=== PATIENT | male | born 1950 | race Caucasian/White ===

== ENCOUNTER 2017-08-16 11:22 | Inpatient (IN) | payer OTHER ==
[~2017-08-16] VITALS: Ht 175.3 cm; Wt 104.0 kg
[~2017-08-16 11:22] MED LIST: ASPI325T45 PO; LSN20 PO; WLLSR100 PO
[2017-08-16] MEDS ORDERED: ATOR10TA82 PO (11:42)
[2017-08-16] MEDS ORDERED: LDN500 PO (11:42)
[2017-08-16] MEDS ORDERED: ASPI81TA28 PO (11:42)
[2017-08-16] MEDS ORDERED: OMEP20TA PO (11:43)
[2017-08-16] MEDS ORDERED: LABETALOL HCL IV 5 MG/ML 20ML IV STA (11:53)
[2017-08-16] MEDS ORDERED: SODIUM CHLORIDE 0.9% 1000ML 1,000 ML IV SCH (11:53)
--- NOTE | 2017-08-16 11:59 | EMERGENCY ROOM VISIT NOTE ---
History Report prepared by Jeronimo: Marcel Burr Under the Supervision of: Dr. Feuntes Parker M.D. First contact with patient: 11:53 Chief Complaint: HYPERTENSION Stated Complaint: HYPERTENSION History of Present Illness The patient is a 66 year old male who presents to the Emergency Room with complaints of constant left sided weakness beginning a few hours ago. The patient states he has not been taking his medication because he ran out. He reports he has also not been eating as much and working double shifts the past three weeks. The patient notes he vomited while being evaluated at the [facility] earlier this morning. Source of History: patient Onset: few hours ago Position: other (left side of the body) Quality: other (weakness) Timing: constant Associated Symptoms: + vomiting Note: Associated symptoms: decreased appetite Review of Systems See HPI for pertinent positives & negatives. A total of 10 systems reviewed and were otherwise negative. Past Medical & Surgical Medical Problems: (1) Hypertension (2) Left-sided weakness (3) Precordial chest pain Family History Cancer Diabetes mellitus FHx: suicide Gallbladder disease Heart disease Hypertension Kidney disease Kidney stones Lung disease Social History Smoking Status: Never Smoker Marital Status: single Housing Status: other Occupation Status: unemployed Current/Historical Medications Scheduled Aspirin (Aspirin Ec), 81 MG PO DAILY Atorvastatin (Lipitor), 5 MG PO DAILY Bupropion HCl (Bupropion HCl Sr), 100 MG PO DAILY Etodolac (Etodolac), 1,000 MG PO BID Lisinopril (Lisinopril), 20 MG PO DAILY Omeprazole (Omeprazole), 40 MG PO DAILY Allergies Coded Allergies: No Known Allergies (Unverified , 08/16/17) Physical Exam Vital Signs Date Time Temp Pulse Resp B/P (MAP) Pulse Ox O2 Delivery O2 Flow Rate FiO2 08/16/17 13:09 72 20 173/108 99 Room Air 08/16/17 12:32 100 Ambu-Bag 08/16/17 12:32 70 14 163/103 98 Room Air 08/16/17 12:31 67 08/16/17 11:35 36.8 109 20 194/109 100 Room Air Physical Exam GENERAL: Patient is a healthy-appearing well-nourished 66 year old male. HEAD: Normocephalic atraumatic EYES: Ocular movements intact pupils equal and react to light OROPHARYNX mucous membranes are moist no exudates present no erythema or edema present NECK: Supple no nuchal rigidity CHEST: Good equal expansion LUNGS: Clear and equal to auscultation CARDIAC: Normal S1 and S2 ABDOMEN: Soft nontender no guarding BACK: No CVA tenderness EXTREMITIES: No pain upon palpation normal muscle strength in all groups no clubbing cyanosis or edema NEURO: Patient is following commands and answering questions appropriately. Alert and oriented x3 Cranial Nerves 2-12 grossly intact. 1/5 strength to the left arm and leg. Medical Decision & Procedures ER Provider Diagnostic Interpretation: Radiology results as stated below per my review and radiologist interpretation: HEAD WITHOUT CONTRAST (CT) CLINICAL HISTORY: 66 years-old Male with Stroke. Stroke alert. Acute strokelike symptoms TECHNIQUE: Multiple axial CT images of the head were obtained without contrast. A dose lowering technique was utilized adhering to the principles of ALARA. CT DOSE: 776.86 mGycm COMPARISON: CT head 06/21/2016. FINDINGS: No acute intracranial hemorrhage, midline shift, intracranial mass, hydrocephalus, territorial ischemia or abnormal extra-axial collection. Mild cerebral and cerebellar atrophy. Senescent calcifications of the lentiform nuclei. Vascular calcifications are seen at the level of the skull base. Probable mild chronic microvascular ischemic changes. The calvarium is intact. The mastoid air cells, and middle ear cavities are clear. Minimal mucosal thickening of the maxillary sinuses with mild ethmoid sinus disease. IMPRESSION: No acute intracranial abnormality. The above report was generated using voice recognition software. It may contain grammatical, syntax or spelling errors. Electronically signed by: Kareem Paz M.D. 08/16/2017 12:17 PM Dictated Date/Time: 08/16/2017 12:13 PM CHEST ONE VIEW PORTABLE CLINICAL HISTORY: Stroke L status change COMPARISON STUDY: 07/23/2016 FINDINGS: The bones soft tissues and hemidiaphragms are normal. The cardiomediastinal silhouette is normal. The lungs are clear. The pulmonary vasculature is normal. IMPRESSION: Negative chest. The above report was generated using voice recognition software. It may contain grammatical, syntax or spelling errors. Electronically signed by: Robby Sabillon M.D. 08/16/2017 12:31 PM Dictated Date/Time: 08/16/2017 12:30 PM MRA NECK COMBO CLINICAL HISTORY: 66 years-old Male with Pt c/o left sided weakness. Acute left-sided weakness with strokelike symptoms. Lightheadedness with dizziness and vomiting COMPARISON STUDY: Brain MRI of same day, MRA head and CTA had of same day. TECHNIQUE: Axial 3-D [id number] MR angiography of the neck is performed. Subsequently, following the IV administration of 10 cc of Magnevist coronal MR angiogram of the neck was performed to corroborate the findings. 3-D reformats are created and assessed. All measurements were calculated based on NASCET criteria. FINDINGS: The large oxeah-km-lwal testing and regulating chief localizer images demonstrate no gross abnormality. The bilateral common and imaged internal carotid arteries are patent. The exam is mildly motion degraded. The vertebral arteries appear codominant and are patent. There is mild luminal narrowing involving the proximal portions of the internal carotid arteries bilaterally, likely secondary to atherosclerotic plaquing without high-grade narrowing. IMPRESSION: 1. No high-grade stenosis, aneurysm or proximal branch occlusion. 2. Mild luminal narrowing involving the proximal portions of the internal carotid arteries bilaterally is likely secondary to associated atherosclerotic plaquing. The above report was generated using voice recognition software. It may contain grammatical, syntax or spelling errors. Electronically signed by: Kareem Paz M.D. 08/16/2017 2:55 PM Dictated Date/Time: 08/16/2017 2:50 PM MRA HEAD WITHOUT CONTRAST HISTORY: Mental status change Pt c/o left sided weakness TECHNIQUE: 3-D [id number]-rw-pbrhbk MRA of the brain was performed without contrast. COMPARISON STUDY: CT angiogram same date FINDINGS: Visualized intracranial internal carotid arteries, distal vertebral arteries, and basilar artery are widely patent. There is no significant stenosis, occlusion, or aneurysm seen within the bilateral ACAs, MCAs, or residential real estate assistant. Mild narrowing of the cavernous component of the internal carotid arteries as well as components of the vertebral basilar system. IMPRESSION: No significant stenosis, occlusion, or aneurysm within the [place]. Mild scattered atherosclerotic change The above report was generated using voice recognition software. It may contain grammatical, syntax or spelling errors. Electronically signed by: Robby Sabillon M.D. 08/16/2017 2:19 PM Dictated Date/Time: 08/16/2017 2:18 PM HEAD ANGIO WITH CONTRAST CLINICAL HISTORY: Mental status change TECHNIQUE: Transaxial acquisition with multi axial reformatted images COMPARISON STUDY: None FINDINGS: Moderate atherosclerotic narrowing of the internal carotid arteries at the cavernous sinus regions. This is estimated at 50%. Intracranial vasculature appears to be in general unremarkable. No significant stenotic or aneurysmal process is seen. Mild scattered atherosclerotic/plaque formation of the vertebral basilar system with no significant stenotic process. IMPRESSION: 1. Moderate atherosclerotic change of the intracranial vasculature at the level of the cavernous sinus and mid vertebral basilar system. 2. Moderate atherosclerotic change vertebral basilar system. 3. No evidence for significant stenotic or aneurysmal process. The above report was generated using voice recognition software. It may contain grammatical, syntax or spelling errors. Electronically signed by: Robby Sabillon M.D. 08/16/2017 1:38 PM Dictated Date/Time: 08/16/2017 1:33 PM MRI OF THE BRAIN WITHOUT AND WITH IV CONTRAST CLINICAL HISTORY: Left sided weakness. Headache. Recent fall. COMPARISON STUDY: Head CT and CTA of the head performed earlier today. TECHNIQUE: Utilizing a 1.5 Alexandra magnet and dedicated coil, multiplanar, multiecho imaging of the brain was performed pre and postcontrast administration. IV administration of 10 mL of Gadavist contrast was uneventful. FINDINGS: No areas of restricted diffusion are present. No acute intracranial hemorrhage, midline shift or mass effect is present. Mild atrophy is noted. Basilar cisterns are patent. There are no extra-axial collections. Flow-voids for the major intracranial vessels are present. There is no intracranial mass or pathologic enhancement. Numerous small white matter T2 hyperintense foci suggest small vessel disease. Calvarial signal is maintained. Orbits are unremarkable. Mild mucosal thickening of the ethmoid sinuses is noted. IMPRESSION: 1. No acute intracranial findings. 2. No intracranial masses or pathologic enhancement. 3. Mild atrophy and scattered white matter T2 hypertense foci suggestive of small vessel disease. Electronically signed by: Phani Bradshaw M.D. 08/16/2017 2:54 PM Dictated Date/Time: 08/16/2017 2:50 PM Laboratory Results 08/16/17 12:00 Red Blood Count 4.87, Mean Corpuscular Volume 92.4, Mean Corpuscular Hemoglobin 31.4, Mean Corpuscular Hemoglobin Concent 34.0, Mean Platelet Volume 9.1, Neutrophils (%) (Auto) 64.1, Lymphocytes (%) (Auto) 20.9, Monocytes (%) (Auto) 12.2, Eosinophils (%) (Auto) 2.2, Basophils (%) (Auto) 0.4, Neutrophils # (Auto ) 2.88, Lymphocytes # (Auto) 0.94, Monocytes # (Auto) 0.55, Eosinophils # (Auto ) 0.10, Basophils # (Auto) 0.02 08/16/17 12:00 Test 08/16/17 12:00 08/16/17 12:19 White Blood Count 4.50 K/uL (4.8-10.8) Red Blood Count 4.87 M/uL (4.7-6.1) Hemoglobin 15.3 g/dL (14.0-18.0) Hematocrit 45.0 % (42-52) Mean Corpuscular Volume 92.4 fL (80-100) Mean Corpuscular Hemoglobin 31.4 pg (25-34) Mean Corpuscular Hemoglobin Concent 34.0 g/dl (32-36) Platelet Count 190 K/uL (130-400) Mean Platelet Volume 9.1 fL (7.4-10.4) Neutrophils (%) (Auto) 64.1 % Lymphocytes (%) (Auto) 20.9 % Monocytes (%) (Auto) 12.2 % Eosinophils (%) (Auto) 2.2 % Basophils (%) (Auto) 0.4 % Neutrophils # (Auto) 2.88 K/uL (1.4-6.5) Lymphocytes # (Auto) 0.94 K/uL (1.2-3.4) Monocytes # (Auto) 0.55 K/uL (0.11-0.59) Eosinophils # (Auto) 0.10 K/uL (0-0.5) Basophils # (Auto) 0.02 K/uL (0-0.2) RDW Standard Deviation 45.7 fL (36.4-46.3) RDW Coefficient of Variation 13.5 % (11.5-14.5) Immature Granulocyte % (Auto) 0.2 % Immature Granulocyte # (Auto) 0.01 K/uL (0.00-0.02) Prothrombin Time 9.8 SECONDS (9.0-12.0) Prothromb Time International Ratio 0.9 (0.9-1.1) Activated Partial Thromboplast Time 26.0 SECONDS (21.0-31.0) Partial Thromboplastin Ratio 1.0 Anion Gap 5.0 mmol/L (3-11) Est Creatinine Clear Calc Drug Dose 94.7 ml/min Estimated GFR () 100.8 Estimated GFR (Non- 87.0 BUN/Creatinine Ratio 23.9 (10-20) Calcium Level 8.5 mg/dl (8.5-10.1) Magnesium Level 2.3 mg/dl (1.8-2.4) Total Creatine Kinase 178 U/L (39-308) Creatine Kinase MB 5.8 ng/ml (0.5-3.6) Creatine Kinase MB Ratio 3.3 (0-3.0) Troponin I < 0.015 ng/ml (0-0.045) Bedside Prothrombin Time INR 0.9 (0.9-1.1) Labs reviewed by ED physician. Medications Administered Medications (Trade) Dose Ordered Sig/Sarah Route Start Time Stop Time Status Last Admin Dose Admin Labetalol HCl (Normodyne IV) 10 mg NOW STAT IV 08/16/17 11:53 08/16/17 11:55 DC 08/16/17 12:30 10 MG Sodium Chloride 1,000 ml @ 50 mls/hr Q20H IV 08/16/17 11:53 08/16/17 15:14 DC 08/16/17 12:27 50 MLS/HR Ondansetron HCl (Zofran Inj) 4 mg NOW STAT IV 08/16/17 12:10 08/16/17 12:11 DC 08/16/17 12:31 4 MG ECG Indication: weakness Rate (beats per minute): 83 Rhythm: normal sinus Findings: no acute ischemic change, no ectopy ED Course 1157: Past medical records reviewed. The patient was evaluated in room C10. A complete history and physical examination was performed. 1153: Ordered Sodium Chloride 1000 ml @ 50 mls/hr IV, Labetalol HCl 10mg IV 1210: Ordered Ondansetron HCl 4mg IV 1219: I reevaluated the patient and discussed current exam findings with him. I had a length discussion explaining the risks and benefits of tPA administration. After I strongly recommended the administration since he is still experiencing the weakness, the patient still refused. 1241: I updated the patient of his new exam findings. 1252: I [facility] the patient's [facility] The patient will be evaluated for further management and care. Medical Decision Differential diagnosis: Etiologies such as metabolic, infection, hypo/hyperglycemia, electrolyte abnormalities, cardiac sources, intracerebral event, toxicologic, neurologic, as well as others were entertained. This is a 66-year-old male who presents emergency department complaining of inability to move the left side of his body. The patient was recently told he has a abnormality on MRI and was told to have a diagnostic MRI performed. I strongly recommended to the patient that he receive IV TPA however he is adamantly refusing. I gave him the risks and benefits of this medication. In the meanwhile the patient was given IV labetalol to lower his blood pressure. Repeat examination revealed improvement patient's symptoms. A stroke alert was initiated because of the patient's symptoms. I did discuss the case with the hospitalist service who agreed to admit the patient. Medication Reconcilliation Current Medication List: was personally reviewed by me Blood Pressure Screening Patient's blood pressure: Elevated blood pressure Monitored by hospitalist. Consults Time Called: 1242 Consulting Physician: Leticia Sam PA-C, [facility] Returned Call: [phone] I discussed the patient's case with Leticia Sam PA-C, [facility]. The patient will be evaluated for further management and care. Impression Primary Impression: Left-sided weakness Scribe Attestation The scribe's documentation has been prepared under my direction and personally reviewed by me in its entirety. I confirm that the note above accurately reflects all work, treatment, procedures, and medical decision making performed by me. Departure Information Dispostion Being Evaluated By Hospitalist Referrals Tracie Tyler D.O. (PCP) Patient Instructions My [facility] Stroke History Time Last Known Well 0900 Stroke t-PA Criteria Reviewed Meets criteria for t-PA Reason t-PA Not Given Refusal of tx by patient
[2017-08-16] MEDS ORDERED: ONDANSETRON INJ 2 MG/ML 2 ML VIAL IV STA (12:10)
[2017-08-16 12:15] LABS: BASO % 0.4 %; BASO ABS # 0.02 K/uL (0-0.2); EOS % 2.2 %; HEMOGLOBIN 15.3 g/dL (14.0-18.0); IG# 0.01 K/uL (0.00-0.02); LYMPH % 20.9 %; LYMPH ABS # 0.94 K/uL (1.2-3.4); MEAN CELL VOLUME 92.4 fL (80-100); MEAN CORPUSCULAR HEMOGLOBIN 31.4 pg (25-34); MEAN PLATELET VOLUME 9.1 fL (7.4-10.4); MONO % 12.2 %; MONO ABS # 0.55 K/uL (0.11-0.59); NEUT % 64.1 %; NEUT ABS # 2.88 K/uL (1.4-6.5); PLATELET COUNT 190 K/uL (130-400); RED CELL DISTRIBUTION WIDTH CV 13.5 % (11.5-14.5); RED CELL DISTRIBUTION WIDTH SD 45.7 fL (36.4-46.3)
--- NOTE | 2017-08-16 12:18 | DIAGNOSTIC IMAGING REPORT ---
HEAD WITHOUT CONTRAST (CT) CLINICAL HISTORY: 66 years-old Male with Stroke. Stroke alert. Acute strokelike symptoms TECHNIQUE: Multiple axial CT images of the head were obtained without contrast. A dose lowering technique was utilized adhering to the principles of ALARA. CT DOSE: 776.86 mGycm COMPARISON: CT head 06/21/2016. FINDINGS: No acute intracranial hemorrhage, midline shift, intracranial mass, hydrocephalus, territorial ischemia or abnormal extra-axial collection. Mild cerebral and cerebellar atrophy. Senescent calcifications of the lentiform nuclei. Vascular calcifications are seen at the level of the skull base. Probable mild chronic microvascular ischemic changes. The calvarium is intact. The mastoid air cells, and middle ear cavities are clear. Minimal mucosal thickening of the maxillary sinuses with mild ethmoid sinus disease. IMPRESSION: No acute intracranial abnormality. The above report was generated using voice recognition software. It may contain grammatical, syntax or spelling errors. Electronically signed by: Kareem Paz M.D. 08/16/2017 12:17 PM Dictated Date/Time: 08/16/2017 12:13 PM
[2017-08-16] MEDS ORDERED: NiCARDipine IV 25 MG in SODIUM CHLORIDE 0.9% 250ML 240 ML IV STA (12:22)
[2017-08-16 12:26] LABS: INR 0.9 (0.9-1.1)
--- NOTE | 2017-08-16 12:32 | DIAGNOSTIC IMAGING REPORT ---
CHEST ONE VIEW PORTABLE CLINICAL HISTORY: Stroke L status change COMPARISON STUDY: 07/23/2016 FINDINGS: The bones soft tissues and hemidiaphragms are normal. The cardiomediastinal silhouette is normal. The lungs are clear. The pulmonary vasculature is normal. IMPRESSION: Negative chest. The above report was generated using voice recognition software. It may contain grammatical, syntax or spelling errors. Electronically signed by: Robby Sabillon M.D. 08/16/2017 12:31 PM Dictated Date/Time: 08/16/2017 12:30 PM
[2017-08-16 12:37] LABS: BLOOD UREA NITROGEN 22 mg/dl (7-18); CALCIUM 8.5 mg/dl (8.5-10.1); CARBON DIOXIDE 24 mmol/L (21-32); CREATININE 0.92 mg/dl (0.60-1.40); GLUCOSE 99 mg/dl (70-99); POTASSIUM 4.1 mmol/L (3.5-5.1); SODIUM 135 mmol/L (136-145)
[2017-08-16 12:42] LABS: CKMB 5.8 ng/ml (0.5-3.6)
[2017-08-16] MEDS ORDERED: OPTIRAY 320 IV PRN (13:15)
[2017-08-16] MEDS ORDERED: ACETAMINOPHEN 325 MG TAB PO PRN (13:30)
[2017-08-16] MEDS ORDERED: ONDANSETRON INJ 2 MG/ML 2 ML VIAL IV PRN (13:30)
[2017-08-16] MEDS ORDERED: AMLODIPINE BESYLATE 5 MG TAB PO ONE (13:30)
--- NOTE | 2017-08-16 13:39 | DIAGNOSTIC IMAGING REPORT ---
HEAD ANGIO WITH CONTRAST CLINICAL HISTORY: Mental status change TECHNIQUE: Transaxial acquisition with multi axial reformatted images COMPARISON STUDY: None FINDINGS: Moderate atherosclerotic narrowing of the internal carotid arteries at the cavernous sinus regions. This is estimated at 50%. Intracranial vasculature appears to be in general unremarkable. No significant stenotic or aneurysmal process is seen. Mild scattered atherosclerotic/plaque formation of the vertebral basilar system with no significant stenotic process. IMPRESSION: 1. Moderate atherosclerotic change of the intracranial vasculature at the level of the cavernous sinus and mid vertebral basilar system. 2. Moderate atherosclerotic change vertebral basilar system. 3. No evidence for significant stenotic or aneurysmal process. The above report was generated using voice recognition software. It may contain grammatical, syntax or spelling errors. Electronically signed by: Robby Sabillon M.D. 08/16/2017 1:38 PM Dictated Date/Time: 08/16/2017 1:33 PM
--- NOTE | 2017-08-16 14:14 | History and Physical ---
History & Physical Date & Time of Service: Aug 16, 2017 at 13:39 Chief Complaint: Hypertension Primary Care Physician: Tracie Tyler D.O. History of Present Illness Source: patient, clinic records, hospital records This is a 66 year old male with a PMH of HTN, HLD, homelessness status - lives with his daughters intermittent around this area; states that for the past two weeks he has been out of his medications, including his blood pressure pills. [facility], and states that at the clinic his left side became weak. He could not move or feel his left arm/leg and there was a possible facial droop as per patient. He presented to the ED and had a Head CT performed and this was negative. When I went to see him, his L sided weakness was improving. There is no facial droop or speech slurring. He has difficulty with L shoulder shrugging due to previous L shoulder arthritis/injuries. States he still has numbness/tingling on LLE. He has tangential thoughts and flight of ideas - but can be redirected with questions. Denies shortness of breath or chest pain. Past Medical/Surgical History Medical Problems: (1) Hypertension Status: Chronic Family History Cancer Diabetes mellitus FHx: suicide Gallbladder disease Heart disease Hypertension Kidney disease Kidney stones Lung disease Social History Smoking Status: Never Smoker Marital Status: single Occupational Status: unemployed Multi-Drug Resistant Organisms History of MDRO: No Allergies Coded Allergies: No Known Allergies (Unverified , 08/16/17) Home Medications Scheduled Aspirin (Aspirin Ec), 81 MG PO DAILY Atorvastatin (Lipitor), 5 MG PO DAILY Bupropion HCl (Bupropion HCl Sr), 100 MG PO DAILY Etodolac (Etodolac), 1,000 MG PO BID Lisinopril (Lisinopril), 20 MG PO DAILY Omeprazole (Omeprazole), 40 MG PO DAILY Review of Systems Difficult to obtain due to patient's tangential thoughts Constitutional: + weakness Respiratory: No shortness of breath, No dyspnea on exertion, No dyspnea at rest Cardiovascular: No chest pain, No edema, No palpitations Abdomen: No pain Musculoskeletal: + joint pain (L shoulder, multiple joints), + muscle pain Neurologic: + weakness, + numbness/tingling, + balance problems, No memory loss , No paralysis, No vertigo Hematologic / Lymphatic: No abnormal bleeding/bruising Physical Exam Vital Signs Date Time Temp Pulse Resp B/P (MAP) Pulse Ox O2 Delivery O2 Flow Rate FiO2 08/16/17 12:32 100 Ambu-Bag 08/16/17 12:32 70 14 163/103 98 Room Air 08/16/17 12:31 67 08/16/17 11:35 36.8 109 20 194/109 100 Room Air General Appearance: no apparent distress, + pertinent finding (slightly disoriented, with tangential thoughts) Head: normocephalic, atraumatic Respiratory/Chest: chest non-tender, lungs clear, normal breath sounds, no respiratory distress, no accessory muscle use Cardiovascular: regular rate, rhythm, no edema, no murmur Abdomen/GI: normal bowel sounds, non tender, soft Extremities/Musculoskelatal: normal capillary refill, no pedal edema Neurologic/Psych: alert, + motor weakness (LLE, 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), + disoriented (oriented x3, but difficulty with recall) Skin: normal color Diagnostics Laboratory Results Results Past 24 Hours Test 08/16/17 12:00 08/16/17 12:19 Range/Units White Blood Count 4.50 4.8-10.8 K/uL Red Blood Count 4.87 4.7-6.1 M/uL Hemoglobin 15.3 14.0-18.0 g/dL Hematocrit 45.0 42-52 % Mean Corpuscular Volume 92.4 80-100 fL Mean Corpuscular Hemoglobin 31.4 25-34 pg Mean Corpuscular Hemoglobin Concent 34.0 32-36 g/dl Platelet Count 190 130-400 K/uL Mean Platelet Volume 9.1 7.4-10.4 fL Neutrophils (%) (Auto) 64.1 % Lymphocytes (%) (Auto) 20.9 % Monocytes (%) (Auto) 12.2 % Eosinophils (%) (Auto) 2.2 % Basophils (%) (Auto) 0.4 % Neutrophils # (Auto) 2.88 1.4-6.5 K/uL Lymphocytes # (Auto) 0.94 1.2-3.4 K/uL Monocytes # (Auto) 0.55 0.11-0.59 K/uL Eosinophils # (Auto) 0.10 0-0.5 K/uL Basophils # (Auto) 0.02 0-0.2 K/uL RDW Standard Deviation 45.7 36.4-46.3 fL RDW Coefficient of Variation 13.5 11.5-14.5 % Immature Granulocyte % (Auto) 0.2 % Immature Granulocyte # (Auto) 0.01 0.00-0.02 K/uL Prothrombin Time 9.8 9.0-12.0 SECONDS Prothromb Time International Ratio 0.9 0.9-1.1 Activated Partial Thromboplast Time 26.0 21.0-31.0 SECONDS Partial Thromboplastin Ratio 1.0 Sodium Level 135 136-145 mmol/L Potassium Level 4.1 3.5-5.1 mmol/L Chloride Level 106 98-107 mmol/L Carbon Dioxide Level 24 21-32 mmol/L Anion Gap 5.0 3-11 mmol/L Blood Urea Nitrogen 22 7-18 mg/dl Creatinine 0.92 0.60-1.40 mg/dl Est Creatinine Clear Calc Drug Dose 94.7 ml/min Estimated GFR () 100.8 Estimated GFR (Non- 87.0 BUN/Creatinine Ratio 23.9 10-20 Random Glucose 99 70-99 mg/dl Calcium Level 8.5 8.5-10.1 mg/dl Magnesium Level 2.3 1.8-2.4 mg/dl Total Creatine Kinase 178 39-308 U/L Creatine Kinase MB 5.8 0.5-3.6 ng/ml Creatine Kinase MB Ratio 3.3 0-3.0 Troponin I < 0.015 0-0.045 ng/ml Bedside Prothrombin Time INR 0.9 0.9-1.1 Diagnostic Radiology HEAD WITHOUT CONTRAST (CT) CLINICAL HISTORY: 66 years-old Male with Stroke. Stroke alert. Acute strokelike symptoms TECHNIQUE: Multiple axial CT images of the head were obtained without contrast. A dose lowering technique was utilized adhering to the principles of ALARA. CT DOSE: 776.86 mGycm COMPARISON: CT head 06/21/2016. FINDINGS: No acute intracranial hemorrhage, midline shift, intracranial mass, hydrocephalus, territorial ischemia or abnormal extra-axial collection. Mild cerebral and cerebellar atrophy. Senescent calcifications of the lentiform nuclei. Vascular calcifications are seen at the level of the skull base. Probable mild chronic microvascular ischemic changes. The calvarium is intact. The mastoid air cells, and middle ear cavities are clear. Minimal mucosal thickening of the maxillary sinuses with mild ethmoid sinus disease. IMPRESSION: No acute intracranial abnormality. CHEST ONE VIEW PORTABLE CLINICAL HISTORY: Stroke L status change COMPARISON STUDY: 07/23/2016 FINDINGS: The bones soft tissues and hemidiaphragms are normal. The cardiomediastinal silhouette is normal. The lungs are clear. The pulmonary vasculature is normal. IMPRESSION: Negative chest. HEAD ANGIO WITH CONTRAST CLINICAL HISTORY: Mental status change TECHNIQUE: Transaxial acquisition with multi axial reformatted images COMPARISON STUDY: None FINDINGS: Moderate atherosclerotic narrowing of the internal carotid arteries at the cavernous sinus regions. This is estimated at 50%. Intracranial vasculature appears to be in general unremarkable. No significant stenotic or aneurysmal process is seen. Mild scattered atherosclerotic/plaque formation of the vertebral basilar system with no significant stenotic process. IMPRESSION: 1. Moderate atherosclerotic change of the intracranial vasculature at the level of the cavernous sinus and mid vertebral basilar system. 2. Moderate atherosclerotic change vertebral basilar system. 3. No evidence for significant stenotic or aneurysmal process. EKG Normal sinus rhythm Normal ECG Impression Assessment and Plan This is a 66 year old male with a PMH of HTN, HLD presents with L sided motor weakness Hypertensive Urgency BP >200/100 on admission give Labetalol as per patient, he has been out of his medications x2 weeks, including his BP meds will give a dose of amlodipine restart his home dose of Lisinopril monitor BP and adjust medications accordingly L sided weakness possible TIA? Head CT negative CTA shows some atherosclerosis of some intracranial vasculature will check MRI/MRA of head/neck consult neurology for now continue aspirin, statin may need to increase Lipitor dose - check fasting lipids in AM due to non-compliance unsure of Plavix addition would help continue blood pressure medications check TSH and vitamin B12 in AM PT/OT/speech/discharge planning DVT ppx Lovenox FULL CODE VTE Prophylaxis VTE Risk Assessment Done? Y/N: Yes Risk Level: Moderate
--- NOTE | 2017-08-16 14:21 | DIAGNOSTIC IMAGING REPORT ---
MRA HEAD WITHOUT CONTRAST HISTORY: Mental status change Pt c/o left sided weakness TECHNIQUE: 3-D [id number] MRA of the brain was performed without contrast. COMPARISON STUDY: CT angiogram same date FINDINGS: Visualized intracranial internal carotid arteries, distal vertebral arteries, and basilar artery are widely patent. There is no significant stenosis, occlusion, or aneurysm seen within the bilateral ACAs, MCAs, or bull gang supervisor. Mild narrowing of the cavernous component of the internal carotid arteries as well as components of the vertebral basilar system. IMPRESSION: No significant stenosis, occlusion, or aneurysm within the [place] of [place]. Mild scattered atherosclerotic change The above report was generated using voice recognition software. It may contain grammatical, syntax or spelling errors. Electronically signed by: Robby Sabillon M.D. 08/16/2017 2:19 PM Dictated Date/Time: 08/16/2017 2:18 PM
[2017-08-16] MEDS ORDERED: GADAVIST IV PRN (14:45)
--- NOTE | 2017-08-16 14:55 | DIAGNOSTIC IMAGING REPORT ---
MRI OF THE BRAIN WITHOUT AND WITH IV CONTRAST CLINICAL HISTORY: Left sided weakness. Headache. Recent fall. COMPARISON STUDY: Head CT and CTA of the head performed earlier today. TECHNIQUE: Utilizing a 1.5 Alexandra magnet and dedicated coil, multiplanar, multiecho imaging of the brain was performed pre and postcontrast administration. IV administration of 10 mL of Gadavist contrast was uneventful. FINDINGS: No areas of restricted diffusion are present. No acute intracranial hemorrhage, midline shift or mass effect is present. Mild atrophy is noted. Basilar cisterns are patent. There are no extra-axial collections. Flow-voids for the major intracranial vessels are present. There is no intracranial mass or pathologic enhancement. Numerous small white matter T2 hyperintense foci suggest small vessel disease. Calvarial signal is maintained. Orbits are unremarkable. Mild mucosal thickening of the ethmoid sinuses is noted. IMPRESSION: 1. No acute intracranial findings. 2. No intracranial masses or pathologic enhancement. 3. Mild atrophy and scattered white matter T2 hypertense foci suggestive of small vessel disease. Electronically signed by: Phani Bradshaw M.D. 08/16/2017 2:54 PM Dictated Date/Time: 08/16/2017 2:50 PM
--- NOTE | 2017-08-16 14:56 | DIAGNOSTIC IMAGING REPORT ---
MRA NECK COMBO CLINICAL HISTORY: 66 years-old Male with Pt c/o left sided weakness. Acute left-sided weakness with strokelike symptoms. Lightheadedness with dizziness and vomiting COMPARISON STUDY: Brain MRI of same day, MRA head and CTA had of same day. TECHNIQUE: Axial 3-D [id number] MR angiography of the neck is performed. Subsequently, following the IV administration of 10 cc of Magnevist coronal MR angiogram of the neck was performed to corroborate the findings. 3-D reformats are created and assessed. All measurements were calculated based on NASCET criteria. FINDINGS: The large [id number] assistant professor of art localizer images demonstrate no gross abnormality. The bilateral common and imaged internal carotid arteries are patent. The exam is mildly motion degraded. The vertebral arteries appear codominant and are patent. There is mild luminal narrowing involving the proximal portions of the internal carotid arteries bilaterally, likely secondary to atherosclerotic plaquing without high-grade narrowing. IMPRESSION: 1. No high-grade stenosis, aneurysm or proximal branch occlusion. 2. Mild luminal narrowing involving the proximal portions of the internal carotid arteries bilaterally is likely secondary to associated atherosclerotic plaquing. The above report was generated using voice recognition software. It may contain grammatical, syntax or spelling errors. Electronically signed by: Kareem Paz M.D. 08/16/2017 2:55 PM Dictated Date/Time: 08/16/2017 2:50 PM
[2017-08-16 15:04] VITALS: BP 174/111; PULSE 77; TEMP 36.6; O2SAT 99; Ht 175.3 cm; Wt 104.0 kg
[2017-08-16] MEDS ORDERED: ENOXAPARIN 40 MG/0.4 ML SYR SC SCH (16:00)
[2017-08-16 16:50] VITALS: BP 165/86
[2017-08-16] MEDS: CLOPIDOGREL BISULFATE 75 MG TAB PO SCH (17:14)
[2017-08-16] MEDS: SODIUM CHLORIDE 0.9% 1000ML 1,000 ML IV SCH (17:23)
[2017-08-16 19:00] VITALS: BP 158/84; PULSE 86; TEMP 36.7; O2SAT 96
[2017-08-16] MEDS ORDERED: ETODOLAC PO SCH (21:00)
[2017-08-16 23:42] VITALS: BP 131/78; PULSE 78; TEMP 36.5; O2SAT 97
[2017-08-17] MEDS: SODIUM CHLORIDE 0.9% 1000ML 1,000 ML IV SCH (03:43)
[2017-08-17 04:30] VITALS: BP 122/81; PULSE 88; TEMP 36.7; O2SAT 96
[2017-08-17 06:55] LABS: HEMATOCRIT 40.7 % (42-52); HEMOGLOBIN 13.7 g/dL (14.0-18.0); MEAN CELL VOLUME 92.7 fL (80-100); MEAN CORPUSCULAR HEMOGLOBIN 31.2 pg (25-34); MEAN CORPUSCULAR HGB CONC 33.7 g/dl (32-36); MEAN PLATELET VOLUME 9.4 fL (7.4-10.4); NUCLEATED RED BLOOD CELL ABS 0.03 K/uL (0-0); PLATELET COUNT 191 K/uL (130-400); RED CELL DISTRIBUTION WIDTH CV 13.5 % (11.5-14.5); RED CELL DISTRIBUTION WIDTH SD 45.9 fL (36.4-46.3); WHITE BLOOD COUNT 3.83 K/uL (4.8-10.8)
[2017-08-17 07:13] LABS: CALCIUM 8.4 mg/dl (8.5-10.1); CREATININE 0.99 mg/dl (0.60-1.40)
[2017-08-17] MEDS: CLOPIDOGREL BISULFATE 75 MG TAB PO SCH (07:55)
[2017-08-17 08:12] VITALS: BP_SYST 165; BP_SYST 171; BP_SYST 182; BP_DIAS 107; BP_DIAS 81; BP_DIAS 85; PULSE 85; TEMP 36.8; O2SAT 95
[2017-08-17] MEDS ORDERED: LISINOPRIL 20 MG TAB PO SCH (09:00)
[2017-08-17] MEDS ORDERED: ATORVASTATIN 10 MG TAB PO SCH (09:00)
[2017-08-17] MEDS ORDERED: BuPROPion SR 100 MG TABCR PO SCH (09:00)
[2017-08-17] MEDS ORDERED: ASPIRIN 81 MG ECTAB PO SCH (09:00)
[2017-08-17] MEDS ORDERED: PANTOprazole SOD 40 MG TAB PO SCH (09:00)
--- NOTE | 2017-08-17 09:57 | ECHOCARDIOGRAM REPORT ---
*NOTICE TO RECEIVING DEMOCRAT AGENCY This information is strictly Confidential and protected under [place] law. [place] law prohibits you from making any further disclosure of this information unless further disclosure is expressly permitted by the written consent of the person to whom it pertains or is authorized by law. A general authorization for the release of medical or other information is not sufficient for this purpose. Hospital accepts no responsibility if the information is made available to any other person, INCLUDING THE PATIENT. Interpretation Summary * Name: ALIREZA LEWIS Study Date: 08/16/2017 03:42 PM BP: 174/111 mmHg * Patient Location: [facility] HR: 97 * : 1950 (M/d/yyyy) Gender: Male Height: 69 in * Age: 66 yrs Ethnicity: CA Weight: 227 lb * Ordering Physician: Kayley Gastelum * Referring Physician: UNKNOWN * Performed By: Alesia Dalton RCS * * Reason For Study: TIA ? * BSA: 2.2 m2 * -- Conclusions -- * No significant change compared to previous study of 07/19/16. * Normal LV chamber size with moderate concentric LVH. * Normal LV systolic function, EF 60-65%. * No segmental left ventricular wall motion abnormalities are noted. * Grade I diastolic dysfunction. * Focal sclerotic changes of all three aortic leaflets without stenosis or regurgitation. Previous study of 07/19/16 reviewed appearance is unchanged. * Intact interatrial septum. Procedure Details * A complete two-dimensional transthoracic echocardiogram was performed (2D, M-mode, Doppler and color flow Doppler). * A saline contrast injection was performed to assess for cardiac shunting. * The injection was performed through an intravenous line in the right arm. * The attending nurse who injected the saline contrast was EULA NAPOLES, RN. * A total of 10 cc of agitated saline was given. Left Ventricle * The left ventricle is normal in size. * There is moderate concentric left ventricular hypertrophy. * Left ventricular systolic function is normal. * No segmental left ventricular wall motion abnormalities are noted. * Ejection Fraction = 60-65%. * The left ventricular wall motion is normal. Right Ventricle * The right ventricular cavity size is normal (basal dimension <4.2 cm in right ventricular apical 4-chamber view). * The right ventricular systolic function is normal as assessed by tricuspid annular plane systolic excursion (TAPSE) (normal >1.5 cm). Atria * The left atrial size is normal. * Right atrial size is normal. * The interatrial septum is intact with no evidence for an atrial septal defect. Mitral Valve * The mitral valve leaflets appear thickened, but open well. * There is no mitral valve stenosis. * There is no mitral regurgitation noted. Tricuspid Valve * The tricuspid valve is normal in structure and function. Aortic Valve * The aortic valve is trileaflet. * Focal sclerotic changes of all three aortic leaflets without stenosis or regurgitation. Previous study of 07/19/16 reviewed appearance is unchanged. * No hemodynamically significant valvular aortic stenosis. * There is no significant aortic regurgitation. Pulmonic Valve * The pulmonary valve is not well seen, but the Doppler examination is normal without significant regurgitation or stenosis. Great Vessels * The aortic root is normal size. Pericardium/Pleural * There is no pericardial effusion. Left Ventricular Diastolic Function * Grade I diastolic dysfunction, (abnormal relaxation pattern). MMode 2D Measurements and Calculations IVSd 1.5 cm IVSs 2.3 cm LVIDd 4.2 cm LVIDs 3.1 cm LVPWd 1.2 cm LVPWs 1.6 cm IVS/LVPW 1.2 FS 26.4 % EDV(Teich) 80.5 ml ESV(Teich) 38.6 ml EF(Teich) 52.1 % EDV(cubed) 76.4 ml ESV(cubed) 30.4 ml EF(cubed) 60.2 % % IVS thick 49.9 % % LVPW thick 30.6 % LV mass(C)d 221.2 grams LV mass(C)dI 101.5 grams/m\S\2 LV mass(C)s 260.7 grams LV mass(C)sI 119.6 grams/m\S\2 SV(Teich) 41.9 ml SI(Teich) 19.2 ml/m\S\2 SV(cubed) 46.0 ml SI(cubed) 21.1 ml/m\S\2 Ao root diam 3.8 cm Ao root area 11.5 cm\S\2 ACS 2.1 cm LA dimension 2.7 cm LA/Ao 0.72 LVOT diam 2.2 cm LVOT area 3.8 cm\S\2 LVAd ap4 33.9 cm\S\2 LVLd ap4 7.6 cm EDV(MOD-sp4) 123.6 ml EDV(sp4-el) 128.7 ml LVAs ap4 22.8 cm\S\2 LVLs ap4 6.3 cm ESV(MOD-sp4) 66.9 ml ESV(sp4-el) 69.7 ml EF(MOD-sp4) 45.8 % EF(sp4-el) 45.8 % LVAd ap2 33.8 cm\S\2 LVLd ap2 8.4 cm EDV(MOD-sp2) 109.9 ml EDV(sp2-el) 116.1 ml LVAs ap2 22.2 cm\S\2 LVLs ap2 6.7 cm ESV(MOD-sp2) 58.6 ml ESV(sp2-el) 62.4 ml EF(MOD-sp2) 46.7 % EF(sp2-el) 46.3 % LVLd %diff 9.3 % EDV(MOD-bp) 123.1 ml LVLs %diff 6.2 % ESV(MOD-bp) 62.7 ml EF(MOD-bp) 49.0 % SV(MOD-sp4) 56.6 ml SI(MOD-sp4) 26.0 ml/m\S\2 SV(MOD-sp2) 51.3 ml SI(MOD-sp2) 23.5 ml/m\S\2 SV(MOD-bp) 60.3 ml SI(MOD-bp) 27.7 ml/m\S\2 SV(sp4-el) 59.0 ml SI(sp4-el) 27.1 ml/m\S\2 SV(sp2-el) 53.7 ml SI(sp2-el) 24.6 ml/m\S\2 Doppler Measurements and Calculations MV E max lashay 56.6 cm/sec MV A max lashay 76.0 cm/sec MV E/A 0.74 MV P1/2t max lashay 66.4 cm/sec MV P1/2t 76.6 msec MVA(P1/2t) 2.9 cm\S\2 MV dec slope 254.1 cm/sec\S\2 MV dec time 0.22 sec Ao V2 max 116.5 cm/sec Ao max PG 5.4 mmHg Ao max PG (full) 2.0 mmHg SANDHYA(V,A) 3.0 cm\S\2 SANDHYA(V,D) 3.0 cm\S\2 LV V1 max PG 3.4 mmHg LV V1 max 92.8 cm/sec
--- NOTE | 2017-08-17 10:33 | Progress Note ---
Internal Med Progress Note Date of Service: Aug 17, 2017. Provider Documentation: SUBJECTIVE: The patient was seen and examined Admitted with Hypertensive urgency and Left sided weakness Symptoms resolved and Blood pressure is improving Wants to go home OBJECTIVE: Vital Signs-as noted below Exam: General-NO distress at rest Eyes-Normal ENT-normal Neck-supple Lungs-Clear to auscultate bilaterally Heart-Regular,no murmur appreciated Abdomen-Benign,no masses,bowel sound present Extremities-No edema Neuro-AAOx3 NO focal Sensory and or Motor deficit Lab data as noted below. ASSESSMENT & PLAN: This is a 66 year old male with a PMH of HTN, HLD presents with L sided motor weakness Hypertensive Urgency BP >200/100 on admission As per patient, he has been out of his medications x2 weeks, including his BP meds Received Labetalol at ER Started on amlodipine Home dose of Lisinopril restarted BP seems to be controlled L sided weakness Possible TIA Head CT negative CTA shows some atherosclerosis of some intracranial vasculature MRI/MRA of head/neck-unremarkable Continue Aspirin,Plavix added and has been on small dose of Statin Check TSH and vitamin B12 in AM-normal ECHO::No significant change compared to previous study of 07/19/16. * Normal LV chamber size with moderate concentric LVH. * Normal LV systolic function, EF 60-65%. * No segmental left ventricular wall motion abnormalities are noted. * Grade I diastolic dysfunction. * Focal sclerotic changes of all three aortic leaflets without stenosis or regurgitation. Previous study of 07/19/16 reviewed appearance is unchanged. * Intact interatrial septum. DVT ppx Lovenox FULL CODE DISPOSITION Discharge today Vital Signs: Date Time Temp Pulse Resp B/P (MAP) Pulse Ox O2 Delivery O2 Flow Rate FiO2 08/17/17 08:12 36.8 85 18 165/85 (111) 95 () 08/17/17 08:05 Room Air 08/17/17 04:30 36.7 88 19 122/81 (95) 96 Room Air 08/17/17 04:00 Room Air 08/17/17 00:01 Room Air 08/16/17 23:42 36.5 78 19 131/78 (95) 97 Room Air 08/16/17 20:00 Room Air 08/16/17 19:00 36.7 86 18 158/84 (108) 96 Room Air 08/16/17 16:50 165/86 (112) 08/16/17 16:00 Room Air 08/16/17 15:04 36.6 77 16 174/111 99 Room Air 08/16/17 13:09 72 20 173/108 99 Room Air 08/16/17 12:32 100 Ambu-Bag 08/16/17 12:32 70 14 163/103 98 Room Air 08/16/17 12:31 67 08/16/17 11:35 36.8 109 20 194/109 100 Room Air Lab Results: Results Past 24 Hours Test 08/16/17 12:00 08/16/17 12:01 08/16/17 12:19 08/16/17 16:17 Range/Units White Blood Count 4.50 4.8-10.8 K/uL Red Blood Count 4.87 4.7-6.1 M/uL Hemoglobin 15.3 14.0-18.0 g/dL Hematocrit 45.0 42-52 % Mean Corpuscular Volume 92.4 80-100 fL Mean Corpuscular Hemoglobin 31.4 25-34 pg Mean Corpuscular Hemoglobin Concent 34.0 32-36 g/dl Platelet Count 190 130-400 K/uL Mean Platelet Volume 9.1 7.4-10.4 fL Neutrophils (%) (Auto) 64.1 % Lymphocytes (%) (Auto) 20.9 % Monocytes (%) (Auto) 12.2 % Eosinophils (%) (Auto) 2.2 % Basophils (%) (Auto) 0.4 % Neutrophils # (Auto) 2.88 1.4-6.5 K/uL Lymphocytes # (Auto) 0.94 1.2-3.4 K/uL Monocytes # (Auto) 0.55 0.11-0.59 K/uL Eosinophils # (Auto) 0.10 0-0.5 K/uL Basophils # (Auto) 0.02 0-0.2 K/uL RDW Standard Deviation 45.7 36.4-46.3 fL RDW Coefficient of Variation 13.5 11.5-14.5 % Immature Granulocyte % (Auto) 0.2 % Immature Granulocyte # (Auto) 0.01 0.00-0.02 K/uL Prothrombin Time 9.8 9.0-12.0 SECONDS Prothromb Time International Ratio 0.9 0.9-1.1 Activated Partial Thromboplast Time 26.0 21.0-31.0 SECONDS Partial Thromboplastin Ratio 1.0 Sodium Level 135 136-145 mmol/L Potassium Level 4.1 3.5-5.1 mmol/L Chloride Level 106 98-107 mmol/L Carbon Dioxide Level 24 21-32 mmol/L Anion Gap 5.0 3-11 mmol/L Blood Urea Nitrogen 22 7-18 mg/dl Creatinine 0.92 0.60-1.40 mg/dl Est Creatinine Clear Calc Drug Dose 94.7 ml/min Estimated GFR () 100.8 Estimated GFR (Non- 87.0 BUN/Creatinine Ratio 23.9 10-20 Random Glucose 99 70-99 mg/dl Calcium Level 8.5 8.5-10.1 mg/dl Magnesium Level 2.3 1.8-2.4 mg/dl Total Creatine Kinase 178 39-308 U/L Creatine Kinase MB 5.8 0.5-3.6 ng/ml Creatine Kinase MB Ratio 3.3 0-3.0 Troponin I < 0.015 0-0.045 ng/ml Bedside Glucose 98 88 70-99 mg/dl Bedside Prothrombin Time INR 0.9 0.9-1.1 Test 08/17/17 06:21 Range/Units White Blood Count 3.83 4.8-10.8 K/uL Red Blood Count 4.39 4.7-6.1 M/uL Hemoglobin 13.7 14.0-18.0 g/dL Hematocrit 40.7 42-52 % Mean Corpuscular Volume 92.7 80-100 fL Mean Corpuscular Hemoglobin 31.2 25-34 pg Mean Corpuscular Hemoglobin Concent 33.7 32-36 g/dl RDW Standard Deviation 45.9 36.4-46.3 fL RDW Coefficient of Variation 13.5 11.5-14.5 % Platelet Count 191 130-400 K/uL Mean Platelet Volume 9.4 7.4-10.4 fL Nucleated RBC Absolute Count (auto) 0.03 0-0 K/uL Nucleated Red Blood Cells % 0.8 % Sodium Level 137 136-145 mmol/L Potassium Level 4.0 3.5-5.1 mmol/L Chloride Level 107 98-107 mmol/L Carbon Dioxide Level 25 21-32 mmol/L Anion Gap 5.0 3-11 mmol/L Blood Urea Nitrogen 18 7-18 mg/dl Creatinine 0.99 0.60-1.40 mg/dl Est Creatinine Clear Calc Drug Dose 87.2 ml/min Estimated GFR () 91.6 Estimated GFR (Non- 79.0 BUN/Creatinine Ratio 18.1 10-20 Random Glucose 96 70-99 mg/dl Calcium Level 8.4 8.5-10.1 mg/dl Triglycerides Level 82 0-150 mg/dl Cholesterol Level 180 0-200 mg/dl HDL Cholesterol 56 mg/dl LDL Cholesterol, Calculated 108 mg/dl VLDL Cholesterol, Calculated 16 mg/dl Cholesterol/HDL Ratio 3.2 Vitamin B12 Level 339 211-911 pg/mL Thyroid Stimulating Hormone (TSH) 1.910 0.300-4.500 uIu/ml
[2017-08-17 11:37] VITALS: BP 146/88; PULSE 86; TEMP 36.6; O2SAT 98
[2017-08-17] MEDS ORDERED: PLV75 PO (12:58)
[2017-08-17 13:01] VITALS: BP 146/88; PULSE 86; TEMP 36.6; O2SAT 98
--- NOTE | 2017-08-17 13:02 | Discharge Instructions ---
Discharge Instructions Date of Service Aug 17, 2017. Admission Reason for Admission: Left-Sided Weakness Discharge Discharge Diagnosis / Problem: Hypertensive Urgency,TIA Discharge Goals Goal(s): Prevent Disease Progression Activity Recommendations Activity Limitations: resume your previous activity . Instructions / Follow-Up Instructions / Follow-Up Please make an appointment with your PCP in 1 week.Have a Zio patch as an OP Risk Factors for Stroke: You can reduce your chances of stroke by working with your medical provider to adopt a healthy lifestyle. Some specific ways to lower your chance of stroke are: * If you are a smoker, now is the time to stop smoking cigarettes * If you are diabetic, improve the control of your blood sugars * Avoid excessive amounts of alcohol * Control high blood pressure * Lose weight if you are overweight * Be sure to lead an active lifestyle * Eat a healthy diet low in salt, cholesterol and fat You should know about other risk factors for stroke that you are unable to control. These include: * Age 55 years or older * Male gender * Certain racial groups: , or / * Family History of Stroke, Mini stroke or Heart Attack * Sickle Cell Disease Follow Up: It is important for you to keep your follow up appointments with your medical provider. Current Hospital Diet Patient's current hospital diet: AHA Diet (Heart Healthy) Discharge Diet Recommended Diet: AHA Diet (Heart Healthy) Pending Studies Studies pending at discharge: no Laboratory Results Lipid Panel Test 08/17/17 06:21 Range/Units Triglycerides Level 82 0-150 mg/dl Cholesterol Level 180 0-200 mg/dl HDL Cholesterol 56 mg/dl Cholesterol/HDL Ratio 3.2 LDL Cholesterol, Calculated 108 mg/dl Medical Emergencies . Who to Call and When: Medical Emergencies: Call 911 immediately if you experience any of the following warning signs and symptoms of Stroke: * Sudden numbness or weakness of the face, arm or leg, especially on one side of the body * Sudden confusion, trouble speaking or understanding * Sudden trouble seeing in one or both eyes * Sudden trouble walking, dizziness, loss of balance or coordination * Sudden severe headache with no cause Do not delay calling 911 if you experience any warning signs or symptoms of a stroke. Delay in seeking medical attention may affect what treatments can be given to you. . Non-Emergent Contact Non-Emergency issues call your: Primary Care Provider . Past History Medical & Surgical History: (1) Left-sided weakness (2) Hypertension . "Provider Documentation" section prepared by Nikky Clarke. . Stroke Core Measures Reason no t-PA for Stroke: Treatment not indicated Reason no antithrom by day 2: Treatment provided - N/A Reason no antithrom at D/C: Treatment provided - N/A Reason no statin at D/C: Treatment provided - N/A (Reducing dose-patient choice ) Reason no anticoag w/a fib: Treatment not indicated VTE Core Measure Inpt VTE Proph given/why not?: Enoxaparin (Lovenox)SQ
--- NOTE | 2017-08-18 08:05 | Discharge Summary ---
Discharge Summary Date of Service Aug 18, 2017. Discharge Summary Admission Date: Aug 16, 2017 at 13:28 Discharge Date: Aug 17, 2017 Discharge Disposition: Home Principal Diagnosis: Hypertensive Urgency,TIA Secondary Diagnoses/Problems: Please see H&P and Hospital progress note Consultations: Neurology Medication Reconciliation New Medications: Clopidogrel Bisulfate (Clopidogrel) 75 Mg Tab 75 MG PO QAM for 30 Days, #30 TAB Continued Medications: Aspirin (Aspirin Ec) 81 Mg Tab 81 MG PO DAILY For 3 months and then continue Plavix only Atorvastatin (Lipitor) 10 Mg Tab 5 MG PO DAILY, TAB Bupropion HCl (Bupropion HCl Sr) 100 Mg Tabcr 100 MG PO DAILY Lisinopril (Lisinopril) 20 Mg Tab 20 MG PO DAILY Omeprazole (Omeprazole) 20 Mg Tab 40 MG PO DAILY, TAB 3 Refills Discontinued Medications: Etodolac (Etodolac) 500 Mg Tab 1000 MG PO BID Admission Information HPI (per Admitting provider): This is a 66 year old male with a PMH of HTN, HLD, homelessness status - lives with his daughters intermittent around this area; states that for the past two weeks he has been out of his medications, including his blood pressure pills. [facility], and states that at the clinic his left side became weak. He could not move or feel his left arm/leg and there was a possible facial droop as per patient. He presented to the ED and had a Head CT performed and this was negative. When I went to see him, his L sided weakness was improving. There is no facial droop or speech slurring. He has difficulty with L shoulder shrugging due to previous L shoulder arthritis/injuries. States he still has numbness/tingling on LLE. He has tangential thoughts and flight of ideas - but can be redirected with questions. Denies shortness of breath or chest pain. Past Medical/Surgical History Medical Problems: (1) Hypertension Status: Chronic Family History Cancer Diabetes mellitus FHx: suicide Gallbladder disease Heart disease Hypertension Kidney disease Kidney stones Lung disease Social History Smoking Status: Never Smoker Marital Status: single Occupational Status: unemployed Multi-Drug Resistant Organisms History of MDRO: No Allergies Coded Allergies: No Known Allergies (Unverified , 08/16/17) Home Medications Scheduled Aspirin (Aspirin Ec), 81 MG PO DAILY Atorvastatin (Lipitor), 5 MG PO DAILY Bupropion HCl (Bupropion HCl Sr), 100 MG PO DAILY Etodolac (Etodolac), 1,000 MG PO BID Lisinopril (Lisinopril), 20 MG PO DAILY Omeprazole (Omeprazole), 40 MG PO DAILY Review of Systems Difficult to obtain due to patient's tangential thoughts Constitutional: + weakness Respiratory: No shortness of breath, No dyspnea on exertion, No dyspnea at rest Cardiovascular: No chest pain, No edema, No palpitations Abdomen: No pain Musculoskeletal: + joint pain (L shoulder, multiple joints), + muscle pain Neurologic: + weakness, + numbness/tingling, + balance problems, No memory loss , No paralysis, No vertigo Hematologic / Lymphatic: No abnormal bleeding/bruising Physical Ex - H&P Physical Exam Vital Signs Date Time Temp Pulse Resp B/P (MAP) Pulse Ox O2 Delivery O2 Flow Rate FiO2 08/16/17 12:32 100 Ambu-Bag 08/16/17 12:32 70 14 163/103 98 Room Air 08/16/17 12:31 67 08/16/17 11:35 36.8 109 20 194/109 100 Room Air General Appearance: no apparent distress, + pertinent finding (slightly disoriented, with tangential thoughts) Head: normocephalic, atraumatic Respiratory/Chest: chest non-tender, lungs clear, normal breath sounds, no respiratory distress, no accessory muscle use Cardiovascular: regular rate, rhythm, no edema, no murmur Abdomen/GI: normal bowel sounds, non tender, soft Extremities/Musculoskelatal: normal capillary refill, no pedal edema Neurologic/Psych: alert, + motor weakness (LLE, 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), + disoriented (oriented x3, but difficulty with recall) Skin: normal color Diagnostics - H&P Diagnostics Laboratory Results Results Past 24 Hours Test 08/16/17 12:00 08/16/17 12:19 Range/Units White Blood Count 4.50 4.8-10.8 K/uL Red Blood Count 4.87 4.7-6.1 M/uL Hemoglobin 15.3 14.0-18.0 g/dL Hematocrit 45.0 42-52 % Mean Corpuscular Volume 92.4 80-100 fL Mean Corpuscular Hemoglobin 31.4 25-34 pg Mean Corpuscular Hemoglobin Concent 34.0 32-36 g/dl Platelet Count 190 130-400 K/uL Mean Platelet Volume 9.1 7.4-10.4 fL Neutrophils (%) (Auto) 64.1 % Lymphocytes (%) (Auto) 20.9 % Monocytes (%) (Auto) 12.2 % Eosinophils (%) (Auto) 2.2 % Basophils (%) (Auto) 0.4 % Neutrophils # (Auto) 2.88 1.4-6.5 K/uL Lymphocytes # (Auto) 0.94 1.2-3.4 K/uL Monocytes # (Auto) 0.55 0.11-0.59 K/uL Eosinophils # (Auto) 0.10 0-0.5 K/uL Basophils # (Auto) 0.02 0-0.2 K/uL RDW Standard Deviation 45.7 36.4-46.3 fL RDW Coefficient of Variation 13.5 11.5-14.5 % Immature Granulocyte % (Auto) 0.2 % Immature Granulocyte # (Auto) 0.01 0.00-0.02 K/uL Prothrombin Time 9.8 9.0-12.0 SECONDS Prothromb Time International Ratio 0.9 0.9-1.1 Activated Partial Thromboplast Time 26.0 21.0-31.0 SECONDS Partial Thromboplastin Ratio 1.0 Sodium Level 135 136-145 mmol/L Potassium Level 4.1 3.5-5.1 mmol/L Chloride Level 106 98-107 mmol/L Carbon Dioxide Level 24 21-32 mmol/L Anion Gap 5.0 3-11 mmol/L Blood Urea Nitrogen 22 7-18 mg/dl Creatinine 0.92 0.60-1.40 mg/dl Est Creatinine Clear Calc Drug Dose 94.7 ml/min Estimated GFR () 100.8 Estimated GFR (Non- 87.0 BUN/Creatinine Ratio 23.9 10-20 Random Glucose 99 70-99 mg/dl Calcium Level 8.5 8.5-10.1 mg/dl Magnesium Level 2.3 1.8-2.4 mg/dl Total Creatine Kinase 178 39-308 U/L Creatine Kinase MB 5.8 0.5-3.6 ng/ml Creatine Kinase MB Ratio 3.3 0-3.0 Troponin I < 0.015 0-0.045 ng/ml Bedside Prothrombin Time INR 0.9 0.9-1.1 Diagnostic Radiology HEAD WITHOUT CONTRAST (CT) CLINICAL HISTORY: 66 years-old Male with Stroke. Stroke alert. Acute strokelike symptoms TECHNIQUE: Multiple axial CT images of the head were obtained without contrast. A dose lowering technique was utilized adhering to the principles of ALARA. CT DOSE: 776.86 mGycm COMPARISON: CT head 06/21/2016. FINDINGS: No acute intracranial hemorrhage, midline shift, intracranial mass, hydrocephalus, territorial ischemia or abnormal extra-axial collection. Mild cerebral and cerebellar atrophy. Senescent calcifications of the lentiform nuclei. Vascular calcifications are seen at the level of the skull base. Probable mild chronic microvascular ischemic changes. The calvarium is intact. The mastoid air cells, and middle ear cavities are clear. Minimal mucosal thickening of the maxillary sinuses with mild ethmoid sinus disease. IMPRESSION: No acute intracranial abnormality. CHEST ONE VIEW PORTABLE CLINICAL HISTORY: Stroke L status change COMPARISON STUDY: 07/23/2016 FINDINGS: The bones soft tissues and hemidiaphragms are normal. The cardiomediastinal silhouette is normal. The lungs are clear. The pulmonary vasculature is normal. IMPRESSION: Negative chest. HEAD ANGIO WITH CONTRAST CLINICAL HISTORY: Mental status change TECHNIQUE: Transaxial acquisition with multi axial reformatted images COMPARISON STUDY: None FINDINGS: Moderate atherosclerotic narrowing of the internal carotid arteries at the cavernous sinus regions. This is estimated at 50%. Intracranial vasculature appears to be in general unremarkable. No significant stenotic or aneurysmal process is seen. Mild scattered atherosclerotic/plaque formation of the vertebral basilar system with no significant stenotic process. IMPRESSION: 1. Moderate atherosclerotic change of the intracranial vasculature at the level of the cavernous sinus and mid vertebral basilar system. 2. Moderate atherosclerotic change vertebral basilar system. 3. No evidence for significant stenotic or aneurysmal process. EKG Normal sinus rhythm Normal ECG Impression - H&P Impression Assessment and Plan This is a 66 year old male with a PMH of HTN, HLD presents with L sided motor weakness Hypertensive Urgency BP >200/100 on admission give Labetalol as per patient, he has been out of his medications x2 weeks, including his BP meds will give a dose of amlodipine restart his home dose of Lisinopril monitor BP and adjust medications accordingly L sided weakness possible TIA? Head CT negative CTA shows some atherosclerosis of some intracranial vasculature will check MRI/MRA of head/neck consult neurology for now continue aspirin, statin may need to increase Lipitor dose - check fasting lipids in AM due to non-compliance unsure of Plavix addition would help continue blood pressure medications check TSH and vitamin B12 in AM PT/OT/speech/discharge planning DVT ppx Lovenox FULL CODE VTE Prophylaxis VTE Risk Assessment Done? 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), + disoriented (oriented x3, but difficulty with recall) Skin: normal color Hospital Course This is a 66 year old male with a PMH of HTN, HLD presents with L sided motor weakness Hypertensive Urgency BP >200/100 on admission As per patient, he has been out of his medications x2 weeks, including his BP meds Received Labetalol at ER Started on amlodipine Home dose of Lisinopril restarted BP seems to be controlled L sided weakness Possible TIA Head CT negative CTA shows some atherosclerosis of some intracranial vasculature MRI/MRA of head/neck-unremarkable Continue Aspirin,Plavix added and has been on small dose of Statin Check TSH and vitamin B12 in AM-normal ECHO::No significant change compared to previous study of 07/19/16. * Normal LV chamber size with moderate concentric LVH. * Normal LV systolic function, EF 60-65%. * No segmental left ventricular wall motion abnormalities are noted. * Grade I diastolic dysfunction. * Focal sclerotic changes of all three aortic leaflets without stenosis or regurgitation. Previous study of 07/19/16 reviewed appearance is unchanged. * Intact interatrial septum. DVT ppx Lovenox FULL CODE DISPOSITION Discharge today Total time spent on discharge = 35 minutes This includes examination of the patient, discharge planning, medication reconciliation, and communication with other providers. Discharge Instructions Date of Service Aug 17, 2017. Admission Reason for Admission: Left-Sided Weakness Discharge Discharge Diagnosis / Problem: Hypertensive Urgency,TIA Discharge Goals Goal(s): Prevent Disease Progression Activity Recommendations Activity Limitations: resume your previous activity . Instructions / Follow-Up Instructions / Follow-Up Please make an appointment with your PCP in 1 week.Have a Zio patch as an OP Risk Factors for Stroke: You can reduce your chances of stroke by working with your medical provider to adopt a healthy lifestyle. Some specific ways to lower your chance of stroke are: * If you are a smoker, now is the time to stop smoking cigarettes * If you are diabetic, improve the control of your blood sugars * Avoid excessive amounts of alcohol * Control high blood pressure * Lose weight if you are overweight * Be sure to lead an active lifestyle * Eat a healthy diet low in salt, cholesterol and fat You should know about other risk factors for stroke that you are unable to control. These include: * Age 55 years or older * Male gender * Certain racial groups: , or / * Family History of Stroke, Mini stroke or Heart Attack * Sickle Cell Disease Follow Up: It is important for you to keep your follow up appointments with your medical provider. Current Hospital Diet Patient's current hospital diet: AHA Diet (Heart Healthy) Discharge Diet Recommended Diet: AHA Diet (Heart Healthy) Pending Studies Studies pending at discharge: no Laboratory Results Lipid Panel Test 08/17/17 06:21 Range/Units Triglycerides Level 82 0-150 mg/dl Cholesterol Level 180 0-200 mg/dl HDL Cholesterol 56 mg/dl Cholesterol/HDL Ratio 3.2 LDL Cholesterol, Calculated 108 mg/dl Medical Emergencies . Who to Call and When: Medical Emergencies: Call 911 immediately if you experience any of the following warning signs and symptoms of Stroke: * Sudden numbness or weakness of the face, arm or leg, especially on one side of the body * Sudden confusion, trouble speaking or understanding * Sudden trouble seeing in one or both eyes * Sudden trouble walking, dizziness, loss of balance or coordination * Sudden severe headache with no cause Do not delay calling 911 if you experience any warning signs or symptoms of a stroke. Delay in seeking medical attention may affect what treatments can be given to you. . Non-Emergent Contact Non-Emergency issues call your: Primary Care Provider . Past History Medical & Surgical History: (1) Left-sided weakness (2) Hypertension . "Provider Documentation" section prepared by Nikky Clarke. . Stroke Core Measures Reason no t-PA for Stroke: Treatment not indicated Reason no antithrom by day 2: Treatment provided - N/A Reason no antithrom at D/C: Treatment provided - N/A Reason no statin at D/C: Treatment provided - N/A (Reducing dose-patient choice ) Reason no anticoag w/a fib: Treatment not indicated VTE Core Measure Inpt VTE Proph given/why not?: Enoxaparin (Lovenox)SQ <Electronically signed by Nikky Clarke M.D.> Signed: 08/17/17 1302 Additional Copies To Tracie Tyler D.O.
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
--- NOTE | 2017-08-19 07:29 | PROGRESS NOTE ---
DATE: 08/17/2017 DATE: 08/17/2017 SUBJECTIVE: I am seeing Mr. Miller in followup of an episode of left hemianesthesia. His MRI was unremarkable. Carotid CTA showed mild atherosclerosis. Echo showed no shunt and no cardiac source. Blood pressure has come under better control. He has had no return episodes overnight. PHYSICAL EXAMINATION: VITAL SIGNS: 36.6, 86, 18, 148/88. There is normal extraocular motility valentine, nl visual valentine normal facial symmetry, facial sensation, normal speech and language. There is symmetric strength, no drift. Normal alternating movement. Symmetric light touch and temperature bilaterally. His gait is unremarkable. IMPRESSION: 1. Transient ischemic attack. Continue Plavix and aspirin for 3 months and then Plavix alone. 2. This occurred in the setting of accelerated hypertension as the patient with off medicine. He was encouraged to continue good control of blood pressure and cholesterol. 3. I would recommend that his primary care doctor perform a Zio Patch for cardiac monitoring as an outpatient. I have no objections of the patient being discharged. He does not need neurologic followup. GUIDO
== END 2017-08-17 13:27 | disposition home or self-care (01) | DRG 69 ==
LOC: EDBD 11:22 → C.EDC 11:23 → C.2E 13:28 → ENRESERV 13:35
PROVIDERS: ADMIT Family Medicine; ATTEND Internal Medicine
DX: G45.9 Transient cerebral ischemic attack, unspecified (principal); G81.94 Hemiplegia, unspecified affecting left nondominant side; I16.0 Hypertensive urgency; G43.109 Migraine with aura, not intractable, without status migrainosus; E78.5 Hyperlipidemia, unspecified; Z79.82 Long term (current) use of aspirin; Z79.899 Other long term (current) drug therapy; Z59.0 Homelessness; Z91.128 Patient's intentional underdosing of medication regimen for other reason; Z82.3 Family history of stroke

== ENCOUNTER → 2017-09-07 | Outpatient (CLI) | payer OTHER ==
[~2017-09-07] MED LIST changes: -ASPI325T45 PO; +ASPI81TA28 PO; +ATOR10TA82 PO; +OMEP20TA PO; +PLV75 PO
== END | disposition home or self-care (01) ==
LOC: C.LAB 16:34
DX: Z02.83 Encounter for blood-alcohol and blood-drug test (principal)

== ENCOUNTER 2017-09-15 22:33 | Emergency (ER) | payer OTHER ==
[~2017-09-15] VITALS: Ht 177.8 cm; Wt 114.1 kg
[2017-09-15] MEDS ORDERED: SODIUM CHLORIDE 0.9% 1000ML 1,000 ML IV STA (22:35)
[2017-09-15 22:43] VITALS: Ht 177.8 cm; Wt 114.1 kg
--- NOTE | 2017-09-15 22:45 | EMERGENCY ROOM VISIT NOTE ---
History Report prepared by Jeronimo: Joe Bui Under the Supervision of: Dr. Avery Burt D.O. First contact with patient: 22:35 Chief Complaint: ALTERED MENTAL STATUS Stated Complaint: AMS, HYPOTHERMIC, COMBATIVE, HAND TRAUMA History of Present Illness This HPI is limited due to the Altered Mental Status of the patient. The patient is a 67 year old male who presents to the Emergency Room via EMS for an altered mental status. The paramedics state the patient was wandering door to door around [place] and yelling incoherently. The patient was chased by [place] Police until they finally caught him. The patient is complaining of any symptoms currently. Source of History: patient, EMS Position: other (AMS ) Quality: other (AMS ) Review of Systems ROS is limited due to AMS of the patient. Past Medical & Surgical Medical Problems: (1) Hypertension (2) Left-sided weakness (3) Precordial chest pain Family History Cancer Diabetes mellitus FHx: suicide Gallbladder disease Heart disease Hypertension Kidney disease Kidney stones Lung disease Social History Smoking Status: Never Smoker Marital Status: single Housing Status: other Occupation Status: unemployed Current/Historical Medications Scheduled Aspirin (Aspirin Ec), 81 MG PO DAILY Atorvastatin (Lipitor), 5 MG PO DAILY Bupropion HCl (Bupropion HCl Sr), 100 MG PO DAILY Cephalexin Monohydrate (Keflex), 500 MG PO QID Clopidogrel Bisulfate (Clopidogrel), 75 MG PO QAM Lisinopril (Lisinopril), 20 MG PO DAILY Omeprazole (Omeprazole), 40 MG PO DAILY Allergies Coded Allergies: No Known Allergies (Unverified , 09/15/17) Physical Exam Vital Signs Date Time Temp Pulse Resp B/P (MAP) Pulse Ox O2 Delivery O2 Flow Rate FiO2 09/16/17 07:22 98 20 132/85 95 Room Air 09/16/17 06:45 97 25 95 09/16/17 06:30 120/70 09/16/17 06:15 91 14 96 09/16/17 06:00 128/78 09/16/17 05:45 93 17 97 09/16/17 05:40 87 14 98 09/16/17 05:31 141/81 09/16/17 04:40 81 14 97 09/16/17 04:35 83 13 97 09/16/17 04:30 157/95 09/16/17 04:05 88 14 98 09/16/17 04:01 150/86 09/16/17 03:35 92 99 09/16/17 03:05 89 14 100 09/16/17 03:00 133/88 09/16/17 02:40 87 14 100 09/16/17 02:35 87 14 100 09/16/17 02:31 136/79 09/16/17 02:11 84 09/16/17 02:01 161/89 09/16/17 01:35 93 100 09/16/17 01:30 148/89 09/16/17 01:15 93 100 09/16/17 01:04 36.5 96 18 149/89 100 Room Air 09/16/17 00:03 92 100 09/15/17 23:03 89 13 100 09/15/17 22:48 91 09/15/17 22:47 98 Room Air 09/15/17 22:43 36.3 84 20 182/108 100 Room Air 09/15/17 22:38 182/108 Physical Exam GENERAL: Patient is awake, alert, and appears clinically intoxicated. He is answer questions appropriately. EYES: The conjunctivae injected bilaterally. Pupils are dilated but reactive to light bilaterally. Nystagmus in both horizontal directions. EARS, NOSE, MOUTH AND THROAT: The nose is without any evidence of any deformity. Mucous membranes are moist tongue is midline NECK: The neck is nontender and supple. RESPIRATORY: Normal respiratory effort is noted there is no evidence of wheezing rhonchi or rales CARDIOVASCULAR: Regular rate and rhythm noted there no murmurs rubs or gallops normal S1 normal S2 GASTROINTESTINAL: The abdomen is soft. Bowel sounds are present in all quadrants. Abdomen is nontender MUSCULOSKELETAL/EXTREMITIES: There is no evidence of gross deformity full range of motion is noted in the hips and shoulders SKIN: There is pedal edema bilaterally. Skin is cool to the touch. There is poor capillary refill. There is significant erythema on both feet. This is consistent with cold exposure. There is no obvious evidence of any rash. There are no petechiae, pallor or cyanosis noted. NEUROLOGIC: Patient is oriented to person, place, and time. Strength is symmetric. PSYCH: Currently denying suicidal or homicidal ideation. Medical Decision & Procedures ER Provider Diagnostic Interpretation: CT the head was obtained in the emergency department. The report was reviewed. Preliminary Findings Only See Final Report For Complete Findings CT HEAD: Compared to 08/16/17 No acute intracranial process. Opacified left ethmoid air cells again noted Radiologist: Louie Jara M.D. Study ready at 23:51 and initial results transmitted at 00:15 Chest x-ray was obtained in the emergency department. My preliminary results are as follows. Heart size is normal. There is no definite infiltrate. There is no free air noted. No acute disease. Laboratory Results 09/15/17 23:06 Red Blood Count 5.01, Mean Corpuscular Volume 92.2, Mean Corpuscular Hemoglobin 32.5, Mean Corpuscular Hemoglobin Concent 35.3, Mean Platelet Volume 9.4, Neutrophils (%) (Auto) 71.0, Lymphocytes (%) (Auto) 21.2, Monocytes (%) (Auto) 5.7, Eosinophils (%) (Auto) 1.6, Basophils (%) (Auto) 0.3, Neutrophils # (Auto) 4.34, Lymphocytes # (Auto) 1.30, Monocytes # (Auto) 0.35, Eosinophils # (Auto) 0.10, Basophils # (Auto) 0.02 09/15/17 23:06 Test 09/15/17 22:52 09/15/17 23:06 09/15/17 23:16 Urine Color YELLOW Urine Appearance CLEAR (CLEAR) Urine pH 6.5 (4.5-7.5) Urine Specific [place] 1.010 (1.000-1.030) Urine Protein NEG (NEG) Urine Glucose (UA) NEG (NEG) Urine Ketones NEG (NEG) Urine Occult Blood NEG (NEG) Urine Nitrite NEG (NEG) Urine Bilirubin NEG (NEG) Urine Urobilinogen NEG (NEG) Urine Leukocyte Esterase NEG (NEG) Urine Opiates Screen NEG (NEG) Urine Methadone, Qualitative NEG (NEG) Urine Barbiturates NEG (NEG) Urine Phencyclidine (PCP) Level NEG (NEG) Ur Amphetamine/Methamphetamine NEG (NEG) MDMA (Ecstasy) Screen NEG (NEG) Urine Benzodiazepines Screen NEG (NEG) Urine Cocaine Metabolite NEG (NEG) Urine Marijuana (THC) NEG (NEG) White Blood Count 6.12 K/uL (4.8-10.8) Red Blood Count 5.01 M/uL (4.7-6.1) Hemoglobin 16.3 g/dL (14.0-18.0) Hematocrit 46.2 % (42-52) Mean Corpuscular Volume 92.2 fL (80-100) Mean Corpuscular Hemoglobin 32.5 pg (25-34) Mean Corpuscular Hemoglobin Concent 35.3 g/dl (32-36) Platelet Count 237 K/uL (130-400) Mean Platelet Volume 9.4 fL (7.4-10.4) Neutrophils (%) (Auto) 71.0 % Lymphocytes (%) (Auto) 21.2 % Monocytes (%) (Auto) 5.7 % Eosinophils (%) (Auto) 1.6 % Basophils (%) (Auto) 0.3 % Neutrophils # (Auto) 4.34 K/uL (1.4-6.5) Lymphocytes # (Auto) 1.30 K/uL (1.2-3.4) Monocytes # (Auto) 0.35 K/uL (0.11-0.59) Eosinophils # (Auto) 0.10 K/uL (0-0.5) Basophils # (Auto) 0.02 K/uL (0-0.2) RDW Standard Deviation 42.7 fL (36.4-46.3) RDW Coefficient of Variation 12.7 % (11.5-14.5) Immature Granulocyte % (Auto) 0.2 % Immature Granulocyte # (Auto) 0.01 K/uL (0.00-0.02) Prothrombin Time 9.8 SECONDS (9.0-12.0) Prothromb Time International Ratio 0.9 (0.9-1.1) Activated Partial Thromboplast Time 26.3 SECONDS (21.0-31.0) Partial Thromboplastin Ratio 1.0 Venous Blood pH 7.35 (7.36-7.41) Venous Blood Partial Pressure CO2 45 mmHg (38.0-50.0) Venous Blood Partial Pressure O2 42 mmHg Venous Blood HCO3 24 mmol/L Venous Blood Oxygen Saturation 72.3 % Venous Blood Base Excess -1.8 mEq/L Carboxyhemoglobin 0.0 % THgb Anion Gap 10.0 mmol/L (3-11) Est Creatinine Clear Calc Drug Dose 93.8 ml/min Estimated GFR () 92.7 Estimated GFR (Non- 80.0 BUN/Creatinine Ratio 11.0 (10-20) Osmolality 342 mOsm/kg (280-300) Calcium Level 9.2 mg/dl (8.5-10.1) Total Bilirubin 0.3 mg/dl (0.2-1) Direct Bilirubin < 0.1 mg/dl (0-0.2) Aspartate Amino Transf (AST/SGOT) 28 U/L (15-37) Alanine Aminotransferase (ALT/SGPT) 37 U/L (12-78) Alkaline Phosphatase 64 U/L (45-117) Ammonia 17.3 umol/L (11-32) Total Creatine Kinase 217 U/L (39-308) Creatine Kinase MB 8.3 ng/ml (0.5-3.6) Creatine Kinase MB Ratio 3.8 (0-3.0) Troponin I < 0.015 ng/ml (0-0.045) Total Protein 7.5 gm/dl (6.4-8.2) Albumin 3.8 gm/dl (3.4-5.0) Lipase 124 U/L (73-393) Salicylates Level < 1.7 mg/dl (2.8-20) Acetaminophen Level < 2 ug/ml (10-30) Ethyl Alcohol mg/dL 206.9 mg/dl (0-3) Bedside Glucose 97 mg/dl (70-99) Laboratory results per my review. Medications Administered Medications (Trade) Dose Ordered Sig/Sarah Route Start Time Stop Time Status Last Admin Dose Admin Sodium Chloride 1,000 ml @ 999 mls/hr Q1H1M STAT IV 09/15/17 22:35 09/15/17 23:35 DC 09/16/17 00:05 999 MLS/HR Cephalexin Monohydrate (Keflex Cap) 500 mg NOW ONCE PO 09/16/17 07:45 09/16/17 07:47 DC 09/16/17 08:00 500 MG ECG Indication: altered mental status Rate (beats per minute): 86 Rhythm: normal sinus Findings: no acute ischemic change, no ectopy Comparison ECG Date: 08/17/2017 Change: no significant change ED Course 2238: The patient was evaluated in room A12. A complete history and physical examination were performed. 0125: I reevaluated the patient at this time. He is still making suicidal remarks. 2235: Ordered Sodium Chloride 1000 mL @ 999 mL/hr IV. 0216: The patient will be signed out to Dr. Willams at change of shift. Medical Decision Differential diagnosis: Etiologies such as metabolic, infection, hypoglycemia, electrolyte abnormalities , cardiac sources, intracerebral event, toxicologic, neurologic, as well as others were entertained. The patient has a measured serum osmolality of 342 The patient has a calculated osmolality of 332-343 The patient does not have a significant osmolar gap The patient is a 67-year-old male who presented to the emergency department for an evaluation of altered mental status. He was found wandering around her neighborhood knocking on doors. When police responded the patient was intoxicated. The patient also made vague suicidal ideation known but he was also clinically toxic and when this was happening. The patient was warmed in the emergency department. He had some hyperemia to his feet and I warned him that he may be developing early frostbite. The patient was started on antibiotic. The patient was reevaluated multiple times but he was still clinically toxic. He was signed out at change of shift to the nighttime physician. Please see her note for continuation of care and final disposition. The patient may require an evaluation by the mental health delegate to further evaluate if he requires any further mental health treatment. Impression Primary Impression: Alcohol intoxication Additional Impressions: Suicidal ideation Altered mental status Anxiety Scribe Attestation The scribe's documentation has been prepared under my direction and personally reviewed by me in its entirety. I confirm that the note above accurately reflects all work, treatment, procedures, and medical decision making performed by me. Departure Information Dispostion Still a Patient (Patient will be signed out to Dr. Willams at change of shift) Prescriptions Cephalexin Monohydrate (KEFLEX) 500 Mg Cap 500 MG PO QID, #28 CAP Prov: Avery Burt, DO 09/16/17 Referrals No Doctor, Assigned (PCP) Patient Instructions My [facility] Problem Qualifiers Primary Impression: Alcohol intoxication Complication of substance-induced condition: uncomplicated Qualified Codes: F10.920 - Alcohol use, unspecified with intoxication, uncomplicated Additional Impressions: Altered mental status Altered mental status type: unspecified Qualified Codes: R41.82 - Altered mental status, unspecified
[2017-09-15 22:47] VITALS: O2SAT 98
[2017-09-15 23:30] LABS: BASO % 0.3 %; BASO ABS # 0.02 K/uL (0-0.2); EOS % 1.6 %; HEMATOCRIT 46.2 % (42-52); HEMOGLOBIN 16.3 g/dL (14.0-18.0); IG# 0.01 K/uL (0.00-0.02); LYMPH % 21.2 %; MEAN CELL VOLUME 92.2 fL (80-100); MEAN CORPUSCULAR HEMOGLOBIN 32.5 pg (25-34); MEAN CORPUSCULAR HGB CONC 35.3 g/dl (32-36); MEAN PLATELET VOLUME 9.4 fL (7.4-10.4); MONO % 5.7 %; MONO ABS # 0.35 K/uL (0.11-0.59); NEUT ABS # 4.34 K/uL (1.4-6.5); PLATELET COUNT 237 K/uL (130-400); RED CELL DISTRIBUTION WIDTH CV 12.7 % (11.5-14.5); RED CELL DISTRIBUTION WIDTH SD 42.7 fL (36.4-46.3); WHITE BLOOD COUNT 6.12 K/uL (4.8-10.8)
[2017-09-15 23:40] LABS: INR 0.9 (0.9-1.1); PTT PATIENT 26.3 SECONDS (21.0-31.0)
[2017-09-15 23:47] LABS: ALBUMIN 3.8 gm/dl (3.4-5.0); ALT/SGPT 37 U/L (12-78); AST/SGOT 28 U/L (15-37); BLOOD UREA NITROGEN 11 mg/dl (7-18); CALCIUM 9.2 mg/dl (8.5-10.1); CARBON DIOXIDE 24 mmol/L (21-32); CREATININE 0.98 mg/dl (0.60-1.40); GLUCOSE 103 mg/dl (70-99); LIPASE 124 U/L (73-393); POTASSIUM 3.9 mmol/L (3.5-5.1); SODIUM 139 mmol/L (136-145)
[2017-09-15 23:52] LABS: ALKALINE PHOSPHATASE 64 U/L (45-117); CKMB 8.3 ng/ml (0.5-3.6); TOTAL PROTEIN 7.5 gm/dl (6.4-8.2)
[2017-09-16 01:04] VITALS: TEMP 36.5
[2017-09-16] MEDS ORDERED: CEPH500C2 PO (02:13)
--- NOTE | 2017-09-16 05:30 | EMERGENCY ROOM VISIT NOTE ---
ED Visit Note First contact with patient: 05:30 Patient signed out to me by Dr. Burt. Patient allowed to sober here and then seen by psychiatric outpatient case manager. Patient at this time denying any suicidal ideation, hallucinations, or depression. Patient cooperative for outpatient case manager. Patient denies need for inpatient treatment and had no other complaints. Patient to be discharged in the morning when a services up and running.
--- NOTE | 2017-09-16 07:06 | DIAGNOSTIC IMAGING REPORT ---
CT SCAN OF THE BRAIN WITHOUT IV CONTRAST CLINICAL HISTORY: Overdose. Change in mental status. COMPARISON STUDY: CT of the brain dated 08/16/2017. TECHNIQUE: Unenhanced axial CT scan of the brain is performed from the vertex to the skull base. A dose lowering technique was utilized adhering to the principles of ALARA. CT DOSE: 614.27 mGy.cm FINDINGS: Brain parenchyma: The brain parenchyma is normal in appearance. There is no hemorrhage, mass effect, or evidence of acute territorial ischemia by CT criteria. [place]-white matter is preserved. No extra-axial fluid collection is seen. Ventricles, sulci, cisterns: Normal in configuration. Intracranial vasculature: There is atherosclerotic calcification of the cavernous carotid and vertebral arteries. Calvarium: Unremarkable. Sinuses and mastoids: Mild mucosal thickening is seen within the ethmoid sinuses. Trace mucosal thickening is seen in the left maxillary antrum. The mastoid air cells are well pneumatized. Orbits: The bony orbits are grossly intact. IMPRESSION: There is no hemorrhage, mass effect, or evidence of acute territorial ischemia by CT criteria. Electronically signed by: Jake Hendricks M.D. 09/16/2017 7:05 AM Dictated Date/Time: 09/16/2017 7:03 AM
--- NOTE | 2017-09-16 07:11 | DIAGNOSTIC IMAGING REPORT ---
SINGLE VIEW CHEST CLINICAL HISTORY: Overdose. FINDINGS: An AP, portable, upright chest radiograph is compared to study dated 08/16/2017. The examination is degraded by portable technique and patient rotation. The cardiomediastinal silhouette is unremarkable. The lungs and pleural spaces are clear. No pneumothorax is seen. The bony thorax is grossly intact. IMPRESSION: No acute cardiopulmonary abnormality. Electronically signed by: Jake Hendricks M.D. 09/16/2017 7:09 AM Dictated Date/Time: 09/16/2017 7:08 AM
[2017-09-16 07:22] VITALS: BP 132/85; PULSE 98; O2SAT 95
[2017-09-16] MEDS ORDERED: CEPHALEXIN MONOHYDRATE 250 MG CAP PO ONE (07:45)
== END 2017-09-16 07:55 | disposition home or self-care (01) ==
LOC: EDBD 22:33 → C.EDA 22:34
DX: F10.920 Alcohol use, unspecified with intoxication, uncomplicated (principal); R45.851 Suicidal ideations; R41.82 Altered mental status, unspecified; F41.9 Anxiety disorder, unspecified; R60.0 Localized edema; I10 Essential (primary) hypertension; Z83.3 Family history of diabetes mellitus; Z82.49 Family history of ischemic heart disease and other diseases of the circulatory system; Z84.1 Family history of disorders of kidney and ureter; Z81.8 Family history of other mental and behavioral disorders; Z79.82 Long term (current) use of aspirin; Z79.899 Other long term (current) drug therapy

== ENCOUNTER 2020-09-30 23:56 | Inpatient (IN) ==
[2020-10-01] MEDS ORDERED: SODIUM CHLORIDE 0.9% 500 ML IV ONE (00:33)
[2020-10-01 01:04] LABS: Basophils # (auto) 0.02 K/uL (0-0.2); Basophils % (auto) 0.3 %; Eosinophils # (auto) 0.07 K/uL (0-0.5); Eosinophils % (auto) 1.2 %; Hematocrit (blood only) 38.6 % (42-52); Hemoglobin 13.6 g/dL (14.0-18.0); Immature Granulocytes # (auto) 0.01 K/uL (0.00-0.02); Immature Granulocytes % (auto) 0.2 %; Lymphocytes # (auto) 1.19 K/uL (1.2-3.4); Lymphocytes % (auto) 20.4 %; Mean Corpuscular Hemoglobin 35.3 pg (25-34); Mean Corpuscular Hgb Conc 35.2 g/dL (32-36); Mean Corpuscular Volume 100.3 fL (80-100); Mean Platelet Volume 9.5 fL (7.4-10.4); Monocytes # (auto) 0.68 K/uL (0.11-0.59); Monocytes % (auto) 11.6 %; Neutrophils # (auto) 3.87 K/uL (1.4-6.5); Neutrophils % (auto) 66.3 %; Platelet Count 254 K/uL (130-400); RDW Coefficient of Variation 12.3 % (11.5-14.5); RDW Standard Deviation 44.8 fL (36.4-46.3); Red Blood Count 3.85 M/uL (4.7-6.1); White Blood Count 5.84 K/uL (4.8-10.8)
[2020-10-01 01:22] LABS: Albumin Level 3.5 gm/dl (3.4-5.0); BUN Creatinine Ratio 10.7 (10-20); Creatinine Clr Calc Pharmacy 71.6 ml/min; Est GFR (African American) 71.8; Potassium 3.9 mmol/L (3.5-5.1)
[2020-10-01 01:32] LABS: Bilirubin,Total 0.4 mg/dl (0.2-1); Globulin 3.4 gm/dl (2.5-4.0); Thyroid Stimulating Hormone 3.52 uIu/ml (0.300-4.500); Total Protein 6.9 gm/dl (6.4-8.2)
[2020-10-01 02:31] LABS: Appearance Urine Clear (Clear); Bacteria Urine Automated Negative (Negative); Bilirubin Urine Negative (Negative); Blood Urine Negative (Negative); Color Urine Yellow; Glucose Urine UA Negative (Negative); Ketones Urine Negative (Negative); Leukocyte Esterase Urine Trace (Negative); Nitrite Urine Negative (Negative); Protein Urine Negative (Negative); RBC Urine Automated 0-4 /hpf (0-4); Specific Gravity Urine 1.013 (1.000-1.030); Urobilinogen Urine Negative (Negative)
[2020-10-01] MEDS ORDERED: cloNIDine HCL 0.1 MG TAB PO ONE (03:26)
[2020-10-01] MEDS ORDERED: LORazepam 2 MG/4 ML VIAL IV PRN (03:28)
[2020-10-01] MEDS ORDERED: LORazepam 1 MG/2 ML VIAL IV PRN (03:28)
[2020-10-01] MEDS ORDERED: ATIVAN IV ALCOHOL WITHDRAWL IV PRN (03:28)
[2020-10-01] MEDS ORDERED: LORazepam 3 MG/6 ML VIAL IV PRN (03:28)
[2020-10-01] MEDS ORDERED: MULTI-VITAMIN INFUSION 10 ML, THIAMINE HCL 100 MG, FOLIC ACID 1 MG in SODIUM CHLORIDE 0... IV ONE (03:50)
[2020-10-01] MEDS ORDERED: OPTIRAY 320 125ml IV ONE (04:04)
[2020-10-01 04:12] LABS: Amphetamines+Metham, Urine Neg (Neg); Barbiturates, Urine Neg (Neg); Benzodiazepine, Urine Neg (Neg); Cocaine, Urine Neg (Neg); MDMA (Ecstacy), Urine Pos (Neg); Methadone, Urine Neg (Neg); Opiate, Urine Neg (Neg); Phencyclidine, Urine Neg (Neg)
[2020-10-01] MEDS ORDERED: DOXYCYCLINE HYCLATE 100 MG in DEXTROSE 5% 100 ML IV STA (05:28)
[2020-10-01] MEDS ORDERED: GABAPENTIN 600 MG TAB PO STA (05:29)
--- NOTE | 2020-10-01 05:30 | History & Physical Report ---
Date of Service October 01, 2020 Assessment & Plan (1) Alcohol withdrawal: hypertension, elevated secondary to above and pleuritic chest discomfort from subacute left rib fracture hyperlipidemia on statin Rx TIA as per records Recurrent syncope differentials include orthostasis, arrhythmia, obstructive cardiac pathology, seizure DSO Complicated bronchitis, no sepsis (history recurrent pneumonia) Longstanding headache symptoms rule out brain tumor history recurrent PE/DVT off anticoagulation as per patient preference Mood disorder, suboptimal chronic anemia, hemoglobin at baseline Past tobacco abuse Medical telemetry DT precautions, DENNY S Facilitate home BP meds, clonidine as needed rib fracture analgesia w/ Lidoderm patch, encourage incentive spirometry Doxycycline for complicated bronchitis Syncope work-up : Orthostatic vitals, TTE, EEG Brain MRI RE longstanding headache symptoms as per patient Psych consult Re: Suboptimal depression PT OT eval DVT prophylaxis. Lovenox subcu Full code Patient's daughter requesting updates for providers. Ms. Kiya Miller, contact #[phone]. Text document was generated using [employer] voice recognition software. It may contain grammatical or spelling errors. Kindly contact undersigned for clarification of any documentation item in question. History of Present Illness Chief Complaint: Feel crappy as per patient Primary Care Provider: Steff Jaffe PA-C History obtained from patient, family, and records. Medical history significant for hypertension, hyperlipidemia, TIA as per records, alcohol abuse, history recurrent PE/DVT off anticoagulation as per patient preference, past tobacco abuse, chronic anemia (baseline hemoglobin of 13). Last confinement August 2017 for hypertensive urgency, TIA. Patient has not been well the last 2 months since . Daily syncopal events, both witnessed and unwitnessed as per patient for which an outpatient work-up is contemplated by PCP as per patient. Achy headache symptoms, no witnessed seizures. Multiple ER visits the last 2 months for alcohol intoxication. Two separate confinements at [facility] (August 2020 and September 2020-2 weeks ago) for pneumonia as per patient. Patient daughter not sure as to veracity of patient statements as patient known to exaggerate medical history as per daughter. Right middle finger injury from moving furniture 5 days ago status post suturing at local urgent care center Patient was at the local [employer] last night. As per patient, store had to delay closing because he bought a lot of stuff and he had another syncopal event at the store. Patient does not recall how he got home. At home, patient felt warm, temperature 102. Patient started feeling crappy. Junky cough symptoms without aspiration. Pleuritic left-sided chest pain with shortness of breath. No abdominal pain. Patient admits to depression "not really OK" but denies suicidality. Patient brought to the ER for evaluation. 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 Allergies Allergy/AdvReac Type Severity Reaction Status Date / Time clams AdvReac Unknown Diarrhea Verified 09/17/20 19:46 ketorolac [From Toradol] AdvReac Unknown Confusion Verified 09/17/20 19:46 Home Medications Medication Instructions Recorded Confirmed Type aspirin [Aspir-Low] 81 mg PO DAILY 08/22/20 10/01/20 History atorvastatin 10 mg PO DAILY 08/22/20 10/01/20 History calcium carbonate [Tums 500] 500 mg PO QID PRN 08/22/20 10/01/20 History celecoxib [Celebrex] 200 mg PO BID 08/22/20 10/01/20 History lisinopril 20 mg PO DAILY 08/22/20 10/01/20 History loperamide 2 - 4 mg PO Q6H PRN 08/22/20 10/01/20 History mirtazapine [Remeron] 45 mg PO HS 08/22/20 10/01/20 History omeprazole 20 mg PO BID 08/22/20 10/01/20 History ondansetron HCl 4 mg PO Q6H PRN 08/22/20 10/01/20 History trazodone 50 - 100 mg PO HS 08/22/20 10/01/20 History ascorbic acid (vitamin C) [Vitamin 500 mg PO BID 09/11/20 10/01/20 History C] meclizine 25 mg PO TID PRN #30 tab 09/11/20 10/01/20 Rx buspirone [BuSpar] 20 mg PO BID 10/01/20 10/01/20 History gabapentin 100 mg PO TID 10/01/20 10/01/20 History venlafaxine [Effexor] 0 mg PO TID 10/01/20 10/01/20 History Past Med/Surg History Medical History (Updated 10/03/20 @ 00:04 by Niko Rubio) Alcohol abuse Bipolar disorder TIA (transient ischemic attack) Family History (Updated 10/01/20 @ 15:51 by Juve Nielson MD) Other Suicide Social History Smoking Status: Never smoker Hx Alcohol Use: Yes Alcohol type: wine Hx Substance Use: No Preferred Language: Croatian Communication Ability: Effective Cane Furniture Maker Required: No Beliefs That Will Affect Care: None Current Living Situation: Alone current occupational status: retired Other Information That Helps Us Care for You: No Feels Safe at Home: Yes Safety Concerns: Feels Safe At This Time Assistive Devices: None Review of Systems Review of Systems: As per HPI, all 10 systems reviewed, all other ROS negative Physical Exam Physical Exam: GENERAL: Comfortable, obese, no respiratory distress SKIN: Normal color, warm HEENT: Alopecia, [place] palpebral conjunctivae, no ptosis, dry buccal mucosa, abrasion left cheek NECK : Supple, short neck, no tenderness CHEST : Decreased breath sounds, left chest wall tenderness HEART : Tachycardic, no obvious murmurs ABDOMEN: Some distention, nontender EXTREMITIES : Sutured wound right middle finger, no LE swelling/tenderness, no other conspicuous deformities noted NEUROLOGIC : Coherent, no facial asymmetry, no other gross focality Results & Data Results & Data ([facility]) Vital Signs (Past 12 Hours) Vital Signs Temp Pulse Resp BP Pulse Ox 10/01/20 03:00 96 10/01/20 02:28 112 H 18 152/103 H 100 10/01/20 01:42 108 H 16 98 10/01/20 00:12 107 H 17 138/88 100 10/01/20 00:05 36.8 C 112 H 16 138/88 98 Laboratory Results Laboratory Results WBC 5.84 K/uL (4.8-10.8) 10/01/20 00:46 RBC 3.85 M/uL (4.7-6.1) L 10/01/20 00:46 Hgb 13.6 g/dL (14.0-18.0) L 10/01/20 00:46 Hct 38.6 % (42-52) L 10/01/20 00:46 MCV 100.3 fL (80-100) H 10/01/20 00:46 MCH 35.3 pg (25-34) H 10/01/20 00:46 MCHC 35.2 g/dL (32-36) 10/01/20 00:46 RDW Std Deviation 44.8 fL (36.4-46.3) 10/01/20 00:46 RDW Coeff of Jeff 12.3 % (11.5-14.5) 10/01/20 00:46 Plt Count 254 K/uL (130-400) 10/01/20 00:46 MPV 9.5 fL (7.4-10.4) 10/01/20 00:46 Immature Gran % (Auto) 0.2 % 10/01/20 00:46 Neut % (Auto) 66.3 % 10/01/20 00:46 Lymph % (Auto) 20.4 % 10/01/20 00:46 [place] % (Auto) 11.6 % 10/01/20 00:46 Eos % (Auto) 1.2 % 10/01/20 00:46 Baso % (Auto) 0.3 % 10/01/20 00:46 Neut # (Auto) 3.87 K/uL (1.4-6.5) 10/01/20 00:46 Lymph # (Auto) 1.19 K/uL (1.2-3.4) L 10/01/20 00:46 [place] # (Auto) 0.68 K/uL (0.11-0.59) H 10/01/20 00:46 Eos # (Auto) 0.07 K/uL (0-0.5) 10/01/20 00:46 Baso # (Auto) 0.02 K/uL (0-0.2) 10/01/20 00:46 Immature Gran # (Auto) 0.01 K/uL (0.00-0.02) 10/01/20 00:46 Sodium 137 mmol/L (136-145) 10/01/20 00:46 Potassium 3.9 mmol/L (3.5-5.1) 10/01/20 00:46 Chloride 105 mmol/L (98-107) 10/01/20 00:46 Carbon Dioxide 23 mmol/L (21-32) 10/01/20 00:46 Anion Gap 9.0 (3-11) 10/01/20 00:46 BUN 13 mg/dl (7-18) 10/01/20 00:46 Creatinine 1.19 mg/dl (0.6-1.4) 10/01/20 00:46 Est Cr Clr Drug Dosing 71.6 ml/min 10/01/20 00:46 Est GFR ( Amer) 71.8 10/01/20 00:46 Est GFR (Non-Af Amer) 62.0 10/01/20 00:46 BUN/Creatinine Ratio 10.7 (10-20) 10/01/20 00:46 Glucose 93 mg/dl (70-99) 10/01/20 00:46 Lactate 2.1 mmol/L (0.4-2.0) H* 10/01/20 03:59 Calcium 9.0 mg/dl (8.5-10.1) 10/01/20 00:46 Magnesium 2.0 mg/dl (1.8-2.4) 10/01/20 00:46 Total Bilirubin 0.4 mg/dl (0.2-1) 10/01/20 00:46 AST 39 U/L (15-37) H 10/01/20 00:46 ALT 52 U/L (12-78) 10/01/20 00:46 Alkaline Phosphatase 81 U/L (45-117) 10/01/20 00:46 Ammonia 10.0 umol/L (11-32) L 10/01/20 03:59 Total Creatine Kinase 150 U/L (39-308) 10/01/20 00:46 Total Protein 6.9 gm/dl (6.4-8.2) 10/01/20 00:46 Albumin 3.5 gm/dl (3.4-5.0) 10/01/20 00:46 Globulin 3.4 gm/dl (2.5-4.0) 10/01/20 00:46 Albumin/Globulin Ratio 1.0 (0.9-2) 10/01/20 00:46 Procalcitonin 0.05 ng/ml (0-0.5) 10/01/20 00:54 TSH 3.520 uIu/ml (0.300-4.500) 10/01/20 00:46 Urine Color Yellow 10/01/20 02:25 Urine Appearance Clear (Clear) 10/01/20 02:25 Urine pH 5.0 (4.5-7.5) 10/01/20 02:25 Ur Specific [place] 1.013 (1.000-1.030) 10/01/20 02:25 Urine Protein Negative (Negative) 10/01/20 02:25 Urine Glucose (UA) Negative (Negative) 10/01/20 02:25 Urine Ketones Negative (Negative) 10/01/20 02:25 Urine Blood Negative (Negative) 10/01/20 02:25 Urine Nitrite Negative (Negative) 10/01/20 02:25 Urine Bilirubin Negative (Negative) 10/01/20 02:25 Urine Urobilinogen Negative (Negative) 10/01/20 02:25 Ur Leukocyte Esterase Trace (Negative) H 10/01/20 02:25 Urine WBC (Auto) 1-5 /hpf (0-5) 10/01/20 02:25 Urine RBC (Auto) 0-4 /hpf (0-4) 10/01/20 02:25 U Hyaline Cast (Auto) 1-5 /lpf (0-5) 10/01/20 02:25 U Epithel Cells (Auto) 10-20 /lpf (0-5) H 10/01/20 02:25 Urine Bacteria (Auto) Negative (Negative) 10/01/20 02:25 Urine Opiates Screen Neg (Neg) 10/01/20 02:25 Ur Methadone, Qual Neg (Neg) 10/01/20 02:25 Urine Barbiturates Neg (Neg) 10/01/20 02:25 Ur Phencyclidine (PCP) Neg (Neg) 10/01/20 02:25 U Amphetamin/Meth Scrn Neg (Neg) 10/01/20 02:25 MDMA (Ecstasy) Screen Pos (Neg) H 10/01/20 02:25 U Benzodiazepines Scrn Neg (Neg) 10/01/20 02:25 Ur Cocaine Metabolite Neg (Neg) 10/01/20 02:25 U Marijuana (THC) Screen Neg (Neg) 10/01/20 02:25 Ethyl Alcohol mg/dL 99.4 mg/dl (0-3) H 10/01/20 00:46 [facility] 10/01/20 03:05 SARS-CoV-2, RNA, NAAT NEGATIVE (NEGATIVE) 10/01/20 03:[address] head initial read: Atrophy, no hemorrhage, hydrocephalus or gross evidence of infarct. CT chest initial read: No pulmonary embolism. Subacute appearing left sixth anterior fracture. EKG as per my interpretation Rate 115, sinus tachycardia, LAD, LAFB, 1 AVB, no ischemia
[2020-10-01] MEDS: LIDOCAINE 5% 1 PATCH TD SCH (06:50)
--- NOTE | 2020-10-01 06:51 | Emergency Department Note ---
Impression & Plan Syncope, Alcohol intoxication, Sleep deprivation ED Provider Note NAME: ALIREZA LEWIS AGE: 70 SEX: M ARRIVES VIA: Ambulance INFORMANT: Patient ED PROVIDER(S): Yuki Ortiz DO CHIEF COMPLAINT: Confusion/syncope PLAN: Disposition: Admitted to the [facility] service Condition: Fair MEDICAL DECISION MAKING: This is a 70-year-old male patient who presents to the emergency department with an altered level of consciousness and previous episodes of syncope as he describes it. The history was obtained from the patient. He states that he has had multiple recent episodes of fainting (5-10 episodes a day) for which he is being worked up at the [facility]. He has not been sleeping, taking his meds or eating for the past 2 or 3 days. The patient was hemodynamically stable here in the emergency department. He appeared weak on exam and confused at times. Chest x-ray showed evidence of a questionable right lower lobe opacity which was a new finding. The patient explains that he was recently discharged from the [facility] where he was treated with multiple IV antibiotics for pneumonia. Is difficult to tell whether this is a new finding of pneumonia or residual finding from her previous pneumonia. Patient does believe this is a new pneumonia as he has been having cough and other respiratory symptoms. He has been tested for Covid multiple times and those tests have been negative. The patient had to be assisted up to the bathroom here in the emergency department. He was assisted back to bed but upon my repeat examination of the patient, when entering the room, I found him on the floor and he states he does not know how he got there. It is unclear if the patient sat down on the floor, fell to the floor, or had another syncopal event. I felt the patient could not be safe being discharged from the hospital because of his weakness and altered mental status. Patient has had multiple previous CT scans of the brain recently which were negative. He had no specific focal findings on neuro exam. Initially, the patient denied any alcohol use today but with repeat questioning states that maybe he drank some wine earlier today. [facility]. Triage Nursing notes reviewed and agree them. Prior medical records reviewed Vital Signs: reviewed and remarkable for hypertension Differential diagnosis: Alcohol intoxication, sleep deprivation, orthostasis, dehydration, seizure, alcohol withdrawal, mood disorder, CVA Diagnostics interpreted by me: ECG: Sinus tachycardia at a rate of 115 with first-degree AV block. There is no obvious signs of ischemia. This was compared to an EKG from September 11 of this year and was essentially unchanged. Cardiac Monitoring: Sinus tachycardia at 103. Laboratory studies: See below Imaging studies: As per my interpretation Portable chest x-ray: Questionable infiltrate in the right lung base versus atelectasis. HPI: 70/M arrives for evaluation of recurrent syncope. Patient presents to the emergency department describing he is having multiple episodes of passing out every day. The patient went to the [employer] today to purchase some items to donate to [employer]. Patient explains that he passed out in the store and then also passed out in his vehicle. Patient admits that he has not been sleeping, taking his medications or eating for the past 2 to 3 days. He feels lightheaded and weak. He describes having an extensive work-up through the [facility] for syncope. 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 The patient admits that he is depressed after his 6 weeks ago in [place]. Patient describes having a history of drinking alcohol and denies drinking any alcohol today. ROS: See above HPI for pertinent positives & negatives. A total of 10 systems reviewed and were otherwise negative. PAST MEDICAL HISTORY:See Below PAST SURGICAL HISTORY:See Below FAMILY HISTORY:See Below SOCIAL HISTORY:See Below HOME MEDICATIONS:The patient is on a list of medications but has not been taking them for the past 2 to 3 days ALLERGIES:None VITALS:See Below PHYSICAL EXAMINATION: HEENT: Head - normocephalic and atraumatic. Pupils are equal, round, and reactive to light. Extraocular eye muscles are intact and sclera are anicteric. Nose - moist nasal mucosa without discharge. Mouth -dry buccal mucosa. Oropharynx is nonerythematous and there is no tonsillar exudate or edema noted. Neck: Supple; no JVD, nuchal rigidity, cervical lymphadenopathy, or auscultated bruits. Heart: Tachycardic rate and rhythm. There is a normal S1 and S2 with no murmurs, clicks, or gallops appreciated. Lungs: Clear to auscultation bilaterally with no wheezes, rales, or rhonchi. Abdomen: Soft, completely nontender, nondistended, with good bowel sounds. There are no palpable pulsatile masses or hepatosplenomegaly. There is no guarding, rigidity, or rebound noted. Extremities: No evidence of cyanosis, clubbing, or edema. There are easily palpable peripheral pulses. Neuro:The patient is awake and alert, oriented to day, time, and place. Muscle strength is 5/5 in all 4 extremities. 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 There are no cerebellar signs. ED COURSE: Times/Reassessments: 0005: The patient was examined in room C9. A complete history and physical was performed. Previous electronic medical records were reviewed. An order was placed for continuous cardiac monitoring. The patient was in a sinus tachycardia at 103. Laboratory studies were drawn as above. A twelve-lead EKG was obtained. A portable chest x-ray was performed. Because of the time of day, I did not think it would be able to obtain the patient's most recent medical records from the [facility]. 0220: Upon repeat evaluation of the patient, the patient was sitting on the floor leaning up against the bed. He states that he does not know how he got there. It is unclear whether he sat down on the floor, had a syncopal event, or fell to the floor. He has no signs of trauma or injury. He has no complaints of pain. In assisting the patient up from the floor, he appears extremely weak and unsteady on his feet. I do not believe that he would be able to be di scharged home to care for himself in this state. I discussed the case with the [facility] hospitalist and they will evaluate for further management. Yuki Ortiz DO Past Med/Surg History Medical History (Updated 10/03/20 @ 00:04 by Niko Rubio) Alcohol abuse Bipolar disorder TIA (transient ischemic attack) Family History (Updated 10/01/20 @ 15:51 by Juve Nielson MD) Other Suicide Social History Smoking Status: Never smoker Hx Alcohol Use: Yes Alcohol type: wine Hx Substance Use: No Preferred Language: Nigerien Communication Ability: Effective Master Glazier Required: No Beliefs That Will Affect Care: None Current Living Situation: Alone current occupational status: retired Other Information That Helps Us Care for You: No Feels Safe at Home: Yes Safety Concerns: Feels Safe At This Time Assistive Devices: None Allergies Allergies Allergy/AdvReac Type Severity Reaction Status Date / Time clams AdvReac Unknown Diarrhea Verified 09/17/20 19:46 ketorolac [From Toradol] AdvReac Unknown Confusion Verified 09/17/20 19:46 Home Meds Home Medications Medication Instructions Recorded Confirmed aspirin [Aspir-Low] 81 mg PO DAILY 08/22/20 10/01/20 atorvastatin 10 mg PO DAILY 08/22/20 10/01/20 calcium carbonate [Tums 500] 500 mg PO QID PRN 08/22/20 10/01/20 celecoxib [Celebrex] 200 mg PO BID 08/22/20 10/01/20 lisinopril 20 mg PO DAILY 08/22/20 10/01/20 loperamide 2 - 4 mg PO Q6H PRN 08/22/20 10/01/20 mirtazapine [Remeron] 45 mg PO HS 08/22/20 10/01/20 omeprazole 20 mg PO BID 08/22/20 10/01/20 ondansetron HCl 4 mg PO Q6H PRN 08/22/20 10/01/20 trazodone 50 - 100 mg PO HS 08/22/20 10/01/20 ascorbic acid (vitamin C) [Vitamin 500 mg PO BID 09/11/20 10/01/20 C] buspirone [BuSpar] 20 mg PO BID 10/01/20 10/01/20 gabapentin 100 mg PO TID 10/01/20 10/01/20 venlafaxine [Effexor] 0 mg PO TID 10/01/20 10/01/20 Previous Rx's Medication Instructions Recorded meclizine 25 mg PO TID PRN #30 tab 09/11/20 Results & Data (ED) Vital Signs Vital Signs - 24 hr 10/01/20 00:05 10/01/20 00:12 10/01/20 00:26 Temperature 36.8 C Temperature Source Oral Pulse Rate 112 H 107 H Pulse Rate from SpO2 Sensor Pulse Rhythm Regular Respiratory Rate 16 17 Respiratory Effort / Characteristics Non-Labored Spontaneous Respiratory Depth Normal Blood Pressure 138/88 138/88 Blood Pressure Mean 104 104 Pulse Oximetry 98 100 Oxygen Delivery Method Room Air Room Air Sepsis Recent Fever Within 48 Hours No Sepsis New/Unexplained Change in Mental Status Yes Sepsis Action Taken by Nursing Physician Notified 10/01/20 01:42 10/01/20 02:28 10/01/20 03:00 Temperature Temperature Source Pulse Rate 108 H 112 H Pulse Rate from SpO2 Sensor Pulse Rhythm Respiratory Rate 16 18 Respiratory Effort / Characteristics Respiratory Depth Blood Pressure 152/103 H Blood Pressure Mean 119 Pulse Oximetry 98 100 96 Oxygen Delivery Method Room Air Sepsis Recent Fever Within 48 Hours Sepsis New/Unexplained Change in Mental Status Sepsis Action Taken by Nursing 10/01/20 04:48 10/01/20 05:00 10/01/20 06:00 Temperature Temperature Source Pulse Rate 112 H 100 H Pulse Rate from SpO2 Sensor 112 H 113 H Pulse Rhythm Respiratory Rate 16 18 Respiratory Effort / Characteristics Respiratory Depth Blood Pressure 158/112 H 170/114 H 148/92 H Blood Pressure Mean 127 132 110 Pulse Oximetry 100 100 96 Oxygen Delivery Method Sepsis Recent Fever Within 48 Hours Sepsis New/Unexplained Change in Mental Status Sepsis Action Taken by Nursing Laboratory Data Result diagrams: 10/02/20 05:33 10/02/20 05:33 Lab Results 10/01/20 10/01/20 10/01/20 Range/Units 00:46 00:46 00:46 WBC 5.84 (4.8-10.8) K/uL RBC 3.85 L (4.7-6.1) M/uL Hgb 13.6 L (14.0-18.0) g/dL Hct 38.6 L (42-52) % MCV 100.3 H (80-100) fL MCH 35.3 H (25-34) pg MCHC 35.2 (32-36) g/dL RDW Std Deviation 44.8 (36.4-46.3) fL RDW Coeff of Jeff 12.3 (11.5-14.5) % Plt Count 254 (130-400) K/uL MPV 9.5 (7.4-10.4) fL Immature Gran % (Auto) 0.2 % Neut % (Auto) 66.3 % Lymph % (Auto) 20.4 % [place] % (Auto) 11.6 % Eos % (Auto) 1.2 % Baso % (Auto) 0.3 % Neut # (Auto) 3.87 (1.4-6.5) K/uL Lymph # (Auto) 1.19 L (1.2-3.4) K/uL [place] # (Auto) 0.68 H (0.11-0.59) K/uL Eos # (Auto) 0.07 (0-0.5) K/uL Baso # (Auto) 0.02 (0-0.2) K/uL Immature Gran # (Auto) 0.01 (0.00-0.02) K/uL Sodium 137 (136-145) mmol/L Potassium 3.9 (3.5-5.1) mmol/L Chloride 105 (98-107) mmol/L Carbon Dioxide 23 (21-32) mmol/L Anion Gap 9.0 (3-11) BUN 13 (7-18) mg/dl Creatinine 1.19 (0.6-1.4) mg/dl Est Cr Clr Drug Dosing 71.6 ml/min Est GFR ( Amer) 71.8 Est GFR (Non-Af Amer) 62.0 BUN/Creatinine Ratio 10.7 (10-20) Glucose 93 (70-99) mg/dl Lactate (0.4-2.0) mmol/L Calcium 9.0 (8.5-10.1) mg/dl Magnesium 2.0 (1.8-2.4) mg/dl Total Bilirubin 0.4 (0.2-1) mg/dl AST 39 H (15-37) U/L ALT 52 (12-78) U/L Alkaline Phosphatase 81 (45-117) U/L Ammonia (11-32) umol/L Total Creatine Kinase 150 (39-308) U/L Total Protein 6.9 (6.4-8.2) gm/dl Albumin 3.5 (3.4-5.0) gm/dl Globulin 3.4 (2.5-4.0) gm/dl Albumin/Globulin Ratio 1.0 (0.9-2) Procalcitonin (0-0.5) ng/ml TSH 3.520 (0.300-4.500) uIu/ml Urine Color Urine Appearance (Clear) Urine pH (4.5-7.5) Ur Specific [place] (1.000-1.030) Urine Protein (Negative) Urine Glucose (UA) (Negative) Urine Ketones (Negative) Urine Blood (Negative) Urine Nitrite (Negative) Urine Bilirubin (Negative) Urine Urobilinogen (Negative) Ur Leukocyte Esterase (Negative) Urine WBC (Auto) (0-5) /hpf Urine RBC (Auto) (0-4) /hpf U Hyaline Cast (Auto) (0-5) /lpf U Epithel Cells (Auto) (0-5) /lpf Urine Bacteria (Auto) (Negative) Urine Opiates Screen (Neg) Ur Methadone, Qual (Neg) Urine Barbiturates (Neg) Ur Phencyclidine (PCP) (Neg) U Amphetamin/Meth Scrn (Neg) MDMA (Ecstasy) Screen (Neg) U Benzodiazepines Scrn (Neg) Ur Cocaine Metabolite (Neg) U Marijuana (THC) Screen (Neg) Ethyl Alcohol mg/dL 99.4 H (0-3) mg/dl COVID-19 Eval Order SARS-CoV-2, RNA, NAAT (NEGATIVE) 10/01/20 10/01/20 10/01/20 Range/Units 00:54 02:25 02:25 WBC (4.8-10.8) K/uL RBC (4.7-6.1) M/uL Hgb (14.0-18.0) g/dL Hct (42-52) % MCV (80-100) fL MCH (25-34) pg MCHC (32-36) g/dL RDW Std Deviation (36.4-46.3) fL RDW Coeff of Jeff (11.5-14.5) % Plt Count (130-400) K/uL MPV (7.4-10.4) fL Immature Gran % (Auto) % Neut % (Auto) % Lymph % (Auto) % [place] % (Auto) % Eos % (Auto) % Baso % (Auto) % Neut # (Auto) (1.4-6.5) K/uL Lymph # (Auto) (1.2-3.4) K/uL [place] # (Auto) (0.11-0.59) K/uL Eos # (Auto) (0-0.5) K/uL Baso # (Auto) (0-0.2) K/uL Immature Gran # (Auto) (0.00-0.02) K/uL Sodium (136-145) mmol/L Potassium (3.5-5.1) mmol/L Chloride (98-107) mmol/L Carbon Dioxide (21-32) mmol/L Anion Gap (3-11) BUN (7-18) mg/dl Creatinine (0.6-1.4) mg/dl Est Cr Clr Drug Dosing ml/min Est GFR ( Amer) Est GFR (Non-Af Amer) BUN/Creatinine Ratio (10-20) Glucose (70-99) mg/dl Lactate (0.4-2.0) mmol/L Calcium (8.5-10.1) mg/dl Magnesium (1.8-2.4) mg/dl Total Bilirubin (0.2-1) mg/dl AST (15-37) U/L ALT (12-78) U/L Alkaline Phosphatase (45-117) U/L Ammonia (11-32) umol/L Total Creatine Kinase (39-308) U/L Total Protein (6.4-8.2) gm/dl Albumin (3.4-5.0) gm/dl Globulin (2.5-4.0) gm/dl Albumin/Globulin Ratio (0.9-2) Procalcitonin 0.05 (0-0.5) ng/ml TSH (0.300-4.500) uIu/ml Urine Color Yellow Urine Appearance Clear (Clear) Urine pH 5.0 (4.5-7.5) Ur Specific [place] 1.013 (1.000-1.030) Urine Protein Negative (Negative) Urine Glucose (UA) Negative (Negative) Urine Ketones Negative (Negative) Urine Blood Negative (Negative) Urine Nitrite Negative (Negative) Urine Bilirubin Negative (Negative) Urine Urobilinogen Negative (Negative) Ur Leukocyte Esterase Trace H (Negative) Urine WBC (Auto) 1-5 (0-5) /hpf Urine RBC (Auto) 0-4 (0-4) /hpf U Hyaline Cast (Auto) 1-5 (0-5) /lpf U Epithel Cells (Auto) 10-20 H (0-5) /lpf Urine Bacteria (Auto) Negative (Negative) Urine Opiates Screen Neg (Neg) Ur Methadone, Qual Neg (Neg) Urine Barbiturates Neg (Neg) Ur Phencyclidine (PCP) Neg (Neg) U Amphetamin/Meth Scrn Neg (Neg) MDMA (Ecstasy) Screen Pos H (Neg) U Benzodiazepines Scrn Neg (Neg) Ur Cocaine Metabolite Neg (Neg) U Marijuana (THC) Screen Neg (Neg) Ethyl Alcohol mg/dL (0-3) mg/dl COVID-19 Eval Order SARS-CoV-2, RNA, NAAT (NEGATIVE) 10/01/20 10/01/20 10/01/20 Range/Units 03:05 03:05 03:59 WBC (4.8-10.8) K/uL RBC (4.7-6.1) M/uL Hgb (14.0-18.0) g/dL Hct (42-52) % MCV (80-100) fL MCH (25-34) pg MCHC (32-36) g/dL RDW Std Deviation (36.4-46.3) fL RDW Coeff of Jeff (11.5-14.5) % Plt Count (130-400) K/uL MPV (7.4-10.4) fL Immature Gran % (Auto) % Neut % (Auto) % Lymph % (Auto) % [place] % (Auto) % Eos % (Auto) % Baso % (Auto) % Neut # (Auto) (1.4-6.5) K/uL Lymph # (Auto) (1.2-3.4) K/uL [place] # (Auto) (0.11-0.59) K/uL Eos # (Auto) (0-0.5) K/uL Baso # (Auto) (0-0.2) K/uL Immature Gran # (Auto) (0.00-0.02) K/uL Sodium (136-145) mmol/L Potassium (3.5-5.1) mmol/L Chloride (98-107) mmol/L Carbon Dioxide (21-32) mmol/L Anion Gap (3-11) BUN (7-18) mg/dl Creatinine (0.6-1.4) mg/dl Est Cr Clr Drug Dosing ml/min Est GFR ( Amer) Est GFR (Non-Af Amer) BUN/Creatinine Ratio (10-20) Glucose (70-99) mg/dl Lactate (0.4-2.0) mmol/L Calcium (8.5-10.1) mg/dl Magnesium (1.8-2.4) mg/dl Total Bilirubin (0.2-1) mg/dl AST (15-37) U/L ALT (12-78) U/L Alkaline Phosphatase (45-117) U/L Ammonia 10.0 L (11-32) umol/L Total Creatine Kinase (39-308) U/L Total Protein (6.4-8.2) gm/dl Albumin (3.4-5.0) gm/dl Globulin (2.5-4.0) gm/dl Albumin/Globulin Ratio (0.9-2) Procalcitonin (0-0.5) ng/ml TSH (0.300-4.500) uIu/ml Urine Color Urine Appearance (Clear) Urine pH (4.5-7.5) Ur Specific [place] (1.000-1.030) Urine Protein (Negative) Urine Glucose (UA) (Negative) Urine Ketones (Negative) Urine Blood (Negative) Urine Nitrite (Negative) Urine Bilirubin (Negative) Urine Urobilinogen (Negative) Ur Leukocyte Esterase (Negative) Urine WBC (Auto) (0-5) /hpf Urine RBC (Auto) (0-4) /hpf U Hyaline Cast (Auto) (0-5) /lpf U Epithel Cells (Auto) (0-5) /lpf Urine Bacteria (Auto) (Negative) Urine Opiates Screen (Neg) Ur Methadone, Qual (Neg) Urine Barbiturates (Neg) Ur Phencyclidine (PCP) (Neg) U Amphetamin/Meth Scrn (Neg) MDMA (Ecstasy) Screen (Neg) U Benzodiazepines Scrn (Neg) Ur Cocaine Metabolite (Neg) U Marijuana (THC) Screen (Neg) Ethyl Alcohol mg/dL (0-3) mg/dl COVID-19 Eval [facility] SARS-[facility]-2, RNA, NAAT NEGATIVE (NEGATIVE) 10/01/20 Range/Units 03:59 WBC (4.8-10.8) K/uL RBC (4.7-6.1) M/uL Hgb (14.0-18.0) g/dL Hct (42-52) % MCV (80-100) fL MCH (25-34) pg MCHC (32-36) g/dL RDW Std Deviation (36.4-46.3) fL RDW Coeff of Jeff (11.5-14.5) % Plt Count (130-400) K/uL MPV (7.4-10.4) fL Immature Gran % (Auto) % Neut % (Auto) % Lymph % (Auto) % [place] % (Auto) % Eos % (Auto) % Baso % (Auto) % Neut # (Auto) (1.4-6.5) K/uL Lymph # (Auto) (1.2-3.4) K/uL [place] # (Auto) (0.11-0.59) K/uL Eos # (Auto) (0-0.5) K/uL Baso # (Auto) (0-0.2) K/uL Immature Gran # (Auto) (0.00-0.02) K/uL Sodium (136-145) mmol/L Potassium (3.5-5.1) mmol/L Chloride (98-107) mmol/L Carbon Dioxide (21-32) mmol/L Anion Gap (3-11) BUN (7-18) mg/dl Creatinine (0.6-1.4) mg/dl Est Cr Clr Drug Dosing ml/min Est GFR ( Amer) Est GFR (Non-Af Amer) BUN/Creatinine Ratio (10-20) Glucose (70-99) mg/dl Lactate 2.1 H* (0.4-2.0) mmol/L Calcium (8.5-10.1) mg/dl Magnesium (1.8-2.4) mg/dl Total Bilirubin (0.2-1) mg/dl AST (15-37) U/L ALT (12-78) U/L Alkaline Phosphatase (45-117) U/L Ammonia (11-32) umol/L Total Creatine Kinase (39-308) U/L Total Protein (6.4-8.2) gm/dl Albumin (3.4-5.0) gm/dl Globulin (2.5-4.0) gm/dl Albumin/Globulin Ratio (0.9-2) Procalcitonin (0-0.5) ng/ml TSH (0.300-4.500) uIu/ml Urine Color Urine Appearance (Clear) Urine pH (4.5-7.5) Ur Specific [place] (1.000-1.030) Urine Protein (Negative) Urine Glucose (UA) (Negative) Urine Ketones (Negative) Urine Blood (Negative) Urine Nitrite (Negative) Urine Bilirubin (Negative) Urine Urobilinogen (Negative) Ur Leukocyte Esterase (Negative) Urine WBC (Auto) (0-5) /hpf Urine RBC (Auto) (0-4) /hpf U Hyaline Cast (Auto) (0-5) /lpf U Epithel Cells (Auto) (0-5) /lpf Urine Bacteria (Auto) (Negative) Urine Opiates Screen (Neg) Ur Methadone, Qual (Neg) Urine Barbiturates (Neg) Ur Phencyclidine (PCP) (Neg) U Amphetamin/Meth Scrn (Neg) MDMA (Ecstasy) Screen (Neg) U Benzodiazepines Scrn (Neg) Ur Cocaine Metabolite (Neg) U Marijuana (THC) Screen (Neg) Ethyl Alcohol mg/dL (0-3) mg/dl COVID-19 Eval Order SARS-CoV-2, RNA, NAAT (NEGATIVE) Administered Medications Ascorbic Acid (Ascorbic Acid 500 Mg Tab) 500 mg PO BID [facility] Stop: 10/31/20 08:59 Last Admin: 10/02/20 20:36 Dose: 500 mg Documented by: [id number] Admin: 10/02/20 08:37 Dose: 500 mg Documented by: [id number] Admin: 10/01/20 20:30 Dose: 500 mg Documented by: [id number] Admin: 10/01/20 09:06 Dose: 500 mg Documented by: [id number] Aspirin (Aspirin 81 Mg Ectab) 81 mg PO DAILY [facility] Stop: 10/31/20 08:59 Last Admin: 10/02/20 08:37 Dose: 81 mg Documented by: [id number] Admin: 10/01/20 09:05 Dose: 81 mg Documented by: [id number] Atorvastatin Calcium (Atorvastatin 10 Mg Tab) 10 mg PO DAILY [facility] Stop: 10/31/20 08:59 Last Admin: 10/02/20 08:37 Dose: 10 mg Documented by: [id number] Admin: 10/01/20 09:06 Dose: 10 mg Documented by: [id number] Buspirone HCl (Buspirone 5 Mg Tab) 20 mg PO BID [facility] Stop: 10/31/20 08:59 Last Admin: 10/02/20 20:35 Dose: 20 mg Documented by: [id number] Admin: 10/02/20 08:38 Dose: 20 mg Documented by: [id number] Admin: 10/01/20 20:29 Dose: 20 mg Documented by: [id number] Admin: 10/01/20 09:05 Dose: 20 mg Documented by: [id number] Doxycycline Hyclate (Doxycycline Hyclate 100 Mg Cap) 100 mg PO BID [facility]; Protocol Stop: 10/08/20 20:59 Last Admin: 10/02/20 20:35 Dose: 100 mg Documented by: [id number] Admin: 10/02/20 08:37 Dose: 100 mg Documented by: [id number] Admin: 10/01/20 20:30 Dose: 100 mg Documented by: [id number] Enoxaparin Sodium (Enoxaparin Inj 40 Mg/0.4 Ml Syr) 40 mg SQ [facility] Stop: 10/31/20 08:59 Last Admin: 10/02/20 08:35 Dose: 40 mg Documented by: [id number] Admin: 10/01/20 09:07 Dose: 40 mg Documented by: [id number] Folic Acid (Folic Acid 1 Mg Tab) 1 mg PO [facility] Stop: 11/01/20 08:59 Last Admin: 10/02/20 08:37 Dose: 1 mg Documented by: [id number] Gabapentin (Gabapentin 100 Mg Cap) 100 mg PO TID [facility] Stop: 10/31/20 08:59 Last Admin: 10/02/20 20:34 Dose: 100 mg Documented by: [id number] Admin: 10/02/20 14:15 Dose: 100 mg Documented by: [id number] Admin: 10/02/20 08:38 Dose: 100 mg Documented by: [id number] Admin: 10/01/20 20:29 Dose: 100 mg Documented by: [id number] Admin: 10/01/20 14:39 Dose: 100 mg Documented by: [id number] Admin: 10/01/20 09:06 Dose: 100 mg Documented by: [id number] Lidocaine (Lidocaine 5% 1 Patch) 1 patch TD [facility] Stop: 10/31/20 05:59 Last Admin: 10/02/20 08:36 Dose: 1 patch Documented by: [id number] Admin: 10/01/20 06:50 Dose: 1 patch Documented by: [id number] Lisinopril (Lisinopril 20 Mg Tab) 20 mg PO DAILY [facility] Stop: 10/31/20 07:58 Last Admin: 10/02/20 08:37 Dose: 20 mg Documented by: [id number] Admin: 10/01/20 09:05 Dose: 20 mg Documented by: [id number] Mirtazapine (Mirtazapine Soltab 15 Mg) 45 mg PO HS [facility] Stop: 10/31/20 20:59 Last Admin: 10/02/20 20:36 Dose: 45 mg Documented by: [id number] Admin: 10/01/20 20:28 Dose: 45 mg Documented by: [id number] Miscellaneous (Remove Lidoderm Patch) 1 ea N/A DAILY@2100 [facility] Stop: 10/31/20 17:59 Last Admin: 10/02/20 20:38 Dose: Not Given Documented by: [id number] Admin: 10/01/20 17:18 Dose: Not Given Documented by: [id number] Miscedricaneous (Effexor: Order Awaiting Action) 1 ea N/A QS [facility] Stop: 10/31/20 15:59 Last Admin: 10/02/20 20:34 Dose: Not Given Documented by: [id number] Admin: 10/02/20 12:41 Dose: Not Given Documented by: [id number] Admin: 10/02/20 01:16 Dose: 1 ea Documented by: [id number] Admin: 10/01/20 17:17 Dose: Not Given Documented by: [id number] Multivitamins (Multivitamin Tab) 1 tab PO QAM [facility] Stop: 11/01/20 08:59 Last Admin: 10/02/20 08:36 Dose: 1 tab Documented by: [id number] Neomycin/Polymyxin/Bacitracin (Neomycin/Polymyx/Bacitr Oint 15 Gm Tube) 1 appln EXT BID [facility] Stop: 10/31/20 23:54 Last Admin: 10/02/20 20:38 Dose: 1 appln Documented by: [id number] Admin: 10/02/20 08:39 Dose: 1 appln Documented by: [id number] Admin: 10/02/20 01:15 Dose: 1 appln Documented by: [id number] Pantoprazole Sodium (Pantoprazole 40 Mg Tab) 40 mg PO BID [facility] Stop: 10/31/20 08:59 Last Admin: 10/02/20 20:36 Dose: 40 mg Documented by: [id number] Admin: 10/02/20 08:38 Dose: 40 mg Documented by: [id number] Admin: 10/01/20 20:29 Dose: 40 mg Documented by: [id number] Admin: 10/01/20 09:04 Dose: 40 mg Documented by: [id number] Quetiapine Fumarate (Quetiapine Fumarate 25 Mg Tablet) 50 mg PO [facility] Stop: 10/31/20 20:59 Last Admin: 10/02/20 20:34 Dose: 50 mg Documented by: [id number] Admin: 10/01/20 20:30 Dose: 50 mg Documented by: [id number] Thiamine HCl (Thiamine Hcl 100 Mg Tab) [facility] [place] Stop: 11/01/20 08:59 Last Admin: 10/02/20 08:38 Dose: 100 mg Documented by: [id number] Discontinued Medications Clonidine HCl (Clonidine Hcl 0.1 Mg Tab) 0.1 mg PO NOW ONE Stop: 10/01/20 03:27 Last Admin: 10/01/20 04:45 Dose: 0.1 mg Documented by: [id number] Gabapentin (Gabapentin 600 Mg Tab) 1,200 mg PO NOW STA Stop: 10/01/20 05:30 Last Admin: 10/01/20 06:49 Dose: 1,200 mg Documented by: [id number] Gadobutrol (Gadobutrol 65ml Vial) 11 ml IV ONCE ONE Stop: 10/01/20 12:26 Last Admin: 10/01/20 12:25 Dose: 11 ml Documented by: [id number] Sodium Chloride (Nss) 500 mls @ 999 mls/hr IV .Q31M ONE Stop: 10/01/20 01:03 Last Infusion: 10/01/20 02:57 Dose: 0 mls/hr Documented by: [id number] Admin: 10/01/20 01:09 Dose: 999 mls/hr Documented by: [id number] Multivitamins 10 ml/ Thiamine HCl 100 mg/ Folic Acid 1 mg/Sodium Chloride 1,011.2 mls @ 250 mls/hr IV .Q4H3M ONE Stop: 10/01/20 07:52 Last Infusion: 10/01/20 08:48 Dose: 0 mls/hr Documented by: [id number] Admin: 10/01/20 04:45 Dose: 250 mls/hr Documented by: [id number] Doxycycline Hyclate 100 mg/ (Dextrose) 110 mls @ 50 mls/hr IV NOW STA Stop: 10/01/20 07:39 Last Infusion: 10/01/20 09:33 Dose: 0 mls/hr Documented by: [id number] Admin: 10/01/20 07:21 Dose: 50 mls/hr Documented by: [id number] Potassium Chloride/Sodium Chloride (Normal Saline W/20 Meq Kcl) 20 meq in 1,000 mls @ 80 mls/hr IV .[id number] ONE Stop: 10/01/20 20:29 Last Infusion: 10/02/20 01:16 Dose: 0 mls/hr Documented by: [id number] Admin: 10/01/20 09:04 Dose: 80 mls/hr Documented by: [id number] Ioversol (Optiray 320 125ml) 119 ml IV ONCE ONE Stop: 10/01/20 04:05 Last Admin: 10/01/20 04:04 Dose: 119 ml Documented by: [id number] Discharge Plan Visit Data Chief Complaint: Altered Mental Status Stated Complaint: ALTERED MENTAL STATUS ED Provider: Yuki Ortiz Discharge Problem: Syncope, Alcohol intoxication, Sleep deprivation Patient Disposition: Admitted As Inpatient Discharge Instructions Interventions: ED Discharge Assessment Last Done: 10/01/20 07:48 Discharge Problem: Syncope Qualifiers: Syncope type: unspecified Qualified Code(s): R55 - Syncope and collapse Alcohol intoxication Qualifiers: Complication of substance-induced condition: with unspecified complication Qualified Code(s): F10.929 - Alcohol use, unspecified with intoxication, unspec ified
--- NOTE | 2020-10-01 07:22 | CT Scan Report ---
CT head/brain wo con CLINICAL HISTORY: Head trauma. Loss of consciousness COMPARISON STUDY: 09/17/2020 TECHNIQUE: Axial CT of the brain is performed from the vertex to the skull base. IV contrast was not administered for this examination. A dose lowering technique was utilized adhering to the principles of ALARA. CT DOSE: 1554.28 mGy.cm FINDINGS: No intra or extra-axial mass lesions are visualized. There is no CT evidence of acute cortical infarc tion. There is no evidence of midline shift. There is no acute hemorrhage. No calvarial fractures ar e visualized. There are minimal white matter hypodensities likely on a small vessel basis. There is no evidence of pathologic ventricular dilatation. There is mucosal disease involving left posterior ethmoid air cells. IMPRESSION: No acute intracranial findings ACT 112: Negative or not required by law. Electronically signed by: Bear Dominguez M.D. 10/01/2020 7:21 AM
[2020-10-01] MEDS ORDERED: oxyCODONE HCL IR 5 MG TAB (IMMEDIATE RELEASE) PO PRN (07:59)
[2020-10-01] MEDS ORDERED: traZODone HCL 50 MG TAB PO PRN (07:59)
[2020-10-01] MEDS ORDERED: ACETAMINOPHEN 325 MG TAB PO PRN (07:59)
[2020-10-01] MEDS ORDERED: PROMETHAZINE HCL 12.5 MG in SODIUM CHLORIDE 0.9% 50 ML IV PRN (07:59)
[2020-10-01] MEDS ORDERED: MoRPHine SULFATE 4 MG/ML 1 ML CARP\\VIAL IV PRN (07:59)
[2020-10-01] MEDS ORDERED: NSS + 20MEQ KCL 20 MEQ/1,000 ML BAG IV ONE (08:00)
--- NOTE | 2020-10-01 08:02 | CT Scan Report ---
CT ANGIOGRAM OF THE CHEST CLINICAL HISTORY: Atypical chest pain possible acute pulmonary embolism COMPARISON STUDY: 09/11/2020 TECHNIQUE: Following the IV administration of 119 mL of Optiray-320, CT angiogram of the thorax was p erformed from the thoracic inlet to the lung bases utilizing the pulmonary embolus protocol. Images a re reviewed in the axial, sagittal, and coronal planes. IV contrast was administered without complica tion. MIP imaging was performed. A dose lowering technique was utilized adhering to the principles o f ALARA. CT DOSE: FINDINGS: There is hepatic steatosis No pathologically enlarged axillary mediastinal or hilar lymph nodes were visualized. There is mild ectasia of descending thoracic aorta which measures 36 mm. There are coronary artery ca lcifications. There were no pulmonary artery filling defects to indicate acute pulmonary embolism. No pleural effusions are visualized. There is no focal pulmonary consolidation. There are scattered areas of presumed atelectasis. There is a left sixth anterior rib fracture, likely subacute. IMPRESSION: 1. No evidence of acute pulmonary embolism 2. No evidence of focal pulmonary consolidation 3. Mild elevation of left hemidiaphragm. ACT 112: Negative or not required by law. Electronically signed by: Bear Dominguez M.D. 10/01/2020 8:01 AM
--- NOTE | 2020-10-01 08:05 | XRay Report ---
XR chest 1V portable CLINICAL HISTORY: weakness COMPARISON STUDY: 09/02/2020 FINDINGS: The heart remains mildly enlarged. There is aortic tortuosity/ectasia. There is no failure. There is no focal pulmonary consolidation. There are no pleural effusions. There is no pneumothorax. [ IMPRESSION: No significant change from the prior study. No acute findings. ACT 112: Negative or not required by law. Electronically signed by: Bear Dominguez M.D. 10/01/2020 8:04 AM
[2020-10-01 08:50] LABS: INR 1.1 (0.9-1.1); Prothrombin Time 11.4 Seconds (9.0-12.0)
[2020-10-01] MEDS: PANTOprazole 40 MG TAB PO SCH ×2 (09:04→20:29)
[2020-10-01] MEDS: ASPIRIN 81 MG ECTAB PO SCH (09:05)
[2020-10-01] MEDS: busPIRone 5 MG TAB PO SCH ×2 (09:05→20:29)
[2020-10-01] MEDS: lisinopril 20 MG TAB PO SCH (09:05)
[2020-10-01] MEDS: ATORVASTATIN 10 MG TAB PO SCH (09:06)
[2020-10-01] MEDS: ASCORBIC ACID 500 MG TAB PO SCH ×2 (09:06→20:30)
[2020-10-01] MEDS: GABAPENTIN 100 MG CAP PO SCH ×3 (09:06→20:29)
[2020-10-01] MEDS: ENOXAPARIN INJ 40 MG/0.4 ML SYR SQ SCH (09:07)
[2020-10-01] MEDS ORDERED: GADOBUTROL 65ML VIAL IV ONE (12:25)
--- NOTE | 2020-10-01 12:43 | Magnetic Resonance Report ---
MRI OF THE BRAIN WITHOUT AND WITH IV CONTRAST CLINICAL HISTORY: Headache. Altered level of consciousness. Generalized weakness. History of head tra yasemin. COMPARISON STUDY: Head CT dated 10/01/2020, MRI the brain dated 08/16/2017 TECHNIQUE: MRI of the brain was performed from the vertex to the skull base utilizing various T1 and T2 weighted sequences. Following the IV administration of 11 mL of Gadavist contrast, additional enha nced images were obtained. FINDINGS: Sagittal T1, axial diffusion, proton density and T2 weighted axial, coronal FLAIR, and pre and post a xial T1-weighted images were acquired. These were supplemented with post gadolinium coronal T1 weight ed images. No intra or extra-axial mass lesions are visualized. Axial diffusion-weighted images reveal no evidence of acute or subacute infarction. There is no evidence of ventricular dilatation. Proton density T2-weighted and FLAIR images reveal scattered foci of increased T2 signal within the w vesta matter, likely on a small vessel basis. There are no abnormal flow voids. There is no evidence of pathologic enhancement. The study is mildly degraded due to motion artifact Inflammatory changes are present within a left posterior ethmoid air cell IMPRESSION: 1. No significant change from the preceding August 2017 study 2. No evidence of acute or subacute infarction 3. No evidence of intracranial mass ACT 112: Negative or not required by law. Electronically signed by: Bear Dominguez M.D. 10/01/2020 12:41 PM
--- NOTE | 2020-10-01 13:19 | Electrocardiogram Report ---
Test Reason : Blood Pressure : / mmHG Vent. Rate : 115 BPM Atrial Rate : 115 BPM P-R Int : 214 ms QRS Dur : 094 ms QT Int : 324 ms P-R-T Axes : 078 -14 008 degrees QTc Int : 448 ms Sinus tachycardia with 1st degree A-V block with Premature supraventricular complexes Otherwise normal ECG When compared with ECG of 11-SEP-2020 17:39, Premature supraventricular complexes are now Present Confirmed by Avery Damico ([id number]) on 10/01/2020 1:18:53 PM Referred By: REFERRED SELF Confirmed By:Avery Damico
--- NOTE | 2020-10-01 15:49 | Psychiatric Consultation ---
Date of Consultation October 01, 2020 Impression / Recommendations Impression Interesting 70-year-old recently gentleman. He is obviously intelligent. Presents with evidence of recent alcohol abuse and describing approximate 1 year of not feeling himself. Symptom cluster of mood disturbance, possible behavioral changes, autonomic symptoms, memory loss, mild motor symptoms suggests possible organic etiology. Supplementary history will be valuable in identifying if there is a h/o longer standing psychiatric sx which patient is presently denying. Differential would certainly include alcohol induced delirium or alcohol induced neurocognitive disorder, early major neurocognitive disorder (consider Lewy body disease), seizure disorder (consider temporal lobe epilepsy), bipolar disorder, or depression with psychosis. (1) Mood disorder: -We will continue to expand database. Seeking supplemental history from family as well as confirmation of medication regimen from [facility]. -We will coordinate with outpatient providers as able. Hopefully we will be able to obtain records from [facility] psychiatry quickly -will hold off on restarting the Effexor until we can confirm outpatient dose as he was certainly hyperverbal today and to minimize risk for further activation. As he is also on high-dose mirtazapine this should reduce risk for discontinuation symptoms regarding discontinuation of Effexor. Unclear to me why he seems to be taking the regular release formulation 3 times daily at home -Patient acknowledging insomnia with very poor sleep quality since August. We will start Seroquel 50 mg p.o. nightly tonight for sleep induction as well as mild symptoms of psychosis and for mood augmentation. Common risks and benefits reviewed and accepted by patient today. -Rule out mood disorder associated with neurocognitive disorder as above. will look forward to reviewing EEG results when available. -Presently he does not endorse thoughts of harm to self or others and no indication of need for 24-hour sitter so far. Please watch boundaries with female caregivers (2) Alcohol withdrawal: -Alcohol withdrawal protocol per primary team. -abstinence encouraged -will consider substance abuse treatment referral options if indicated Inventory Assets Strengths: Help seeking Needs: Supportive medical care, pharmacotherapy for mood disorder and mild psychosis Risk Factors Assessment Male: Yes : Yes Health Problems: Yes Mental Health Diagnoses: Yes Substance Use Disorders: Yes Previous Attempt: No Family History of Suicide: Yes Previous Psychiatric Hospitalization: No Hopelessness: No Protective Factors Assessment Mormon Beliefs: Yes : No Responsible for Young Children: No CPT Code 39220 Psych History Chief Complaint "I have not felt right for about a year. Something is off". History of Present Illness Patient with unclear mental health history. Prior diagnosis of bipolar disorder on record in addition to alcohol abuse. Patient presented through the ER with recent multiple syncopal events and multiple ER presentations in the past 2- months with alcohol intoxication. Reportedly recently confined at [facility] in August and September for pneumonia. Also had a right middle finger injury requiring sutures. Per admission H&P patient was at the [employer] the night prior to presentation and had a syncopal event at the store, was unable to recall how he got home, had a low-grade temperature, felt ill with symptoms of cough and pleuritic chest pain and brought to the ER for evaluation. He has a history of TIA. On precautions for alcohol withdrawal. Being treated with doxycycline for complicated bronchitis. Syncope work-up includes brain MRI, echo, EEG. Psychiatry consulted for depression. Brain MRI was largely unremarkable today. Drug screen on admission notable for alcohol level of 99.4, MDMA was also positive however this might of been associated with Wellbutrin Rx however not currently prescribed. Patient denies illicit substance use. He reports that he drank only x2 since his and both times have resulted in hospitalization. CMP was fairly benign apart from mildly elevated AST of 39. Thyroid normal at 3.5-0. Urinalysis showed trace leuk esterase, negative nitrite, negative bacteria. No leukocytosis. COVID negative. Patient is a difficult interview. Initial impression was of hyperverbal speech however not quite the rapid pressured speech of rai. Speech rather more robotic with unusual prosody and diminished intonation. He demonstrates some loosening of associations but does typically return to topic after following a highly circumstantial path in his associations. He acknowledges subjectively not feeling quite himself for at least the last year. "There is a disturbance in the force." He describes a multitude of symptoms including short-term memory loss, clumsiness, syncopal spells, constipation, diminished urinary output, stuttering, visual illusions versus hallucinations reaching out for objects that disappear and sometimes seeing what he believes are scotoma or swirling visions on the wall. Denies auditory hallucinations. He refutes bipolar diagnosis stating that he has never shown symptoms of such but does state that a prior psychiatrist tried to put him on lithium which made him feel like a zombie. He acknowledges very poor sleep since the of his but does not seem to endorse overt mood cycle pattern history. He demonstrates some preoccupation with the female gender and describes an affinity for several of the providers that have treated him over the past several months describing him with terms like "goddess." When queried if he feels sexually preoccupied he, and a somewh at disinhibited manner, states that he has no problem with "horniness" but then goes on to state that he is likely to soon have a nocturnal admission as he has not had sex in quite some time and that is a shame because it is more fun to do it when one is awake. He reports previously being incarcerated for stalking when he was in [place] but he feels that this was unjustified. He reports he had to participate in court mandated psychiatric follow-up but describes the psychiatrist as a "hostile witness." Most recently has followed with Meagan Tristan MD, at [facility], however he has not seen her in some time as she is out on leave. He believes that his current regimen of Remeron 45mg qhs, BuSpar 20mg bid, and Effexor 75mg TID have been helpful for his depression but inadequately so. He denies a history of problematic activation or insomnia associated with antidepressant titration in the past. He recalls the Remeron was once very helpful for appetite stimulation. He from his third in 2013 and his fourth 1 to 2 years ago who in August. She sounds to have been an alcoholic. He reports someone at the [facility] felt that his mood disturbance was secondary to bereavement or adjustment associated with of his . He believes he was having problems with his mood prior to her dating back for approximately 1 year. He adamantly denies any intent or plan for self-harm or harm to anyone else. He identifies his buddhist is protective. Past Psychiatric History Current Psychiatric Diagnosis: Unclear Outpatient Services: Most recently seeing Dr. Tristan at [facility] per his report Also has a medical social consultant through the [facility] Previous Psych Admissions: Denies apart from 2-day stay for assessment of alcohol use in the 1980s per self-report History of Previous Suicide Attempt: No Past Medication Trials: [place] made him feel like a zombie Unknown TCA well-tolerated Wellbutrin Remeron helpful for appetite stimulation Trazodone as needed for sleep Effexor Neurontin Allergies Allergy/AdvReac Type Severity Reaction Status Date / Time clams AdvReac Unknown Diarrhea Verified 09/17/20 19:46 ketorolac [From Toradol] AdvReac Unknown Confusion Verified 09/17/20 19:46 Home Medications Medication Instructions Recorded Confirmed Type aspirin [Aspir-Low] 81 mg PO DAILY 08/22/20 10/01/20 History atorvastatin 10 mg PO DAILY 08/22/20 10/01/20 History calcium carbonate [Tums 500] 500 mg PO QID PRN 08/22/20 10/01/20 History celecoxib [Celebrex] 200 mg PO BID 08/22/20 10/01/20 History lisinopril 20 mg PO DAILY 08/22/20 10/01/20 History loperamide 2 - 4 mg PO Q6H PRN 08/22/20 10/01/20 History mirtazapine [Remeron] 45 mg PO HS 08/22/20 10/01/20 History omeprazole 20 mg PO BID 08/22/20 10/01/20 History ondansetron HCl 4 mg PO Q6H PRN 08/22/20 10/01/20 History trazodone 50 - 100 mg PO HS 08/22/20 10/01/20 History ascorbic acid (vitamin C) [Vitamin 500 mg PO BID 09/11/20 10/01/20 History C] meclizine 25 mg PO TID PRN #30 tab 09/11/20 10/01/20 Rx buspirone [BuSpar] 20 mg PO BID 10/01/20 10/01/20 History gabapentin 100 mg PO TID 10/01/20 10/01/20 History venlafaxine [Effexor] 0 mg PO TID 10/01/20 10/01/20 History Family History Father committed suicide at age 72. Abused alcohol. 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) Marital Status: ( x3) Number Of Children: 4 Beliefs That Will Affect Care: None History of Legal Problems: History of incarceration for stalking per self-report Psychological Trauma History Comment: None known Patient History Medical History (Updated 10/01/20 @ 15:50 by Juve Nielson MD) Alcohol abuse Bipolar disorder TIA (transient ischemic attack) Family History (Updated 10/01/20 @ 15:51 by Juve Nielson MD) Other Suicide Social History Smoking Status: Never smoker Hx Alcohol Use: Yes Alcohol type: wine Hx Substance Use: No Preferred Language: Scottish Communication Ability: Effective Arcade Attendant Required: No Beliefs That Will Affect Care: None Current Living Situation: Alone current occupational status: retired Other Information That Helps Us Care for You: No Feels Safe at Home: Yes Safety Concerns: Feels Safe At This Time Assistive Devices: Glasses Physical Exam Psychiatric: Orientation: oriented x 3 and cooperative Apperance: + disheveled Eye Contact: good eye contact Motor Behavior: n EPS Speech: + pressured speech (Overproductive, rapid, diminished tone) Affect: + blunted affect; + mood not congruent with affect Mood: + depressed mood Thought Process: + circumstantial thought process, + looseness of associations and + confabulations (Possible); no thought blocking Thought Content: + loneliness Suicidal Thoughts: denies suicidal thoughts, denies suicidal plan and denies suicidal intent Homicidal Thoughts: denies homicidal thoughts, denies homicidal plan and denies homicidal intent Hallucinations: + visual hallucinations; no auditory hallucinations and no tactile hallucinations Cognition: + recent memory not intact and + attention not intact Estimated Intelligence: + above average estimated intelligence Insight: + fair insight Judgement: + fair judgement Vital Signs (Past 24 Hours): Last Vital Signs Temp 36.6 C 10/01/20 15:00 Pulse 103 H 10/01/20 15:00 Resp 18 10/01/20 15:00 BP 139/95 10/01/20 15:00 Pulse Ox 99 10/01/20 15:00 Review of Systems Psychiatric: no suicidal ideation and no homicidal ideation 10 point review of systems otherwise negative except as per HPI Results & Data (PSY) Laboratory Results Abnormal lab results 10/01/20 10/01/20 10/01/20 Range/Units 00:46 00:46 00:46 RBC 3.85 L (4.7-6.1) M/uL Hgb 13.6 L (14.0-18.0) g/dL Hct 38.6 L (42-52) % MCV 100.3 H (80-100) fL MCH 35.3 H (25-34) pg Lymph # (Auto) 1.19 L (1.2-3.4) K/uL [place] # (Auto) 0.68 H (0.11-0.59) K/uL Lactate (0.4-2.0) mmol/L AST 39 H (15-37) U/L Ammonia (11-32) umol/L Ur Leukocyte Esterase (Negative) U Epithel Cells (Auto) (0-5) /lpf MDMA (Ecstasy) Screen (Neg) Ethyl Alcohol mg/dL 99.4 H (0-3) mg/dl 10/01/20 10/01/20 10/01/20 Range/Units 02:25 02:25 03:59 RBC (4.7-6.1) M/uL Hgb (14.0-18.0) g/dL Hct (42-52) % MCV (80-100) fL MCH (25-34) pg Lymph # (Auto) (1.2-3.4) K/uL [place] # (Auto) (0.11-0.59) K/uL Lactate (0.4-2.0) mmol/L AST (15-37) U/L Ammonia 10.0 L (11-32) umol/L Ur Leukocyte Esterase Trace H (Negative) U Epithel Cells (Auto) 10-20 H (0-5) /lpf MDMA (Ecstasy) Screen Pos H (Neg) Ethyl Alcohol mg/dL (0-3) mg/dl 10/01/20 Range/Units 03:59 RBC (4.7-6.1) M/uL Hgb (14.0-18.0) g/dL Hct (42-52) % MCV (80-100) fL MCH (25-34) pg Lymph # (Auto) (1.2-3.4) K/uL [place] # (Auto) (0.11-0.59) K/uL Lactate 2.1 H* (0.4-2.0) mmol/L AST (15-37) U/L Ammonia (11-32) umol/L Ur Leukocyte Esterase (Negative) U Epithel Cells (Auto) (0-5) /lpf MDMA (Ecstasy) Screen (Neg) Ethyl Alcohol mg/dL (0-3) mg/dl Diagnostic Findings Brain MRI from earlier today showed scattered foci of increased T2 signal within the white matter likely small vessel basis. No acute process. Not significantly changed from prior study August 2017. Medications Administered Ascorbic Acid (Ascorbic Acid 500 Mg Tab) 500 mg PO BID [facility]ICK Stop: 10/31/20 08:59 Last Admin: 10/01/20 09:06 Dose: 500 mg Documented by: [id number] Aspirin (Aspirin 81 Mg Ectab) 81 mg PO DAILY [facility]ICK Stop: 10/31/20 08:59 Last Admin: 10/01/20 09:05 Dose: 81 mg Documented by: [id number] Atorvastatin Calcium (Atorvastatin 10 Mg Tab) 10 mg PO DAILY [facility] Stop: 10/31/20 08:59 Last Admin: 10/01/20 09:06 Dose: 10 mg Documented by: [id number] Buspirone HCl (Buspirone 5 Mg Tab) 20 mg PO BID [facility]ICK Stop: 10/31/20 08:59 Last Admin: 10/01/20 09:05 Dose: 20 mg Documented by: [id number] Enoxaparin Sodium (Enoxaparin Inj 40 Mg/0.4 Ml Syr) 40 mg SQ QAM [facility]ERICK Stop: 10/31/20 08:59 Last Admin: 10/01/20 09:07 Dose: 40 mg Documented by: [id number] Gabapentin (Gabapentin 100 Mg Cap) 100 mg PO TID [facility]ERICK Stop: 10/31/20 08:59 Last Admin: 10/01/20 14:39 Dose: 100 mg Documented by: [id number] Admin: 10/01/20 09:06 Dose: 100 mg Documented by: [id number] Potassium Chloride/Sodium Chloride (Normal Saline W/20 Meq Kcl) 20 meq in 1,000 mls @ 80 mls/hr IV .[id number] ONE Stop: 10/01/20 20:29 Last Admin: 10/01/20 09:04 Dose: 80 mls/hr Documented by: [id number] Lidocaine (Lidocaine 5% 1 Patch) 1 patch TD QAM FREDERICK Stop: 10/31/20 05:59 Last Admin: 10/01/20 06:50 Dose: 1 patch Documented by: [id number] Lisinopril (Lisinopril 20 Mg Tab) 20 mg PO DAILY [facility] Stop: 10/31/20 07:58 Last Admin: 10/01/20 09:05 Dose: 20 mg Documented by: [id number] Pantoprazole Sodium (Pantoprazole 40 Mg Tab) 40 mg PO BID [facility] Stop: 10/31/20 08:59 Last Admin: 10/01/20 09:04 Dose: 40 mg Documented by: [id number] Coding Level of Care Code 18307 [facility] Intl Hosp Care l 3 Diagnoses Mood disorder F39 Alcohol withdrawal F10.239
--- NOTE | 2020-10-01 17:33 | Hospitalist Progress Note ---
Date of Service October 01, 2020 Assessment & Plan (1) Alcohol withdrawal: Present on admission for recurrent syncope Alcohol level 99.4 on admission Pt said that he does not drink a lot, but mentioned in he used to go to [facility] meeting Continue alcohol withdrawal protocol with gabapentin and Ativan prn Will add a low dose of Librium BID Continue thiamine and folic acid Counseling on alcohol cessation Recurrent syncope Possible related to alcohol intoxication vs seizure CT head showed no acute intracranial abnormality MRI head showed no evidence of acute or subacute infarction. no significant change from the preceding August 2017 study. No focal neuro deficit Tele monitor showed no arrhythmia Echo and EEG pending Will get a carotid US doppler Continue monitor in tele Pleuritic Chest discomfort Possible related to bronchitis vs rib fracture CTA showed no evidence of PE Continue doxycycline and oxycodone for pain Rib Fracture CTA chest showed left sixth anterior rib fracture, likely subacute. Incentive spirometry and pain control Will continue monitor Mood disorder Racing thought and hyperverbal Psych on board recommended to hold on effexor Starting on Seroquel Continue monitor closely Hypertension BP stable Continue Lisinopril DVT px on Lovenox CODE STATUS FULL CODE Disposition Will discharge to once medically stable Patient's daughter requesting updates for providers. Ms. Kiya Miller, contact #[phone]. Admission and Anticipated Discharge Date Admission Date: October 01, 2020 Subjective Pt was seen and examined for follow up of syncope and alcohol withdrawal Lying in bed with no acute distress Pt was talking to her sister on the phone when I came to his room he wanted me to talk to his sister and I spoke to her sister and mentioned about autoimmune diseases in the family Pt is having racing thoughts and pressure speech He cannot stay in 1 topic He would like his diet to advance denies any chest pain, palpitation, dizziness and SOB Physical Exam Physical Exam: General- No acute distress Head- atraumatic Eyes- PERRL, EOMI, ENT- oropharynx clear Neck- supple, no JVD Lungs- clear to auscultation Heart- +tachycardia Abdomen- normal bowel sounds, soft, nontender Extremities- no calf tenderness, Sutured wound right middle finger Neuro- alert, oriented x 3, + finger to touch, +tremors, PERRL, EOMI; no facial palsy; no dysarthria Skin- warm & dry Results & Data Results & Data ([facility]) Vital Signs (Past 12 Hours) Vital Signs Temp Pulse Pulse Pulse Resp BP BP 10/01/20 15:00 36.6 C 103 H 18 10/01/20 08:41 101 H 10/01/20 07:45 36.7 C 98 H 20 148/100 H 10/01/20 06:00 100 H 148/92 H BP Pulse Ox 10/01/20 15:00 139/95 99 10/01/20 08:41 10/01/20 07:45 100 10/01/20 06:00 96
[2020-10-01] MEDS: MIRTAZAPINE SOLTAB 15 MG PO SCH (20:28)
[2020-10-01] MEDS: QUEtiapine FUMARATE 25 MG TABLET PO SCH (20:30)
[2020-10-01] MEDS: DOXYCYCLINE HYCLATE 100 MG CAP PO SCH (20:30)
[2020-10-02] MEDS: NEOMYCIN/POLYMYX/BACITR OINT 15 GM TUBE EXT SCH ×3 (01:15→20:38)
[2020-10-02 06:35] LABS: Basophils # (auto) 0.03 K/uL (0-0.2); Basophils % (auto) 0.9 %; Eosinophils # (auto) 0.15 K/uL (0-0.5); Eosinophils % (auto) 4.5 %; Hematocrit (blood only) 36.7 % (42-52); Hemoglobin 12.2 g/dL (14.0-18.0); Immature Granulocytes # (auto) 0.01 K/uL (0.00-0.02); Immature Granulocytes % (auto) 0.3 %; Lymphocytes # (auto) 0.99 K/uL (1.2-3.4); Lymphocytes % (auto) 29.9 %; Mean Corpuscular Hemoglobin 34.5 pg (25-34); Mean Corpuscular Hgb Conc 33.2 g/dL (32-36); Mean Corpuscular Volume 103.7 fL (80-100); Mean Platelet Volume 9.9 fL (7.4-10.4); Monocytes # (auto) 0.45 K/uL (0.11-0.59); Monocytes % (auto) 13.6 %; Neutrophils # (auto) 1.68 K/uL (1.4-6.5); Neutrophils % (auto) 50.8 %; Platelet Count 214 K/uL (130-400); RDW Coefficient of Variation 12.7 % (11.5-14.5); RDW Standard Deviation 48.5 fL (36.4-46.3); Red Blood Count 3.54 M/uL (4.7-6.1); White Blood Count 3.31 K/uL (4.8-10.8)
[2020-10-02 07:14] LABS: Albumin Level 2.8 gm/dl (3.4-5.0); BUN Creatinine Ratio 13.1 (10-20); Calcium 8.4 mg/dl (8.5-10.1); Creatinine Clr Calc Pharmacy 76.6 ml/min; Est GFR (African American) 78.1; Est GFR (Non-African American) 67.4; Potassium 3.8 mmol/L (3.5-5.1)
[2020-10-02 07:22] LABS: Bilirubin,Total 0.5 mg/dl (0.2-1); Globulin 2.9 gm/dl (2.5-4.0); Total Protein 5.7 gm/dl (6.4-8.2)
[2020-10-02] MEDS: ENOXAPARIN INJ 40 MG/0.4 ML SYR SQ SCH (08:35)
--- NOTE | 2020-10-02 08:35 | Ultrasound Report ---
ULTRASOUND OF THE CAROTID ARTERIES CLINICAL HISTORY: syncopal episodes COMPARISON STUDY: MR angiography dated 08/16/2017 TECHNIQUE: Real-time, grayscale, and color Doppler sonography of the carotid arteries was performed. Imaging reviewed in the transverse and longitudinal planes. NASCET criteria was utilized for stenosis calcification. FINDINGS: There is minimal atherosclerotic plaque present . The peak systolic velocity within the right internal carotid artery is 86 cm/sec. The systolic velocity ratio of right internal to common carotid artery is 1.2. The peak systolic velocity within the left internal carotid artery is 98 cm/sec. The systolic velocity ratio left internal to common carotid artery is 1.2. Antegrade flow is seen in the vertebral arteries. The external carotid arteries are patent. IMPRESSION: No evidence of hemodynamically significant carotid stenosis. ACT 112: Negative or not required by law. Electronically signed by: Bear Dominguez M.D. 10/02/2020 8:34 AM
[2020-10-02] MEDS: LIDOCAINE 5% 1 PATCH TD SCH (08:36)
[2020-10-02] MEDS: MULTIVITAMIN TAB PO SCH (08:36)
[2020-10-02] MEDS: ASPIRIN 81 MG ECTAB PO SCH (08:37)
[2020-10-02] MEDS: DOXYCYCLINE HYCLATE 100 MG CAP PO SCH ×2 (08:37→20:35)
[2020-10-02] MEDS: lisinopril 20 MG TAB PO SCH (08:37)
[2020-10-02] MEDS: FOLIC ACID 1 MG TAB PO SCH (08:37)
[2020-10-02] MEDS: ATORVASTATIN 10 MG TAB PO SCH (08:37)
[2020-10-02] MEDS: ASCORBIC ACID 500 MG TAB PO SCH ×2 (08:37→20:36)
[2020-10-02] MEDS: GABAPENTIN 100 MG CAP PO SCH ×3 (08:38→20:34)
[2020-10-02] MEDS: PANTOprazole 40 MG TAB PO SCH ×2 (08:38→20:36)
[2020-10-02] MEDS: busPIRone 5 MG TAB PO SCH ×2 (08:38→20:35)
[2020-10-02] MEDS: THIAMINE HCL 100 MG TAB PO SCH (08:38)
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
[2020-10-02] MEDS: QUEtiapine FUMARATE 25 MG TABLET PO SCH (20:34)
[2020-10-02] MEDS: MIRTAZAPINE SOLTAB 15 MG PO SCH (20:36)
[2020-10-03] MEDS: MULTIVITAMIN TAB PO SCH (07:36)
[2020-10-03] MEDS: PANTOprazole 40 MG TAB PO SCH (07:37)
[2020-10-03] MEDS: lisinopril 20 MG TAB PO SCH (07:37)
[2020-10-03] MEDS: THIAMINE HCL 100 MG TAB PO SCH (07:37)
[2020-10-03] MEDS: ASCORBIC ACID 500 MG TAB PO SCH (07:37)
[2020-10-03] MEDS: busPIRone 5 MG TAB PO SCH (07:38)
[2020-10-03] MEDS: ATORVASTATIN 10 MG TAB PO SCH (07:38)
[2020-10-03] MEDS: ASPIRIN 81 MG ECTAB PO SCH (07:38)
[2020-10-03] MEDS: DOXYCYCLINE HYCLATE 100 MG CAP PO SCH (07:39)
[2020-10-03] MEDS: FOLIC ACID 1 MG TAB PO SCH (07:39)
[2020-10-03] MEDS: GABAPENTIN 100 MG CAP PO SCH ×2 (07:39→13:05)
[2020-10-03] MEDS: LIDOCAINE 5% 1 PATCH TD SCH (07:40)
[2020-10-03] MEDS: ENOXAPARIN INJ 40 MG/0.4 ML SYR SQ SCH (07:41)
[2020-10-03] MEDS: NEOMYCIN/POLYMYX/BACITR OINT 15 GM TUBE EXT SCH (07:44)
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
[2020-10-03] MEDS ORDERED: cloNIDine HCL 0.1 MG TAB PO ONE (16:50)
--- NOTE | 2020-10-04 08:11 | Discharge Summary ---
Date of Service October 03, 2020 Admission HPI Per Admitting Provider History obtained from patient, family, and records. Medical history significant for hypertension, hyperlipidemia, TIA as per records, alcohol abuse, history recurrent PE/DVT off anticoagulation as per patient preference, past tobacco abuse, chronic anemia (baseline hemoglobin of 13). Last confinement August 2017 for hypertensive urgency, TIA. Patient has not been well the last 2 months since . Daily syncopal events, both witnessed and unwitnessed as per patient for which an outpatient work-up is contemplated by PCP as per patient. Achy headache symptoms, no witnessed seizures. Multiple ER visits the last 2 months for alcohol intoxication. Two separate confinements at [facility] (August 2020 and September 2020-2 weeks ago) for pneumonia as per patient. Patient daughter not sure as to veracity of patient statements as patient known to exaggerate medical history as per daughter. Right middle finger injury from moving furniture 5 days ago status post suturing at local urgent care center Patient was at the local [employer] last night. As per patient, store had to delay closing because he bought a lot of stuff and he had another syncopal event at the store. Patient does not recall how he got home. At home, patient felt warm, temperature 102. Patient started feeling crappy. Junky cough symptoms without aspiration. Pleuritic left-sided chest pain with shortness of breath. No abdominal pain. Patient admits to depression "not really OK" but denies suicidality. Patient brought to the ER for evaluation. 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 Admission Exam Per Admitting Provider GENERAL: Comfortable, obese, no respiratory distress SKIN: Normal color, warm HEENT: Alopecia, [place] palpebral conjunctivae, no ptosis, dry buccal mucosa, abrasion left cheek NECK : Supple, short neck, no tenderness CHEST : Decreased breath sounds, left chest wall tenderness HEART : Tachycardic, no obvious murmurs ABDOMEN: Some distention, nontender EXTREMITIES : Sutured wound right middle finger, no LE swelling/tenderness, no other conspicuous deformities noted NEUROLOGIC : Coherent, no facial asymmetry, no other gross focality Principal Diagnosis Alcohol withdrawal Recurrent syncope Pleuritic Chest discomfort Rib Fracture Mood disorder Hypertension Discharge Exam General- No acute distress Head- atraumatic Eyes- PERRL, EOMI, ENT- oropharynx clear Neck- supple, no JVD Lungs- clear to auscultation Heart- +tachycardia Abdomen- normal bowel sounds, soft, nontender Extremities- no calf tenderness, Sutured wound right middle finger Neuro- alert, oriented x 3, + finger to touch, +mild tremors, PERRL, EOMI; no facial palsy; no dysarthria Skin- warm & dry Discharge Data Allergies Allergy/AdvReac Type Severity Reaction Status Date / Time clams AdvReac Unknown Diarrhea Verified 09/17/20 19:46 ketorolac [From Toradol] AdvReac Unknown Confusion Verified 09/17/20 19:46 Consultations 10/01/20 02:51 ED Decision to Admit Stat 10/01/20 07:59 Consult Case Management - Discharge Planning Routine Consult Health Information Management Routine Consult Psychiatry Routine Ordered Studies 10/01/20 03:53 CT angio chest PE protocol Urgent CT head/brain wo con Urgent 10/01/20 07:59 MR brain wo/w con Routine 10/01/20 17:25 US carotid doppler BI Routine ULTRASOUND OF THE CAROTID ARTERIES CLINICAL HISTORY: syncopal episodes COMPARISON STUDY: MR angiography dated 08/16/2017 TECHNIQUE: Real-time, grayscale, and color Doppler sonography of the carotid arteries was performed. Imaging reviewed in the transverse and longitudinal planes. NASCET criteria was utilized for stenosis calcification. FINDINGS: There is minimal atherosclerotic plaque present . The peak systolic velocity within the right internal carotid artery is 86 cm/sec. The systolic velocity ratio of right internal to common carotid artery is 1.2. The peak systolic velocity within the left internal carotid artery is 98 cm/sec. The systolic velocity ratio left internal to common carotid artery is 1.2. Antegrade flow is seen in the vertebral arteries. The external carotid arteries are patent. IMPRESSION: No evidence of hemodynamically significant carotid stenosis. ACT 112: Negative or not required by law. Electronically signed by: Bear Dominguez M.D. 10/02/2020 8:34 AM Dictated: 10/02/20832Transcribed: 10/02/20832 MRI OF THE BRAIN WITHOUT AND WITH IV CONTRAST CLINICAL HISTORY: Headache. Altered level of consciousness. Generalized weakness. History of head trauma. COMPARISON STUDY: Head CT dated 10/01/2020, MRI the brain dated 08/16/2017 TECHNIQUE: MRI of the brain was performed from the vertex to the skull base utilizing various T1 and T2 weighted sequences. Following the IV administration of 11 mL of Gadavist contrast, additional enhanced images were obtained. FINDINGS: Sagittal T1, axial diffusion, proton density and T2 weighted axial, coronal FLAIR, and pre and post axial T1-weighted images were acquired. These were supplemented with post gadolinium coronal T1 weighted images. No intra or extra-axial mass lesions are visualized. Axial diffusion-weighted images reveal no evidence of acute or subacute infarction. There is no evidence of ventricular dilatation. Proton density T2-weighted and FLAIR images reveal scattered foci of increased T2 signal within the white matter, likely on a small vessel basis. There are no abnormal flow voids. There is no evidence of pathologic enhancement. The study is mildly degraded due to motion artifact Inflammatory changes are present within a left posterior ethmoid air cell IMPRESSION: 1. No significant change from the preceding August 2017 study 2. No evidence of acute or subacute infarction 3. No evidence of intracranial mass ACT 112: Negative or not required by law. Electronically signed by: Bear Dominguez M.D. 10/01/2020 12:41 PM Dictated: 10/01/20 1238Transcribed: 10/01/[address] head/brain wo con CLINICAL HISTORY: Head trauma. Loss of consciousness COMPARISON STUDY: 09/17/2020 TECHNIQUE: Axial CT of the brain is performed from the vertex to the skull base. IV contrast was not administered for this examination. A dose lowering technique was utilized adhering to the principles of ALARA. CT DOSE: 1554.28 mGy.cm FINDINGS: No intra or extra-axial mass lesions are visualized. There is no CT evidence of acute cortical infarction. There is no evidence of midline shift. There is no acute hemorrhage. No calvarial fractures are visualized. There are minimal white matter hypodensities likely on a small vessel basis. There is no evidence of pathologic ventricular dilatation. There is mucosal disease involving left posterior ethmoid air cells. IMPRESSION: No acute intracranial findings ACT 112: Negative or not required by law. Electronically signed by: Bear Dominguez M.D. 10/01/2020 7:21 AM Dictated: 10/01/20 0720Transcribed: 10/01/2020 CT ANGIOGRAM OF THE CHEST CLINICAL HISTORY: Atypical chest pain possible acute pulmonary embolism COMPARISON STUDY: 09/11/2020 TECHNIQUE: Following the IV administration of 119 mL of Optiray-320, CT angiogram of the thorax was performed from the thoracic inlet to the lung bases utilizing the pulmonary embolus protocol. Images are reviewed in the axial, sagittal, and coronal planes. IV contrast was administered without complication. MIP imaging was performed. A dose lowering technique was utilized adhering to the principles of ALARA. CT DOSE: FINDINGS: There is hepatic steatosis No pathologically enlarged axillary mediastinal or hilar lymph nodes were visualized. There is mild ectasia of descending thoracic aorta which measures 36 mm. There are coronary artery calcifications. There were no pulmonary artery filling defects to indicate acute pulmonary embolism. No pleural effusions are visualized. There is no focal pulmonary consolidation. There are scattered areas of presumed atelectasis. There is a left sixth anterior rib fracture, likely subacute. IMPRESSION: 1. No evidence of acute pulmonary embolism 2. No evidence of focal pulmonary consolidation 3. Mild elevation of left hemidiaphragm. ACT 112: Negative or not required by law. Electronically signed by: Bear Dominguez M.D. 10/01/2020 8:01 AM Dictated: 10/01/20 0758Transcribed: 10/01/20757 XR chest 1V portable CLINICAL HISTORY: weakness COMPARISON STUDY: 09/02/2020 FINDINGS: The heart remains mildly enlarged. There is aortic tortuosity/ectasia. There is no failure. There is no focal pulmonary consolidation. There are no pleural effusions. There is no pneumothorax.[ IMPRESSION: No significant change from the prior study. No acute findings. ACT 112: Negative or not required by law. Electronically signed by: Bear Dominguez M.D. 10/01/2020 8:04 AM Dictated: 10/01/20 0803Transcribed: 10/01/20 08 Hospital Course (1) Alcohol withdrawal: Present on admission for recurrent syncope Alcohol level 99.4 on admission Pt said that he does not drink a lot, but mentioned in he used to go to [employer] meeting Continue alcohol withdrawal protocol with gabapentin and Ativan prn No sign of alcohol withdrawal or DT Continue thiamine and folic acid Counseling on alcohol cessation Not interested to go to alcohol rehab Recurrent syncope Possible related to alcohol intoxication vs seizure CT head showed no acute intracranial abnormality MRI head showed no evidence of acute or subacute infarction. no significant change from the preceding August 2017 study. No focal neuro deficit Tele monitor showed no arrhythmia Echo showed no wall motion abnormality with EF 60-65% Carotid US doppler showed no evidence of hemodynamically significant carotid stenosis. Clinically stable Pleuritic Chest discomfort Possible related to bronchitis vs rib fracture CTA showed no evidence of PE On doxycycline and oxycodone for pain Will D/C abx since pt is asymptomatic Clinically stable Rib Fracture CTA chest showed left sixth anterior rib fracture, likely subacute. Incentive spirometry and pain control Pain stable Mood disorder Racing thought and hyperverbal Psych on board Will discontinue Effexor as per psych Continue on Seroquel HS Continue other psych med for now Son in law said that pt does take his meds or follow up with doctors appointment Follow up with psych outpatient Hypertension BP has been fluctuating, mostly due to alcohol withdrawal or hospital setting Continue Lisinopril Continue monitor BP DVT px on Lovenox CODE STATUS FULL CODE Disposition Plan to discharge home today since pt plan to sign AMA Patient's daughter requesting updates for providers. Ms. Kiya Miller, contact #[phone]. Total Time Total Time Spent Total Time Spent (In Minutes): 40 minutes Total Time Includes: Examination of the Patient, Discharge Planning, Medication Reconciliation, Communication With Other Providers and Other Discharge Plan Discharge Items Patient Disposition: Home - Self-Care Reason For Visit: ETOH WITHDRAWAL Discharge Diagnosis: Alcohol withdrawal Recurrent syncope Pleuritic Chest discomfort Rib Fracture Mood disorder Hypertension Activity: Resume your previous activity Non-emergency contact: Primary Care Provider and Psychiatrist Call non-emergency contact if: you have any medication questions Follow-up/Referrals: Steff Jaffe PA-C [Primary Care Provider] - Diet: Heart Healthy Addtl Attending Provider Instructions: Mr. Miller, you have an appointment with Kim Velazquez on 10/05 @ 9:30am. Follow up with your primary care provider at the [facility] within 1 week Follow up with psychiatry ([facility] will refer you if you don't have a psychiatrist ) Counseling on alcohol cessation Continue monitor your blood pressure and bring your blood pressure log at your next appointment with your provider Follow a low salt diet Fall precaution Pending Studies at Discharge: No Stand-Alone Forms: My [facility], Smoking Cessation Medications and DC Order Prescriptions: New quetiapine 25 mg Tablet 50 mg PO HS 30 Days Qty: 60 RF: 0 thiamine HCl (vitamin B1) [Vitamin B-1] 100 mg Tablet 100 mg PO QAM 30 Days Qty: 30 RF: 0 folic acid 1 mg Tablet 1 mg PO QAM 30 Days Qty: 30 RF: 0 Continued aspirin 81 mg Tablet,Delayed Release (Dr/Ec) 81 mg PO DAILY RF: 0 atorvastatin 10 mg Tablet 10 mg PO DAILY RF: 0 lisinopril 20 mg Tablet 20 mg PO DAILY RF: 0 omeprazole 20 mg Tablet,Delayed Release (Dr/Ec) 20 mg PO BID RF: 0 trazodone 50 mg Tablet 50 - 100 mg PO HS RF: 0 mirtazapine 45 mg Tablet 45 mg PO HS RF: 0 celecoxib [Celebrex] 200 mg Capsule 200 mg PO BID RF: 0 calcium carbonate 500 mg calcium (1,250 mg) Tablet,Chewable 500 mg PO QID PRN (Reason: Gi Upset) RF: 0 ondansetron HCl 4 mg Tablet 4 mg PO Q6H PRN (Reason: Nausea And Vomiting) RF: 0 loperamide 2 mg Tablet 2 - 4 mg PO Q6H PRN (Reason: Diarrhea) RF: 0 buspirone 10 mg Tablet 20 mg PO BID RF: 0 gabapentin 100 mg Capsule 100 mg PO TID RF: 0 ascorbic acid (vitamin C) [Vitamin C] 500 mg Tablet 500 mg PO BID RF: 0 meclizine 25 mg tablet 25 mg PO TID PRN (Reason: dizziness) Qty: 30 RF: 0 Discontinued venlafaxine [Effexor] 25 mg Tablet 0 mg PO TID RF: 0 Discharge Orders: Discharge Order (Routine); Ordered 10/03/20 Ordered By: Shelly Ware Admission Data Admit Date/Time: 10/01/20 05:34 Attending Provider: Shelly Ware Admit Provider: Rafy Kuo Primary Care Provider: Steff Jaffe Other Providers: Rafy Kuo ; Axel Oliveros ; Hortensia Steiner ; Regis Ruiz ; Juve Nielson ; Omid London ; Yasmine Jiménez ; Sonny Calle ; Kenna Steele ; Yelena Storey ; Isabel Cutler ; Fabian Mercado I. ; Mikayla Sloan ; Marisabel Sanchez ; Jeanie Reyes Other Interventions: Discharge Summary Assessment (RN) Last Done: 10/03/20 18:15
[2020-10-05 07:12] LABS: MDA negative; MDEA negative; MDMA (Ecstasy) Urine, Confirm negative
== END 2020-10-03 19:00 | disposition home or self-care (01) | DRG 897 ==
LOC: ED 23:56 → 2N 10-01 05:34

== ENCOUNTER 2020-12-08 18:07 | Inpatient (IN) ==
--- NOTE | 2020-12-08 19:58 | Emergency Department Note ---
Impression & Plan Acute hyperkalemia, Frequent falls, History of alcohol abuse ED Provider Note NAME: ALIREZA LEWIS AGE: 70 SEX: M : 1950 ARRIVES VIA: Walk-In INFORMANT: Patient, ED PROVIDER(S): Frank Farias MD Chief Complaint: Frequent falls, hyperkalemia, [facility] HPI: Patient does present due to concern for getting a phone call [facility] the [facility] for [facility] work completed which showed elevated PSA and hyperkalemia. The patient does report frequent falls and has had recurrent head strike. The patient does live by himself. Patient does have a history of chronic alcoholism but has been sober for approximately 30 days. Patient states that he has been trying to take his medications. Patient denies any fevers or chills. The patient does have some mild weakness. Patient states that he has been urinating normally and denies any back pain. The patient denies any blood in the urine. The patient denies chest pain, shortness of breath nausea or vomiting. Patient states his appetite has been appropriate. Patient denies any upper respiratory type symptoms. Patient denies recent alcohol use and denies any tobacco use. Patient also states he has some worsening lower extremity edema which has been present over the last several days. ROS: See HPI for pertinent positives and negatives. A total of 10 systems were reviewed and otherwise negative. Past medical history: See below Surgical history: See below Social history: See below Physical Exam: GENERAL: Wearing glasses and a mask. NAD, non-toxic. EYE EXAM: Normal conjunctiva. PERRL, no anisocoria and EOM's grossly intact w/o pain. NECK: Supple, no nuchal rigidity, no adenopathy, non-tender. No signs of meningismus. LUNGS: Clear to auscultation. Normal chest wall mechanics. HEART: NSR, no MRG. ABDOMEN: Abdomen soft, non-tender, normo-active bowel sounds, no masses, no rebound or guarding. BACK: No CVA TTP. SKIN: No rashes and no bruising. UPPER EXTREMITIES: Upper extremities are grossly normal. LOWER EXTREMITIES: Grossly normal, trace pretibial edema bilaterally that is symmetric without any calf pain. NEURO EXAM: A&O x3, cranial nerves II-XII grossly intact, normal speech, moves all 4 extremities on command w/o issue. Differential diagnoses: Infection, dehydration, metabolic abnormality, hypo/hyperglycemia, electrolyte disturbance, anemia, hypoxia, cardiac sources, intracerebral event, toxicologic, neurologic, as well as other pathologies. Course: Patient was seen and evaluated the bedside. Full history physical exam was pe rformed. EKG: Indication: Possible hyperkalemia Sinus rhythm first-degree AV block, rate of 87, prolonged RI, normal QRS, normal axis, T wave inversion in lead III. Imaging Studies: See below Cardiac monitoring: An order was placed for continuous cardiac monitoring. The monitor shows a rate of 90 with sinus rhythm. MDM: Patient does present with concern for hyperkalemia and frequent falls. Blood work is obtained along with CT of the head and chest x-ray. Patient's initial lab work was hemolyzed so repeat blood work was drawn. Patient CT of the head is negative. Patient's chest x-ray shows left basilar airspace opacity. The patient has not complained of any cough or shortness of breath. Patient has normal white count and platelet count. The patient's kidney function does show creatinine 1.5. Troponin is not detectable BNP is not elevated. Urinalysis does show leuks and whites with the patient denied any urinary type symptoms. Patient was given something to eat did have IV fluids given. The patient is on lisinopril as well as Celebrex which may also contribute to the patient's hyperkalemia. Given the patient's frequent falls I discussed that the patient may benefit from placement or in-home care. Given the concern for the frequent falls living by himself and hyperkalemia I did speak with the on-call hospitalist in order to help with improvement in patient's kidney function, hyperkalemia as well as possible medication changes which may improve the patient's hyperkalemia. I did speak with Dr. Chopra and the patient was admitted to the medicine service. Covid test ordered. Past Med/Surg History Medical History Alcohol abuse Alcohol intoxication Bipolar disorder Sleep deprivation Syncope TIA (transient ischemic attack) Family History Other Suicide Social History Smoking Status: Never smoker Hx Alcohol Use: Yes Alcohol type: wine Hx Substance Use: No Preferred Language: [place]serratian Communication Ability: Effective Watch Dial Printer Required: No Beliefs That Will Affect Care: None Current Living Situation: Alone current occupational status: retired Feels Safe at Home: Yes Assistive Devices: None Allergies Allergies Allergy/AdvReac Type Severity Reaction Status Date / Time clams AdvReac Unknown Diarrhea Verified 12/08/20 22:28 ketorolac [From Toradol] AdvReac Unknown Confusion Verified 12/08/20 22:28 Home Meds Home Medications Medication Instructions Recorded Confirmed aspirin 81 mg PO DAILY 08/22/20 12/08/20 atorvastatin 10 mg PO DAILY 08/22/20 12/08/20 celecoxib [Celebrex] 200 mg PO BID 08/22/20 12/08/20 mirtazapine 45 mg PO HS 08/22/20 12/08/20 omeprazole 20 mg PO DAILY 08/22/20 12/08/20 trazodone 50 - 100 mg PO HS 08/22/20 12/08/20 buspirone 10 mg PO BID 10/01/20 12/08/20 folic acid 1 mg PO DAILY 10/05/20 12/08/20 gabapentin 300 mg PO TID 12/08/20 12/08/20 lisinopril 40 mg PO DAILY 12/08/20 12/08/20 lithium carbonate 450 mg PO BID 12/08/20 12/08/20 olanzapine 10 mg PO DAILY 12/08/20 12/08/20 quetiapine 300 mg PO DAILY 12/08/20 12/08/20 Previous Rx's Medication Instructions Recorded meclizine 25 mg PO TID PRN #30 tab 09/11/20 Results & Data (ED) Vital Signs Vital Signs - 24 hr 12/08/20 18:20 12/08/20 21:16 Temperature 36.8 C Temperature Source Temporal Artery Scan Pulse Rate 100 H Pulse Rate [Right Finger] 90 Pulse Rhythm [Right Finger] Regular Pulse Strength [Right Finger] Normal Respiratory Rate 20 15 Respiratory Effort / Characteristics Non-Labored Spontaneous Non-Labored Spontaneous Respiratory Depth Normal Normal Blood Pressure 105/66 Blood Pressure [Left Arm] 100/59 L Blood Pressure Mean 79 Blood Pressure Mean [Left Arm] 72 Blood Pressure Position Sitting Blood Pressure Position [Left Arm] Semi-fowlers Pulse Oximetry 98 95 Oxygen Delivery Method Room Air Room Air Sepsis Recent Fever Within 48 Hours No Sepsis New/Unexplained Change in Mental Status N/A Sepsis Action Taken by Nursing No Action Required Home Medications Current Medication List: was personally reviewed by me Laboratory Data Attestation: I reviewed the patient's lab results. Result diagrams: 12/08/20 20:43 12/08/20 22:15 Lab Results 12/08/20 12/08/20 12/08/20 Range/Units 20:43 20:43 22:15 WBC 6.73 (4.8-10.8) K/uL RBC 4.30 L (4.7-6.1) M/uL Hgb 13.8 L (14.0-18.0) g/dL POC Hgb (14.0-18.0) g/dl Hct 41.2 L (42-52) % POC Hct (42-52) % MCV 95.8 (80-100) fL MCH 32.1 (25-34) pg MCHC 33.5 (32-36) g/dL RDW Std Deviation 43.1 (36.4-46.3) fL RDW Coeff of Jeff 12.3 (11.5-14.5) % Plt Count 278 (130-400) K/uL MPV 9.2 (7.4-10.4) fL Immature Gran % (Auto) 0.1 % Neut % (Auto) 59.6 % Lymph % (Auto) 25.9 % Lewis % (Auto) 8.5 % Eos % (Auto) 5.5 % Baso % (Auto) 0.4 % Neut # (Auto) 4.01 (1.4-6.5) K/uL Lymph # (Auto) 1.74 (1.2-3.4) K/uL Lewis # (Auto) 0.57 (0.11-0.59) K/uL Eos # (Auto) 0.37 (0-0.5) K/uL Baso # (Auto) 0.03 (0-0.2) K/uL Immature Gran # (Auto) 0.01 (0.00-0.02) K/uL PT Cancelled INR Cancelled POC Sodium (135-144) mmol/L Sodium 138 (136-145) mmol/L POC Potassium (3.3-5.0) mmol/L Potassium 5.3 H (3.5-5.1) mmol/L POC Chloride (101-112) mmol/L Chloride 109 H (98-107) mmol/L Carbon Dioxide 23 (21-32) mmol/L POC Total CO2 (24-31) mmol/L Anion Gap 6.0 (3-11) POC Anion Gap (16-25) mmol/L POC BUN (7-18) mg/dl BUN 24 H (7-18) mg/dl Creatinine 1.50 H (0.6-1.4) mg/dl POC Creatinine (0.6-1.3) mg/dl Est Cr Clr Drug Dosing 58.8 ml/min Est GFR ( Amer) 54.3 Est GFR (Non-Af Amer) 46.8 BUN/Creatinine Ratio 15.7 (10-20) Glucose 101 H (70-99) mg/dl POC Glucose (other) (70-99) mg/dl Calcium 8.9 (8.5-10.1) mg/dl POC Ioniz Calcium Karen (1.12-1.32) mmol/l Magnesium 2.1 (1.8-2.4) mg/dl Total Bilirubin 0.3 (0.2-1) mg/dl AST 11 L (15-37) U/L ALT 18 (12-78) U/L Alkaline Phosphatase 70 (45-117) U/L Total Creatine Kinase 103 (39-308) U/L Troponin I < 0.015 (0-0.045) ng/ml NT-Pro-B Natriuret Pep 72 (0-900) pg/ml Total Protein 6.6 (6.4-8.2) gm/dl Albumin 3.5 (3.4-5.0) gm/dl Globulin 3.1 (2.5-4.0) gm/dl Albumin/Globulin Ratio 1.1 (0.9-2) TSH 3.390 (0.300-4.500) uIu/ml Urine Color Urine Appearance (Clear) Urine pH (4.5-7.5) Ur Specific [place] (1.000-1.030) Urine Protein (Negative) Urine Glucose (UA) (Negative) Urine Ketones (Negative) Urine Blood (Negative) Urine Nitrite (Negative) Urine Bilirubin (Negative) Urine Urobilinogen (Negative) Ur Leukocyte Esterase (Negative) Urine WBC (Auto) (0-5) /hpf Urine RBC (Auto) (0-4) /hpf U Hyaline Cast (Auto) (0-5) /lpf U Epithel Cells (Auto) (0-5) /lpf Urine Bacteria (Auto) (Negative) 12/08/20 12/08/20 12/08/20 Range/Units 22:15 22:27 Unknown WBC (4.8-10.8) K/uL RBC (4.7-6.1) M/uL Hgb (14.0-18.0) g/dL POC Hgb 12.2 L (14.0-18.0) g/dl Hct (42-52) % POC Hct 36 L (42-52) % MCV (80-100) fL MCH (25-34) pg MCHC (32-36) g/dL RDW Std Deviation (36.4-46.3) fL RDW Coeff of Jeff (11.5-14.5) % Plt Count (130-400) K/uL MPV (7.4-10.4) fL Immature Gran % (Auto) % Neut % (Auto) % Lymph % (Auto) % Lewis % (Auto) % Eos % (Auto) % Baso % (Auto) % Neut # (Auto) (1.4-6.5) K/uL Lymph # (Auto) (1.2-3.4) K/uL Lewis # (Auto) (0.11-0.59) K/uL Eos # (Auto) (0-0.5) K/uL Baso # (Auto) (0-0.2) K/uL Immature Gran # (Auto) (0.00-0.02) K/uL PT 9.9 INR 1.0 POC Sodium 138 (135-144) mmol/L Sodium Cancelled (136-145) mmol/L POC Potassium 5.4 H (3.3-5.0) mmol/L Potassium Cancelled (3.5-5.1) mmol/L POC Chloride 108 (101-112) mmol/L Chloride Cancelled (98-107) mmol/L Carbon Dioxide Cancelled (21-32) mmol/L POC Total CO2 23 L (24-31) mmol/L Anion Gap Cancelled (3-11) POC Anion Gap 13.0 L (16-25) mmol/L POC BUN 22 H (7-18) mg/dl BUN Cancelled (7-18) mg/dl Creatinine Cancelled (0.6-1.4) mg/dl POC Creatinine 1.5 H (0.6-1.3) mg/dl Est Cr Clr Drug Dosing Cancelled ml/min Est GFR ( Amer) Cancelled Est GFR (Non-Af Amer) Cancelled BUN/Creatinine Ratio Cancelled (10-20) Glucose Cancelled (70-99) mg/dl POC Glucose (other) 100 H (70-99) mg/dl Calcium Cancelled (8.5-10.1) mg/dl POC Ioniz Calcium Karen 1.19 (1.12-1.32) mmol/l Magnesium Cancelled (1.8-2.4) mg/dl Total Bilirubin Cancelled (0.2-1) mg/dl AST Cancelled (15-37) U/L ALT Cancelled (12-78) U/L Alkaline Phosphatase Cancelled (45-117) U/L Total Creatine Kinase Cancelled (39-308) U/L Troponin I Cancelled (0-0.045) ng/ml NT-Pro-B Natriuret Pep Cancelled (0-900) pg/ml Total Protein Cancelled (6.4-8.2) gm/dl Albumin Cancelled (3.4-5.0) gm/dl Globulin Cancelled (2.5-4.0) gm/dl Albumin/Globulin Ratio Cancelled (0.9-2) TSH Cancelled (0.300-4.500) uIu/ml Urine Color Urine Appearance (Clear) Urine pH (4.5-7.5) Ur Specific [place] (1.000-1.030) Urine Protein (Negative) Urine Glucose (UA) (Negative) Urine Ketones (Negative) Urine Blood (Negative) Urine Nitrite (Negative) Urine Bilirubin (Negative) Urine Urobilinogen (Negative) Ur Leukocyte Esterase (Negative) Urine WBC (Auto) (0-5) /hpf Urine RBC (Auto) (0-4) /hpf U Hyaline Cast (Auto) (0-5) /lpf U Epithel Cells (Auto) (0-5) /lpf Urine Bacteria (Auto) (Negative) 04/08/21 Range/Units Unknown WBC (4.8-10.8) K/uL RBC (4.7-6.1) M/uL Hgb (14.0-18.0) g/dL POC Hgb (14.0-18.0) g/dl Hct (42-52) % POC Hct (42-52) % MCV (80-100) fL MCH (25-34) pg MCHC (32-36) g/dL RDW Std Deviation (36.4-46.3) fL RDW Coeff of Jeff (11.5-14.5) % Plt Count (130-400) K/uL MPV (7.4-10.4) fL Immature Gran % (Auto) % Neut % (Auto) % Lymph % (Auto) % Lewis % (Auto) % Eos % (Auto) % Baso % (Auto) % Neut # (Auto) (1.4-6.5) K/uL Lymph # (Auto) (1.2-3.4) K/uL Lewis # (Auto) (0.11-0.59) K/uL Eos # (Auto) (0-0.5) K/uL Baso # (Auto) (0-0.2) K/uL Immature Gran # (Auto) (0.00-0.02) K/uL PT INR POC Sodium (135-144) mmol/L Sodium (136-145) mmol/L POC Potassium (3.3-5.0) mmol/L Potassium (3.5-5.1) mmol/L POC Chloride (101-112) mmol/L Chloride (98-107) mmol/L Carbon Dioxide (21-32) mmol/L POC Total CO2 (24-31) mmol/L Anion Gap (3-11) POC Anion Gap (16-25) mmol/L POC BUN (7-18) mg/dl BUN (7-18) mg/dl Creatinine (0.6-1.4) mg/dl POC Creatinine (0.6-1.3) mg/dl Est Cr Clr Drug Dosing ml/min Est GFR ( Amer) Est GFR (Non-Af Amer) BUN/Creatinine Ratio (10-20) Glucose (70-99) mg/dl POC Glucose (other) (70-99) mg/dl Calcium (8.5-10.1) mg/dl POC Ioniz Calcium Karen (1.12-1.32) mmol/l Magnesium (1.8-2.4) mg/dl Total Bilirubin (0.2-1) mg/dl AST (15-37) U/L ALT (12-78) U/L Alkaline Phosphatase (45-117) U/L Total Creatine Kinase (39-308) U/L Troponin I (0-0.045) ng/ml NT-Pro-B Natriuret Pep (0-900) pg/ml Total Protein (6.4-8.2) gm/dl Albumin (3.4-5.0) gm/dl Globulin (2.5-4.0) gm/dl Albumin/Globulin Ratio (0.9-2) TSH (0.300-4.500) uIu/ml Urine Color Yellow Urine Appearance Clear (Clear) Urine pH 5.5 (4.5-7.5) Ur Specific [place] 1.015 (1.000-1.030) Urine Protein Negative (Negative) Urine Glucose (UA) Negative (Negative) Urine Ketones Trace H (Negative) Urine Blood Negative (Negative) Urine Nitrite Negative (Negative) Urine Bilirubin Negative (Negative) Urine Urobilinogen Negative (Negative) Ur Leukocyte Esterase 1+ H (Negative) Urine WBC (Auto) 5-10 H (0-5) /hpf Urine RBC (Auto) 0-4 (0-4) /hpf U Hyaline Cast (Auto) 5-10 H (0-5) /lpf U Epithel Cells (Auto) >30 H (0-5) /lpf Urine Bacteria (Auto) Negative (Negative) Administered Medications Discontinued Medications Sodium Chloride (Nss 1000ml) 1,000 mls @ 500 mls/hr IV .Q2H ONE Stop: 12/09/20 01:25 Last Admin: 12/08/20 23:32 Dose: Not Given Documented by: [id number] Imaging Data Radiologist's Impression: Chest X-Ray 12/08/20 20:07 XR chest 1V portable CLINICAL HISTORY: weakness COMPARISON STUDY: 10/01/2020 FINDINGS: The heart is normal in size. There is no failure. There are subtle left basilar airspace opacities, likely infectious/inflammatory. Clinical and radiographic follow-up is recommended. There are no significant pleural eff usions.[ IMPRESSION: 1. Subtle left basilar airspace opacities likely infectious/inflammatory. Clinical and radiographic follow-up is recommended ACT 112: Negative or not required by law. Electronically signed by: Bear Dominguez M.D. 12/08/2020 8:[address] 12/08/20 20:08 CT head/brain wo con CLINICAL HISTORY: Recurrent falls COMPARISON STUDY: 10/28/2020 TECHNIQUE: Axial CT of the brain is performed from the vertex to the skull base. IV contrast was not administered for this examination. A dose lowering technique was utilized adhering to the principles of ALARA. CT DOSE: 614.27 mGy.cm FINDINGS: No intra or extra-axial mass lesions are visualized. There is no CT evidence of acute cortical infarction. There is no evidence of midline shift. There is no acute hemorrhage. No calvarial fractures are visualized. There are minimal white matter hypodensities likely on a small vessel basis. There is no evidence of pathologic ventricular dilatation. There is opacification of several left-sided ethmoid air cells. IMPRESSION: No acute intracranial findings ACT 112: Negative or not required by law. Electronically signed by: Bear Dominguez M.D. 12/08/2020 8:40 PM Discharge Plan Visit Data Chief Complaint: Abnormal Labs/Diagnostic Testing Stated Complaint: ABNORMAL LABS, HYPERKALEMIA ED Provider: Frnak Farias Discharge Problem: Acute hyperkalemia, Frequent falls, History of alcohol abuse Forms Stand Alone Forms: [facility] Prescriptions Prescriptions: No Action aspirin 81 mg Tablet,Delayed Release (Dr/Ec) 81 mg PO DAILY RF: 0 atorvastatin 10 mg Tablet 10 mg PO DAILY RF: 0 omeprazole 20 mg Tablet,Delayed Release (Dr/Ec) 20 mg PO DAILY RF: 0 trazodone 50 mg Tablet 50 - 100 mg PO HS RF: 0 mirtazapine 45 mg Tablet 45 mg PO HS RF: 0 celecoxib [Celebrex] 200 mg Capsule 200 mg PO BID RF: 0 buspirone 10 mg Tablet 10 mg PO BID RF: 0 folic acid 1 mg tablet 1 mg PO DAILY RF: 0 meclizine 25 mg tablet 25 mg PO TID PRN (Reason: dizziness) Qty: 30 RF: 0 lithium carbonate 450 mg tablet extended release 450 mg PO BID RF: 0 gabapentin 300 mg capsule 300 mg PO TID RF: 0 lisinopril 40 mg tablet 40 mg PO DAILY RF: 0 quetiapine 300 mg tablet 300 mg PO DAILY RF: 0 olanzapine 10 mg tablet 10 mg PO DAILY RF: 0
--- NOTE | 2020-12-08 20:32 | XRay Report ---
XR chest 1V portable CLINICAL HISTORY: weakness COMPARISON STUDY: 10/01/2020 FINDINGS: The heart is normal in size. There is no failure. There are subtle left basilar airspace op acities, likely infectious/inflammatory. Clinical and radiographic follow-up is recommended. There ar e no significant pleural effusions.[ IMPRESSION: 1. Subtle left basilar airspace opacities likely infectious/inflammatory. Clinical and radiographic f ollow-up is recommended ACT 112: Negative or not required by law. Electronically signed by: Bear Dominguez M.D. 12/08/2020 8:30 PM
--- NOTE | 2020-12-08 20:41 | CT Scan Report ---
CT head/brain wo con CLINICAL HISTORY: Recurrent falls COMPARISON STUDY: 10/28/2020 TECHNIQUE: Axial CT of the brain is performed from the vertex to the skull base. IV contrast was not administered for this examination. A dose lowering technique was utilized adhering to the principles of ALARA. CT DOSE: 614.27 mGy.cm FINDINGS: No intra or extra-axial mass lesions are visualized. There is no CT evidence of acute cortical infarc tion. There is no evidence of midline shift. There is no acute hemorrhage. No calvarial fractures ar e visualized. There are minimal white matter hypodensities likely on a small vessel basis. There is no evidence of pathologic ventricular dilatation. There is opacification of several left-sided ethmoid air cells. IMPRESSION: No acute intracranial findings ACT 112: Negative or not required by law. Electronically signed by: Bear Dominguez M.D. 12/08/2020 8:40 PM
[2020-12-08 21:17] LABS: Basophils # (auto) 0.03 K/uL (0-0.2); Basophils % (auto) 0.4 %; Eosinophils # (auto) 0.37 K/uL (0-0.5); Eosinophils % (auto) 5.5 %; Hematocrit (blood only) 41.2 % (42-52); Hemoglobin 13.8 g/dL (14.0-18.0); Immature Granulocytes # (auto) 0.01 K/uL (0.00-0.02); Immature Granulocytes % (auto) 0.1 %; Lymphocytes # (auto) 1.74 K/uL (1.2-3.4); Lymphocytes % (auto) 25.9 %; Mean Corpuscular Hemoglobin 32.1 pg (25-34); Mean Corpuscular Hgb Conc 33.5 g/dL (32-36); Mean Corpuscular Volume 95.8 fL (80-100); Mean Platelet Volume 9.2 fL (7.4-10.4); Monocytes # (auto) 0.57 K/uL (0.11-0.59); Monocytes % (auto) 8.5 %; Neutrophils # (auto) 4.01 K/uL (1.4-6.5); Neutrophils % (auto) 59.6 %; Platelet Count 278 K/uL (130-400); RDW Coefficient of Variation 12.3 % (11.5-14.5); RDW Standard Deviation 43.1 fL (36.4-46.3); White Blood Count 6.73 K/uL (4.8-10.8)
[2020-12-08 21:20] LABS: Appearance Urine Clear (Clear); Bacteria Urine Automated Negative (Negative); Bilirubin Urine Negative (Negative); Blood Urine Negative (Negative); Color Urine Yellow; Epithelial Cell Urine Auto >30 /lpf (0-5); Glucose Urine UA Negative (Negative); Ketones Urine Trace (Negative); Leukocyte Esterase Urine 1+ (Negative); Nitrite Urine Negative (Negative); Protein Urine Negative (Negative); RBC Urine Automated 0-4 /hpf (0-4); Specific Gravity Urine 1.015 (1.000-1.030); Urobilinogen Urine Negative (Negative); pH Urine 5.5 (4.5-7.5)
[2020-12-08 22:44] LABS: iSTAT Creatinine 1.5 mg/dl (0.6-1.3); iSTAT Hemoglobin 12.2 g/dl (14.0-18.0); iSTAT Ionized Calcium 1.19 mmol/l (1.12-1.32); iSTAT Potassium 5.4 mmol/L (3.3-5.0)
[2020-12-08 22:47] LABS: Prothrombin Time 9.9 Seconds (9.0-12.0)
[2020-12-08 22:56] LABS: Alanine Aminotransferase 18 U/L (12-78); Albumin Level 3.5 gm/dl (3.4-5.0); Aspartate Aminotransferase 11 U/L (15-37); BUN Creatinine Ratio 15.7 (10-20); Blood Urea Nitrogen 24 mg/dl (7-18); Calcium 8.9 mg/dl (8.5-10.1); Carbon Dioxide 23 mmol/L (21-32); Chloride 109 mmol/L (98-107); Creatinine Clr Calc Pharmacy 58.8 ml/min; Est GFR (African American) 54.3; Est GFR (Non-African American) 46.8; Glucose 101 mg/dl (70-99); Magnesium 2.1 mg/dl (1.8-2.4); Potassium 5.3 mmol/L (3.5-5.1); Sodium 138 mmol/L (136-145)
[2020-12-08 23:07] LABS: Albumin Globulin Ratio 1.1 (0.9-2); Alkaline Phosphatase 70 U/L (45-117); Bilirubin,Total 0.3 mg/dl (0.2-1); Creatine Kinase 103 U/L (39-308); Globulin 3.1 gm/dl (2.5-4.0); NT Pro B Type Natriuretic Pept 72 pg/ml (0-900); Total Protein 6.6 gm/dl (6.4-8.2); Troponin I < 0.015 ng/ml (0-0.045)
[2020-12-08] MEDS ORDERED: SODIUM CHLORIDE 0.9% 1000ML 1,000 ML IV ONE ×2 (23:22→23:26)
[2020-12-09] MEDS ORDERED: THIAMINE HCL 100 MG in SYRINGE 9 ML IV STA (00:20)
[2020-12-09 00:40] LABS: Influenza A virus by PCR Negative (Neg); Influenza B virus by PCR Negative (Neg); RSV by PCR Negative (Neg); SARS CoV2 RNA(COVID-19) InHosp NEGATIVE (Negative)
[2020-12-09] MEDS ORDERED: SODIUM CHLORIDE 0.9% 1000ML 1,000 ML IV STA (00:47)
--- NOTE | 2020-12-09 00:47 | History & Physical Report ---
Date of Service December 09, 2020 Assessment & Plan (1) ARF (acute renal failure): ARF, hyperkalemia Multifactorial : Poor p.o. 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 Patient counseled regarding adverse effects of OTC NSAIDs on kidney function. Renal ultrasound, Nephrology consult for kidney dysfunction if with out improvement Hold home BP meds until BP stable. Hold lithium, check lithium level. Psych consult Re: Psychiatric medication management Retrieve records of recent confinement at [facility]. PT OT eval DVT prophylaxis. Heparin subcu Full code Patient requesting for daughter to be updated of plan of care. Ms. Kiya Miller, contact #[phone]. Text document was generated using [employer] voice recognition software. It may contain grammatical or spelling errors. Kindly contact undersigned for clarification of any documentation item in question. History of Present Illness Chief Complaint: Abnormal potassium as per patient Primary Care Provider: Steff Jaffe PA-C History obtained from patient and records. Medical history significant for hypertension, hyperlipidemia, TIA as per records, history recurrent PE/DVT off anticoagulation as per patient preference, chronic anemia (baseline hemoglobin of 13), past tobacco/alcohol abuse. Last confinement October 2020 for alcohol withdrawal. Patient confined at [facility] [place] in [place], [place] last month for substance/alcohol abuse. Patient started on mood medications by facility psychiatrist. Patient worried about tremors from [place]. Patient claims he was told by psychiatrist that tremors would eventually go away. Mood improved upon discharge to home from facility last week. Lonely and missing his departed but not suicidal. Patient claims to be sober since confinement at facility. At home, patient falling from lightheadedness. Denies syncope, chest pain, S OB, cough. Poor appetite without abdominal pain complaints. Achy legs with some swelling with intermittent OTC ibuprofen intake as per patient. [facility]. Outpatient blood work yesterday showed high potassium levels. [facility] contacted [facility]'s daughter as patient could not be reached. Patient told by daughter to go to the emergency room. 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 Allergies Allergy/AdvReac Type Severity Reaction Status Date / Time clams AdvReac Unknown Diarrhea Verified 12/08/20 22:28 ketorolac [From Toradol] AdvReac Unknown Confusion Verified 12/08/20 22:28 Home Medications Medication Instructions Recorded Confirmed Type aspirin 81 mg PO DAILY 08/22/20 12/08/20 History atorvastatin 10 mg PO DAILY 08/22/20 12/08/20 History celecoxib [Celebrex] 200 mg PO BID 08/22/20 12/08/20 History mirtazapine 45 mg PO HS 08/22/20 12/08/20 History omeprazole 20 mg PO DAILY 08/22/20 12/08/20 History trazodone 50 - 100 mg PO HS 08/22/20 12/08/20 History meclizine 25 mg PO TID PRN #30 tab 09/11/20 12/08/20 Rx buspirone 10 mg PO BID 10/01/20 12/08/20 History folic acid 1 mg PO DAILY 10/05/20 12/08/20 History gabapentin 300 mg PO TID 12/08/20 12/08/20 History lisinopril 40 mg PO DAILY 12/08/20 12/08/20 History lithium carbonate 450 mg PO BID 12/08/20 12/08/20 History olanzapine 10 mg PO DAILY 12/08/20 12/08/20 History quetiapine 300 mg PO DAILY 12/08/20 12/08/20 History Past Med/Surg History Medical History Alcohol abuse Alcohol intoxication Bipolar disorder Sleep deprivation Syncope TIA (transient ischemic attack) Family History Other Suicide Social History Smoking Status: Never smoker Hx Alcohol Use: Yes Alcohol type: wine Hx Substance Use: No Preferred Language: Italian Communication Ability: Effective Billposting Supervisor Required: No Beliefs That Will Affect Care: None Current Living Situation: Alone current occupational status: retired Feels Safe at Home: Yes Assistive Devices: Glasses Review of Systems Review of Systems: As per HPI, all 10 systems reviewed, all other ROS negative Physical Exam Physical Exam: GENERAL: Comfortable, pleasant, obese, no respiratory distress SKIN: Normal color, warm HEENT: Alopecia, [place] palpebral conjunctivae, no ptosis, dry buccal mucosa NECK : Supple, short neck, no tenderness CHEST : CTA, no tenderness HEART : RRR, no obvious murmurs ABDOMEN: Some distention, nontender EXTREMITIES : No LE swelling/tenderness, no other conspicuous deformities noted NEUROLOGIC : Coherent, no facial asymmetry, intention tremors, gait and stance not assessed Results & Data Results & Data ([facility]) Vital Signs (Past 12 Hours) Vital Signs Temp Pulse Pulse Resp BP BP Pulse Ox 12/08/20 23:47 93 H 18 94/59 L 91 12/08/20 21:16 90 15 100/59 L 95 12/08/20 18:20 36.8 C 100 H 20 105/66 98 Laboratory Results Laboratory Results WBC 6.73 K/uL (4.8-10.8) 12/08/20 20:43 RBC 4.30 M/uL (4.7-6.1) L 12/08/20 20:43 Hgb 13.8 g/dL (14.0-18.0) L 12/08/20 20:43 POC Hgb 12.2 g/dl (14.0-18.0) L 12/08/20 22:27 Hct 41.2 % (42-52) L 12/08/20 20:43 POC Hct 36 % (42-52) L 12/08/20 22:27 MCV 95.8 fL (80-100) 12/08/20 20:43 MCH 32.1 pg (25-34) 12/08/20 20:43 MCHC 33.5 g/dL (32-36) 12/08/20 20:43 RDW Std Deviation 43.1 fL (36.4-46.3) 12/08/20 20:43 RDW Coeff of Jeff 12.3 % (11.5-14.5) 12/08/20 20:43 Plt Count 278 K/uL (130-400) 12/08/20 20:43 MPV 9.2 fL (7.4-10.4) 12/08/20 20:43 Immature Gran % (Auto) 0.1 % 12/08/20 20:43 Neut % (Auto) 59.6 % 12/08/20 20:43 Lymph % (Auto) 25.9 % 12/08/20 20:43 [place]ila % (Auto) 8.5 % 12/08/20 20:43 Eos % (Auto) 5.5 % 12/08/20 20:43 Baso % (Auto) 0.4 % 12/08/20 20:43 Neut # (Auto) 4.01 K/uL (1.4-6.5) 12/08/20 20:43 Lymph # (Auto) 1.74 K/uL (1.2-3.4) 12/08/20 20:43 Gila # (Auto) 0.57 K/uL (0.11-0.59) 12/08/20 20:43 Eos # (Auto) 0.37 K/uL (0-0.5) 12/08/20 20:43 Baso # (Auto) 0.03 K/uL (0-0.2) 12/08/20 20:43 Immature Gran # (Auto) 0.01 K/uL (0.00-0.02) 12/08/20 20:43 PT 9.9 Seconds (9.0-12.0) 12/08/20 22:15 INR 1.0 (0.9-1.1) 12/08/20 22:15 POC Sodium 138 mmol/L (135-144) 12/08/20 22:27 Sodium Cancelled 12/08/20 Unknown POC Potassium 5.4 mmol/L (3.3-5.0) H 12/08/20 22:27 Potassium Cancelled 12/08/20 Unknown POC Chloride 108 mmol/L (101-112) 12/08/20 22:27 Chloride Cancelled 12/08/20 Unknown Carbon Dioxide Cancelled 12/08/20 Unknown POC Total CO2 23 mmol/L (24-31) L 12/08/20 22:27 Anion Gap Cancelled 12/08/20 Unknown POC Anion Gap 13.0 mmol/L (16-25) L 12/08/20 22:27 POC BUN 22 mg/dl (7-18) H 12/08/20 22:27 BUN Cancelled 12/08/20 Unknown Creatinine Cancelled 12/08/20 Unknown POC Creatinine 1.5 mg/dl (0.6-1.3) H 12/08/20 22:27 Est Cr Clr Drug Dosing Cancelled 12/08/20 Unknown Est GFR ( Amer) Cancelled 12/08/20 Unknown Est GFR (Non-Af Amer) Cancelled 12/08/20 Unknown BUN/Creatinine Ratio Cancelled 12/08/20 Unknown Glucose Cancelled 12/08/20 Unknown POC Glucose (other) 100 mg/dl (70-99) H 12/08/20 22:27 Calcium Cancelled 12/08/20 Unknown POC Ioniz Calcium Karen 1.19 mmol/l (1.12-1.32) 12/08/20 22:27 Magnesium Cancelled 12/08/20 Unknown Total Bilirubin Cancelled 12/08/20 Unknown AST Cancelled 12/08/20 Unknown ALT Cancelled 12/08/20 Unknown Alkaline Phosphatase Cancelled 12/08/20 Unknown Total Creatine Kinase Cancelled 12/08/20 Unknown Troponin I Cancelled 12/08/20 Unknown NT-Pro-B Natriuret Pep Cancelled 12/08/20 Unknown Total Protein Cancelled 12/08/20 Unknown Albumin Cancelled 12/08/20 Unknown Globulin Cancelled 12/08/20 Unknown Albumin/Globulin Ratio Cancelled 12/08/20 Unknown TSH Cancelled 12/08/20 Unknown Urine Color Yellow 12/08/20 Unknown Urine Appearance Clear (Clear) 12/08/20 Unknown Urine pH 5.5 (4.5-7.5) 12/08/20 Unknown Ur Specific [place] 1.015 (1.000-1.030) 12/08/20 Unknown Urine Protein Negative (Negative) 12/08/20 Unknown Urine Glucose (UA) Negative (Negative) 12/08/20 Unknown Urine Ketones Trace (Negative) H 12/08/20 Unknown Urine Blood Negative (Negative) 12/08/20 Unknown Urine Nitrite Negative (Negative) 12/08/20 Unknown Urine Bilirubin Negative (Negative) 12/08/20 Unknown Urine Urobilinogen Negative (Negative) 12/08/20 Unknown Ur Leukocyte Esterase 1+ (Negative) H 12/08/20 Unknown Urine WBC (Auto) 5-10 /hpf (0-5) H 12/08/20 Unknown Urine RBC (Auto) 0-4 /hpf (0-4) 12/08/20 Unknown U Hyaline Cast (Auto) 5-10 /lpf (0-5) H 12/08/20 Unknown U Epithel Cells (Auto) >30 /lpf (0-5) H 12/08/20 Unknown Urine Bacteria (Auto) Negative (Negative) 12/08/20 Unknown COVID-19 Eval Order CovFluRsv at [facility] 12/08/20 23:38 SARS-CoV-2 (PCR) NEGATIVE (Negative) 12/08/20 23:38 Influenza Type A (PCR) Negative (Neg) 12/08/20 23:38 Influenza Type B (PCR) Negative (Neg) 12/08/20 23:38 RSV (RT-PCR) Negative (Neg) 12/08/20 23:38 Impressions Chest X-Ray 12/08/20 20:07 XR chest 1V portable CLINICAL HISTORY: weakness COMPARISON STUDY: 10/01/2020 FINDINGS: The heart is normal in size. There is no failure. There are subtle left basilar airspace opacities, likely infectious/inflammatory. Clinical and radiographic follow-up is recommended. There are no significant pleural effusions.[ IMPRESSION: 1. Subtle left basilar airspace opacities likely infectious/inflammatory. Clinical and radiographic follow-up is recommended ACT 112: Negative or not required by law. Electronically signed by: Bear Dominguez M.D. 12/08/2020 8:[address] 12/08/20 20:08 CT head/brain wo con CLINICAL HISTORY: Recurrent falls COMPARISON STUDY: 10/28/2020 TECHNIQUE: Axial CT of the brain is performed from the vertex to the skull base. IV contrast was not administered for this examination. A dose lowering technique was utilized adhering to the principles of ALARA. CT DOSE: 614.27 mGy.cm FINDINGS: No intra or extra-axial mass lesions are visualized. There is no CT evidence of acute cortical infarction. There is no evidence of midline shift. There is no acute hemorrhage. No calvarial fractures are visualized. There are minimal white matter hypodensities likely on a small vessel basis. There is no evidence of pathologic ventricular dilatation. There is opacification of several left-sided ethmoid air cells. IMPRESSION: No acute intracranial findings ACT 112: Negative or not required by law. Electronically signed by: eBar Dominguez M.D. 12/08/2020 8:40 PM Diagnostic Findings EKG as per my interpretation: Rate 85, NSR, normal axis, 1 AVB, no ischemia,
[2020-12-09 01:47] LABS: BUN Creatinine Ratio 14.5 (10-20); Calcium 8.2 mg/dl (8.5-10.1); Creatinine Clr Calc Pharmacy 51.3 ml/min; Est GFR (Non-African American) 39.7; Potassium 5.3 mmol/L (3.5-5.1)
[2020-12-09] MEDS ORDERED: DEXTROSE 50% 50 ML SYRINGE IV STA (01:58)
[2020-12-09] MEDS ORDERED: INSULIN HUMAN REGULAR PER UNIT 5 UNITS in SYRINGE 4.95 ML IV STA (01:59)
[2020-12-09] MEDS ORDERED: SODIUM CHLORIDE 0.9% 1000ML 1,000 ML IV SCH (03:00)
[2020-12-09] MEDS ORDERED: ACETAMINOPHEN 325 MG TAB PO PRN (03:07)
[2020-12-09] MEDS ORDERED: oxyCODONE HCL IR 5 MG TAB (IMMEDIATE RELEASE) PO PRN (03:07)
[2020-12-09] MEDS: HEPARIN SOD 5,000 UNIT/0.5 ML VIAL SQ SCH ×3 (06:02→21:56)
[2020-12-09 06:21] LABS: Basophils # (auto) 0.02 K/uL (0-0.2); Basophils % (auto) 0.4 %; Eosinophils # (auto) 0.37 K/uL (0-0.5); Eosinophils % (auto) 6.6 %; Hematocrit (blood only) 37.2 % (42-52); Hemoglobin 12.4 g/dL (14.0-18.0); Immature Granulocytes # (auto) 0.03 K/uL (0.00-0.02); Immature Granulocytes % (auto) 0.5 %; Lymphocytes # (auto) 1.54 K/uL (1.2-3.4); Lymphocytes % (auto) 27.3 %; Mean Corpuscular Hemoglobin 32.7 pg (25-34); Mean Corpuscular Hgb Conc 33.3 g/dL (32-36); Mean Corpuscular Volume 98.2 fL (80-100); Monocytes % (auto) 7.1 %; Neutrophils # (auto) 3.28 K/uL (1.4-6.5); Neutrophils % (auto) 58.1 %; Platelet Count 225 K/uL (130-400); RDW Coefficient of Variation 12.3 % (11.5-14.5); Red Blood Count 3.79 M/uL (4.7-6.1); White Blood Count 5.64 K/uL (4.8-10.8)
--- NOTE | 2020-12-09 06:37 | Ultrasound Report ---
BILATERAL LOWER EXTREMITY VENOUS DOPPLER HISTORY: Acute pain and swelling of the lower extremities leg swelling COMPARISON STUDY: None. FINDINGS: There is normal compressibility, flow, and augmentation within the bilateral lower extremit y deep venous systems. IMPRESSION: No DVT within the right or left lower extremity. ACT 112: Negative or not required by law. Electronically signed by: Kareem Paz M.D. 12/09/2020 6:36 AM
[2020-12-09 06:56] LABS: BUN Creatinine Ratio 16.3 (10-20); Calcium 8.4 mg/dl (8.5-10.1); Creatinine Clr Calc Pharmacy 52.2 ml/min; Est GFR (Non-African American) 40.5; Potassium 6.1 mmol/L (3.5-5.1)
[2020-12-09] MEDS: busPIRone 5 MG TAB PO SCH ×2 (08:02→20:06)
[2020-12-09] MEDS: ASPIRIN 81 MG ECTAB PO SCH (08:02)
[2020-12-09] MEDS: PANTOprazole 40 MG TAB PO SCH (08:02)
[2020-12-09] MEDS: FOLIC ACID 1 MG TAB PO SCH (08:02)
[2020-12-09] MEDS: GABAPENTIN 100 MG CAP PO SCH ×3 (08:02→20:06)
--- NOTE | 2020-12-09 08:18 | Ultrasound Report ---
RENAL ULTRASOUND HISTORY: renal failure COMPARISON: None. FINDINGS: Right kidney: 9.9 cm. No hydronephrosis. Moderate cortical thinning. Left kidney: 10.5 cm. No hydronephrosis. Moderate cortical thinning. A 2.3 cm cyst. Bladder: Mild bladder wall thickening. Miscellaneous: Cholelithiasis. IMPRESSION: 1. No hydronephrosis. 2. Moderate bilateral cortical renal thinning. 3. Cholelithiasis. 4. Mild bladder wall thickening. ACT 112: Negative or not required by law. Electronically signed by: Ramón Cordero M.D. 12/09/2020 8:16 AM
[2020-12-09] MEDS ORDERED: ATORVASTATIN 10 MG TAB PO SCH (09:00)
[2020-12-09] MEDS ORDERED: QUEtiapine FUMARATE 300 MG TABLET PO SCH (09:00)
[2020-12-09] MEDS ORDERED: OLANZapine 10 MG TAB PO SCH (09:00)
[2020-12-09 09:47] LABS: Amphetamines+Metham, Urine Neg (Neg); Barbiturates, Urine Neg (Neg); Benzodiazepine, Urine Neg (Neg); Cocaine, Urine Neg (Neg); MDMA (Ecstacy), Urine Pos (Neg); Methadone, Urine Neg (Neg); Opiate, Urine Neg (Neg); Phencyclidine, Urine Neg (Neg)
[2020-12-09] MEDS ORDERED: STAT IV STA (09:49)
[2020-12-09] MEDS ORDERED: SODIUM POLYSTYRENE SULFONATE 15G/60ML SUSP PO STA (09:51)
[2020-12-09] MEDS: SODIUM BICARBONATE 8.4% 50 MEQ in SODIUM CHLORIDE 0.45 % 1,000 ML IV SCH ×2 (10:16→23:15)
--- NOTE | 2020-12-09 12:10 | Consultation Report ---
DATE OF CONSULTATION: 12/09/2020 REASON FOR CONSULT: Hyperkalemia. HISTORY OF PRESENT ILLNESS: The patient is a 70-year-old male who was sent over to the hospital because of abnormal outpatient labs showing high potassium and some acute renal failure. The patient is currently at [facility] in [place], [place] for substance and alcohol abuse rehabilitation. His complaint is about tremors from lithium. The patient does seem to have significant psychological problem at this time. He saw the PCP at the [facility] 2 days ago and had blood work done, which showed high potassium level after which the patient was sent over to the hospital. This morning, potassium is 6.0, yesterday was actually 5.4. He has since received medical management for hyperkalemia. He also had slight acute renal failure with a creatinine of 1.7. He had a previous creatinine of around 1 at baseline. Already had a renal ultrasound which was unremarkable. He is not in any hemodynamic compromise at this time, with normal vital signs. As an outpatient, he was taking lots of ibuprofen and Advil. He claims as much as 18 tablets per day, but not every day and his lisinopril was recently increased. This explains the potential cause of hyperkalemia as well as acute renal failure. PAST MEDICAL AND SURGICAL HISTORY: Includes hypertension, hyperlipidemia, history of TIA, history of recurrent PE and DVT, but he is not on anticoagulation, history of chronic anemia, past tobacco and alcohol and drug abuse, obesity, hernia repair, knee surgery, appendicectomy, cholecystectomy, vasectomy. FAMILY HISTORY: Positive for diabetes and heart disease. 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 Currently lives alone in his home. He is retired/disabled. . REVIEW OF SYSTEMS: Unless stated otherwise, 10 systems reviewed and is negative. PHYSICAL EXAMINATION: GENERAL: Comfortable but anxious. He is not in any respiratory distress. He is obese. HEENT: Mucous membranes moist. NECK: Supple. No jugular venous distention. CHEST: Bilateral clear to auscultation. CARDIOVASCULAR: S1, S2 regular. ABDOMEN: Soft, nontender. EXTREMITIES: Shows trace edema. VITAL SIGNS: Blood pressure 111/74, pulse rate 78, respiratory rate 18, temperature 36.5, 100% on room air. Mucous membranes moist. LABORATORY TESTS: Reviewed in detail. At baseline, he has near normal creatinine of 1.0. This admission, creatinine was 1.72 at peaked and now is trending down. Potassium is 6.1. Sodium 139. Urinalysis showed significant epithelial cells. Renal ultrasound already done and is unremarkable. ASSESSMENT AND PLAN: A 70-year-old male admitted because of outpatient labs showing hyperkalemia and acute renal failure for which I have been consulted. Hyperkalemia and acute renal failure. This is secondary to combination of excessive use of NSAIDs. He was taking as many as 18 tablets of ibuprofen and Advil per day. Also, the dose of lisinopril was raised recently, so the combination of a higher dose of lisinopril, excessive NSAIDs and somewhat poor oral intake for the last few days resulted in acute renal failure. RECOMMENDATIONS: 1. Hold NSAIDs. 2. Continue IV hydration. I would like to use half normal saline with 50 mEq of sodium bicarbonate to bring the potassium down faster. 3. Hold lisinopril for the time being. 4. Continue daily labs at this point, but we do need to check potassium sometime later today. No further workup for acute renal failure is needed as it seems to be prerenal and getting better.
--- NOTE | 2020-12-09 13:59 | Psychiatric Consultation ---
Date of Consultation December 09, 2020 Impression / Recommendations Impression Dr. Sonny Calle was directly involved in review and discussion of the patient's case and participated in medical decision making regarding treatment recommendations. RECOMMENDATIONS: 12/09/20 - Psychiatric consultation requested by our hospitalist service to evaluate the patient for psychotropic medication recommendations - new medications started during recent D&A treatment with side effects reported by patient. [place] was already held by hospitalist service on admission. - Would continue to monitor for possible onset of alcohol withdrawal symptoms. Pt reports he has been sober since rehab discharge on 11/28/20 - though his alcohol level on admission was just barely detectable at 4. He maintains that he has not consumed alcohol. - Agree with recommendation to hold lithium, due to concern for tremors as well as acute renal failure. Not only is it not yet clear what the indication was for starting this medication, it is a reasonable culprit to rule out for cause of new onset tremors. Hoping to gather additional information regarding initiation of these new psychotropic medications. - Would also suggest discontinuing patient atypical antipsychotics, as I am worried they are contributing to extrapyramidal symptoms (tremor, gait disturbances, cogwheel rigidity, reports of vocal cord dysfunction, etc). Will have prn benztropine available for EPS as needed. - If patient is agreeable, would suggest offering a one-time dose of IM diphenhydramine to target EPS. This would allow us to rather quickly observe for improvement in symptoms to better clarify a diagnosis of EPS. This would need to be done at a time when the patient's symptoms and can be routinely monitored to observe for improvement. - Pt did agree to sign ROIs to allow us to coordinate with recent inpatient stays: [facility] (D&A rehab), [facility] (brief medical admission during [facility] stay), [facility] (medical admission for hypertensive urgency), [facility]. - Presently, patient is denying SI/HI, SIB, A/V hallucinations, paranoia, and other acute psychiatric concerns. He is not at this time an acute risk of harm to himself and is not likely to require inpatient psychiatric treatment. - Appreciate the opportunity to participate in the care of this patient. Please reach out to our service with any additional questions or updates. Psych History Identifying Data 70-year-old male admitted medically on 12/09/20 after presenting to the ED upon recommendation of PCP due to abnormal potassium. Pt found to be in acute renal failure with hyperkalemia. Psychiatric consultation was requested to evaluate patient for possible psychotropic medication adjustments due to reported tremor. Chief Complaint "I'm scared out of my wits, I have to tell you. I just don't know what's happening." History of Present Illness Cosme Miller is a 70-year-old male admitted medically on 12/09/20 after presenting to the ED upon recommendation of his PCP due to abnormal potassium. He was found to be in acute renal failure with hyperkalemia. [place] was held on admission and nephrology was consulted. Pt reported concern related to new- onset tremors and other symptoms which he felt to be related to new psychotropic medications. Psychiatric consultation was requested to evaluate patient for medication recommendations and management. Pt was seen on our consult service in 09/2020 AMS and behavioral disturbances vs. psychotic symptoms that seemed to be organic in etiology - possibly related to his longstanding alcohol abuse history. We had suggested HS use of quetiapine 50mg to target acute changes to mood and behavior. He was discharged to an inpatient D&A rehab. Pt was cooperative with evaluation and admitted "I'm scared out of my wits, I have to tell you. I just don't know what's happening." Pt filled this provider in on his recent substance abuse treatment and recent addition of quetiapine and olanzapine as well as lithium. Pt admits to ongoing memory concern and cognitive changes, and admittedly states he is uncertain about some of this information. He is obviously intelligent and able to articulate his perception of the situation rather clearly. Pt states that during his rehab stay at [facility] from 10/2020 - 11/28/20 he had a 2-3 day transfer to [facility] (unclear if medical or psychiatric admission). He states that he met with a psychiatrist "briefly" while there and believes he was started on lithium, quetiapine, and olanzapine following that evaluation (unable to confirm these reports). He states that it was not until he returned to [facility] that he learned he had been diagnosed with bipolar disorder and Munchausen's. He states he is aware of these two diagnoses and denies feeling either is consistent with his mood-related symptoms. On assessment today, the patient denies taking any medications or performing any actions with the intent for hospitalization and denies any therapeutic gain related to hospitalizations or the like. This self-report certainly does not rule out these diagnoses and additional information would be helpful. Pt does feel that the start of these medications coincided with the first observance of tremor and some of his other concerns. Pt is also reporting "intentional tremor that is causing me to drop things. I can't write, my speaking isn't normal - My tone is off and I can't control the pitch. I also have xerostomia." He also endorses gait disturbance. Pt states that these concerns have been ongoing for at least the last 3 weeks and he admits "the have been severely and rapidly increasing." Pt states that he has been very frustrated with the onset of these symptoms and is getting worried that nothing can be done to resolve them. With regard to his mood, patient deneis concerns. He admits to ongoing grief regarding the recent passing of his , but feels as though he is "progressing" through his grief. Pt denies SI and acute safety concerns - citing islam as a protective factor. Past Psychiatric History Outpatient Services: PCP through [facility]; denies current outpatient psychiatric providers. Previous Psych Admissions: - Reported a 2-day stay for assessment for alcohol use in the - Reports 2-3 day hospitalization at [facility] during his [facility] stay where he states he was evaluated by a psychiatrist and started on medications (unclear if medical admission or psychiatric admission). History of Previous Suicide Attempt: No Past Medication Trials: Per previous consultation note: 1. [place] - "zombie" 2. Unknown TCA was well-tolerated 3. Wellbutrin 4. Remeron 5. Trazodone 6. Effexor 7. Neurontin 8. Seroquel - started by our consult service in 09/2020 for behavioral disturbance vs. psychotic symptoms presumed to be related to an alcohol-induced delirium 9. Zyprexa 10.Buspirone Allergies Allergy/AdvReac Type Severity Reaction Status Date / Time clams AdvReac Unknown Diarrhea Verified 12/08/20 22:28 ketorolac [From Toradol] AdvReac Unknown Confusion Verified 12/08/20 22:28 Home Medications Medication Instructions Recorded Confirmed Type aspirin 81 mg PO DAILY 08/22/20 12/08/20 History atorvastatin 10 mg PO DAILY 08/22/20 12/08/20 History celecoxib [Celebrex] 200 mg PO BID 08/22/20 12/08/20 History mirtazapine 45 mg PO HS 08/22/20 12/08/20 History omeprazole 20 mg PO DAILY 08/22/20 12/08/20 History trazodone 50 - 100 mg PO HS 08/22/20 12/08/20 History meclizine 25 mg PO TID PRN #30 tab 09/11/20 12/08/20 Rx buspirone 10 mg PO BID 10/01/20 12/08/20 History folic acid 1 mg PO DAILY 10/05/20 12/08/20 History gabapentin 300 mg PO TID 12/08/20 12/08/20 History lisinopril 40 mg PO DAILY 12/08/20 12/08/20 History lithium carbonate 450 mg PO BID 12/08/20 12/08/20 History olanzapine 10 mg PO DAILY 12/08/20 12/08/20 History quetiapine 300 mg PO DAILY 12/08/20 12/08/20 History Family History Per previous consultation, father committed suicide at age 72 and abused alcohol. Pt denies known family history of dementia. Substance Abuse History Significant history of alcohol abuse - recent stay at [facility] for D&A treatment, discharged on 11/28/20. Pt denies alcohol use since that time, though BAL on admission was at least detectible at 4. Pt denies history of illicit substance use. 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) Marital Status: ( x3) Number Of Children: 4 Beliefs That Will Affect Care: None History of Legal Problems: History of incarceration for stalking per previous self-report Psychological Trauma History Comment: none known Patient History Medical History Alcohol abuse Alcohol intoxication Bipolar disorder Sleep deprivation Syncope TIA (transient ischemic attack) Family History Other Suicide Social History Smoking Status: Never smoker Hx Alcohol Use: Yes Alcohol type: wine Hx Substance Use: No Preferred Language: [place] Communication Ability: Effective Grain Loader Required: No Beliefs That Will Affect Care: None Current Living Situation: Alone current occupational status: retired Feels Safe at Home: Yes Assistive Devices: Walker Physical Exam Psychiatric: Orientation: alert, oriented x 3 and cooperative Apperance: appropriately dressed, appropriately groomed and appeared stated age Obese male, sitting on edge of bed in no acute distress. Pt is appropriately dressed for clinical setting, wearing a hospital gown. His has short white hair and german, level of grooming appears to be adequate. Eye Contact: good eye contact Motor Behavior: + EPS and + tremor Fine tremor of hand bilaterally, worsened and more course with intentional movements. Brief and intermittent episodes of upper body myoclonic jerking observed. Cogwheel rigidity is present on passive movement of arms bilaterally. In addition to reported gait disturbances pt does have a very flat affect, which may be sugg estive of possible parkinsonism. Speech: normal rate/rhythm/volume of speech Affect: + flat affect Mood: + anxious mood (reports significant concern regarding these new physical symptoms) Thought Process: goal directed thought process and clear/coherent thought process Thought Content: reality based without delusions; no hopelessness and no worthlessness Suicidal Thoughts: de nies suicidal thoughts, denies suicidal plan and denies suicidal intent Homicidal Thoughts: denies homicidal thoughts Hallucinations: no auditory hallucinations and no visual hallucinations Cognition: attention grossly intact and language grossly intact; + recent memory not intact and + remote memory not intact admits to cognitive changes and worsened memory Estimated Intelligence: consistent with education level Insight: + fair insight Judgement: + fair judgement Vital Signs (Past 24 Hours): Last Vital Signs Temp 36.5 C 12/09/20 11:37 Pulse 78 12/09/20 11:37 Resp 18 12/09/20 11:37 BP 111/74 12/09/20 11:37 Pulse Ox 100 12/09/20 11:37 Review of Systems Constitutional: denied Cardiovascular: denied Respiratory: denied Gastrointestinal: denied Neurological: denied Psychiatric: denies symptoms other than stated above Total of at least 10 systems reviewed, pertinent positives as above and in HPI. Results & Data (PSY) Medications Administered Aspirin (Aspirin 81 Mg Ectab) 81 mg PO DAILY FREDERICK Stop: 01/08/21 08:59 Last Admin: 12/09/20 08:02 Dose: 81 mg Documented by: [id number] Buspirone HCl (Buspirone 5 Mg Tab) 10 mg PO BID FREDERICK Stop: 01/08/21 08:59 Last Admin: 12/09/20 08:02 Dose: 10 mg Documented by: [id number] Folic Acid (Folic Acid 1 Mg Tab) 1 mg PO DAILY FREDERICK Stop: 01/08/21 08:59 Last Admin: 12/09/20 08:02 Dose: 1 mg Documented by: [id number] Gabapentin (Gabapentin 100 Mg Cap) 200 mg PO TID FREDERICK Stop: 01/08/21 08:59 Last Admin: 12/09/20 08:02 Dose: 200 mg Documented by: [id number] Heparin Sodium (Porcine) (Heparin Sod 5,000 Unit/0.5 Ml Vial) 5,000 units SQ Q8 FREDERICK Stop: 01/08/21 05:59 Last Admin: 12/09/20 06:02 Dose: 5,000 units Documented by: [id number] Sodium Bicarbonate 50 meq/ (Sodium Chloride) 1,050 mls @ 80 mls/hr IV .Q13H8M FREDERICK Stop: 01/08/21 09:59 Last Admin: 12/09/20 10:16 Dose: 80 mls/hr Documented by: [id number] Olanzapine (Olanzapine 10 Mg Tab) 10 mg PO DAILY FREDERICK Stop: 01/08/21 08:59 Last Admin: 12/09/20 08:02 Dose: 10 mg Documented by: [id number] Pantoprazole Sodium (Pantoprazole 40 Mg Tab) 40 mg PO DAILY FREDERICK Stop: 01/08/21 08:59 Last Admin: 12/09/20 08:02 Dose: 40 mg Documented by: [id number] Quetiapine Fumarate (Quetiapine Fumarate 300 Mg Tablet) 300 mg PO DAILY FREDERICK Stop: 01/08/21 08:59 Last Admin: 12/09/20 08:02 Dose: 300 mg Documented by: [id number] Coding Level of Care Code 47085 [facility] Intl Hosp Care Lvl 3
--- NOTE | 2020-12-09 14:56 | Electrocardiogram Report ---
Test Reason : Blood Pressure : / mmHG Vent. Rate : 087 BPM Atrial Rate : 087 BPM P-R Int : 212 ms QRS Dur : 080 ms QT Int : 356 ms P-R-T Axes : 016 002 012 degrees QTc Int : 428 ms Sinus rhythm with 1st degree A-V block Low voltage QRS Borderline ECG When compared with ECG of 05-OCT-2020 00:43, QRS duration has decreased Confirmed by Leonel Johns ([id number]) on 12/09/2020 2:56:08 PM Referred By: Steff Jaffe Confirmed By:Leonel Johns
[2020-12-09 16:31] LABS: BUN Creatinine Ratio 16.8 (10-20); Calcium 8.5 mg/dl (8.5-10.1); Creatinine Clr Calc Pharmacy 56.9 ml/min; Est GFR (African American) 52.2
[2020-12-09] MEDS ORDERED: BENZTROPINE MESYLATE 1 MG TAB PO PRN (16:46)
[2020-12-09] MEDS ORDERED: diphenhydrAMINE 50 MG/ML VIAL IM PRN (16:47)
--- NOTE | 2020-12-09 17:16 | Hospitalist Progress Note ---
Date of Service December 09, 2020 Assessment & Plan (1) Acute hyperkalemia: Presented on admission was after abnormal outpatient lab with elevated potassium Pt said that Lisinopril was increased to 40mg recently Potassium on admission 5.3 then peaked 6 Repeat EKG this morning EKG showed no peak T wave Received Insulin and dextrose in the ER Nephrology on board recommended to change IVF to 1/2NS with bicarb Kayexalate was administered Continue to hold lisinopril Will check BMP later (2) ARF (acute renal failure): Creatinine on admission 1.7 Renal U/S showed no hydronephrosis. Moderate bilateral cortical renal thinning. Continue IVF for now Creatinine improves to 1.5 Continue to hold lisinopril Avoid any NSAID Continue monitor BMP Worsening Tremors Possible related to [place] vs extrapyramidal symptoms due to atypical antipsy chotics Psych on board Continue to hold [place] Case discussed with psych that plan to give IM bendryl Continue monitor closely HTN Continue to hold lisinopril Continue monitor BP Dyslipidemia Continue monitor statin DVT px on heparin Code status Full code Patient requesting for daughter to be updated of plan of care. Ms. Kiya Miller, contact #[phone]. Admission and Anticipated Discharge Date Admission Date: December 09, 2020 Subjective Pt was seen and examined for follow up of hyperkalemia Lying in bed very anxious with pressure speech Nurse said that early pt had a brief episode of gargle speech Pt said that Lisinopril was recently increased during his course at the mental health unit Denies any chest pain, palpitation, dizziness and SOB Review of Systems 2 Review of Systems: All systems reviewed & are unremarkable except as noted in Subjective Physical Exam Physical Exam: General- No acute distress Head- atraumatic Eyes- PERRL, EOMI, ENT- oropharynx clear Neck- supple, no JVD Lungs- clear to auscultation Heart- regular Abdomen- normal bowel sounds, soft, nontender Extremities- no calf tenderness, Sutured wound right middle finger Neuro- alert, oriented x 3, + finger to touch, +mild tremors, PERRL, EOMI; no facial palsy; no dysarthria Skin- warm & dry Results & Data Results & Data ([facility]) Vital Signs (Past 12 Hours) Vital Signs Temp Pulse Pulse Resp BP Pulse Ox 12/09/20 15:28 36.5 C 90 18 132/86 90 12/09/20 15:18 87 12/09/20 11:37 36.5 C 78 18 111/74 100 12/09/20 08:19 36.6 C 68 19 114/75 99 12/09/20 07:24 68
[2020-12-09] MEDS: MIRTAZAPINE SOLTAB 15 MG PO SCH (20:06)
[2020-12-10] MEDS: HEPARIN SOD 5,000 UNIT/0.5 ML VIAL SQ SCH ×3 (05:52→21:05)
[2020-12-10 06:22] LABS: Hematocrit (blood only) 40.2 % (42-52); Hemoglobin 12.9 g/dL (14.0-18.0); Mean Corpuscular Hemoglobin 31.5 pg (25-34); Mean Corpuscular Hgb Conc 32.1 g/dL (32-36); Mean Platelet Volume 9.3 fL (7.4-10.4); Platelet Count 202 K/uL (130-400); RDW Coefficient of Variation 12.1 % (11.5-14.5); RDW Standard Deviation 43.5 fL (36.4-46.3); White Blood Count 4.83 K/uL (4.8-10.8)
[2020-12-10 06:57] LABS: BUN Creatinine Ratio 14.2 (10-20); Calcium 9.3 mg/dl (8.5-10.1); Creatinine Clr Calc Pharmacy 59.1 ml/min; Est GFR (African American) 54.7; Est GFR (Non-African American) 47.2; Potassium 5.3 mmol/L (3.5-5.1)
--- NOTE | 2020-12-10 07:22 | Electrocardiogram Report ---
Test Reason : Blood Pressure : / mmHG Vent. Rate : 094 BPM Atrial Rate : 094 BPM P-R Int : 200 ms QRS Dur : 086 ms QT Int : 358 ms P-R-T Axes : 032 -11 002 degrees QTc Int : 447 ms Normal sinus rhythm Low voltage QRS Cannot rule out Anterior infarct , age undetermined Abnormal ECG When compared with ECG of 08-DEC-2020 21:25, (unconfirmed) No significant change was found Confirmed by Leonel Johns ([id number]) on 12/10/2020 7:21:51 AM Referred By: Steff Jaffe Confirmed By:Leonel Johns
[2020-12-10] MEDS: busPIRone 5 MG TAB PO SCH ×2 (07:59→20:50)
[2020-12-10] MEDS: GABAPENTIN 100 MG CAP PO SCH ×3 (07:59→20:51)
[2020-12-10] MEDS: ASPIRIN 81 MG ECTAB PO SCH (07:59)
[2020-12-10] MEDS: PANTOprazole 40 MG TAB PO SCH (08:00)
[2020-12-10] MEDS: FOLIC ACID 1 MG TAB PO SCH (08:00)
[2020-12-10 09:31] LABS: Appearance Urine Clear (Clear); Bacteria Urine Automated Negative (Negative); Bilirubin Urine Negative (Negative); Blood Urine Negative (Negative); Cast Urine Automated 0 /lpf (0-5); Color Urine Yellow; Epithelial Cell Urine Auto 0-5 /lpf (0-5); Glucose Urine UA Negative (Negative); Ketones Urine Negative (Negative); Leukocyte Esterase Urine Trace (Negative); Nitrite Urine Negative (Negative); Protein Urine Negative (Negative); RBC Urine Automated 0-4 /hpf (0-4); Specific Gravity Urine 1.011 (1.000-1.030); Urobilinogen Urine Negative (Negative)
--- NOTE | 2020-12-10 10:44 | Psychiatric Progress Note ---
Date of Service December 10, 2020 Impression / Recommendations Impression INITIAL PSYCHIATRIC RECOMMENDATIONS: 12/09/20 - Psychiatric consultation requested by our hospitalist service to evaluate the patient for psychotropic medication recommendations - new medications started during recent D&A treatment with side effects reported by patient. [place] was already held by hospitalist service on admission. - Would continue to monitor for possible onset of alcohol withdrawal symptoms. Pt reports he has been sober since rehab discharge on 11/28/20 - though his alcohol level on admission was just barely detectable at 4. He maintains that he has not consumed alcohol. - Agree with recommendation to hold lithium, due to concern for tremors as well as acute renal failure. Not only is it not yet clear what the indication was for starting this medication, it is a reasonable culprit to rule out for cause of new onset tremors. Hoping to gather additional information regarding initiation of these new psychotropic medications. - Would also suggest discontinuing patient atypical antipsychotics, as I am worried they are contributing to extrapyramidal symptoms (tremor, gait disturbances, cogwheel rigidity, reports of vocal cord dysfunction, etc). Will have prn benztropine available for EPS as needed. - If patient is agreeable, would suggest offering a one-time dose of IM diphenhydramine to target EPS. This would allow us to rather quickly observe for improvement in symptoms to better clarify a diagnosis of EPS. This would need to be done at a time when the patient's symptoms and can be routinely monitored to observe for improvement. - Pt did agree to sign ROIs to allow us to coordinate with recent inpatient stays: [facility] (D&A rehab), [facility] (brief medical admission during [facility] stay), [facility] (medical admission for hypertensive urgency), [facility]. - Presently, patient is denying SI/HI, SIB, A/V hallucinations, paranoia, and other acute psychiatric concerns. He is not at this time an acute risk of harm to himself and is not likely to require inpatient psychiatric treatment. - Appreciate the opportunity to participate in the care of this patient. Please reach out to our service with any additional questions or updates. (1) Extrapyramidal movement disorder, drug-induced: 12/10 - Pt received a one-time dose of diphenhydramine 25mg IM the evening of 12/09 to better determine if tremor and other recent concerns were related to drug- induced extrapyramidal symptoms. Pt reportedly responded well to the medication within 10 minutes with significant reduction of tremor and ability to use his right hand unsupported by the other. Pt reported improvement in his voice concerns as well (perceived vocal cord dysfunction). - Based on response to trial of diphenhydramine, would assume that some of these symptoms were related to his antipsychotic medication regimen. For the time being, would hold both quetiapine and olanzapine until symptoms resolve and we are better able to ascertain the indication for this regimen - Continue to hold lithium due to acute renal failure at time of presentation an d concern this medication may have contributed to tremors as well. - Can utilize benztropine as needed for EPS, though less likely to be a concern with patient off of the likely offending agents. (2) Mood disorder: 12/10 - Obtaining records from recent psychiatric hospitalizations to further clarify the presence of any former psychiatric diagnoses. Pt had been presenting with acute mental status changes, cognitive deficits, mood and behavioral disturbances, and other concerns over the past few months - which seemed most likely to be organic in etiology (likely neurocognitive changes related to age vs. extensive alcohol abuse history). He was recently diagnosed with bipolar disorder and "Maunchausen's" (factitious disorder), and we are attempting to obtain records to better clarify this history. - Given patient's past presentations with acute mood and behavioral disturbances, would encourage close monitoring. Pt was started on quetiapine 50mg by our service in 09/2020 for these concerns. Would have a low threshold to resume at least low-dose antipsychotic medications if behavior escalates to the level observed during past admissions - though would encourage benztropine be added to regimen to prevent EPS. (3) History of alcohol abuse: 12/10 - There is ongoing concern that cognitive, mood, and behavioral changes observed in the past few months may be related to patient's extensive history of alcohol abuse. - Advise ongoing abstinence from alcohol and other substances, outpatient veliz pport as necessary to assist him with this goal. Interval History Identifying Information 70-year-old male admitted medically on 12/09/20 after presenting to the ED upon recommendation of PCP due to abnormal potassium. Pt found to be in acute renal failure with hyperkalemia. Psychiatric consultation was requested to evaluate patient for possible psychotropic medication adjustments due to reported tremor. Chief Complaint "I think I've seen considerable improvement." Review of Systems Notes Constitutional: denied Cardiovascular: denied Respiratory: denied Gastrointestinal: denied Neurological: mild tremor ongoing Psychiatric: denies symptoms other than stated above Total of at least 10 systems reviewed, pertinent positives as above and in HPI. Subjective Subjective Patient's case was reviewed and discussed during morning report. Records from last evening reviewed, indicating that there was a noticeable improvement in the patient's tremor after receiving IM diphenhydramine. He was seen today to follow-up on recommendations. Pt admits "I think I've seen a considerable improvement." He does inquire as to whether he was truly given diphenhydramine or if it was a placebo. Pt was reassured that he was given medication that would have ideally told us if is symptoms were a possible adverse response to his antipsychotic medication regimen. Pt reports an "85% improvement" in tremor and "voice control", his gait is reportedly improved and he is pleased with the progress he is making with physical therapy. Pt denies acute concerns. This provider reiterated concern that patient had demonstrated mood and behavioral disturbances in the past, and that we would be wanting to make sure these americo rns were not recurring. We discussed the possibility to resuming low-dose quetiapine may be considered if this should occur; however, patient could also be provided with medication that would reduce the risk of these adverse effects returning. Pt was appreciative of time spent and explanation provided and denied other needs from our service at this time. Records were received from [facility] - ED presentation on 11/03/20. Reportedly patient had an inpatient psychiatric hospitalization and then went to [facility] for rehab. Pt left the rehab facility for the ED when an ambulance was not called for him. He was reportedly fund laying down outside of a local residence home. Pt reports complaint of hematuria. 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 Telepsychiatric evaluation suggested the patient had been admitted psychiatrically 2 weeks prior to going to [facility], and that after his psychiatric admission he started to drink heavily. Pt reportedly had lucid moments with episodes of disorganized thinking. Alcohol level was reportedly negative at the time of his presentation. Psychiatric admission recommended based on patient's inability to care for self. Reported differential included: Lewy body dementia, frontotemporal dementia. Psychiatric medications at time of ED presentation: gabapentin 300mg BID, lithium 450mg qHS, quetiapine 300mg qHS, olanzapine 10mg qHS, mirtazapine 45mg qHS, trazodone 50mg qHS, and hydroxyzine 50mg TID prn anxiety. At time of telepsychiatry assessment, the patient was encouraged to increase lithium to 450mg BID; stop quetiapine/buspirone/mirtazapine; and increase olanzapine to 15mg. Pt was referred for geripsychiatry programs and accepted at [facility]. Physical Exam Psychiatric Orientation: alert, oriented x 3 and cooperative Apperance: appropriately dressed, appropriately groomed and appeared stated age Eye Contact: good eye contact Motor Behavior: + tremor (mild intentional tremor persisting in hands bilaterally) tremor of face and upper body that was noticed on previous examination is now resolved. No continued myoclonic jerking of upper body. Assessment for cogwheel rigidity was admittedly not done today as patient was having bleeding from his IV site which needed attention. Speech: normal rate/rhythm/volume of speech speech remains monotone, though patient reports feeling as though he has more control of his annunciation and rhythm of his sentences. Affect: + flat affect Mood: + anxious mood (but much improved after physical symptoms improved); no depressed mood Thought Process: goal directed thought process and clear/coherent thought process Thought Content: reality based without delusions; no hopelessness and no worthlessness Suicidal Thoughts: denies suicidal thoughts, denies suicidal plan and denies suicidal intent Homicidal Thoughts: denies homicidal thoughts Hallucinations: no auditory hallucinations and no visual hallucinations Cognition: recent memory grossly intact, attention grossly intact and language grossly intact Estimated Intelligence: consistent with education level Insight: + fair insight Judgement: + fair judgement Vital Signs (Past 24 Hours) Last Vital Signs Temp 36.4 C L 12/10/20 06:52 Pulse 70 12/10/20 07:36 Resp 18 12/10/20 06:52 BP 129/83 12/10/20 06:52 Pulse Ox 96 12/10/20 06:52 Results & Data ([facility]) Laboratory Results Laboratory Results - last 24 hr 12/09/20 12/10/20 12/10/20 15:40 05:42 05:42 WBC 4.83 RBC 4.10 L Hgb 12.9 L Hct 40.2 L MCV 98.0 MCH 31.5 MCHC 32.1 RDW Std Deviation 43.5 RDW Coeff of Jeff 12.1 Plt Count 202 MPV 9.3 Sodium 139 138 Potassium 5.0 D 5.3 H Chloride 111 H 109 H Carbon Dioxide 28 27 Anion Gap 0 L 2.0 L BUN 26 H 21 H Creatinine 1.55 H 1.49 H Est Cr Clr Drug Dosing 56.9 59.1 Est GFR ( Amer) 52.2 54.7 Est GFR (Non-Af Amer) 45.0 47.2 BUN/Creatinine Ratio 16.8 14.2 Glucose 100 H 95 Calcium 8.5 9.3 Urine Color Urine Appearance Urine pH Ur Specific [place] Urine Protein Urine Glucose (UA) Urine Ketones Urine Blood Urine Nitrite Urine Bilirubin Urine Urobilinogen Ur Leukocyte Esterase Urine WBC (Auto) Urine RBC (Auto) U Hyaline Cast (Auto) U Epithel Cells (Auto) Urine Bacteria (Auto) 12/10/20 08:15 WBC RBC Hgb Hct MCV MCH MCHC RDW Std Deviation RDW Coeff of Jeff Plt Count MPV Sodium Potassium Chloride Carbon Dioxide Anion Gap BUN Creatinine Est Cr Clr Drug Dosing Est GFR ( Amer) Est GFR (Non-Af Amer) BUN/Creatinine Ratio Glucose Calcium Urine Color Yellow Urine Appearance Clear Urine pH 8.0 H Ur Specific [place] 1.011 Urine Protein Negative Urine Glucose (UA) Negative Urine Ketones Negative Urine Blood Negative Urine Nitrite Negative Urine Bilirubin Negative Urine Urobilinogen Negative Ur Leukocyte Esterase Trace H Urine WBC (Auto) 1-5 Urine RBC (Auto) 0-4 U Hyaline Cast (Auto) 0 U Epithel Cells (Auto) 0-5 Urine Bacteria (Auto) Negative Current Inpatient Medications Current Inpatient Medications: Current Inpatient Medications Acetaminophen (Acetaminophen 325 Mg Tab) 325 mg PO Q6H PRN PRN Reason: Mild Pain Stop: 01/08/21 03:06 Aspirin (Aspirin 81 Mg Ectab) 81 mg PO DAILY FREDERICK Stop: 01/08/21 08:59 Last Admin: 12/10/20 07:59 Dose: 81 mg Documented by: Benztropine Mesylate (Benztropine Mesylate 1 Mg Tab) 1 mg PO BID PRN PRN Reason: Extrapyramidal symptoms Stop: 01/08/21 16:45 Buspirone HCl (Buspirone 5 Mg Tab) 10 mg PO BID FREDERICK Stop: 01/08/21 08:59 Last Admin: 12/10/20 07:59 Dose: 10 mg Documented by: Folic Acid (Folic Acid 1 Mg Tab) 1 mg PO DAILY FREDERICK Stop: 01/08/21 08:59 Last Admin: 12/10/20 08:00 Dose: 1 mg Documented by: Gabapentin (Gabapentin 100 Mg Cap) 200 mg PO TID FREDERICK Stop: 01/08/21 08:59 Last Admin: 12/10/20 07:59 Dose: 200 mg Documented by: Heparin Sodium (Porcine) (Heparin Sod 5,000 Unit/0.5 Ml Vial) 5,000 units SQ Q8 FREDERICK Stop: 01/08/21 05:59 Last Admin: 12/10/20 05:52 Dose: 5,000 units Documented by: Sodium Bicarbonate 50 meq/ (Sodium Chloride) 1,050 mls @ 80 mls/hr IV .Q13H8M FREDERICK Stop: 01/08/21 09:59 Last Admin: 12/09/20 23:15 Dose: 80 mls/hr Documented by: Mirtazapine (Mirtazapine Soltab 15 Mg) 45 mg PO HS [facility] Stop: 01/08/21 20:59 Last Admin: 12/09/20 20:06 Dose: 45 mg Documented by: Oxycodone HCl (Oxycodone Hcl Ir 5 Mg Tab (Immediate Release)) 5 mg PO Q4H PRN PRN Reason: Pain Stop: 12/23/20 03:06 Pantoprazole Sodium (Pantoprazole 40 Mg Tab) 40 mg PO DAILY FREDERICK Stop: 01/08/21 08:59 Last Admin: 12/10/20 08:00 Dose: 40 mg Documented by:
[2020-12-10] MEDS ORDERED: PATIROMER CALCIUM SORBITEX 8.4 GM PACK PO ONE ×2 (12:00→23:45)
[2020-12-10] MEDS: SODIUM BICARBONATE 8.4% 50 MEQ in SODIUM CHLORIDE 0.45 % 1,000 ML IV SCH (12:23)
--- NOTE | 2020-12-10 19:21 | Hospitalist Progress Note ---
Date of Service December 10, 2020 Assessment & Plan (1) Acute hyperkalemia: Presented on admission was after abnormal outpatient lab with elevated potassium Pt said that Lisinopril was increased to 40mg recently Potassium on admission 5.3 then peaked 6 Repeat EKG yesterday showed no peak T wave Received Insulin and dextrose in the ER Nephrology on board recommended to change IVF to 1/2NS with bicarb Kayexalate was administered yesterday Potassium 5.3 today Valterssa x1 given today, will consider to give an additional dose later if k elevates Continue to hold lisinopril Continue monitor BMP (2) ARF (acute renal failure): Creatinine on admission 1.7 Renal U/S showed no hydronephrosis. Moderate bilateral cortical renal thinning. Continue IVF for now Creatinine improves to 1.4 Continue to hold lisinopril Avoid any NSAID Continue monitor BMP Worsening Tremors Possible related to [place] vs extrapyramidal symptoms due to atypical antipsychotics Psych on board Tremor improves after IM diphenhydramine yesterday Continue to hold [place] as per psych Case discussed with psych that plan to give IM bendryl Psych recommended to utilize benztropine as needed for EPS, though less likely to be a concern with patient off of the likely offending agents. HTN BP elevated Will consider to start on amlodipine Continue to hold lisinopril Continue monitor BP Dyslipidemia Continue monitor statin DVT px on heparin Code status Full code Patient requesting for daughter to be updated of plan of care. Ms. Kiya Miller, contact #[phone]. Admission and Anticipated Discharge Date Admission Date: December 09, 2020 Subjective Pt was seen and examined for follow up of tremor sitting at the edge of the bed with no distress Pt said that he feels much better today He said that his tremor improves significantly after received IM diphenhydramine Denies any chest pain, palpitation, dizziness and SOB Review of Systems Review of Systems: All systems reviewed & are unremarkable except as noted in Subjective Physical Exam Physical Exam: General- No acute distress Head- atraumatic Eyes- PERRL, EOMI, ENT- oropharynx clear Neck- supple, no JVD Lungs- clear to auscultation Heart- regular Abdomen- normal bowel sounds, soft, nontender Extremities- no calf tenderness, Sutured wound right middle finger Neuro- alert, oriented x 3, + finger to touch, +mild tremors improves, PERRL, EOMI; no facial palsy; no dysarthria Skin- warm & dry Results & Data Results & Data ([facility]) Vital Signs (Past 12 Hours) Vital Signs Temp Pulse Pulse Resp BP BP Pulse Ox 12/10/20 18:37 36.9 C 104 H 16 169/109 H 95 12/10/20 15:00 36.8 C 97 H 94 H 18 136/84 95 12/10/20 11:46 37.1 C 103 H 18 144/87 H 96 12/10/20 07:36 70
[2020-12-10] MEDS ORDERED: amLODIPine BESYLATE 5 MG TAB PO SCH ×2 (20:15→21:00)
[2020-12-10 20:36] LABS: BUN Creatinine Ratio 16.1 (10-20); Calcium 9.5 mg/dl (8.5-10.1); Creatinine Clr Calc Pharmacy 61.2 ml/min; Est GFR (Non-African American) 49.2; Potassium 4.8 mmol/L (3.5-5.1)
[2020-12-10] MEDS: MIRTAZAPINE SOLTAB 15 MG PO SCH (20:51)
[2020-12-11] MEDS: SODIUM BICARBONATE 8.4% 50 MEQ in SODIUM CHLORIDE 0.45 % 1,000 ML IV SCH (04:00)
[2020-12-11] MEDS: HEPARIN SOD 5,000 UNIT/0.5 ML VIAL SQ SCH ×3 (05:15→21:48)
[2020-12-11 06:35] LABS: Calcium 9.6 mg/dl (8.5-10.1); Est GFR (African American) 77.3; Est GFR (Non-African American) 66.7; Potassium 4.5 mmol/L (3.5-5.1)
[2020-12-11] MEDS: GABAPENTIN 100 MG CAP PO SCH ×3 (07:49→20:11)
[2020-12-11] MEDS: busPIRone 5 MG TAB PO SCH ×2 (07:49→20:10)
[2020-12-11] MEDS: PANTOprazole 40 MG TAB PO SCH (07:50)
[2020-12-11] MEDS: ASPIRIN 81 MG ECTAB PO SCH (07:50)
[2020-12-11] MEDS: FOLIC ACID 1 MG TAB PO SCH (07:50)
--- NOTE | 2020-12-11 16:07 | Hospitalist Progress Note ---
Date of Service December 11, 2020 Assessment & Plan (1) Acute hyperkalemia: Presented on admission was after abnormal outpatient lab with elevated potassium Pt said that Lisinopril was increased to 40mg recently Potassium on admission 5.3 then peaked 6 Repeat EKG yesterday showed no peak T wave Received Insulin and dextrose in the ER Nephrology on board recommended to change IVF to 1/2NS with bicarb Kayexalate was administered yesterday Potassium 5.3 today Valterssa x2 given, K 4.5 today case discussed with nephrology that recommended to hold lisinopril on discharge Check BMP in 1 week to monitor your electrolytes (2) ARF (acute renal failure): Creatinine on admission 1.7 Renal U/S showed no hydronephrosis. Moderate bilateral cortical renal thinning. Continue IVF for now Creatinine improves to 1.1 Continue to hold lisinopril Avoid any NSAID Continue monitor BMP resolved Worsening Tremors Possible related to [place] vs extrapyramidal symptoms due to atypical antipsychotics Psych on board Tremor improves after IM diphenhydramine yesterday Continue to hold [place] as per psych Case discussed with psych that plan to give IM bendryl Psych recommended to utilize benztropine as needed for EPS, though less likely to be a concern with patient off of the likely offending agents. case discussed with psych again that recommended to hold lithium and Olanzapine Recommended to continue the Buspar and mitarzapine and decreased seroquel to 100mg HS Follow up with psych within 1 week Daughter was concerned about the changes in his antipsychotic meds because he was recently discharge from inpatient rehab Daughter said that pt was instructed not to discontinue [place] for his mood disorder Will advise daughter to monitor for any abnormal behavior, if any present to come to the ER for eval HTN BP elevated Continue amlodipine Continue to hold lisinopril on discharge Continue monitor BP Dyslipidemia Continue monitor statin DVT px on heparin Code status Full code Patient requesting for daughter to be updated of plan of care. Ms. Kiya Miller, contact #[phone]. Admission and Anticipated Discharge Date Admission Date: December 09, 2020 Subjective Pt was seen and examined for follow up tremor Sitting in bed with no distress eating breakfast Pt said that he feels much better He does not have anymore tremor Spoke to daughter in details today Daughter was concerned about the changes in his antipsychotic meds because he was recently discharge from inpatient rehab Daughter said that pt was instructed not to discontinue lithuim for his mood disorder Denies any chest pain, palpitation, dizziness and SOB Review of Systems Review of Systems: All systems reviewed & are unremarkable except as noted in Subjective Physical Exam Physical Exam: General- No acute distress Head- atraumatic Eyes- PERRL, EOMI, ENT- oropharynx clear Neck- supple, no JVD Lungs- clear to auscultation Heart- regular Abdomen- normal bowel sounds, soft, nontender Extremities- no calf tenderness, Sutured wound right middle finger Neuro- alert, oriented x 3, + finger to touch, +mild tremors improves, PERRL, EOMI; no facial palsy; no dysarthria Skin- warm & dry Results & Data Results & Data ([facility]) Vital Signs (Past 12 Hours) Vital Signs Temp Pulse Pulse Resp BP Pulse Ox 12/11/20 15:43 37 C 107 H 18 157/106 H 96 12/11/20 11:48 36.8 C 90 20 145/89 H 98 12/11/20 08:00 37 C 97 H 18 140/91 100 12/11/20 07:42 83
[2020-12-11] MEDS ORDERED: amLODIPine BESYLATE 5 MG TAB PO ONE (16:54)
[2020-12-11] MEDS: MIRTAZAPINE SOLTAB 15 MG PO SCH (20:11)
[2020-12-12] MEDS: HEPARIN SOD 5,000 UNIT/0.5 ML VIAL SQ SCH (05:36)
[2020-12-12] MEDS: busPIRone 5 MG TAB PO SCH (08:07)
[2020-12-12] MEDS: GABAPENTIN 100 MG CAP PO SCH (08:07)
[2020-12-12] MEDS: ASPIRIN 81 MG ECTAB PO SCH (08:07)
[2020-12-12] MEDS: PANTOprazole 40 MG TAB PO SCH (08:08)
[2020-12-12] MEDS: FOLIC ACID 1 MG TAB PO SCH (08:08)
[2020-12-12] MEDS ORDERED: amLODIPine BESYLATE 5 MG TAB PO SCH (09:00)
[2020-12-12 11:16] LABS: MDA negative; MDEA negative; MDMA (Ecstasy) Urine, Confirm negative
--- NOTE | 2020-12-12 11:32 | Discharge Summary ---
Date of Service December 12, 2020 Admission HPI Per Admitting Provider History obtained from patient and records. Medical history significant for hypertension, hyperlipidemia, TIA as per records, history recurrent PE/DVT off anticoagulation as per patient preference, chronic anemia (baseline hemoglobin of 13), past tobacco/alcohol abuse. Last confinement October 2020 for alcohol withdrawal. Patient confined at [facility] in [place], [place] last month for substance/alcohol abuse. Patient started on mood medications by facility psychiatrist. Patient worried about tremors from [place]. Patient claims he was told by psychiatrist that tremors would eventually go away . Mood improved upon discharge to home from facility last week. Lonely and missing his departed but not suicidal. Patient claims to be sober since confinement at facility. At home, patient falling from lightheadedness. Denies syncope, chest pain, S OB, cough. Poor appetite without abdominal pain complaints. Achy legs with some swelling with intermittent OTC ibuprofen intake as per patient. [facility]. Outpatient blood work yesterday showed high potassium levels. [facility] contacted patient's daughter as patient could not be reached. Patient told by daughter to go to the emergency room. 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 Admission Exam Per Admitting Provider GENERAL: Comfortable, pleasant, obese, no respiratory distress SKIN: Normal color, warm HEENT: Alopecia, [employer] palpebral conjunctivae, no ptosis, dry buccal mucosa NECK : Supple, short neck, no tenderness CHEST : CTA, no tenderness HEART : RRR, no obvious murmurs ABDOMEN: Some distention, nontender EXTREMITIES : No LE swelling/tenderness, no other conspicuous deformities noted NEUROLOGIC : Coherent, no facial asymmetry, intention tremors, gait and stance not assessed Principal Diagnosis Acute hyperkalemia: ARF (acute renal failure): Worsening Tremors Hypertension Dyslipidemia Discharge Exam General- No acute distress Head- atraumatic Eyes- PERRL, EOMI, ENT- oropharynx clear Neck- supple, no JVD Lungs- clear to auscultation Heart- regular Abdomen- normal bowel sounds, soft, nontender Extremities- no calf tenderness, Sutured wound right middle finger Neuro- alert, oriented x 3, + finger to touch, +mild tremors improves, PERRL, EOMI; no facial palsy; no dysarthria Skin- warm & dry Discharge Data Allergies Allergy/AdvReac Type Severity Reaction Status Date / Time clams AdvReac Unknown Diarrhea Verified 12/08/20 22:28 ketorolac [From Toradol] AdvReac Unknown Confusion Verified 12/08/20 22:28 Consultations 12/08/20 23:27 ED Decision to Admit Stat 12/09/20 03:07 Consult Health Information Management Routine Consult Psychiatry Routine 12/09/20 03:13 Consult Nephrology Routine Ordered Studies 12/08/20 20:08 CT head/brain wo con Stat 12/09/20 00:51 US venous doppler LE BI Urgent 12/09/20 01:56 US renal/blad retro comp Routine RENAL ULTRASOUND HISTORY: renal failure COMPARISON: None. FINDINGS: Right kidney: 9.9 cm. No hydronephrosis. Moderate cortical thinning. Left kidney: 10.5 cm. No hydronephrosis. Moderate cortical thinning. A 2.3 cm cyst. Bladder: Mild bladder wall thickening. Miscellaneous: Cholelithiasis. IMPRESSION: 1. No hydronephrosis. 2. Moderate bilateral cortical renal thinning. 3. Cholelithiasis. 4. Mild bladder wall thickening. ACT 112: Negative or not required by law. Electronically signed by: Ramón Cordero M.D. 12/09/2020 8:16 AM Dictated: 12/09/20 0815Transcribed: 12/09/20 0815 BILATERAL LOWER EXTREMITY VENOUS DOPPLER HISTORY: Acute pain and swelling of the lower extremities leg swelling COMPARISON STUDY: None. FINDINGS: There is normal compressibility, flow, and augmentation within the bilateral lower extremity deep venous systems. IMPRESSION: No DVT within the right or left lower extremity. ACT 112: Negative or not required by law. Electronically signed by: Kareem Paz M.D. 12/09/2020 6:36 AM Dictated: 12/09/20 0635Transcribed: 12/09/[address] head/brain wo con CLINICAL HISTORY: Recurrent falls COMPARISON STUDY: 10/28/2020 TECHNIQUE: Axial CT of the brain is performed from the vertex to the skull base. IV contrast was not administered for this examination. A dose lowering technique was utilized adhering to the principles of ALARA. CT DOSE: 614.27 mGy.cm FINDINGS: No intra or extra-axial mass lesions are visualized. There is no CT evidence of acute cortical infarction. There is no evidence of midline shift. There is no acute hemorrhage. No calvarial fractures are visualized. There are minimal white matter hypodensities likely on a small vessel basis. There is no evidence of pathologic ventricular dilatation. There is opacification of several left-sided ethmoid air cells. IMPRESSION: No acute intracranial findings ACT 112: Negative or not required by law. Electronically signed by: Bear Dominguez M.D. 12/08/2020 8:40 PM Dictated: 12/08/202038Transcribed: 12/08/202038 XR chest 1V portable CLINICAL HISTORY: weakness COMPARISON STUDY: 10/01/2020 FINDINGS: The heart is normal in size. There is no failure. There are subtle left basilar airspace opacities, likely infectious/inflammatory. Clinical and radiographic follow-up is recommended. There are no significant pleural effusions.[ IMPRESSION: 1. Subtle left basilar airspace opacities likely infectious/inflammatory. Cli nical and radiographic follow-up is recommended ACT 112: Negative or not required by law. Electronically signed by: Bear Dominguez M.D. 12/08/2020 8:30 PM Dictated: 12/08/202028Transcribed: 12/08/202028 Hospital Course (1) Acute hyperkalemia: Presented on admission was after abnormal outpatient lab with elevated potassium Pt said that Lisinopril was increased to 40mg recently Potassium on admission 5.3 then peaked 6 Repeat EKG yesterday showed no peak T wave Received Insulin and dextrose in the ER Nephrology on board recommended to change IVF to 1/2NS with bicarb Kayexalate was administered yesterday Potassium 5.3 today Valterssa x2 given, K 4.5 case discussed with nephrology that recommended to hold lisinopril on discharge Check BMP in 1 week to monitor your electrolytes (2) ARF (acute renal failure): Creatinine on admission 1.7 Renal U/S showed no hydronephrosis. Moderate bilateral cortical renal thinning. Continue IVF for now Creatinine improves to 1.1 Lisinopril discontinued Avoid any NSAID Continue monitor BMP resolved Worsening Tremors Possible related to [place] vs extrapyramidal symptoms due to atypical antipsychotics Psych on board Tremor improves after IM diphenhydramine yesterday Continue to hold [place] as per psych Case discussed with psych that plan to give IM bendryl Psych recommended to utilize benztropine as needed for EPS, though less likely to be a concern with patient off of the likely offending agents. case discussed with psych again that recommended to hold lithium and Olanzapine Recommended to continue the Buspar and mitarzapine and decreased seroquel to 100mg HS Follow up with psych within 1 week Daughter was concerned about the changes in his antipsychotic meds because he was recently discharge from inpatient rehab Daughter said that pt was instructed not to discontinue [place] for his mood disorder Will advise daughter to monitor for any abnormal behavior, if any present to come to the ER for eval HTN BP elevated Continue amlodipine lisinopril discontinued on discharge Continue monitor BP Dyslipidemia Continue monitor statin DVT px on heparin Code status Full code Patient requesting for daughter to be updated of plan of care. Ms. Kiya Miller, contact #[phone]. Total Time Total Time Spent Total Time Spent (In Minutes): 40 minutes Total Time Includes: Examination of the Patient, Discharge Planning, Medication Reconciliation, Communication With Other Providers and Other Discharge Plan Discharge Items Reason For Visit: ARF, LOW BP, HYPERKALEMIA Discharge Diagnosis: Acute hyperkalemia: ARF (acute renal failure): Worsening Tremors Hypertension Dyslipidemia Activity: Resume your previous activity Non-emergency contact: Primary Care Provider Call non-emergency contact if: you have any medication questions Follow-up/Referrals: Steff Jaffe PA-C [Primary Care Provider] - Diet: Heart Healthy Add Attending Provider Instructions: Follow up with your primary care provider at the [place] within 1 week Follow up with your psychiatry Follow up with your transplant case manager and marriage and family social worker tomorrow Counseling on alcohol cessation Check BMP in 1 week to monitor your electrolytes and renal function (Your provider will order it) continue monitor your blood pressure and your provider will adjust your blood pressure medication Advised daughter if patient develops any behaviors change to see medical attention Pending Studies at Discharge: No Medications and DC Order Prescriptions: New amlodipine [Norvasc] 5 mg Tablet 5 mg PO QAM Qty: 30 RF: 0 quetiapine 100 mg tablet 100 mg PO HS Qty: 30 RF: 0 Continued aspirin 81 mg Tablet,Delayed Release (Dr/Ec) 81 mg PO DAILY RF: 0 atorvastatin 10 mg Tablet 10 mg PO DAILY RF: 0 omeprazole 20 mg Tablet,Delayed Release (Dr/Ec) 20 mg PO DAILY RF: 0 trazodone 50 mg Tablet 50 - 100 mg PO HS RF: 0 mirtazapine 45 mg Tablet 45 mg PO HS RF: 0 buspirone 10 mg Tablet 10 mg PO BID RF: 0 folic acid 1 mg tablet 1 mg PO DAILY RF: 0 meclizine 25 mg tablet 25 mg PO TID PRN (Reason: dizziness) Qty: 30 RF: 0 gabapentin 300 mg capsule 300 mg PO TID RF: 0 Discontinued celecoxib [Celebrex] 200 mg Capsule 200 mg PO BID RF: 0 lithium carbonate 450 mg tablet extended release 450 mg PO BID RF: 0 lisinopril 40 mg tablet 40 mg PO DAILY RF: 0 quetiapine 300 mg tablet 300 mg PO DAILY RF: 0 olanzapine 10 mg tablet 10 mg PO DAILY RF: 0 Admission Data Admit Date/Time: 12/09/20 00:51 Attending Provider: Shelly Ware Admit Provider: Rafy Kuo Primary Care Provider: Steff Jaffe Other Providers: Rafy Kuo ; Axel Oliveros ; Hortensia Steiner ; Regis Ruiz ; Juve Nielson ; Omid London ; Yasmine Jiménez ; Sonny Calle ; Kenna Steele ; Yelena Storey ; Isabel Cutler ; Fabian Mercado I. ; Mikayla Sloan ; Marisabel Sanchez ; Jeanie Reyes ; Angelika Carrillo ; James Barahona ; Maria G Lacy ; Heather Das ; Jackelyn Souza ; Mike Rhoades ; [facility]
== END 2020-12-12 13:03 | disposition home health service (06) | DRG 684 ==
LOC: ED 18:07 → 2N 12-09 00:51

== ENCOUNTER 2021-04-24 18:03 | Inpatient (IN) ==
[2021-04-24] MEDS ORDERED: ACETAMINOPHEN 500 MG TAB PO STA (18:24)
[2021-04-24 18:34] LABS: Basophils # (auto) 0.01 K/uL (0-0.2); Basophils % (auto) 0.1 %; Eosinophils # (auto) 0.05 K/uL (0-0.5); Eosinophils % (auto) 0.4 %; Hematocrit (blood only) 40.6 % (42-52); Hemoglobin 13.9 g/dL (14.0-18.0); Immature Granulocytes # (auto) 0.03 K/uL (0.00-0.02); Immature Granulocytes % (auto) 0.3 %; Lymphocytes # (auto) 0.67 K/uL (1.2-3.4); Lymphocytes % (auto) 5.9 %; Mean Corpuscular Hgb Conc 34.2 g/dL (32-36); Mean Corpuscular Volume 93.3 fL (80-100); Mean Platelet Volume 9.3 fL (7.4-10.4); Monocytes # (auto) 0.84 K/uL (0.11-0.59); Monocytes % (auto) 7.4 %; Neutrophils # (auto) 9.82 K/uL (1.4-6.5); Neutrophils % (auto) 85.9 %; Platelet Count 216 K/uL (130-400); RDW Coefficient of Variation 13.7 % (11.5-14.5); RDW Standard Deviation 46.8 fL (36.4-46.3); Red Blood Count 4.35 M/uL (4.7-6.1); White Blood Count 11.42 K/uL (4.8-10.8)
--- NOTE | 2021-04-24 18:42 | XRay Report ---
XR chest 1V portable HISTORY: fever COMPARISON: Chest 12/08/2020. FINDINGS: No pneumothorax. No pleural effusions. There are low lung volumes with bibasilar linear den sities. The heart is top normal in size. There is a small hiatus hernia. No evidence for pulmonary ed reshma. The upper lung zones are clear. IMPRESSION: Low lung volumes with bibasilar linear densities. This favors subsegmental atelectasis. A pneumonia c ould also have a similar appearance in the appropriate clinical setting. ACT 112: Negative or not required by law. Electronically signed by: Ramón Cordero M.D. 04/24/2021 6:41 PM
[2021-04-24 18:45] LABS: Partial Thromboplastin Time 25.3 Seconds (21.0-31.0); Prothrombin Time 9.8 Seconds (9.0-12.0)
[2021-04-24 19:01] LABS: Albumin Level 3.9 gm/dl (3.4-5.0); Aspartate Aminotransferase 24 U/L (15-37); Blood Urea Nitrogen 13 mg/dl (7-18); Calcium 9.1 mg/dl (8.5-10.1); Carbon Dioxide 22 mmol/L (21-32); Chloride 106 mmol/L (98-107); Est GFR (African American) 77.3 ml/min; Est GFR (Non-African American) 66.7 ml/min; Glucose 133 mg/dl (70-99); Magnesium 1.8 mg/dl (1.8-2.4); Potassium 4.4 mmol/L (3.5-5.1); Sodium 138 mmol/L (136-145)
[2021-04-24 19:12] LABS: Alanine Aminotransferase 29 U/L (12-78); Alkaline Phosphatase 74 U/L (45-117); Bilirubin,Total 0.9 mg/dl (0.2-1); Globulin 3.9 gm/dl (2.5-4.0); Thyroid Stimulating Hormone 0.588 uIu/ml (0.300-4.500); Total Protein 7.8 gm/dl (6.4-8.2); Troponin I < 0.015 ng/ml (0-0.045)
--- NOTE | 2021-04-24 19:29 | Emergency Department Note ---
History of Present Illness General Chief complaint: Confusion Stated complaint: CONFUSION Time Seen by Provider: 04/24/21 18:56 History of Present Illness Maximum Pain Intensity: 10 70-year-old male presents to the ED with multiple complaints including shortness of breath as well as dyspnea on exertion. He also reports some right temporal head pain although the triage noted left temporal head pain. He also reports dizziness and nausea and vomiting. He has not eaten much for the past 48 hours because he states he did not get around to it. He fell 3 times because he is very weak and cannot walk. He states that his coordination seems to be off. He also reports a cough overnight. His symptoms started over the last day or 2. He states that he is currently on Bactrim for UTI. He also reports some bilateral chest pains. He describes it as something sitting on his chest. The patient does admit to history of alcoholism but states that he only had 2 beers to drink yesterday. 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 Home Medications Medication Instructions Recorded Confirmed Type aspirin 81 mg tablet,delayed 81 mg PO DAILY 08/22/20 02/03/21 History release atorvastatin 10 mg tablet 10 mg PO DAILY 08/22/20 02/03/21 History mirtazapine 45 mg tablet 45 mg PO HS 08/22/20 02/03/21 History omeprazole 20 mg tablet,delayed 20 mg PO DAILY 08/22/20 02/03/21 History release trazodone 50 mg tablet 50 - 100 mg PO HS 08/22/20 02/03/21 History meclizine 25 mg tablet 25 mg PO TID PRN #30 tab 09/11/20 02/03/21 Rx buspirone 10 mg tablet 10 mg PO BID 10/01/20 02/03/21 History folic acid 1 mg tablet 1 mg PO DAILY 10/05/20 02/03/21 History gabapentin 300 mg capsule 300 mg PO TID 12/08/20 02/03/21 History amlodipine 5 mg tablet (Norvasc) 5 mg PO QAM #30 tab 12/12/20 02/03/21 Rx quetiapine 100 mg tablet 100 mg PO HS #30 tab 12/12/20 02/03/21 Rx hydrochlorothiazide 25 mg tablet 0 mg PO DAILY 02/03/21 02/03/21 History Allergies Allergy/AdvReac Type Severity Reaction Status Date / Time clams AdvReac Intermediate Diarrhea Verified 02/03/21 00:05 ketorolac [From Toradol] AdvReac Intermediate Confusion Verified 02/03/21 00:05 Past Med/Surg History Medical History Acute hyperkalemia Alcohol abuse Alcohol intoxication Bipolar disorder Frequent falls History of alcohol abuse Sleep deprivation Syncope TIA (transient ischemic attack) Family History Other Suicide Social History Smoking Status: Never smoker Hx Alcohol Use: Yes Alcohol type: wine Hx Substance Use: No Preferred Language: Hungarian Communication Ability: Effective Hide Washer Required: No Beliefs That Will Affect Care: None Current Living Situation: Alone current occupational status: retired Feels Safe at Home: Yes Assistive Devices: None Review of Systems A total of 10 systems reviewed and were otherwise negative Physical Exam Vital Signs Vital Signs - 24 hr 04/24/21 18:09 04/24/21 19:04 04/24/21 19:05 Temperature 37.9 C H Temperature Source Temporal Artery Scan Pulse Rate 122 H Pulse Rhythm Regular Pulse Strength Normal Respiratory Rate 22 Respiratory Effort / Characteristics Non-Labored Respiratory Depth Normal Respiratory Pattern Regular Blood Pressure 121/81 Blood Pressure Mean 94 Blood Pressure Position Sitting Pulse Oximetry 94 97 97 Oxygen Delivery Method Room Air Room Air Room Air Sepsis Recent Fever Within 48 Hours No Sepsis New/Unexplained Change in Mental Status N/A Sepsis Action Taken by Nursing No Action Required 04/24/21 19:35 Temperature Temperature Source Pulse Rate Pulse Rhythm Pulse Strength Respiratory Rate Respiratory Effort / Characteristics Respiratory Depth Respiratory Pattern Blood Pressure Blood Pressure Mean Blood Pressure Position Pulse Oximetry 99 Oxygen Delivery Method Room Air Sepsis Recent Fever Within 48 Hours Sepsis New/Unexplained Change in Mental Status Sepsis Action Taken by Nursing CONSTITUTIONAL/VITAL SIGNS: Reviewed / noted above. GENERAL: Non-toxic in appearance. INTEGUMENTARY: Warm, dry, and [place]. HEAD: Normocephalic. There are some mild tenderness to palpation of the left temporal region. EYES: without scleral icterus or trauma. ENT/OROPHARYNX: clear and moist. LYMPHADENOPATHY/NECK: Is supple without lymphadenopathy or meningismus. RESPIRATORY: Clear to auscultation bilaterally. No increased work of breathing. CARDIOVASCULAR: Regular rate and rhythm. GI/ABDOMEN: Soft and nontender. No organomegaly or pulsatile mass. EXTREMITIES: Warm and well perfused. BACK: No CVA tenderness. NEUROLOGICAL: Intact without focal deficits. PSYCHIATRIC: normal affect. MUSCULOSKELETAL: Normally developed with good muscle tone. TRIAGE NURSING DOCUMENTATION REVIEWED. Course Administered Medications Discontinued Medications Acetaminophen (Acetaminophen 500 Mg Tab) 1,000 mg PO NOW STA Stop: 04/24/21 18:25 Last Admin: 04/24/21 18:31 Dose: 1,000 mg Documented by: [id number] Ioversol (Optiray 320 125ml) 118 ml IV ONCE ONE Stop: 04/24/21 19:34 Last Admin: 04/24/21 19:34 Dose: 118 ml Documented by: [id number] Medical Decision Making Differential Diagnosis Differential includes acute coronary syndrome, myocardial infarction, CVA, TIA, anemia, infection, pneumonia, UTI, pyelonephritis, poor nutrition, dehydration, electrolyte disturbance,hypoglycemia. Medical Records Attestation: I reviewed the patient's medical records. Home Medications Current Medication List: was personally reviewed by me Laboratory Data Attestation: I reviewed the patient's lab results. Result diagrams: 04/24/21 18:25 04/24/21 18:25 Lab Results 04/24/21 04/24/21 04/24/21 Range/Units 18:25 18:25 18:25 WBC 11.42 H (4.8-10.8) K/uL RBC 4.35 L (4.7-6.1) M/uL Hgb 13.9 L (14.0-18.0) g/dL Hct 40.6 L (42-52) % MCV 93.3 (80-100) fL MCH 32.0 (25-34) pg MCHC 34.2 (32-36) g/dL RDW Std Deviation 46.8 H (36.4-46.3) fL RDW Coeff of Jeff 13.7 (11.5-14.5) % Plt Count 216 (130-400) K/uL MPV 9.3 (7.4-10.4) fL Immature Gran % (Auto) 0.3 % Neut % (Auto) 85.9 % Lymph % (Auto) 5.9 % Amelia % (Auto) 7.4 % Eos % (Auto) 0.4 % Baso % (Auto) 0.1 % Neut # (Auto) 9.82 H (1.4-6.5) K/uL Lymph # (Auto) 0.67 L (1.2-3.4) K/uL Amelia # (Auto) 0.84 H (0.11-0.59) K/uL Eos # (Auto) 0.05 (0-0.5) K/uL Baso # (Auto) 0.01 (0-0.2) K/uL Immature Gran # (Auto) 0.03 H (0.00-0.02) K/uL ESR (0-20) mm/hr PT 9.8 (9.0-12.0) Seconds INR 1.0 (0.9-1.1) APTT 25.3 (21.0-31.0) Seconds PTT Ratio 1.0 D-Dimer (0-500) ug/L FEU Sodium 138 (136-145) mmol/L Potassium 4.4 (3.5-5.1) mmol/L Chloride 106 (98-107) mmol/L Carbon Dioxide 22 (21-32) mmol/L Anion Gap 10.0 (3-11) BUN 13 (7-18) mg/dl Creatinine 1.12 (0.6-1.4) mg/dl Est Cr Clr Drug Dosing Not Reportable Est GFR ( Amer) 77.3 ml/min Est GFR (Non-Af Amer) 66.7 ml/min BUN/Creatinine Ratio 12.0 (10-20) Glucose 133 H (70-99) mg/dl Lactate (0.4-2.0) mmol/L Calcium 9.1 (8.5-10.1) mg/dl Magnesium 1.8 (1.8-2.4) mg/dl Total Bilirubin 0.9 (0.2-1) mg/dl AST 24 (15-37) U/L ALT 29 (12-78) U/L Alkaline Phosphatase 74 (45-117) U/L Troponin I < 0.015 (0-0.045) ng/ml Total Protein 7.8 (6.4-8.2) gm/dl Albumin 3.9 (3.4-5.0) gm/dl Globulin 3.9 (2.5-4.0) gm/dl Albumin/Globulin Ratio 1.0 (0.9-2) TSH 0.588 (0.300-4.500) uIu/ml Urine Color Urine Appearance (Clear) Urine pH (4.5-7.5) Ur Specific [place] (1.000-1.030) Urine Protein (Negative) Urine Glucose (UA) (Negative) Urine Ketones (Negative) Urine Blood (Negative) Urine Nitrite (Negative) Urine Bilirubin (Negative) Urine Urobilinogen (Negative) Ur Leukocyte Esterase (Negative) Urine WBC (Auto) (0-5) /hpf Urine RBC (Auto) (0-4) /hpf U Hyaline Cast (Auto) (0-5) /lpf U Epithel Cells (Auto) (0-5) /lpf Urine Bacteria (Auto) (Negative) Ethyl Alcohol mg/dL (0-3) mg/dl COVID-19 Eval Order SARS-CoV-2 (PCR) (Negative) 04/24/21 04/24/21 04/24/21 Range/Units 18:25 18:25 18:40 WBC (4.8-10.8) K/uL RBC (4.7-6.1) M/uL Hgb (14.0-18.0) g/dL Hct (42-52) % MCV (80-100) fL MCH (25-34) pg MCHC (32-36) g/dL RDW Std Deviation (36.4-46.3) fL RDW Coeff of Jeff (11.5-14.5) % Plt Count (130-400) K/uL MPV (7.4-10.4) fL Immature Gran % (Auto) % Neut % (Auto) % Lymph % (Auto) % Amelia % (Auto) % Eos % (Auto) % Baso % (Auto) % Neut # (Auto) (1.4-6.5) K/uL Lymph # (Auto) (1.2-3.4) K/uL Amelia # (Auto) (0.11-0.59) K/uL Eos # (Auto) (0-0.5) K/uL Baso # (Auto) (0-0.2) K/uL Immature Gran # (Auto) (0.00-0.02) K/uL ESR 17 (0-20) mm/hr PT (9.0-12.0) Seconds INR (0.9-1.1) APTT (21.0-31.0) Seconds PTT Ratio D-Dimer 540 H* (0-500) ug/L FEU Sodium (136-145) mmol/L Potassium (3.5-5.1) mmol/L Chloride (98-107) mmol/L Carbon Dioxide (21-32) mmol/L Anion Gap (3-11) BUN (7-18) mg/dl Creatinine (0.6-1.4) mg/dl Est Cr Clr Drug Dosing Est GFR ( Amer) ml/min Est GFR (Non-Af Amer) ml/min BUN/Creatinine Ratio (10-20) Glucose (70-99) mg/dl Lactate (0.4-2.0) mmol/L Calcium (8.5-10.1) mg/dl Magnesium (1.8-2.4) mg/dl Total Bilirubin (0.2-1) mg/dl AST (15-37) U/L ALT (12-78) U/L Alkaline Phosphatase (45-117) U/L Troponin I (0-0.045) ng/ml Total Protein (6.4-8.2) gm/dl Albumin (3.4-5.0) gm/dl Globulin (2.5-4.0) gm/dl Albumin/Globulin Ratio (0.9-2) TSH (0.300-4.500) uIu/ml Urine Color Urine Appearance (Clear) Urine pH (4.5-7.5) Ur Specific [place] (1.000-1.030) Urine Protein (Negative) Urine Glucose (UA) (Negative) Urine Ketones (Negative) Urine Blood (Negative) Urine Nitrite (Negative) Urine Bilirubin (Negative) Urine Urobilinogen (Negative) Ur Leukocyte Esterase (Negative) Urine WBC (Auto) (0-5) /hpf Urine RBC (Auto) (0-4) /hpf U Hyaline Cast (Auto) (0-5) /lpf U Epithel Cells (Auto) (0-5) /lpf Urine Bacteria (Auto) (Negative) Ethyl Alcohol mg/dL (0-3) mg/dl COVID-19 Eval Order Covid19 at [facility] SARS-CoV-2 (PCR) (Negative) 08/23/21 08/23/21 08/23/21 Range/Units 18:40 19:30 19:30 WBC (4.8-10.8) K/uL RBC (4.7-6.1) M/uL Hgb (14.0-18.0) g/dL Hct (42-52) % MCV (80-100) fL MCH (25-34) pg MCHC (32-36) g/dL RDW Std Deviation (36.4-46.3) fL RDW Coeff of Jeff (11.5-14.5) % Plt Count (130-400) K/uL MPV (7.4-10.4) fL Immature Gran % (Auto) % Neut % (Auto) % Lymph % (Auto) % Amelia % (Auto) % Eos % (Auto) % Baso % (Auto) % Neut # (Auto) (1.4-6.5) K/uL Lymph # (Auto) (1.2-3.4) K/uL Amelia # (Auto) (0.11-0.59) K/uL Eos # (Auto) (0-0.5) K/uL Baso # (Auto) (0-0.2) K/uL Immature Gran # (Auto) (0.00-0.02) K/uL ESR (0-20) mm/hr PT (9.0-12.0) Seconds INR (0.9-1.1) APTT (21.0-31.0) Seconds PTT Ratio D-Dimer (0-500) ug/L FEU Sodium (136-145) mmol/L Potassium (3.5-5.1) mmol/L Chloride (98-107) mmol/L Carbon Dioxide (21-32) mmol/L Anion Gap (3-11) BUN (7-18) mg/dl Creatinine (0.6-1.4) mg/dl Est Cr Clr Drug Dosing Est GFR ( Amer) ml/min Est GFR (Non-Af Amer) ml/min BUN/Creatinine Ratio (10-20) Glucose (70-99) mg/dl Lactate 1.0 (0.4-2.0) mmol/L Calcium (8.5-10.1) mg/dl Magnesium (1.8-2.4) mg/dl Total Bilirubin (0.2-1) mg/dl AST (15-37) U/L ALT (12-78) U/L Alkaline Phosphatase (45-117) U/L Troponin I (0-0.045) ng/ml Total Protein (6.4-8.2) gm/dl Albumin (3.4-5.0) gm/dl Globulin (2.5-4.0) gm/dl Albumin/Globulin Ratio (0.9-2) TSH (0.300-4.500) uIu/ml Urine Color Urine Appearance (Clear) Urine pH (4.5-7.5) Ur Specific [place] (1.000-1.030) Urine Protein (Negative) Urine Glucose (UA) (Negative) Urine Ketones (Negative) Urine Blood (Negative) Urine Nitrite (Negative) Urine Bilirubin (Negative) Urine Urobilinogen (Negative) Ur Leukocyte Esterase (Negative) Urine WBC (Auto) (0-5) /hpf Urine RBC (Auto) (0-4) /hpf U Hyaline Cast (Auto) (0-5) /lpf U Epithel Cells (Auto) (0-5) /lpf Urine Bacteria (Auto) (Negative) Ethyl Alcohol mg/dL < 3.0 (0-3) mg/dl COVID-19 Eval Order SARS-CoV-2 (PCR) NEGATIVE (Negative) 04/24/21 Range/Units 20:00 WBC (4.8-10.8) K/uL RBC (4.7-6.1) M/uL Hgb (14.0-18.0) g/dL Hct (42-52) % MCV (80-100) fL MCH (25-34) pg MCHC (32-36) g/dL RDW Std Deviation (36.4-46.3) fL RDW Coeff of Jeff (11.5-14.5) % Plt Count (130-400) K/uL MPV (7.4-10.4) fL Immature Gran % (Auto) % Neut % (Auto) % Lymph % (Auto) % Amelia % (Auto) % Eos % (Auto) % Baso % (Auto) % Neut # (Auto) (1.4-6.5) K/uL Lymph # (Auto) (1.2-3.4) K/uL Amelia # (Auto) (0.11-0.59) K/uL Eos # (Auto) (0-0.5) K/uL Baso # (Auto) (0-0.2) K/uL Immature Gran # (Auto) (0.00-0.02) K/uL ESR (0-20) mm/hr PT (9.0-12.0) Seconds INR (0.9-1.1) APTT (21.0-31.0) Seconds PTT Ratio D-Dimer (0-500) ug/L FEU Sodium (136-145) mmol/L Potassium (3.5-5.1) mmol/L Chloride (98-107) mmol/L Carbon Dioxide (21-32) mmol/L Anion Gap (3-11) BUN (7-18) mg/dl Creatinine (0.6-1.4) mg/dl Est Cr Clr Drug Dosing Est GFR ( Amer) ml/min Est GFR (Non-Af Amer) ml/min BUN/Creatinine Ratio (10-20) Glucose (70-99) mg/dl Lactate (0.4-2.0) mmol/L Calcium (8.5-10.1) mg/dl Magnesium (1.8-2.4) mg/dl Total Bilirubin (0.2-1) mg/dl AST (15-37) U/L ALT (12-78) U/L Alkaline Phosphatase (45-117) U/L Troponin I (0-0.045) ng/ml Total Protein (6.4-8.2) gm/dl Albumin (3.4-5.0) gm/dl Globulin (2.5-4.0) gm/dl Albumin/Globulin Ratio (0.9-2) TSH (0.300-4.500) uIu/ml Urine Color Dark Yellow Urine Appearance Clear (Clear) Urine pH >= 9.0 H (4.5-7.5) Ur Specific [place] 1.020 (1.000-1.030) Urine Protein Negative (Negative) Urine Glucose (UA) Negative (Negative) Urine Ketones 1+ H (Negative) Urine Blood Negative (Negative) Urine Nitrite Negative (Negative) Urine Bilirubin Negative (Negative) Urine Urobilinogen Negative (Negative) Ur Leukocyte Esterase Trace H (Negative) Urine WBC (Auto) 1-5 (0-5) /hpf Urine RBC (Auto) 0-4 (0-4) /hpf U Hyaline Cast (Auto) 0 (0-5) /lpf U Epithel Cells (Auto) 20-30 H (0-5) /lpf Urine Bacteria (Auto) Negative (Negative) Ethyl Alcohol mg/dL (0-3) mg/dl COVID-19 Eval Order SARS-CoV-2 (PCR) (Negative) Imaging Data Radiologist's Impression: Chest X-Ray 04/24/21 18:23 XR chest 1V portable HISTORY: fever COMPARISON: Chest 12/08/2020. FINDINGS: No pneumothorax. No pleural effusions. There are low lung volumes with bibasilar linear densities. The heart is top normal in size. There is a small hiatus hernia. No evidence for pulmonary edema. The upper lung zones are clear. IMPRESSION: Low lung volumes with bibasilar linear densities. This favors subsegmental ate lectasis. A pneumonia could also have a similar appearance in the appropriate clinical setting. ACT 112: Negative or not required by law. Electronically signed by: Ramón Cordero M.D. 04/24/2021 6:41 PM Chest CTA 04/24/21 19:23 CHEST CTA for PULMONARY ARTERIES CT DOSE: HISTORY: Shortness of breath. Dyspnea on exertion. TECHNIQUE: Multiaxial CT images of the chest were performed following the intravenous administration of contrast to evaluate the pulmonary arteries. Maximal intensity projection images were also obtained. A dose lowering technique was utilized adhering to the principles of ALARA. COMPARISON STUDY: Chest CTA 10/01/2020. FINDINGS: Limited views the upper abdomen demonstrate a normal spleen and adrenal glands. There is a peripheral 2 cm hypodense lesion within the posterior segment right hepatic dome. This remains stable and therefore favors a benign lesion such as a hemangioma. Hepatic steatosis, unchanged. No pleural or pericardial effusions. No mediastinal or hilar lymphadenopathy. Normal caliber esophagus. Normal caliber thoracic aorta with no evidence for dissection. Subopt imal opacification of the pulmonary arteries due to the timing of contrast. The main and lobar pulmonary arteries appear patent. Questionable filling defect seen within a lingular segmental pulmonary artery on image 173 and is likely due to the poor contrast opacification. Therefore, the majority of the segmental pulmonary arteries are essentially nondiagnostic due to the timing of contrast. No additional filling defects identified within the pulmonary arteries to suggest a pulmonary embolus. There is moderate calcified plaque within the coronary arteries. There are healing right anterior fifth through seventh rib fractures. The central airways are patent. No pneumothorax. Right lung is clear. There are a few subtle small patchy groundglass airspace opacities within the left lung. These are new from the prior study and could represent a low-grade pneumonia. IMPRESSION: 1. Suboptimal evaluation of the pulmonary arteries due to the timing of contrast. The main and lobar pulmonary arteries appear patent. A questionable filling defect seen within a lingular segmental pulmonary artery as described above is also likely due to the poor contrast opacification. However, follow-up venous Doppler study and/or follow-up CT angiogram in 24 hours could be performed to exclude the possibility of a pulmonary embolus. 2. There are few subtle small patchy groundglass airspace opacity within the left lung. These are new from the prior study and could represent a low-grade pneumonia. 3. Healing right anterior fifth through seventh rib fractures. No pneumothorax. 4. Additional findings as described above ACT 112: Negative or not required by law. Electronically signed by: Ramón Cordero M.D. 04/24/2021 8:[address] 04/24/21 19:[address] DOSE: 2183.16 mGy.cm HISTORY: headache TECHNIQUE: Multiaxial CT images of the head were performed without the use of intravenous contrast. Automated exposure control was utilized for this study. A dose lowering technique was utilized adhering to the principles of ALARA. Comparison: Head CT 12/08/2020. Findings: A few partially opacified ethmoid air cells, unchanged. The mastoid air cells are clear. The calvarium and skull base are intact. There is no mass, hematoma, midline shift, acute infarct. White matter hypodensity is nonspecific but suggestive of microvascular ischemic change. The ventricles and sulci demonstrate mild age-related involutional changes. Impression: No significant change compared to the prior study. No acute intracranial abnormality. ACT 112: Negative or not required by law. Electronically signed by: Ramón Cordero M.D. 04/24/2021 8:29 PM ECG Data Attestation: I personally reviewed and interpreted this ECG as follows: Additional Comments: Twelve-lead EKG: Per my interpretation there is a sinus tachycardia at a rate of 119. No ST elevation. No PVCs. Normal QTC. MDM Narrative Patient presents with multiple complaints as noted above. His CBC shows a white blood cell count of 11.42. Hemoglobin is near normal. Coagulation studies are normal. Chemistry panel was unremarkable. Troponin is negative. TSH was normal. Sed rate is normal. Alcohol was negative. D-dimer was mildly elevated. Urine did not show infection. CT scan of the brain did not show acute process. CT scan of the chest shows a possible left lung pneumonia. The patient was told the results. He will need further inpatient evaluation and care for his symptoms. I will speak with the hospitalist about this patient. Impression & Plan Pneumonia, Weakness, Falls Discharge Plan Visit Data Chief Complaint: Confusion Stated Complaint: CONFUSION ED Provider: Fuentes Bucio Discharge Problem: Pneumonia, Weakness, Falls Patient Disposition: Being Evaluated by Hospitalist Forms Stand Alone Forms: My [facility] Prescriptions Prescriptions: No Action aspirin 81 mg Tablet,Delayed Release (Dr/Ec) 81 mg PO DAILY RF: 0 atorvastatin 10 mg Tablet 10 mg PO DAILY RF: 0 omeprazole 20 mg Tablet,Delayed Release (Dr/Ec) 20 mg PO DAILY RF: 0 trazodone 50 mg Tablet 50 - 100 mg PO HS RF: 0 mirtazapine 45 mg Tablet 45 mg PO HS RF: 0 buspirone 10 mg Tablet 10 mg PO BID RF: 0 folic acid 1 mg tablet 1 mg PO DAILY RF: 0 meclizine 25 mg tablet 25 mg PO TID PRN (Reason: dizziness) Qty: 30 RF: 0 hydrochlorothiazide 25 mg Tablet 0 mg PO DAILY RF: 0 gabapentin 300 mg capsule 300 mg PO TID RF: 0 amlodipine [Norvasc] 5 mg Tablet 5 mg PO QAM Qty: 30 RF: 0 quetiapine 100 mg tablet 100 mg PO HS Qty: 30 RF: 0 Referrals Referrals: Steff Jaffe PA-C [Primary Care Provider] -
[2021-04-24] MEDS ORDERED: OPTIRAY 320 125ml IV ONE (19:33)
[2021-04-24 19:47] LABS: D Dimer 540 ug/L FEU (0-500)
[2021-04-24 20:14] LABS: Appearance Urine Clear (Clear); Bacteria Urine Automated Negative (Negative); Bilirubin Urine Negative (Negative); Blood Urine Negative (Negative); Cast Urine Automated 0 /lpf (0-5); Color Urine Dark Yellow; Epithelial Cell Urine Auto 20-30 /lpf (0-5); Glucose Urine UA Negative (Negative); Ketones Urine 1+ (Negative); Leukocyte Esterase Urine Trace (Negative); Nitrite Urine Negative (Negative); Protein Urine Negative (Negative); RBC Urine Automated 0-4 /hpf (0-4); Urobilinogen Urine Negative (Negative); pH Urine >= 9.0 (4.5-7.5)
--- NOTE | 2021-04-24 20:26 | CT Scan Report ---
CHEST CTA for PULMONARY ARTERIES CT DOSE: HISTORY: Shortness of breath. Dyspnea on exertion. TECHNIQUE: Multiaxial CT images of the chest were performed following the intravenous administration of contrast to evaluate the pulmonary arteries. Maximal intensity projection images were also obtaine d. A dose lowering technique was utilized adhering to the principles of ALARA. COMPARISON STUDY: Chest CTA 10/01/2020. FINDINGS: Limited views the upper abdomen demonstrate a normal spleen and adrenal glands. There is a peripheral 2 cm hypodense lesion within the posterior segment right hepatic dome. This remains stable and therefore favors a benign lesion such as a hemangioma. Hepatic steatosis, unchanged. No pleural or pericardial effusions. No mediastinal or hilar lymphadenopathy. Normal caliber esophagus. Normal c aliber thoracic aorta with no evidence for dissection. Suboptimal opacification of the pulmonary bel mon[place] due to the timing of contrast. The main and lobar pulmonary arteries appear patent. Questionable filling defect seen within a lingular segmental pulmonary artery on image 173 and is likely due to t he poor contrast opacification. Therefore, the majority of the segmental pulmonary arteries are essen tially nondiagnostic due to the timing of contrast. No additional filling defects identified within t he pulmonary arteries to suggest a pulmonary embolus. There is moderate calcified plaque within the c oronary arteries. There are healing right anterior fifth through seventh rib fractures. The central a irways are patent. No pneumothorax. Right lung is clear. There are a few subtle small patchy groundgl ass airspace opacities within the left lung. These are new from the prior study and could represent a low-grade pneumonia. IMPRESSION: 1. Suboptimal evaluation of the pulmonary arteries due to the timing of contrast. The main and lobar pulmonary arteries appear patent. A questionable filling defect seen within a lingular segmental pulm onary artery as described above is also likely due to the poor contrast opacification. However, follo w-up venous Doppler study and/or follow-up CT angiogram in 24 hours could be performed to exclude the possibility of a pulmonary embolus. 2. There are few subtle small patchy groundglass airspace opacity within the left lung. These are new from the prior study and could represent a low-grade pneumonia. 3. Healing right anterior fifth through seventh rib fractures. No pneumothorax. 4. Additional findings as described above ACT 112: Negative or not required by law. Electronically signed by: Ramón Cordero M.D. 04/24/2021 8:25 PM
--- NOTE | 2021-04-24 20:31 | CT Scan Report ---
HEAD CT NONCONTRAST CT DOSE: 2183.16 mGy.cm HISTORY: headache TECHNIQUE: Multiaxial CT images of the head were performed without the use of intravenous contrast. A utomated exposure control was utilized for this study. A dose lowering technique was utilized adheri ng to the principles of ALARA. Comparison: Head CT 12/08/2020. Findings: A few partially opacified ethmoid air cells, unchanged. The mastoid air cells are clear. Th e calvarium and skull base are intact. There is no mass, hematoma, midline shift, acute infarct. Whit e matter hypodensity is nonspecific but suggestive of microvascular ischemic change. The ventricles a nd sulci demonstrate mild age-related involutional changes. Impression: No significant change compared to the prior study. No acute intracranial abnormality. ACT 112: Negative or not required by law. Electronically signed by: Ramón Cordero M.D. 04/24/2021 8:29 PM
[2021-04-24] MEDS ORDERED: cefTRIAXone SODIUM 1,000 MG/50 ML BAG IV STA (20:58)
[2021-04-24] MEDS ORDERED: AZITHROMYCIN 500 MG in DEXTROSE 5% 250 ML IV STA (20:58)
[2021-04-24 21:15] LABS: Amphetamines+Metham, Urine Neg (Neg); Barbiturates, Urine Neg (Neg); Benzodiazepine, Urine Neg (Neg); Cocaine, Urine Neg (Neg); MDMA (Ecstacy), Urine Neg (Neg); Methadone, Urine Neg (Neg); Opiate, Urine Neg (Neg); Phencyclidine, Urine Neg (Neg)
[2021-04-24] MEDS ORDERED: POLYETHYLENE (MIRALAX) 17 GM PACK PO PRN (23:06)
[2021-04-24] MEDS ORDERED: SODIUM CHLORIDE 0.9% 1000ML 1,000 ML IV SCH (23:06)
[2021-04-24] MEDS ORDERED: NITROGLYCERIN SL 0.4 MG/TAB TAB SL PRN (23:06)
[2021-04-24] MEDS ORDERED: CLOTRIMAZOLE 1% CR 15 GM TUBE TOP PRN (23:06)
[2021-04-24] MEDS ORDERED: ARTIFICIAL SALIVA MUCOUS MEMBRANE PRN (23:06)
[2021-04-24] MEDS ORDERED: MECLIZINE HCL 25 MG TAB PO PRN (23:17)
[2021-04-25] MEDS: hydrALAZINE HCL 25 MG TAB PO SCH ×4 (00:11→20:07)
[2021-04-25] MEDS: QUEtiapine FUMARATE 300 MG TABLET PO SCH ×2 (00:11→20:08)
[2021-04-25] MEDS: ENOXAPARIN INJ 40 MG/0.4 ML SYR SQ SCH ×2 (00:12→20:08)
--- NOTE | 2021-04-25 01:17 | History and Physical Report ---
DATE OF ADMISSION: 04/24/2021. CHIEF COMPLAINT: Cough, not feeling well. HISTORY OF PRESENT ILLNESS: This is a 70-year-old male with past medical history significant for hypertension, hyperlipidemia, TIA as per records, history of recurrent PE, DVT, seems to be not on anticoagulation at this time, history of chronic anemia, history of tobacco abuse and alcohol abuse, history of alcohol withdrawal in the past, history of the patient being in [facility] in [place], [place], for substance and alcohol abuse in the past. [facility]. The patient states he was recently in the [facility]. He states he is currently not drinking alcohol, last drink was about 10 to 12 days ago and yesterday he went to a meeting and had 1 beer and last night in the middle of the night he woke up and he was feeling very tired and weak, he could not get up and walk. He was crawling to the bathroom. He was feeling lightheaded, blurred visions, having cough, no phlegm, and some chest discomfort. Overall, not feeling well and that is the reason he came to the ER. He is also complaining of head pain. He has not eaten anything since yesterday afternoon. He states he was treated with Bactrim for UTI, but it is not helping much. He was told to see urology, neurology, and cardiology at the [facility], but not made any appointments yet. 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 In the ER, workup was done. His D- dimer was slightly elevated. Head CT was okay. CT of the chest, no PE, but they could not see some of the areas and advised for repeat CT scan in 24 hours or venous Doppler. Also the patient was found to have some patchy ground-glass opacity in the left lung, possible low-grade pneumonia. The patient said he is vaccinated for COVID.. Denies any fevers. He has some chest discomfort. No shortness of breath. Hard of hearing, does not have hearing aids today. Denies any blurred visions. Has some runny nose. No sore throat. When he eats, he swallows okay. Currently, no abdominal pain. Normal bowel and bladder movements. He says he has swelling in the legs and his blood pressure is getting [facility] by [facility]. ALLERGIES: TRAMADOL, CLAMS. PAST MEDICAL HISTORY: As mentioned above. PAST SURGICAL HISTORY: Hernia repair, knee surgeries, appendectomy, cholecystectomy, vasectomy. FAMILY HISTORY: Significant for diabetes, heart disease. SOCIAL HISTORY: History of tobacco use and alcohol abuse. 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 MEDICATIONS: Currently the patient is on amlodipine 5 mg p.o. daily, artificial saliva one spray p.r.n., aspirin 81 mg p.o. daily, Celebrex 100 mg p.o. b.i.d., vitamin D 25 mcg p.o. daily, clotrimazole 1 application topically b.i.d. p.r.n., folic acid 1 mg p.o. daily, gabapentin 300 mg p.o. t.i.d., hydralazine 25 mg p.o. t.i.d., hydrochlorothiazide 6.25 mg p.o. daily, meclizine 25 mg p.o. t.i.d. p.r.n., mirtazapine 45 mg p.o. at bedtime, multivitamin one tablet p.o. daily, omeprazole 20 mg p.o. daily, quetiapine 300 mg p.o. at bedtime, sildenafil as needed, Bactrim 1 tablet p.o. b.i.d., thiamine 100 mg p.o. a.m. REVIEW OF SYSTEMS: As per HPI. Rest of the review of systems is negative. PHYSICAL EXAMINATION: GENERAL: The patient is of moderate build, not in acute distress. VITAL SIGNS: Temperature 37.9, pulse 102, respiratory rate 22, blood pressure 121/81, oxygen 96% on room air. HEENT: Pupils equal, round and reactive to light. Oral mucosa dry. NECK: No JVD, no neck masses. CARDIOVASCULAR: S1 and S2 heard. Regular rate and rhythm. No murmur, no gallop. RESPIRATORY SYSTEM: Normal AP diameter. No accessory muscle use. No wheezing, no crackles. ABDOMEN: Soft, bowel sounds present, nontender, no distention. CENTRAL NERVOUS SYSTEM: Cranial nerves II-XII grossly intact, nonfocal. EXTREMITIES: Pedal edema present, no erythema seen. LABORATORY DATA: WBC 11.4, hemoglobin 13.9, hematocrit 40.6, platelets 216. ESR 17. PT 9.8, INR 1, APTT 25.3. D-dimer 5540. Sodium 138, potassium 4.4, chloride 106, bicarbonate 22, BUN 13, creatinine 1.1, serum glucose 133, lactate 1, calcium 9.1, magnesium 1.8, total bilirubin 0.9, AST 24, ALT 29, alkaline phosphatase 74, troponin I less than 0.015. TSH 0.5. Urinalysis, trace leukocyte esterase. Urine drug screen negative. Ethyl alcohol less than 3. SARS-CoV-2 PCR negative. IMAGING DATA: CT of the head without contrast, no significant change, no acute findings. CTA of the chest, suboptimal evaluation of the pulmonary arteries due to timing of the contrast. The main and lobar pulmonary arteries appear patent. A questionable filling defect seen within the lingular segmental pulmonary artery. However, followup venous Doppler and followup CT angiogram in 24 hours could be performed to exclude the possibility of pulmonary embolus. A few septal small patchy ground-glass airspace opacities in the left lung. These are new from prior study and could represent low-grade pneumonia. Healing right anterior 5th through 7th rib fractures, no pneumothorax. Chest x-ray, lower lung bibasilar linear densities. EKG: Sinus tachycardia at a rate of 119, possible left atrial enlargement, no acute ST changes seen. ASSESSMENT AND PLAN: This is a 70-year-old male who presents with not feeling well, headache, dizziness, cough, not able to walk, and on imaging studies found to have possible left lung pneumonia. 1. Left lung pneumonia, weakness, dizziness: Poor ambulatory status could be from pneumonia. Empirically started on Rocephin and doxycycline, fluids. Monitor in the med tele. Follow the response. 2. Chest pain: The patient complains of some discomfort. EKG and troponins negative. Follow serial enzymes and echocardiogram. If any concern, consult cardiology. 3. Possible urinary tract infection: On antibiotics as above. 4. Elevated D-dimer: CTA of the chest, no PE, but it was a suboptimal study. Will follow the lower extremity Doppler and consider repeat CTA of the chest after 24 hours if any concerns. 5. History of alcoholism and tobacco abuse: The patient was in rehab. The patient is currently not drinking. The last drink was yesterday 1 beer and before that 10 to 12 days. He says he is not getting any withdrawal symptoms. Continue his home gabapentin, thiamine, and folic acid. Will place him on IV Ativan p.r.n. Monitor for any alcohol withdrawal. 6. History of pulmonary embolism and deep venous thrombosis: Currently not on any anticoagulation. 7. History of transient ischemic attack: On aspirin. 8. History of hypertension: On hydralazine, hydrochlorothiazide and amlodipine. Will monitor the blood pressure. 9. History of mood disorder: Currently on Seroquel and Remeron. Will continue. The patient says recently he missed his psychiatrist appointment. Will consider psychiatric evaluation in the hospital for help with any medication changes. 10. Deep venous thrombosis prophylaxis: Placed on sequential compression devices. Lovenox for now. DISPOSITION: Closely monitor in the [facility]. PT/OT prior to discharge. Social service to help with discharge planning. Level 1 full code. Job ID: [id number] MTDD
[2021-04-25 06:07] LABS: Basophils # (auto) 0.02 K/uL (0-0.2); Basophils % (auto) 0.3 %; Eosinophils # (auto) 0.14 K/uL (0-0.5); Eosinophils % (auto) 2.3 %; Hematocrit (blood only) 39.3 % (42-52); Hemoglobin 13.3 g/dL (14.0-18.0); Immature Granulocytes # (auto) 0.01 K/uL (0.00-0.02); Immature Granulocytes % (auto) 0.2 %; Lymphocytes # (auto) 1.32 K/uL (1.2-3.4); Lymphocytes % (auto) 22.1 %; Mean Corpuscular Hemoglobin 32.1 pg (25-34); Mean Corpuscular Hgb Conc 33.8 g/dL (32-36); Mean Corpuscular Volume 94.9 fL (80-100); Mean Platelet Volume 9.6 fL (7.4-10.4); Monocytes # (auto) 0.47 K/uL (0.11-0.59); Monocytes % (auto) 7.9 %; Neutrophils # (auto) 4.02 K/uL (1.4-6.5); Neutrophils % (auto) 67.2 %; Platelet Count 188 K/uL (130-400); RDW Coefficient of Variation 13.8 % (11.5-14.5); RDW Standard Deviation 47.9 fL (36.4-46.3); Red Blood Count 4.14 M/uL (4.7-6.1); White Blood Count 5.98 K/uL (4.8-10.8)
--- NOTE | 2021-04-25 06:35 | Ultrasound Report ---
BILATERAL LOWER EXTREMITY VENOUS DOPPLER HISTORY: Acute pain and swelling of the lower legs b/l lower ext edema. elevated d dimer. dvt? COMPARISON STUDY: 12/09/2020 FINDINGS: There is normal compressibility, flow, and augmentation within the bilateral lower extremit y deep venous systems. The lower extremity vessels are suboptimally visualized secondary to subcutane ous edema. IMPRESSION: No DVT within the right or left lower extremity. ACT 112: Negative or not required by law. Electronically signed by: Joseph Paz M.D. 04/25/2021 6:34 AM
[2021-04-25 06:40] LABS: BUN Creatinine Ratio 11.7 (10-20); Blood Urea Nitrogen 13 mg/dl (7-18); Calcium 8.9 mg/dl (8.5-10.1); Carbon Dioxide 24 mmol/L (21-32); Chloride 109 mmol/L (98-107); Creatinine Clr Calc Pharmacy 74.7 ml/min; Est GFR (African American) 78.1 ml/min; Est GFR (Non-African American) 67.4 ml/min; Glucose 103 mg/dl (70-99); Magnesium 2.4 mg/dl (1.8-2.4); Potassium 3.8 mmol/L (3.5-5.1); Sodium 140 mmol/L (136-145)
[2021-04-25 06:45] LABS: Troponin I < 0.015 ng/ml (0-0.045)
[2021-04-25] MEDS: DOXYCYCLINE HYCLATE 100 MG in DEXTROSE 5% 100 ML IV SCH ×2 (09:17→20:05)
[2021-04-25] MEDS: hydroCHLOROthiazide 25 MG TAB PO SCH (09:27)
[2021-04-25] MEDS: CELECOXIB 100 MG CAP PO SCH ×2 (09:27→20:06)
[2021-04-25] MEDS: ACETAMINOPHEN 325 MG TAB PO PRN (09:27)
[2021-04-25] MEDS: PANTOprazole 40 MG TAB PO SCH (09:27)
[2021-04-25] MEDS: GABAPENTIN 300 MG CAP PO SCH ×3 (09:27→20:06)
[2021-04-25] MEDS: FOLIC ACID 1 MG TAB PO SCH (09:28)
[2021-04-25] MEDS: THIAMINE HCL 100 MG TAB PO SCH (09:28)
[2021-04-25] MEDS: ASPIRIN 81 MG ECTAB PO SCH (09:28)
[2021-04-25] MEDS: amLODIPine BESYLATE 5 MG TAB PO SCH (09:28)
[2021-04-25] MEDS: CHOLECALCIFEROL 1,000 UNITS 25 MCG TAB PO SCH (09:28)
[2021-04-25] MEDS: MULTIVITAMIN TAB PO SCH (09:28)
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
--- NOTE | 2021-04-25 16:36 | Hospitalist Progress Note ---
Date of Service April 25, 2021 Assessment & Plan (1) Pneumonia: Plan: Presented with cough and weakness and noted to have left lower lobe infiltration Has been on intravenous antibiotic Blood cultures have been taken Clinically a little bit better Possible UTI He went to [facility] [address] [place] [address] We'll get report of the urine culture Status post Holter as per the patient We'll get reports from the [facility] hospital (2) Unspecified mood [affective] disorder: Plan: History of bipolar disorder Appreciate psychiatric input and recommendation We'll continue his home medications (3) Hypertension: Plan: Controlled right now (4) History of alcohol abuse: Plan: No history of withdrawal (5) History of pulmonary embolism: Plan: History of DVT and pulmonary embolism hasn't been taking any anticoagulation D-dimer is high at presentation and the CTA was unreliable Ultrasound of the legs did not show any deep venous thrombosis We'll get CTA with contrast tomorrow Admission and Anticipated Discharge Date Admission Date: April 24, 2021 Subjective 04/25/2021 The patient was seen and examined in medical telemetry unit He has been feeling a little better since admission His cough and shortness of breath are better Denies any other significant symptoms Review of Systems Review of Systems: All systems reviewed and are unremarkable except as noted below Physical Exam Physical Exam: Lying in bed with minimal discomfort Constitutional: well developed, well nourished, + ill appearing and + obese Eyes: PERRL, conjunctivae normal, anicteric sclerae ENMT: external ear and nose normal, oropharynx normal Neck: trachea midline, no thyromegaly Respiratory: + cough; no respiratory distress Auscultation: + diminished lung sounds and + crackles (Crackles left base) Cardiovascular: Rate/Rhythm: regular rate and regular rhythm; not tachycardic Heart Sounds: normal S1 and normal S2; no abnormal opening sounds Gastrointestinal (Abdomen): normal bowel sounds, soft, nontender, no hepatosplenomegaly Musculoskeletal: No acute arthritis in any joint Neurologic: Alert, awake and oriented x3. Generally weak Results & Data Results & Data ([facility]) Vital Signs (Past 12 Hours) Vital Signs Temp Pulse Pulse Resp BP BP Pulse Ox 04/25/21 15:12 36.4 C L 86 20 136/81 96 04/25/21 15:11 88 04/25/21 11:10 36.4 C L 83 20 143/84 H 98 04/25/21 07:10 36.3 C L 95 H 18 138/87 98 04/25/21 07:00 90 Laboratory Results Short CBC 04/24/21 04/25/21 Range/Units 18:25 05:46 WBC 11.42 H 5.98 (4.8-10.8) K/uL Hgb 13.9 L 13.3 L (14.0-18.0) g/dL Hct 40.6 L 39.3 L (42-52) % Plt Count 216 188 (130-400) K/uL BMP 04/24/21 04/25/21 18:25 05:46 Sodium 138 140 Potassium 4.4 3.8 Chloride 106 109 H Carbon Dioxide 22 24 BUN 13 13 Creatinine 1.12 1.11 Glucose 133 H 103 H Calcium 9.1 8.9 Cardiac Enzymes 04/24/21 04/25/21 Range/Units 18:25 05:46 Troponin I < 0.015 < 0.015 (0-0.045) ng/ml Liver Function 04/24/21 Range/Units 18:25 Total Bilirubin 0.9 (0.2-1) mg/dl AST 24 (15-37) U/L ALT 29 (12-78) U/L Alkaline Phosphatase 74 (45-117) U/L Albumin 3.9 (3.4-5.0) gm/dl Urine 04/24/21 Range/Units 20:00 Urine Color Dark Yellow Urine Appearance Clear (Clear) Urine pH >= 9.0 H (4.5-7.5) Ur Specific [place] 1.020 (1.000-1.030) Urine Protein Negative (Negative) Urine Glucose (UA) Negative (Negative) Medications Administered Current Inpatient Medications Acetaminophen (Acetaminophen 325 Mg Tab) 650 mg PO Q4H PRN PRN Reason: Pain or Fever Stop: 05/24/21 23:05 Last Admin: 04/25/21 09:27 Dose: 650 mg Documented by: Amlodipine Besylate (Amlodipine Besylate 5 Mg Tab) [facility] Stop: 05/25/21 08:59 Last Admin: 04/25/21 09:28 Dose: 5 mg Documented by: Aspirin (Aspirin 81 Mg Ectab) 81 mg PO DAILY [facility] Stop: 05/25/21 08:59 Last Admin: 04/25/21 09:28 Dose: 81 mg Documented by: Celecoxib (Celecoxib 100 Mg Cap) 100 mg PO BID FR[facility]ICK Stop: 05/25/21 08:59 Last Admin: 04/25/21 09:27 Dose: 100 mg Documented by: Clotrimazole (Clotrimazole 1% Cr 15 Gm Tube) 1 appln TOP BID PRN PRN Reason: .. Stop: 05/24/21 23:05 Enoxaparin Sodium (Enoxaparin Inj 40 Mg/0.4 Ml Syr) 40 mg SQ HS FR[facility]ERICK Stop: 05/24/21 23:29 Last Admin: 04/25/21 00:12 Dose: 40 mg Documented by: Folic Acid (Folic Acid 1 Mg Tab) 1 mg PO DAILY [facility]ICK Stop: 05/25/21 08:59 Last Admin: 04/25/21 09:28 Dose: 1 mg Documented by: Gabapentin (Gabapentin 300 Mg Cap) 300 mg PO TID [facility]ICK Stop: 05/25/21 08:59 Last Admin: 04/25/21 13:15 Dose: 300 mg Documented by: Hydralazine HCl (Hydralazine Hcl 25 Mg Tab) 25 mg PO TID [facility]ICK Stop: 05/24/21 23:05 Last Admin: 04/25/21 13:14 Dose: 25 mg Documented by: Hydrochlorothiazide (Hydrochlorothiazide 25 Mg Tab) 6.25 mg PO DAILY [facility]ICK Stop: 05/25/21 08:59 Last Admin: 04/25/21 09:27 Dose: 6.25 mg Documented by: Ceftriaxone Sodium 2,000 mg/ (Dextrose) 70 mls @ 100 mls/hr IV Q24H [facility]; Protocol Stop: 05/02/21 20:59 Doxycycline Hyclate 100 mg/ (Dextrose) 110 mls @ 50 mls/hr IV Q12H [facility]ICK Stop: 05/02/21 08:59 Last Infusion: 04/25/21 11:29 Dose: Infused Documented by: Meclizine HCl (Meclizine Hcl 25 Mg Tab) 25 mg PO TID PRN PRN Reason: dizziness Stop: 05/24/21 23:16 Mirtazapine (Mirtazapine Soltab 15 Mg) 45 mg PO HS FR[facility]ERICK Stop: 05/25/21 20:59 Multivitamins (Multivitamin Tab) 1 tab PO DAILY [facility]ICK Stop: 05/25/21 08:59 Last Admin: 04/25/21 09:28 Dose: 1 tab Documented by: Nitroglycerin (Nitroglycerin Sl 0.4 Mg/Tab Tab) 0.4 mg SL UD PRN PRN Reason: Chest Pain Stop: 05/24/21 23:05 Pantoprazole Sodium (Pantoprazole 40 Mg Tab) 40 mg PO DAILY [facility]ICK Stop: 05/25/21 08:59 Last Admin: 04/25/21 09:27 Dose: 40 mg Documented by: Polyethylene Glycol (Polyethylene (Miralax) 17 Gm Pack) 17 gm PO DAILY PRN PRN Reason: Constipation Stop: 05/24/21 23:05 Quetiapine Fumarate (Quetiapine Fumarate 300 Mg Tablet) 300 mg PO HS FR[facility]ERICK Stop: 05/24/21 23:05 Last Admin: 04/25/21 00:11 Dose: 300 mg Documented by: Thiamine HCl (Thiamine Hcl 100 Mg Tab) 100 mg PO QAM [facility] Stop: 05/25/21 08:59 Last Admin: 04/25/21 09:28 Dose: 100 mg Documented by: Vitamin D (Cholecalciferol 1,000 Units 25 Mcg Tab) 1,000 units PO DAILY [facility]ICK Stop: 05/25/21 08:59 Last Admin: 04/25/21 09:28 Dose: 1,000 units Documented by: (1) Pneumonia Laterality: left Lung location: unspecified part of lung Pneumonia type: due to unspecified organism Qualified Code(s): J18.9 - Pneumonia, unspecified organism
[2021-04-25] MEDS: MIRTAZAPINE SOLTAB 15 MG PO SCH (20:07)
[2021-04-25] MEDS ORDERED: cefTRIAXone SODIUM 2,000 MG in DEXTROSE 5% 50 ML IV SCH (21:00)
[2021-04-26 07:42] LABS: Basophils # (auto) 0.02 K/uL (0-0.2); Basophils % (auto) 0.6 %; Eosinophils # (auto) 0.24 K/uL (0-0.5); Hematocrit (blood only) 40.4 % (42-52); Hemoglobin 13.4 g/dL (14.0-18.0); Lymphocytes # (auto) 1.25 K/uL (1.2-3.4); Lymphocytes % (auto) 36.7 %; Mean Corpuscular Hemoglobin 31.9 pg (25-34); Mean Corpuscular Hgb Conc 33.2 g/dL (32-36); Mean Corpuscular Volume 96.2 fL (80-100); Mean Platelet Volume 9.4 fL (7.4-10.4); Monocytes # (auto) 0.43 K/uL (0.11-0.59); Monocytes % (auto) 12.6 %; Neutrophils # (auto) 1.47 K/uL (1.4-6.5); Neutrophils % (auto) 43.1 %; Platelet Count 203 K/uL (130-400); RDW Coefficient of Variation 13.9 % (11.5-14.5); RDW Standard Deviation 49.2 fL (36.4-46.3); White Blood Count 3.41 K/uL (4.8-10.8)
[2021-04-26 08:11] LABS: BUN Creatinine Ratio 12.7 (10-20); Calcium 8.6 mg/dl (8.5-10.1); Creatinine Clr Calc Pharmacy 85.5 ml/min; Est GFR (African American) 85.5 ml/min; Est GFR (Non-African American) 73.8 ml/min; Potassium 4.1 mmol/L (3.5-5.1)
[2021-04-26] MEDS: CELECOXIB 100 MG CAP PO SCH ×2 (08:49→21:30)
[2021-04-26] MEDS: PANTOprazole 40 MG TAB PO SCH (08:49)
[2021-04-26] MEDS: THIAMINE HCL 100 MG TAB PO SCH (08:49)
[2021-04-26] MEDS: hydroCHLOROthiazide 25 MG TAB PO SCH (08:49)
[2021-04-26] MEDS: MULTIVITAMIN TAB PO SCH (08:49)
[2021-04-26] MEDS: CHOLECALCIFEROL 1,000 UNITS 25 MCG TAB PO SCH (08:49)
[2021-04-26] MEDS: ASPIRIN 81 MG ECTAB PO SCH (08:50)
[2021-04-26] MEDS: FOLIC ACID 1 MG TAB PO SCH (08:50)
[2021-04-26] MEDS: amLODIPine BESYLATE 5 MG TAB PO SCH (08:50)
[2021-04-26] MEDS: ACETAMINOPHEN 325 MG TAB PO PRN (08:50)
[2021-04-26] MEDS: hydrALAZINE HCL 25 MG TAB PO SCH ×3 (08:50→21:30)
[2021-04-26] MEDS: DOXYCYCLINE HYCLATE 100 MG in DEXTROSE 5% 100 ML IV SCH ×2 (08:50→21:24)
[2021-04-26] MEDS: GABAPENTIN 300 MG CAP PO SCH ×3 (08:50→21:27)
--- NOTE | 2021-04-26 08:54 | Electrocardiogram Report ---
Test Reason : Blood Pressure : / mmHG Vent. Rate : 086 BPM Atrial Rate : 086 BPM P-R Int : 242 ms QRS Dur : 096 ms QT Int : 398 ms P-R-T Axes : 053 -17 033 degrees QTc Int : 476 ms Sinus rhythm with 1st degree A-V block Otherwise normal ECG When compared with ECG of 24-APR-2021 18:36, (unconfirmed) CT interval has increased Confirmed by Leonel Johns ([id number]) on 04/26/2021 8:54:42 AM Referred By: REFERRED SELF Confirmed By:Leonel Johns
--- NOTE | 2021-04-26 08:58 | Electrocardiogram Report ---
Test Reason : Blood Pressure : / mmHG Vent. Rate : 083 BPM Atrial Rate : 083 BPM P-R Int : 222 ms QRS Dur : 092 ms QT Int : 392 ms P-R-T Axes : 045 -24 020 degrees QTc Int : 460 ms Sinus rhythm with 1st degree A-V block Otherwise normal ECG When compared with ECG of 25-APR-2021 09:59, (unconfirmed) No significant change was found Confirmed by Leonel Johns ([id number]) on 04/26/2021 8:57:47 AM Referred By: REFERRED SELF Confirmed By:Leonel Johns
[2021-04-26] MEDS ORDERED: OPTIRAY 320 125ml IV ONE (09:09)
--- NOTE | 2021-04-26 09:55 | CT Scan Report ---
CHEST CTA for PULMONARY ARTERIES CT DOSE: 717.50 mGy.cm HISTORY: Shortness of breath. Assess for pulmonary embolus. TECHNIQUE: Multiaxial CT images of the chest were performed following the intravenous administration of contrast to evaluate the pulmonary arteries. Maximal intensity projection images were also obtaine d. A dose lowering technique was utilized adhering to the principles of ALARA. COMPARISON STUDY: Chest CTA 04/24/2021. FINDINGS: Normal caliber thoracic aorta with no evidence for dissection. The heart is normal in size. No pleural or pericardial effusions. Motion artifact and suboccipital contrast opacification within the bilateral lower lobe and right middle lobe segmental and subsegmental pulmonary arteries results in nondiagnostic evaluation of these structures. However, the remaining pulmonary arteries show no fi lling defects to suggest a pulmonary embolus. Specifically, the lingular segmental pulmonary artery o n the prior study appears patent. Normal esophagus. Limited views of the upper abdomen demonstrate he patic steatosis and a normal spleen. Stable hypodense lesion within the posterior segment of the righ t hepatic lobe. The adrenal glands are unremarkable. There are healing right anterior fifth through s eventh rib fractures again noted. No acute fractures identified within the chest. No pneumothorax. Th e central airways are patent. Suboptimal evaluation of the lungs due to motion artifact. A few bibasi lar linear densities consistent with subsegmental atelectasis. A few subtle patchy groundglass airspa ce opacities seen within the left lung. These are not significantly changed. No new focal lung consol idations. IMPRESSION: 1. No evidence for pulmonary embolus with limitations as described above. 2. Small patchy ground glass airspace opacities within the left lung persists. This could represent a low-grade pneumonia. 3. Healing right anterior fifth through seventh rib fractures. No pneumothorax. ACT 112: Negative or not required by law. Electronically signed by: Ramón Cordero M.D. 04/26/2021 9:53 AM
[2021-04-26] MEDS: AMPICILLIN 1,000 MG in SODIUM CHLOR 0.9% AD-VAN 50 ML IV SCH ×3 (11:39→21:25)
--- NOTE | 2021-04-26 15:59 | Electrocardiogram Report ---
Test Reason : Blood Pressure : / mmHG Vent. Rate : 119 BPM Atrial Rate : 119 BPM P-R Int : 190 ms QRS Dur : 080 ms QT Int : 306 ms P-R-T Axes : 028 -22 024 degrees QTc Int : 430 ms Sinus tachycardia Possible Left atrial enlargement Borderline ECG When compared with ECG of 02-FEB-2021 23:17, GA interval has decreased Vent. rate has increased BY 41 BPM Confirmed by Leonel Johns ([id number]) on 04/26/2021 3:59:00 PM Referred By: REFERRED SELF Confirmed By:Leonel Johns
--- NOTE | 2021-04-26 17:19 | Hospitalist Progress Note ---
Date of Service April 26, 2021 Assessment & Plan (1) Pneumonia: Plan: Presented with cough and weakness and noted to have left lower lobe infiltration Has been on intravenous antibiotic Blood cultures have been taken Clinically a little bit better Remains otherwise stable Possible UTI He went to [facility] [address] [place] [address] We'll get report of the urine culture Urine culture from [facility] grew Enterococcus faecalis The antibiotic changed to ampicillin IV Status post Holter as per the patient We'll get reports from the [place] [facility] (2) Unspecified mood [affective] disorder: Plan: History of bipolar disorder Appreciate psychiatric input and recommendation We'll continue his home medications (3) Hypertension: Plan: Controlled right now (4) History of alcohol abuse: Plan: No history of withdrawal (5) History of pulmonary embolism: Plan: History of DVT and pulmonary embolism hasn't been taking any anticoagulation D-dimer is high at presentation and the CTA was unreliable Ultrasound of the legs did not show any deep venous thrombosis We'll get CTA with contrast tomorrow-negative for any pulmonary embolism Admission and Anticipated Discharge Date Admission Date: April 24, 2021 Subjective 04/25/2021 The patient was seen and examined in medical telemetry unit He has been feeling a little better since admission His cough and shortness of breath are better Denies any other significant symptoms 04/26/2021 The patient was seen and examined in medical telemetry unit He has been feeling much better today He denies any significant symptoms except occasional headache Review of Systems Review of Systems: All systems reviewed and are unremarkable except as noted below Physical Exam Physical Exam: Lying in bed with minimal discomfort Constitutional: well developed, well nourished, + ill appearing and + obese Eyes: PERRL, conjunctivae normal, anicteric sclerae ENMT: external ear and nose normal, oropharynx normal Neck: trachea midline, no thyromegaly Respiratory: + cough; no respiratory distress Auscultation: + diminished lung sounds and + crackles (Crackles left base) Cardiovascular: Rate/Rhythm: regular rate and regular rhythm; not tachycardic Heart Sounds: normal S1 and normal S2; no abnormal opening sounds Gastrointestinal (Abdomen): normal bowel sounds, soft, nontender, no hepatosplenomegaly Musculoskeletal: No acute arthritis in any joint Neurologic: Alert, awake and oriented x3 Results & Data Results & Data ([facility]) Vital Signs (Past 12 Hours) Vital Signs Temp Pulse Pulse Resp BP Pulse Ox 04/26/21 15:35 86 04/26/21 11:29 36.4 C L 79 20 150/85 H 98 04/26/21 07:53 36.6 C 100 H 20 122/64 99 04/26/21 07:13 89 Laboratory Results Short CBC 04/26/21 Range/Units 07:19 WBC 3.41 L (4.8-10.8) K/uL Hgb 13.4 L (14.0-18.0) g/dL Hct 40.4 L (42-52) % Plt Count 203 (130-400) K/uL BMP 04/26/21 07:19 Sodium 141 Potassium 4.1 Chloride 109 H Carbon Dioxide 25 BUN 13 Creatinine 1.03 Glucose 120 H Calcium 8.6 Medications Administered Current Inpatient Medications Acetaminophen (Acetaminophen 325 Mg Tab) 650 mg PO Q4H PRN PRN Reason: Pain or Fever Stop: 05/24/21 23:05 Last Admin: 04/26/21 08:50 Dose: 650 mg Documented by: Amlodipine Besylate (Amlodipine Besylate 5 Mg Tab) 5 mg PO QAM [facility] Stop: 05/25/21 08:59 Last Admin: 04/26/21 08:50 Dose: 5 mg Documented by: Aspirin (Aspirin 81 Mg Ectab) 81 mg PO DAILY [facility] Stop: 05/25/21 08:59 Last Admin: 04/26/21 08:50 Dose: 81 mg Documented by: Celecoxib (Celecoxib 100 Mg Cap) 100 mg PO BID [facility] Stop: 05/25/21 08:59 Last Admin: 04/26/21 08:49 Dose: 100 mg Documented by: Clotrimazole (Clotrimazole 1% Cr 15 Gm Tube) 1 appln TOP BID PRN PRN Reason: .. Stop: 05/24/21 23:05 Enoxaparin Sodium (Enoxaparin Inj 40 Mg/0.4 Ml Syr) 40 mg SQ HS [facility] Stop: 05/24/21 23:29 Last Admin: 04/25/21 20:08 Dose: 40 mg Documented by: Folic Acid (Folic Acid 1 Mg Tab) 1 mg PO DAILY [facility] Stop: 05/25/21 08:59 Last Admin: 04/26/21 08:50 Dose: 1 mg Documented by: Gabapentin (Gabapentin 300 Mg Cap) 300 mg PO TID [facility] Stop: 05/25/21 08:59 Last Admin: 04/26/21 13:07 Dose: 300 mg Documented by: Hydralazine HCl (Hydralazine Hcl 25 Mg Tab) 25 mg PO TID [facility] Stop: 05/24/21 23:05 Last Admin: 04/26/21 13:07 Dose: 25 mg Documented by: Hydrochlorothiazide (Hydrochlorothiazide 25 Mg Tab) 6.25 mg PO DAILY [facility] Stop: 05/25/21 08:59 Last Admin: 04/26/21 08:49 Dose: 6.25 mg Documented by: Doxycycline Hyclate 100 mg/ (Dextrose) 110 mls @ 50 mls/hr IV Q12H [facility] Stop: 05/02/21 08:59 Last Infusion: 04/26/21 11:20 Dose: Infused Documented by: Ampicillin Sodium 1,000 mg/ (Sodium Chloride) 50 mls @ 100 mls/hr IV Q6H [facility] Stop: 05/01/21 08:59 Last Infusion: 04/26/21 15:11 Dose: Infused Documented by: Meclizine HCl (Meclizine Hcl 25 Mg Tab) 25 mg PO TID PRN PRN Reason: dizziness Stop: 05/24/21 23:16 Mirtazapine (Mirtazapine Soltab 15 Mg) 45 mg PO HS [facility] Stop: 05/25/21 20:59 Last Admin: 04/25/21 20:07 Dose: 45 mg Documented by: Multivitamins (Multivitamin Tab) 1 tab PO DAILY [facility] Stop: 05/25/21 08:59 Last Admin: 04/26/21 08:49 Dose: 1 tab Documented by: Nitroglycerin (Nitroglycerin Sl 0.4 Mg/Tab Tab) 0.4 mg SL UD PRN PRN Reason: Chest Pain Stop: 05/24/21 23:05 Pantoprazole Sodium (Pantoprazole 40 Mg Tab) 40 mg PO DAILY [facility] Stop: 05/25/21 08:59 Last Admin: 04/26/21 08:49 Dose: 40 mg Documented by: Polyethylene Glycol (Polyethylene (Miralax) 17 Gm Pack) 17 gm PO DAILY PRN PRN Reason: Constipation Stop: 05/24/21 23:05 Quetiapine Fumarate (Quetiapine Fumarate 300 Mg Tablet) 300 mg PO HS [facility] Stop: 09/22/21 23:05 Last Admin: 04/25/21 20:08 Dose: 300 mg Documented by: Thiamine HCl (Thiamine Hcl 100 Mg Tab) 100 mg PO QAM [facility] Stop: 05/25/21 08:59 Last Admin: 04/26/21 08:49 Dose: 100 mg Documented by: Vitamin D (Cholecalciferol 1,000 Units 25 Mcg Tab) 1,000 units PO DAILY [facility] Stop: 05/25/21 08:59 Last Admin: 04/26/21 08:49 Dose: 1,000 units Documented by: (1) Pneumonia Laterality: left Lung location: unspecified part of lung Pneumonia type: due to unspecified organism Qualified Code(s): J18.9 - Pneumonia, unspecified organism
[2021-04-26] MEDS: ENOXAPARIN INJ 40 MG/0.4 ML SYR SQ SCH (21:26)
[2021-04-26] MEDS: MIRTAZAPINE SOLTAB 15 MG PO SCH (21:28)
[2021-04-26] MEDS: QUEtiapine FUMARATE 300 MG TABLET PO SCH (21:29)
[2021-04-27] MEDS: AMPICILLIN 1,000 MG in SODIUM CHLOR 0.9% AD-VAN 50 ML IV SCH ×4 (03:56→20:40)
[2021-04-27 07:57] LABS: Basophils # (auto) 0.02 K/uL (0-0.2); Basophils % (auto) 0.5 %; Eosinophils % (auto) 7.6 %; Hematocrit (blood only) 41.3 % (42-52); Hemoglobin 13.7 g/dL (14.0-18.0); Lymphocytes # (auto) 1.11 K/uL (1.2-3.4); Mean Corpuscular Hgb Conc 33.2 g/dL (32-36); Mean Corpuscular Volume 96.5 fL (80-100); Mean Platelet Volume 8.9 fL (7.4-10.4); Monocytes # (auto) 0.39 K/uL (0.11-0.59); Monocytes % (auto) 9.8 %; Neutrophils # (auto) 2.14 K/uL (1.4-6.5); Neutrophils % (auto) 54.1 %; Platelet Count 212 K/uL (130-400); RDW Coefficient of Variation 13.5 % (11.5-14.5); RDW Standard Deviation 48.1 fL (36.4-46.3); Red Blood Count 4.28 M/uL (4.7-6.1); White Blood Count 3.96 K/uL (4.8-10.8)
[2021-04-27] MEDS: amLODIPine BESYLATE 5 MG TAB PO SCH (08:07)
[2021-04-27] MEDS: CELECOXIB 100 MG CAP PO SCH ×2 (08:09→20:45)
[2021-04-27] MEDS: CHOLECALCIFEROL 1,000 UNITS 25 MCG TAB PO SCH (08:09)
[2021-04-27] MEDS: ASPIRIN 81 MG ECTAB PO SCH (08:09)
[2021-04-27] MEDS: FOLIC ACID 1 MG TAB PO SCH (08:10)
[2021-04-27] MEDS: GABAPENTIN 300 MG CAP PO SCH ×3 (08:11→20:42)
[2021-04-27] MEDS: hydrALAZINE HCL 25 MG TAB PO SCH ×3 (08:11→20:45)
[2021-04-27] MEDS: MULTIVITAMIN TAB PO SCH (08:13)
[2021-04-27] MEDS: hydroCHLOROthiazide 25 MG TAB PO SCH (08:13)
[2021-04-27] MEDS: THIAMINE HCL 100 MG TAB PO SCH (08:14)
[2021-04-27] MEDS: PANTOprazole 40 MG TAB PO SCH (08:14)
[2021-04-27 08:27] LABS: BUN Creatinine Ratio 15.4 (10-20); Creatinine Clr Calc Pharmacy 83.9 ml/min; Est GFR (African American) 82.6 ml/min; Est GFR (Non-African American) 71.3 ml/min; Potassium 3.8 mmol/L (3.5-5.1)
[2021-04-27] MEDS: DOXYCYCLINE HYCLATE 100 MG in DEXTROSE 5% 100 ML IV SCH ×2 (08:53→20:40)
--- NOTE | 2021-04-27 18:00 | Hospitalist Progress Note ---
Date of Service April 27, 2021 Assessment & Plan (1) Pneumonia: Plan: Presented with cough and weakness and noted to have left lower lobe infiltration Has been on intravenous antibiotic Blood cultures have been taken Clinically a little bit better Remains otherwise stable Denies any respiratory symptoms Possible UTI He went to [facility] [address] [place] [address] We'll get report of the urine culture Urine culture from [facility] grew Enterococcus faecalis The antibiotic changed to ampicillin IV Will give oral antibiotic on discharge Status post Holter as per the patient We'll get reports from the [facility] Holter report is unremarkable, no significant arrhythmias (2) Unspecified mood [affective] disorder: Plan: History of bipolar disorder Appreciate psychiatric input and recommendation We'll continue his home medications (3) Hypertension: Plan: Controlled right now (4) History of alcohol abuse: Plan: No history of withdrawal (5) History of pulmonary embolism: Plan: History of DVT and pulmonary embolism hasn't been taking any anticoagulation D-dimer is high at presentation and the CTA was unreliable Ultrasound of the legs did not show any deep venous thrombosis We'll get CTA with contrast tomorrow-negative for any pulmonary embolism Admission and Anticipated Discharge Date Admission Date: April 24, 2021 Subjective 04/25/2021 The patient was seen and examined in medical telemetry unit He has been feeling a little better since admission His cough and shortness of breath are better Denies any other significant symptoms 04/26/2021 The patient was seen and examined in medical telemetry unit He has been feeling much better today He denies any significant symptoms except occasional headache 04/27/2021 The patient was seen and examined in medical telemetry unit He has been feeling much better and denies any significant symptoms His Holter from the CVM's office was unremarkable Review of Systems Review of Systems: All systems reviewed and are unremarkable except as noted below Physical Exam Physical Exam: Lying in bed with minimal discomfort Constitutional: well developed, well nourished, + ill appearing and + obese Eyes: PERRL, conjunctivae normal, anicteric sclerae ENMT: external ear and nose normal, oropharynx normal Neck: trachea midline, no thyromegaly Respiratory: + cough; no respiratory distress Auscultation: no diminished lung sounds and no crackles (Crackles left base) Cardiovascular: Rate/Rhythm: regular rate and regular rhythm; not tachycardic Heart Sounds: normal S1 and normal S2; no abnormal opening sounds Gastrointestinal (Abdomen): normal bowel sounds, soft, nontender, no hepatosplenomegaly Musculoskeletal: No acute arthritis in any joint Neurologic: + focal motor deficit Lymphatic: no cervical or axillary lymphadenopathy Results & Data Results & Data ([facility]) Vital Signs (Past 12 Hours) Vital Signs Temp Pulse Pulse Resp BP Pulse Ox 04/27/21 15:37 99 H 04/27/21 15:04 36.4 C L 86 20 141/97 H 97 04/27/21 11:46 36.6 C 91 H 18 177/82 H 95 04/27/21 07:48 117 H 04/27/21 07:35 36.4 C L 90 20 159/79 H 94 Laboratory Results Short CBC 04/27/21 Range/Units 07:41 WBC 3.96 L (4.8-10.8) K/uL Hgb 13.7 L (14.0-18.0) g/dL Hct 41.3 L (42-52) % Plt Count 212 (130-400) K/uL BMP 04/27/21 07:41 Sodium 139 Potassium 3.8 Chloride 110 H Carbon Dioxide 24 BUN 16 Creatinine 1.06 Glucose 93 Calcium 9.0 Medications Administered Current Inpatient Medications Acetaminophen (Acetaminophen 325 Mg Tab) 650 mg PO Q4H PRN PRN Reason: Pain or Fever Stop: 05/24/21 23:05 Last Admin: 04/26/21 08:50 Dose: 650 mg Documented by: Amlodipine Besylate (Amlodipine Besylate 5 Mg Tab) 5 mg PO QAM [facility] Stop: 05/25/21 08:59 Last Admin: 04/27/21 08:07 Dose: 5 mg Documented by: Aspirin (Aspirin 81 Mg Ectab) 81 mg PO DAILY [facility] Stop: 05/25/21 08:59 Last Admin: 04/27/21 08:09 Dose: 81 mg Documented by: Celecoxib (Celecoxib 100 Mg Cap) 100 mg PO BID [facility] Stop: 05/25/21 08:59 Last Admin: 04/27/21 08:09 Dose: 100 mg Documented by: Clotrimazole (Clotrimazole 1% Cr 15 Gm Tube) 1 appln TOP BID PRN PRN Reason: .. Stop: 05/24/21 23:05 Enoxaparin Sodium (Enoxaparin Inj 40 Mg/0.4 Ml Syr) 40 mg SQ HS [facility] Stop: 05/24/21 23:29 Last Admin: 04/26/21 21:26 Dose: 40 mg Documented by: Folic Acid (Folic Acid 1 Mg Tab) 1 mg PO DAILY [facility] Stop: 05/25/21 08:59 Last Admin: 04/27/21 08:10 Dose: 1 mg Documented by: Gabapentin (Gabapentin 300 Mg Cap) 300 mg PO TID [facility] Stop: 05/25/21 08:59 Last Admin: 04/27/21 14:39 Dose: 300 mg Documented by: Hydralazine HCl (Hydralazine Hcl 25 Mg Tab) 25 mg PO TID [facility] Stop: 05/24/21 23:05 Last Admin: 04/27/21 14:40 Dose: 25 mg Documented by: Hydrochlorothiazide (Hydrochlorothiazide 25 Mg Tab) 6.25 mg PO DAILY [facility] Stop: 05/25/21 08:59 Last Admin: 04/27/21 08:13 Dose: 6.25 mg Documented by: Doxycycline Hyclate 100 mg/ (Dextrose) 110 mls @ 50 mls/hr IV Q12H [facility] Stop: 05/02/21 08:59 Last Infusion: 04/27/21 12:19 Dose: Infused Documented by: Ampicillin Sodium 1,000 mg/ (Sodium Chloride) 50 mls @ 100 mls/hr IV Q6H [facility] Stop: 05/01/21 08:59 Last Infusion: 04/27/21 15:37 Dose: Infused Documented by: Meclizine HCl (Meclizine Hcl 25 Mg Tab) 25 mg PO TID PRN PRN Reason: dizziness Stop: 05/24/21 23:16 Mirtazapine (Mirtazapine Soltab 15 Mg) 45 mg PO HS [facility] Stop: 05/25/21 20:59 Last Admin: 04/26/21 21:28 Dose: 45 mg Documented by: Multivitamins (Multivitamin Tab) 1 tab PO DAILY [facility] Stop: 05/25/21 08:59 Last Admin: 04/27/21 08:13 Dose: 1 tab Documented by: Nitroglycerin (Nitroglycerin Sl 0.4 Mg/Tab Tab) 0.4 mg SL UD PRN PRN Reason: Chest Pain Stop: 05/24/21 23:05 Pantoprazole Sodium (Pantoprazole 40 Mg Tab) 40 mg PO DAILY [facility] Stop: 05/25/21 08:59 Last Admin: 04/27/21 08:14 Dose: 40 mg Documented by: Polyethylene Glycol (Polyethylene (Miralax) 17 Gm Pack) 17 gm PO DAILY PRN PRN Reason: Constipation Stop: 05/24/21 23:05 Quetiapine Fumarate (Quetiapine Fumarate 300 Mg Tablet) 300 mg PO HS [facility] Stop: 05/24/21 23:05 Last Admin: 04/26/21 21:29 Dose: 300 mg Documented by: Thiamine HCl (Thiamine Hcl 100 Mg Tab) 100 mg PO QAM [facility] Stop: 05/25/21 08:59 Last Admin: 04/27/21 08:14 Dose: 100 mg Documented by: Vitamin D (Cholecalciferol 1,000 Units 25 Mcg Tab) 1,000 units PO DAILY [facility] Stop: 05/25/21 08:59 Last Admin: 04/27/21 08:09 Dose: 1,000 units Documented by: (1) Pneumonia Laterality: left Lung location: unspecified part of lung Pneumonia type: due to unspecified organism Qualified Code(s): J18.9 - Pneumonia, unspecified organism
[2021-04-27] MEDS: ENOXAPARIN INJ 40 MG/0.4 ML SYR SQ SCH (20:40)
[2021-04-27] MEDS: MIRTAZAPINE SOLTAB 15 MG PO SCH (20:42)
[2021-04-27] MEDS: QUEtiapine FUMARATE 300 MG TABLET PO SCH (20:45)
[2021-04-28] MEDS: AMPICILLIN 1,000 MG in SODIUM CHLOR 0.9% AD-VAN 50 ML IV SCH ×2 (04:08→08:10)
[2021-04-28] MEDS: MULTIVITAMIN TAB PO SCH (08:06)
[2021-04-28] MEDS: THIAMINE HCL 100 MG TAB PO SCH (08:06)
[2021-04-28] MEDS: ASPIRIN 81 MG ECTAB PO SCH (08:06)
[2021-04-28] MEDS: FOLIC ACID 1 MG TAB PO SCH (08:06)
[2021-04-28] MEDS: CELECOXIB 100 MG CAP PO SCH (08:07)
[2021-04-28] MEDS: hydroCHLOROthiazide 25 MG TAB PO SCH ×2 (08:07→09:00)
[2021-04-28] MEDS: hydrALAZINE HCL 25 MG TAB PO SCH (08:07)
[2021-04-28] MEDS: CHOLECALCIFEROL 1,000 UNITS 25 MCG TAB PO SCH (08:08)
[2021-04-28] MEDS: GABAPENTIN 300 MG CAP PO SCH (08:09)
[2021-04-28] MEDS: PANTOprazole 40 MG TAB PO SCH (08:10)
[2021-04-28] MEDS: DOXYCYCLINE HYCLATE 100 MG in DEXTROSE 5% 100 ML IV SCH (09:00)
[2021-04-28] MEDS: amLODIPine BESYLATE 5 MG TAB PO SCH (11:25)
--- NOTE | 2021-04-28 12:07 | Hospitalist Progress Note ---
Date of Service April 28, 2021 Assessment & Plan (1) Pneumonia: Plan: Presented with cough and weakness and noted to have left lower lobe infiltration Has been on intravenous antibiotic Blood cultures have been taken Clinically a little bit better Remains otherwise stable Denies any respiratory symptoms We will continue oral antibiotic to finish the course for 10 days Possible UTI [facility] [address] [place] [address] We'll get report of the urine culture Urine culture from [email or web address] grew Enterococcus faecalis The antibiotic changed to ampicillin IV Will give oral antibiotic on discharge As above Status post Holter as per the patient We'll get reports from the [facility] Holter report is unremarkable, no significant arrhythmias (2) Unspecified mood [affective] disorder: Plan: History of bipolar disorder Appreciate psychiatric input and recommendation We'll continue his home medications (3) Hypertension: Plan: Controlled right now (4) History of alcohol abuse: Plan: No history of withdrawal (5) History of pulmonary embolism: Plan: History of DVT and pulmonary embolism hasn't been taking any anticoagulation D-dimer is high at presentation and the CTA was unreliable Ultrasound of the legs did not show any deep venous thrombosis We'll get CTA with contrast tomorrow-negative for any pulmonary embolism Plan: Discharge home this afternoon Admission and Anticipated Discharge Date Admission Date: April 24, 2021 Subjective 04/25/2021 The patient was seen and examined in medical telemetry unit He has been feeling a little better since admission His cough and shortness of breath are better Denies any other significant symptoms 04/26/2021 The patient was seen and examined in medical telemetry unit He has been feeling much better today He denies any significant symptoms except occasional headache 04/27/2021 The patient was seen and examined in medical telemetry unit He has been feeling much better and denies any significant symptoms His Holter from the CVM's office was unremarkable 04/28/2021 The patient was seen and examined in medical telemetry unit He has been doing much better and denies any symptoms He will be going home this afternoon Review of Systems Review of Systems: All systems reviewed and are unremarkable except as noted below Physical Exam Physical Exam: Lying in bed with minimal discomfort Constitutional: well developed, well nourished, + ill appearing and + obese Eyes: PERRL, conjunctivae normal, anicteric sclerae ENMT: external ear and nose normal, oropharynx normal Neck: trachea midline, no thyromegaly Respiratory: no respiratory distress and no cough Auscultation: no diminished lung sounds and no crackles (Crackles left base) Cardiovascular: Rate/Rhythm: regular rate and regular rhythm; not tachycardic Heart Sounds: normal S1 and normal S2; no abnormal opening sounds Gastrointestinal (Abdomen): normal bowel sounds, soft, nontender, no hep atosplenomegaly Musculoskeletal: Did very well with PT and OT Neurologic: + focal motor deficit Lymphatic: no cervical or axillary lymphadenopathy Results & Data Results & Data ([facility]) Vital Signs (Past 12 Hours) Vital Signs Temp Pulse Pulse Resp BP Pulse Ox Pulse Ox 04/28/21 11:07 36.5 C 84 20 175/97 H 95 04/28/21 09:51 79 04/28/21 09:46 95 04/28/21 07:51 36.8 C 96 H 20 137/88 95 04/28/21 04:00 36.5 C 93 H 18 121/88 93 04/28/21 01:12 88 Medications Administered Current Inpatient Medications Acetaminophen (Acetaminophen 325 Mg Tab) 650 mg PO Q4H PRN PRN Reason: Pain or Fever Stop: 05/24/21 23:05 Last Admin: 04/26/21 08:50 Dose: 650 mg Documented by: Amlodipine Besylate (Amlodipine Besylate 5 Mg Tab) 5 mg PO QAM [facility] Stop: 05/25/21 08:59 Last Admin: 04/28/21 11:25 Dose: 5 mg Documented by: Aspirin (Aspirin 81 Mg Ectab) 81 mg PO DAILY [facility] Stop: 05/25/21 08:59 Last Admin: 04/28/21 08:06 Dose: 81 mg Documented by: Celecoxib (Celecoxib 100 Mg Cap) 100 mg PO BID [facility] Stop: 05/25/21 08:59 Last Admin: 04/28/21 08:07 Dose: 100 mg Documented by: Clotrimazole (Clotrimazole 1% Cr 15 Gm Tube) 1 appln TOP BID PRN PRN Reason: .. Stop: 05/24/21 23:05 Enoxaparin Sodium (Enoxaparin Inj 40 Mg/0.4 Ml Syr) 40 mg SQ HS [facility] Stop: 05/24/21 23:29 Last Admin: 04/27/21 20:40 Dose: 40 mg Documented by: Folic Acid (Folic Acid 1 Mg Tab) 1 mg PO DAILY [facility] Stop: 05/25/21 08:59 Last Admin: 04/28/21 08:06 Dose: 1 mg Documented by: Gabapentin (Gabapentin 300 Mg Cap) 300 mg PO TID [facility] Stop: 05/25/21 08:59 Last Admin: 04/28/21 08:09 Dose: 300 mg Documented by: Hydralazine HCl (Hydralazine Hcl 25 Mg Tab) 25 mg PO TID [facility] Stop: 05/24/21 23:05 Last Admin: 04/28/21 08:07 Dose: 25 mg Documented by: Hydrochlorothiazide (Hydrochlorothiazide 25 Mg Tab) 6.25 mg PO DAILY [facility] Stop: 05/25/21 08:59 Last Admin: 04/28/21 09:00 Dose: 6.25 mg Documented by: Doxycycline Hyclate 100 mg/ (Dextrose) 110 mls @ 50 mls/hr IV Q12H [facility] Stop: 05/02/21 08:59 Last Infusion: 04/28/21 11:12 Dose: Infused Documented by: Ampicillin Sodium 1,000 mg/ (Sodium Chloride) 50 mls @ 100 mls/hr IV Q6H [facility] Stop: 05/01/21 08:59 Last Infusion: 04/28/21 08:40 Dose: Infused Documented by: Meclizine HCl (Meclizine Hcl 25 Mg Tab) 25 mg PO TID PRN PRN Reason: dizziness Stop: 05/24/21 23:16 Mirtazapine (Mirtazapine Soltab 15 Mg) 45 mg PO HS [facility] Stop: 05/25/21 20:59 Last Admin: 04/27/21 20:42 Dose: 45 mg Documented by: Multivitamins (Multivitamin Tab) 1 tab PO DAILY [facility] Stop: 05/25/21 08:59 Last Admin: 04/28/21 08:06 Dose: 1 tab Documented by: Nitroglycerin (Nitroglycerin Sl 0.4 Mg/Tab Tab) 0.4 mg SL UD PRN PRN Reason: Chest Pain Stop: 05/24/21 23:05 Pantoprazole Sodium (Pantoprazole 40 Mg Tab) 40 mg PO DAILY [facility] Stop: 05/25/21 08:59 Last Admin: 04/28/21 08:10 Dose: 40 mg Documented by: Polyethylene Glycol (Polyethylene (Miralax) 17 Gm Pack) 17 gm PO DAILY PRN PRN Reason: Constipation Stop: 05/24/21 23:05 Quetiapine Fumarate (Quetiapine Fumarate 300 Mg Tablet) 300 mg PO HS [facility] Stop: 05/24/21 23:05 Last Admin: 04/27/21 20:45 Dose: 300 mg Documented by: Thiamine HCl (Thiamine Hcl 100 Mg Tab) 100 mg PO QAM [facility] Stop: 05/25/21 08:59 Last Admin: 04/28/21 08:06 Dose: 100 mg Documented by: Vitamin D (Cholecalciferol 1,000 Units 25 Mcg Tab) 1,000 units PO DAILY [facility] Stop: 05/25/21 08:59 Last Admin: 04/28/21 08:08 Dose: 1,000 units Documented by: (1) Pneumonia Laterality: left Lung location: unspecified part of lung Pneumonia type: due to unspecified organism Qualified Code(s): J18.9 - Pneumonia, unspecified organism
--- NOTE | 2021-05-06 09:14 | Discharge Summary ---
Date of Service May 06, 2021 Admission HPI Per Admitting Provider DICTATED BY: Og Ervin MD DATE OF ADMISSION: 04/24/2021. CHIEF COMPLAINT: Cough, not feeling well. HISTORY OF PRESENT ILLNESS: This is a 70-year-old male with past medical history significant for hypertension, hyperlipidemia, TIA as per records, history of recurrent PE, DVT, seems to be not on anticoagulation at this time, history of chronic anemia, history of tobacco abuse and alcohol abuse, history of alcohol withdrawal in the past, history of the patient being in [facility] in [place], [place], for substance and alcohol abuse in the past. [facility]. The patient states he was recently in the [facility]. He states he is currently not drinking alcohol, last drink was about 10 to 12 days ago and yesterday he went to a meeting and had 1 beer and last night in the middle of the night he woke up and he was feeling very tired and weak, he could not get up and walk. He was crawling to the bathroom. He was feeling lightheaded, blurred visions, having cough, no phlegm, and some chest discomfort. Overall, not feeling well and that is the reason he came to the ER. He is also complaining of head pain. He has not eaten anything since yesterday afternoon. He states he was treated with Bactrim for UTI, but it is not helping much. He was told to see urology, neurology, and cardiology at the [facility], but not made any appointments yet. 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 In the ER, workup was done. His D- dimer was slightly elevated. Head CT was okay. CT of the chest, no PE, but they could not see some of the areas and advised for repeat CT scan in 24 hours or venous Doppler. Also the patient was found to have some patchy ground-glass opacity in the left lung, possible low-grade pneumonia. The patient said he is vaccinated for COVID.. Denies any fevers. He has some chest discomfort. No shortness of breath. Hard of hearing, does not have hearing aids today. Denies any blurred visions. Has some runny nose. No sore throat. When he eats, he swallows okay. Currently, no abdominal pain. Normal bowel and bladder movements. He says he has swelling in the legs and his blood [facility]. Admission Exam Per Admitting Provider GENERAL: The patient is of moderate build, not in acute distress. VITAL SIGNS: Temperature 37.9, pulse 102, respiratory rate 22, blood pressure 121/81, oxygen 96% on room air. HEENT: Pupils equal, round and reactive to light. Oral mucosa dry. NECK: No JVD, no neck masses. CARDIOVASCULAR: S1 and S2 heard. Regular rate and rhythm. No murmur, no gallop. RESPIRATORY SYSTEM: Normal AP diameter. No accessory muscle use. No wheezing, no crackles. ABDOMEN: Soft, bowel sounds present, nontender, no distention. CENTRAL NERVOUS SYSTEM: Cranial nerves II-XII grossly intact, nonfocal. EXTREMITIES: Pedal edema present, no erythema seen. Principal Diagnosis Left lower lobe pneumonia, Enterococcus UTI, hypertension, bipolar disorder Discharge Exam Constitutional well developed, well nourished, + ill appearing and + obese Eyes PERRL, conjunctivae normal, anicteric sclerae ENMT external ear and nose normal, oropharynx normal Neck trachea midline, no thyromegaly Respiratory no respiratory distress and no cough Auscultation: no diminished lung sounds and no crackles (Crackles left base) Cardiovascular Rate/Rhythm: regular rate and regular rhythm; not tachycardic Heart Sounds: normal S1 and normal S2; no abnormal opening sounds Gastrointestinal (Abdomen) normal bowel sounds, soft, nontender, no hepatosplenomegaly Neurologic + focal motor deficit Lymphatic no cervical or axillary lymphadenopathy Discharge Data Allergies Allergy/AdvReac Type Severity Reaction Status Date / Time clams AdvReac Intermediate Diarrhea Verified 04/24/21 22:10 ketorolac [From Toradol] AdvReac Intermediate Confusion Verified 04/24/21 22:10 Consultations 04/24/21 21:57 ED Decision to Admit Stat 04/25/21 08:00 Consult Psychiatry Routine Ordered Studies 04/24/21 19:23 CT angio chest PE protocol Stat CT head/brain wo con Stat 04/25/21 00:00 US venous doppler LE BI Routine 04/26/21 08:36 CT angio chest PE protocol Routine Hospital Course (1) Pneumonia: Presented with cough and weakness and noted to have left lower lobe infiltration Has been on intravenous antibiotic Blood cultures have been taken Clinically a little bit better Remains otherwise stable Denies any respiratory symptoms We will continue oral antibiotic to finish the course for 10 days Possible UTI He went to [facility] [address] [place] [address] We'll get report of the urine culture Urine culture from [facility] grew Enterococcus faecalis The antibiotic changed to ampicillin IV Will give oral antibiotic on discharge As above Status post Holter as per the patient We'll get reports from the [facility] Holter report is unremarkable, no significant arrhythmias (2) Unspecified mood [affective] disorder: History of bipolar disorder Appreciate psychiatric input and recommendation We'll continue his home medications (3) Hypertension: Controlled right now (4) History of alcohol abuse: No history of withdrawal (5) History of pulmonary embolism: History of DVT and pulmonary embolism hasn't been taking any anticoagulation D-dimer is high at presentation and the CTA was unreliable Ultrasound of the legs did not show any deep venous thrombosis We'll get CTA with contrast tomorrow-negative for any pulmonary embolism Discharge home this afternoon Total Time Total Time Spent Total Time Spent (In Minutes): 35 minutes Discharge Plan Discharge Items Patient Disposition: Home - Self-Care Reason For Visit: NOT FEELING WELL Discharge Diagnosis: Left lower lobe pneumonia, Enterococcus UTI, hypertension, bipolar disorder Condition on Discharge: Good Activity: Resume your previous activity Non-emergency contact: Primary Care Provider Call non-emergency contact if: you have any medication questions and your symptoms worsen Follow-up/Referrals: Steff Jaffe PA-C [Primary Care Provider] - Diet: Regular Fluids: 1500ml (6 cups) Addtl Attending Provider Instructions: Please take extra precautions to avoid fall Finish the course of antibiotic Please make an appointment with your primary care provider within 7 days Pending Studies at Discharge: No Stand-Alone Forms: [facility] [employer], Smoking Cessation Medications and DC Order Prescriptions: New ampicillin 500 mg capsule 500 mg PO Q6H Qty: 20 RF: 0 Lactinex 1 million cell tablet,chewable 1 tab PO BID Qty: 30 RF: 0 Continued aspirin 81 mg Tablet,Delayed Release (Dr/Ec) 81 mg PO DAILY RF: 0 omeprazole 20 mg Tablet,Delayed Release (Dr/Ec) 20 mg PO DAILY RF: 0 mirtazapine 45 mg Tablet 45 mg PO HS RF: 0 folic acid 1 mg tablet 1 mg PO DAILY RF: 0 meclizine 25 mg tablet 25 mg PO TID PRN (Reason: dizziness) Qty: 30 RF: 0 gabapentin 300 mg capsule 300 mg PO TID RF: 0 amlodipine [Norvasc] 5 mg Tablet 5 mg PO QAM Qty: 30 RF: 0 quetiapine 300 mg tablet 300 mg PO HS RF: 0 hydrochlorothiazide 12.5 mg Tablet 6.25 mg PO DAILY RF: 0 multivitamin Tablet 1 tab PO DAILY RF: 0 thiamine HCl (vitamin B1) 100 mg tablet 100 mg PO QAM RF: 0 hydralazine 25 mg Tablet 25 mg PO TID RF: 0 sildenafil 100 mg Tablet 100 mg PO DAILY PRN (Reason: BEFORE SEXUAL ACTIVITY) RF: 0 artificial saliva Aerosol 1 spray MUCOUS MEMBRANE UD PRN (Reason: Dry Mouth) RF: 0 celecoxib [Celebrex] 100 mg Capsule 100 mg PO BID RF: 0 clotrimazole 1 % Cream 1 applic TOPICAL BID PRN (Reason: ..) RF: 0 cholecalciferol (vitamin D3) [Vitamin D3] 25 mcg (1,000 unit) Tablet 25 mcg PO DAILY RF: 0 Discontinued sulfamethoxazole-trimethoprim 800-160 mg tablet 1 tab PO BID RF: 0 Discharge Orders: Discharge Order (Routine); Ordered 04/28/21 Ordered By: Nikky Clarke Admission Data Admit Date/Time: 04/24/21 22:24 Attending Provider: Nikky Clarke Admit Provider: Og Ervin Primary Care Provider: Steff Jaffe Other Providers: Og Ervin ; Yasmine Jiménez ; Dr Jerald ; Tere Whiting ; Reyes Colin ; [facility] Other Interventions: Discharge Summary Assessment (RN) Last Done: 04/28/21 12:20
== END 2021-04-28 13:32 | disposition home or self-care (01) | DRG 194 ==
LOC: ED 18:03 → 2N 22:24

== ENCOUNTER 2021-07-15 12:16 | Inpatient (IN) ==
[2021-07-15] MEDS ORDERED: SODIUM CHLORIDE 0.9% 1000ML 500 ML IV ONE (12:35)
[2021-07-15] MEDS ORDERED: ACETAMINOPHEN 1000 MG/100 ML IV IV STA (12:35)
[2021-07-15] MEDS ORDERED: hydroCHLOROthiazide 25 MG TAB PO STA (12:35)
[2021-07-15] MEDS ORDERED: ONDANSETRON INJ 2 MG/ML 2 ML VIAL IV STA (12:35)
[2021-07-15] MEDS ORDERED: amLODIPine BESYLATE 5 MG TAB PO ONE (12:35)
[2021-07-15] MEDS ORDERED: MULTI-VITAMIN INFUSION 10 ML, THIAMINE HCL 100 MG, FOLIC ACID 1 MG in SODIUM CHLORIDE 0... IV ONE (12:35)
[2021-07-15] MEDS ORDERED: hydrALAZINE HCL 25 MG TAB PO STA (12:35)
--- NOTE | 2021-07-15 12:44 | Emergency Department Note ---
Impression & Plan Weakness, Alcohol withdrawal, Hypertensive urgency, Tachycardia, Alcohol abuse, Medically noncompliant ED Provider Note NAME: ALIREZA LEWIS AGE: 70 SEX: M : 1950 ARRIVES VIA: Ambulance INFORMANT: [Patient][ems] ED PROVIDER(S): [Jake Allan MD] CHIEF COMPLAINT: Confusion HISTORY OF PRESENT ILLNESS: The patient is a 70-year-old male who was discharged from our ED within the last several hours. He had spent the night and apparently, attempted to walk home. He first went to the [employer] where he was supposed to work but, he seemed confused and there was concern that he may be intoxicated with alcohol. He was told he could not work. He then attempted to walk home. The patient fell several times and was brought to our hospital by EMS. The patient was here last night for a fall. The fall was thought secondary to alcohol abuse. His laceration was repaired with Dermabond. The patient admits that he has not taking any medications in about 36 hours. He has a mild headache from his head trauma. Mostly the back of the head seems to hurt. He denies arm or leg weakness. He denies arm or leg pain from falling. No back pain or neck pain. No abdominal pain. He admits that he is falling quite a bit as of late. He is not sure why. The patient believes he is drinking too much alcohol. He thinks he may need a hospital stay. He typically drinks wine or sometimes, mixed drinks. REVIEW OF SYSTEMS: See HPI for pertinent positives and negatives. A total of ten systems were reviewed and were otherwise negative. PMHx/PSHx: See Below SOCIAL HISTORY: See Below. PHYSICAL EXAM: GENERAL: Patient is in no acute distress. HEENT: Abrasions to the face and scalp. There is a fresh laceration to the forehead which has Dermabond in place. Mucous membranes are moist. NECK: No stridor, no adenopathy, nontender cervical spine, trachea is midline. LUNGS: Clear to auscultation bilaterally, no wheeze, no rhonchi, breath sounds equal. HEART: Tachycardic, regular rhythm, no murmurs. ABDOMEN: Soft, nontender, bowel sounds positive, no hernias, no peritonitis. EXTREMITIES: No cyanosis, trace bilateral pedal edema, full range of motion of all the joints without pain or difficulty, no signs for acute trauma. NEUROLOGIC: Oriented x 3, no acute motor or sensory deficits, no focal weakness. No speech slur. SKIN: No rash, no jaundice, no diaphoresis. DIFFERENTIAL DIAGNOSIS: Infection, dehydration, metabolic abnormality, alcohol abuse, alcohol withdrawal, intracranial bleeding, dysrhythmia, hypo/hyperglycemia, electrolyte disturbance, anemia, hypoxia, cardiac sources, intracerebral event, toxicologic issues, stroke, TIA, as well as other pathologies. EMERGENCY DEPARTMENT COURSE/PROCEDURES: ECG: Indication was weakness and tachycardia. The ECG shows a sinus tachycardia with a rate of 120. There is no ST elevation, no PVCs. The QTc is 424. Continuous Cardiac Monitoring: An order was placed for continuous cardiac monitoring. The monitor shows a rate of 119 with sinus tachycardia. Critical Care Note: I have personally spent 46 minutes of critical care time in the direct management of this patient. This includes bedside care, interpretation of diagnostic studies, and testing, discussion with consultants, patient, and family members, and other required patient management activities. This 46 minutes is in excess of all separately billable procedures. MEDICAL DECISION MAKING: There is no leukocytosis or concerning anemia. There is a normal platelet count. No significant electrolyte abnormality or kidney failure. No concerning liver enzyme elevation. ECG shows a sinus tachycardia, no acute ischemia. Total creatinine kinase is not elevated making rhabdomyolysis unlikely. Cardiac enzyme testing x1 is not indicative of acute cardiac injury. The patient ap pears to be in a euthyroid state. Urinalysis does not show infection. Alcohol level was around 6. Covid testing returned negative. Chest x-ray did not show pneumonia or CHF. Brain CT showed no acute bleed or mass-effect. C-spine CT showed no acute fracture. On exam, the patient had abrasions to his scalp and a laceration to his forehead. He was tachycardic and hypertensive. The patient was aggressively managed. He had just been in the ED a short time ago and was brought back for falling and confusion. The patient received IV saline, 500 cc. He was given IV saline with multivitamins, thiamine and folate. He was given IV Zofran, IV Ativan. He was given IV Tylenol. He received oral Norvasc, oral hydralazine and oral hydrochlorothiazide. He then received a dose of IV labetalol. A second dose of IV labetalol was ordered. The patient has been noncompliant with his medications. He is tachycardic, hypertensive. He is weak and falling. He has had some confusion. He appears to be in some early alcohol withdrawal. He is in no condition for discharge home. I spoke with the patient, I talked to case management. The on-call hospitalist has been consulted. 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 Beliefs That Will Affect Care: Church marital status: / Current Living Situation: Alone current occupational status: retired How many Children do You have: 4 Feels Safe at Home: Yes Assistive Devices: None Allergies Allergies Allergy/AdvReac Type Severity Reaction Status Date / Time clams AdvReac Intermediate Diarrhea Verified 07/15/21 14:29 ketorolac [From Toradol] AdvReac Intermediate Confusion Verified 07/15/21 14:29 Home Meds Home Medications Medication Instructions Recorded Confirmed aspirin 81 mg tablet,delayed 81 mg PO DAILY 08/22/20 07/15/21 release mirtazapine 45 mg tablet 45 mg PO HS 08/22/20 07/15/21 omeprazole 20 mg tablet,delayed 20 mg PO DAILY PRN 08/22/20 07/15/21 release folic acid 1 mg tablet 1 mg PO DAILY 10/05/20 07/15/21 gabapentin 300 mg capsule 300 mg PO TID 12/08/20 07/15/21 artificial saliva aerosol spray 1 spray MUCOUS MEMBRANE UD PRN 04/24/21 07/15/21 celecoxib 100 mg capsule (Celebrex) 100 mg PO BID 04/24/21 07/15/21 cholecalciferol (vitamin D3) 25 25 mcg PO DAILY 04/24/21 07/15/21 mcg (1,000 unit) tablet (Vitamin D3) clotrimazole 1 % topical cream 1 applic TOPICAL BID PRN 04/24/21 07/15/21 hydralazine 25 mg tablet 25 mg PO TID 04/24/21 07/15/21 hydrochlorothiazide 12.5 mg tablet 12.5 mg PO DAILY 04/24/21 07/15/21 multivitamin 1 tab PO DAILY 04/24/21 07/15/21 quetiapine 300 mg tablet 300 mg PO HS 04/24/21 07/15/21 sildenafil 100 mg tablet 100 mg PO DAILY PRN 04/24/21 07/15/21 thiamine HCl (vitamin B1) 100 mg 100 mg PO QAM 04/24/21 07/15/21 tablet Previous Rx's Medication Instructions Recorded meclizine 25 mg tablet 25 mg PO TID PRN #30 tab 09/11/20 amlodipine 5 mg tablet (Norvasc) 5 mg PO QAM #30 tab 12/12/20 Lactobacillus acidoph-L.bulgaricus 1 tab PO BID #30 tab 04/28/21 1 million cell chewable tablet (Lactinex) Results & Data (ED) Vital Signs Vital Signs - 24 hr 07/15/21 12:23 07/15/21 13:03 07/15/21 13:30 Temperature 36.7 C Temperature Source Oral Pulse Rate 120 H Pulse Rhythm Regular Pulse Strength Normal Respiratory Rate 18 Respiratory Effort / Characteristics Non-Labored Respiratory Depth Normal Respiratory Pattern Regular Blood Pressure 175/119 H Blood Pressure [Right Arm] 185/114 H Blood Pressure Mean 137 Blood Pressure Mean [Right Arm] 137 Blood Pressure Position Lying Pulse Oximetry 97 Oxygen Delivery Method Room Air Room Air Sepsis Recent Fever Within 48 Hours No Sepsis New/Unexplained Change in Mental Status N/A Sepsis Action Taken by Nursing No Action Required 07/15/21 13:45 07/15/21 14:00 Temperature Temperature Source Pulse Rate 113 H 118 H Pulse Rhythm Pulse Strength Respiratory Rate 12 18 Respiratory Effort / Characteristics Respiratory Depth Respiratory Pattern Blood Pressure 188/108 H Blood Pressure [Right Arm] Blood Pressure Mean 134 Blood Pressure Mean [Right Arm] Blood Pressure Position Pulse Oximetry Oxygen Delivery Method Sepsis Recent Fever Within 48 Hours Sepsis New/Unexplained Change in Mental Status Sepsis Action Taken by Long Term Medications Current Medication List: was personally reviewed by me Laboratory Data Attestation: I reviewed the patient's lab results. Result diagrams: 07/15/21 12:43 07/15/21 12:43 Lab Results 07/15/21 07/15/21 07/15/21 Range/Units 12:43 12:43 12:43 WBC 9.41 (4.8-10.8) K/uL RBC 4.49 L (4.7-6.1) M/uL Hgb 14.7 (14.0-18.0) g/dL Hct 43.5 (42-52) % MCV 96.9 (80-100) fL MCH 32.7 (25-34) pg MCHC 33.8 (32-36) g/dL RDW Std Deviation 45.2 (36.4-46.3) fL RDW Coeff of Jeff 12.9 (11.5-14.5) % Plt Count 259 (130-400) K/uL MPV 9.1 (7.4-10.4) fL Immature Gran % (Auto) 0.2 % Neut % (Auto) 82.3 % Lymph % (Auto) 9.9 % [place] % (Auto) 6.5 % Eos % (Auto) 0.9 % Baso % (Auto) 0.2 % Neut # (Auto) 7.75 H (1.4-6.5) K/uL Lymph # (Auto) 0.93 L (1.2-3.4) K/uL [place] # (Auto) 0.61 H (0.11-0.59) K/uL Eos # (Auto) 0.08 (0-0.5) K/uL Baso # (Auto) 0.02 (0-0.2) K/uL Immature Gran # (Auto) 0.02 (0.00-0.02) K/uL Sodium 142 (136-145) mmol/L Potassium 3.9 (3.5-5.1) mmol/L Chloride 110 H (98-107) mmol/L Carbon Dioxide 25 (21-32) mmol/L Anion Gap 7.0 (3-11) BUN 13 (7-18) mg/dl Creatinine 1.05 (0.6-1.4) mg/dl Est Cr Clr Drug Dosing 85.5 ml/min Est GFR ( Amer) 83.5 ml/min Est GFR (Non-Af Amer) 72.1 ml/min BUN/Creatinine Ratio 12.3 (10-20) Glucose 106 H (70-99) mg/dl Calcium 8.9 (8.5-10.1) mg/dl Magnesium 1.9 (1.8-2.4) mg/dl Total Bilirubin 0.4 (0.2-1) mg/dl AST 23 (15-37) U/L ALT 28 (12-78) U/L Alkaline Phosphatase 73 (45-117) U/L Ammonia (11-32) umol/L Total Creatine Kinase 74 (39-308) U/L Troponin I < 0.015 (0-0.045) ng/ml Total Protein 7.6 (6.4-8.2) gm/dl Albumin 3.5 (3.4-5.0) gm/dl Globulin 4.1 H (2.5-4.0) gm/dl Albumin/Globulin Ratio 0.9 (0.9-2) TSH 0.563 (0.300-4.500) uIu/ml Urine Color Urine Appearance (Clear) Urine pH (4.5-7.5) Ur Specific [place] (1.000-1.030) Urine Protein (Negative) Urine Glucose (UA) (Negative) Urine Ketones (Negative) Urine Blood (Negative) Urine Nitrite (Negative) Urine Bilirubin (Negative) Urine Urobilinogen (Negative) Ur Leukocyte Esterase (Negative) Ethyl Alcohol mg/dL 5.7 H (0-3) mg/dl COVID-19 Eval Order SARS-CoV-2 (PCR) (Negative) 07/15/21 07/15/21 07/15/21 Range/Units 13:00 13:29 14:25 WBC (4.8-10.8) K/uL RBC (4.7-6.1) M/uL Hgb (14.0-18.0) g/dL Hct (42-52) % MCV (80-100) fL MCH (25-34) pg MCHC (32-36) g/dL RDW Std Deviation (36.4-46.3) fL RDW Coeff of Jeff (11.5-14.5) % Plt Count (130-400) K/uL MPV (7.4-10.4) fL Immature Gran % (Auto) % Neut % (Auto) % Lymph % (Auto) % [place] % (Auto) % Eos % (Auto) % Baso % (Auto) % Neut # (Auto) (1.4-6.5) K/uL Lymph # (Auto) (1.2-3.4) K/uL [place] # (Auto) (0.11-0.59) K/uL Eos # (Auto) (0-0.5) K/uL Baso # (Auto) (0-0.2) K/uL Immature Gran # (Auto) (0.00-0.02) K/uL Sodium (136-145) mmol/L Potassium (3.5-5.1) mmol/L Chloride (98-107) mmol/L Carbon Dioxide (21-32) mmol/L Anion Gap (3-11) BUN (7-18) mg/dl Creatinine (0.6-1.4) mg/dl Est Cr Clr Drug Dosing ml/min Est GFR ( Amer) ml/min Est GFR (Non-Af Amer) ml/min BUN/Creatinine Ratio (10-20) Glucose (70-99) mg/dl Calcium (8.5-10.1) mg/dl Magnesium (1.8-2.4) mg/dl Total Bilirubin (0.2-1) mg/dl AST (15-37) U/L ALT (12-78) U/L Alkaline Phosphatase (45-117) U/L Ammonia 14.4 (11-32) umol/L Total Creatine Kinase (39-308) U/L Troponin I (0-0.045) ng/ml Total Protein (6.4-8.2) gm/dl Albumin (3.4-5.0) gm/dl Globulin (2.5-4.0) gm/dl Albumin/Globulin Ratio (0.9-2) TSH (0.300-4.500) uIu/ml Urine Color Yellow Urine Appearance Clear (Clear) Urine pH 6.5 (4.5-7.5) Ur Specific [place] 1.015 (1.000-1.030) Urine Protein Negative (Negative) Urine Glucose (UA) Negative (Negative) Urine Ketones Negative (Negative) Urine Blood Negative (Negative) Urine Nitrite Negative (Negative) Urine Bilirubin Negative (Negative) Urine Urobilinogen Negative (Negative) Ur Leukocyte Esterase Negative (Negative) Ethyl Alcohol mg/dL (0-3) mg/dl COVID-19 Eval Order Covid19 at [facility] SARS-CoV-2 (PCR) (Negative) 07/15/21 Range/Units 14:25 WBC (4.8-10.8) K/uL RBC (4.7-6.1) M/uL Hgb (14.0-18.0) g/dL Hct (42-52) % MCV (80-100) fL MCH (25-34) pg MCHC (32-36) g/dL RDW Std Deviation (36.4-46.3) fL RDW Coeff of Jeff (11.5-14.5) % Plt Count (130-400) K/uL MPV (7.4-10.4) fL Immature Gran % (Auto) % Neut % (Auto) % Lymph % (Auto) % [place] % (Auto) % Eos % (Auto) % Baso % (Auto) % Neut # (Auto) (1.4-6.5) K/uL Lymph # (Auto) (1.2-3.4) K/uL [place] # (Auto) (0.11-0.59) K/uL Eos # (Auto) (0-0.5) K/uL Baso # (Auto) (0-0.2) K/uL Immature Gran # (Auto) (0.00-0.02) K/uL Sodium (136-145) mmol/L Potassium (3.5-5.1) mmol/L Chloride (98-107) mmol/L Carbon Dioxide (21-32) mmol/L Anion Gap (3-11) BUN (7-18) mg/dl Creatinine (0.6-1.4) mg/dl Est Cr Clr Drug Dosing ml/min Est GFR ( Amer) ml/min Est GFR (Non-Af Amer) ml/min BUN/Creatinine Ratio (10-20) Glucose (70-99) mg/dl Calcium (8.5-10.1) mg/dl Magnesium (1.8-2.4) mg/dl Total Bilirubin (0.2-1) mg/dl AST (15-37) U/L ALT (12-78) U/L Alkaline Phosphatase (45-117) U/L Ammonia (11-32) umol/L Total Creatine Kinase (39-308) U/L Troponin I (0-0.045) ng/ml Total Protein (6.4-8.2) gm/dl Albumin (3.4-5.0) gm/dl Globulin (2.5-4.0) gm/dl Albumin/Globulin Ratio (0.9-2) TSH (0.300-4.500) uIu/ml Urine Color Urine Appearance (Clear) Urine pH (4.5-7.5) Ur Specific [place] (1.000-1.030) Urine Protein (Negative) Urine Glucose (UA) (Negative) Urine Ketones (Negative) Urine Blood (Negative) Urine Nitrite (Negative) Urine Bilirubin (Negative) Urine Urobilinogen (Negative) Ur Leukocyte Esterase (Negative) Ethyl Alcohol mg/dL (0-3) mg/dl COVID-19 Eval Order SARS-CoV-2 (PCR) NEGATIVE (Negative) Administered Medications Discontinued Medications Acetaminophen (Acetaminophen 1000 Mg/100 Ml Iv) 1,000 mg IV NOW STA Stop: 07/15/21 12:36 Last Admin: 07/15/21 13:48 Dose: 1,000 mg Documented by: [id number] Amlodipine Besylate (Amlodipine Besylate 5 Mg Tab) 5 mg PO NOW ONE Stop: 07/15/21 12:36 Last Admin: 07/15/21 13:20 Dose: 5 mg Documented by: [id number] Hydralazine HCl (Hydralazine Hcl 25 Mg Tab) 25 mg PO NOW STA Stop: 07/15/21 12:36 Last Admin: 07/15/21 13:20 Dose: 25 mg Documented by: [id number] Hydrochlorothiazide (Hydrochlorothiazide 25 Mg Tab) 25 mg PO NOW STA Stop: 07/15/21 12:36 Last Admin: 07/15/21 13:20 Dose: 25 mg Documented by: [id number] Sodium Chloride (Nss 1000ml) 500 mls @ 999 mls/hr IV .Q31M ONE Stop: 07/15/21 13:05 Last Infusion: 07/15/21 14:42 Dose: 0 mls/hr Documented by: [id number] Admin: 07/15/21 13:47 Dose: 999 mls/hr Documented by: [id number] Multivitamins 10 ml/ Thiamine HCl 100 mg/ Folic Acid 1 mg/Sodium Chloride 1,011.2 mls @ 1,011.2 mls/hr IV .Q1H ONE Stop: 07/15/21 13:34 Last Infusion: 07/15/21 14:53 Dose: 0 mls/hr Documented by: [id number] Admin: 07/15/21 13:48 Dose: 1,011.2 mls/hr Documented by: [id number] Lorazepam (Ativan) 1 mg in 2 mls @ 2 mls/min IV NOW STA Stop: 07/15/21 14:25 Last Admin: 07/15/21 14:54 Dose: 2 mls/min Documented by: [id number] Labetalol HCl (Labetalol Hcl Iv 5 Mg/Ml 20ml) 10 mg IV NOW STA Stop: 07/15/21 14:25 Last Admin: 07/15/21 14:54 Dose: 10 mg Documented by: [id number] Cosigned by: [id number] Ondansetron HCl (Ondansetron Inj 2 Mg/Ml 2 Ml Vial) 4 mg IV NOW STA Stop: 07/15/21 12:36 Last Admin: 07/15/21 13:47 Dose: 4 mg Documented by: [id number] Imaging Data Radiologist's Impression: Cervical Spine CT 07/15/21 12:35 CT cervical spine wo con CLINICAL HISTORY: fall, etoh . Trauma to the head with head laceration. Neck pain COMPARISON STUDY: 06/23/2021 CT DOSE: 1094.42 mGy.cm TECHNIQUE: Standard CT of the Cervical Spine was performed without IV contrast. A dose lowering technique was utilized adhering to the principles of ALARA. FINDINGS: Bones: The bones are osteopenic. There is again straightening of expected cervical lordosis related to degenerative change. There is no evidence for an acute fracture or malalignment. The heights of the vertebral bodies are maintained. The vertebral bodies are in anatomic alignment. The odontoid is intact. Degenerative changes are seen at the atlantoaxial articulation. Disc spaces:Moderate to marked disc space narrowing with endplate cirrhosis and osteophyte formation is again seen from C4 through C7. Apophyseal joints:Degenerative apophyseal joint disease is again seen bilaterally as well. Soft tissues:The prevertebral soft tissues are within normal limits. IMPRESSION: Osteopenia with no acute abnormality. Degenerative disc and degenera tive joint disease are again seen. ACT 112: Negative or not required by law. Electronically signed by: Nito Harris M.D. 07/15/2021 1:[address] 07/15/21 12:35 CT head/brain wo con CLINICAL HISTORY: Status post fall with head trauma and laceration COMPARISON STUDY: 06/23/2021 CT DOSE: TECHNIQUE: Standard CT of the Brain was performed without IV contrast. A dose lowering technique was utilized adhering to the principles of ALARA. FINDINGS: Extraaxial space: There is no evidence for subdural hematoma. There are no extra-axial fluid collections. Ventricles and cisterns: The ventricles are normal in size and configuration. There is no evidence for midline shift or mass effect. Parenchyma: There is no subarachnoid or intraparenchymal hemorrhage. There is no evidence for an acute infarct or cerebral edema. There is mild cerebral cortical atrophy present. There is homogeneous attenuation of the brain pa renchyma. There are no gross mass lesions. Osseous structures: There is no evidence for an acute fracture. There is mild mucosal thickening of the ethmoid air cells bilaterally. The remaining visualized paranasal sinuses are clear. The mastoid air cells are clear bilaterally. Soft tissues: There is no evidence for focal soft tissue swelling. IMPRESSION: No acute intracerebral pathology. Mild cerebral cortical atrophy. Mild chronic ethmoid sinusitis. ACT 112: Negative or not required by law. Electronically signed by: Nito Harris M.D. 07/15/2021 1:25 PM Chest X-Ray 07/15/21 12:36 XR chest 1V portable CLINICAL HISTORY: weakness. Evaluate cardiopulmonary status COMPARISON STUDY: 05/20/2021 TECHNIQUE: 1 view of the chest FINDINGS: Single frontal view of the chest demonstrates the cardiomediastinal silhouette to be within normal limits. The lungs are clear of alveolar opacities. There is no evidence for pleural effusion. There is no evidence for vascular congestion. There is no acute osseous pathology. IMPRESSION: No acute cardiopulmonary disease. ACT 112: Negative or not required by law. Electronically signed by: Nito Harris M.D. 07/15/2021 1:02 PM Head Trauma GCS Score: 15 Discharge Plan Visit Data Chief Complaint: Confusion Stated Complaint: CONFUSION ED Provider: Jake Allan Discharge Problem: Weakness, Alcohol withdrawal, Hypertensive urgency, Tachycardia, Alcohol abuse, Medically noncompliant Patient Disposition: Admitted As Inpatient Condition: Fair Forms Stand Alone Forms: My [facility] Prescriptions Prescriptions: No Action aspirin 81 mg Tablet,Delayed Release (Dr/Ec) 81 mg PO DAILY RF: 0 omeprazole 20 mg Tablet,Delayed Release (Dr/Ec) 20 mg PO DAILY PRN (Reason: Acid Reflux) RF: 0 mirtazapine 45 mg Tablet 45 mg PO HS RF: 0 folic acid 1 mg tablet 1 mg PO DAILY RF: 0 meclizine 25 mg tablet 25 mg PO TID PRN (Reason: dizziness) Qty: 30 RF: 0 gabapentin 300 mg capsule 300 mg PO TID RF: 0 amlodipine [Norvasc] 5 mg Tablet 5 mg PO QAM Qty: 30 RF: 0 quetiapine 300 mg tablet 300 mg PO HS RF: 0 hydrochlorothiazide 12.5 mg Tablet 12.5 mg PO DAILY RF: 0 multivitamin Tablet 1 tab PO DAILY RF: 0 thiamine HCl (vitamin B1) 100 mg tablet 100 mg PO QAM RF: 0 hydralazine 25 mg Tablet 25 mg PO TID RF: 0 sildenafil 100 mg Tablet 100 mg PO DAILY PRN (Reason: BEFORE SEXUAL ACTIVITY) RF: 0 artificial saliva Aerosol 1 spray MUCOUS MEMBRANE UD PRN (Reason: Dry Mouth) RF: 0 celecoxib [Celebrex] 100 mg Capsule 100 mg PO BID RF: 0 clotrimazole 1 % Cream 1 applic TOPICAL BID PRN (Reason: NEEDED) RF: 0 cholecalciferol (vitamin D3) [Vitamin D3] 25 mcg (1,000 unit) Tablet 25 mcg PO DAILY RF: 0 Lactinex 1 million cell tablet,chewable 1 tab PO BID Qty: 30 RF: 0 Referrals Referrals: Fabian Sorto MD [Primary Care Provider] -
[2021-07-15 12:58] LABS: Basophils # (auto) 0.02 K/uL (0-0.2); Basophils % (auto) 0.2 %; Eosinophils # (auto) 0.08 K/uL (0-0.5); Eosinophils % (auto) 0.9 %; Hematocrit (blood only) 43.5 % (42-52); Hemoglobin 14.7 g/dL (14.0-18.0); Immature Granulocytes # (auto) 0.02 K/uL (0.00-0.02); Immature Granulocytes % (auto) 0.2 %; Lymphocytes # (auto) 0.93 K/uL (1.2-3.4); Lymphocytes % (auto) 9.9 %; Mean Corpuscular Hemoglobin 32.7 pg (25-34); Mean Corpuscular Hgb Conc 33.8 g/dL (32-36); Mean Corpuscular Volume 96.9 fL (80-100); Mean Platelet Volume 9.1 fL (7.4-10.4); Monocytes # (auto) 0.61 K/uL (0.11-0.59); Monocytes % (auto) 6.5 %; Neutrophils # (auto) 7.75 K/uL (1.4-6.5); Neutrophils % (auto) 82.3 %; Platelet Count 259 K/uL (130-400); RDW Coefficient of Variation 12.9 % (11.5-14.5); RDW Standard Deviation 45.2 fL (36.4-46.3); Red Blood Count 4.49 M/uL (4.7-6.1); White Blood Count 9.41 K/uL (4.8-10.8)
--- NOTE | 2021-07-15 13:03 | XRay Report ---
XR chest 1V portable CLINICAL HISTORY: weakness. Evaluate cardiopulmonary status COMPARISON STUDY: 05/20/2021 TECHNIQUE: 1 view of the chest FINDINGS: Single frontal view of the chest demonstrates the cardiomediastinal silhouette to be within normal li mits. The lungs are clear of alveolar opacities. There is no evidence for pleural effusion. There is no evidence for vascular congestion. There is no acute osseous pathology. IMPRESSION: No acute cardiopulmonary disease. ACT 112: Negative or not required by law. Electronically signed by: Nito Harris M.D. 07/15/2021 1:02 PM
[2021-07-15 13:16] LABS: Alanine Aminotransferase 28 U/L (12-78); Albumin Level 3.5 gm/dl (3.4-5.0); Aspartate Aminotransferase 23 U/L (15-37); BUN Creatinine Ratio 12.3 (10-20); Blood Urea Nitrogen 13 mg/dl (7-18); Calcium 8.9 mg/dl (8.5-10.1); Carbon Dioxide 25 mmol/L (21-32); Chloride 110 mmol/L (98-107); Creatinine Clr Calc Pharmacy 85.5 ml/min; Est GFR (African American) 83.5 ml/min; Est GFR (Non-African American) 72.1 ml/min; Glucose 106 mg/dl (70-99); Magnesium 1.9 mg/dl (1.8-2.4); Potassium 3.9 mmol/L (3.5-5.1); Sodium 142 mmol/L (136-145)
[2021-07-15 13:27] LABS: Appearance Urine Clear (Clear); Bilirubin Urine Negative (Negative); Blood Urine Negative (Negative); Color Urine Yellow; Glucose Urine UA Negative (Negative); Ketones Urine Negative (Negative); Leukocyte Esterase Urine Negative (Negative); Nitrite Urine Negative (Negative); Protein Urine Negative (Negative); Specific Gravity Urine 1.015 (1.000-1.030); Urobilinogen Urine Negative (Negative); pH Urine 6.5 (4.5-7.5)
[2021-07-15 13:27] LABS: Albumin Globulin Ratio 0.9 (0.9-2); Alkaline Phosphatase 73 U/L (45-117); Bilirubin,Total 0.4 mg/dl (0.2-1); Creatine Kinase 74 U/L (39-308); Globulin 4.1 gm/dl (2.5-4.0); Thyroid Stimulating Hormone 0.563 uIu/ml (0.300-4.500); Total Protein 7.6 gm/dl (6.4-8.2); Troponin I < 0.015 ng/ml (0-0.045)
--- NOTE | 2021-07-15 13:27 | CT Scan Report ---
CT head/brain wo con CLINICAL HISTORY: Status post fall with head trauma and laceration COMPARISON STUDY: 06/23/2021 CT DOSE: TECHNIQUE: Standard CT of the Brain was performed without IV contrast. A dose lowering technique was utilized adhering to the principles of ALARA. FINDINGS: Extraaxial space: There is no evidence for subdural hematoma. There are no extra-axial fluid collecti ons. Ventricles and cisterns: The ventricles are normal in size and configuration. There is no evidence f or midline shift or mass effect. Parenchyma: There is no subarachnoid or intraparenchymal hemorrhage. There is no evidence for an acu te infarct or cerebral edema. There is mild cerebral cortical atrophy present. There is homogeneous a ttenuation of the brain parenchyma. There are no gross mass lesions. Osseous structures: There is no evidence for an acute fracture. There is mild mucosal thickening of t he ethmoid air cells bilaterally. The remaining visualized paranasal sinuses are clear. The mastoid a ir cells are clear bilaterally. Soft tissues: There is no evidence for focal soft tissue swelling. IMPRESSION: No acute intracerebral pathology. Mild cerebral cortical atrophy. Mild chronic ethmoid si nusitis. ACT 112: Negative or not required by law. Electronically signed by: Nito Harris M.D. 07/15/2021 1:25 PM
--- NOTE | 2021-07-15 13:29 | CT Scan Report ---
CT cervical spine wo con CLINICAL HISTORY: fall, etoh . Trauma to the head with head laceration. Neck pain COMPARISON STUDY: 06/23/2021 CT DOSE: 1094.42 mGy.cm TECHNIQUE: Standard CT of the Cervical Spine was performed without IV contrast. A dose lowering te chnique was utilized adhering to the principles of ALARA. FINDINGS: Bones: The bones are osteopenic. There is again straightening of expected cervical lordosis related t o degenerative change. There is no evidence for an acute fracture or malalignment. The heights of the vertebral bodies are maintained. The vertebral bodies are in anatomic alignment. The odontoid is int act. Degenerative changes are seen at the atlantoaxial articulation. Disc spaces:Moderate to marked disc space narrowing with endplate cirrhosis and osteophyte formation is again seen from C4 through C7. Apophyseal joints:Degenerative apophyseal joint disease is again seen bilaterally as well. Soft tissues:The prevertebral soft tissues are within normal limits. IMPRESSION: Osteopenia with no acute abnormality. Degenerative disc and degenerative joint disease ar e again seen. ACT 112: Negative or not required by law. Electronically signed by: Nito Harris M.D. 07/15/2021 1:28 PM
[2021-07-15] MEDS ORDERED: LABETALOL HCL IV 5 MG/ML 20ML IV STA ×2 (14:24→16:12)
[2021-07-15] MEDS ORDERED: LORazepam 1 MG/2 ML VIAL IV STA (14:24)
[2021-07-15] MEDS ORDERED: GABAPENTIN 1200MG ALCOHOL WITHDRAWAL LOAD PO STA (16:13)
--- NOTE | 2021-07-15 16:38 | History & Physical Report ---
Date of Service July 15, 2021 Assessment & Plan (1) Alcohol withdrawal: Plan: - Admit to tele - Continue on Lopressor IV as needed for blood pressure, resume home medications including hydralazine and amlodipine, hold HCTZ - WASS, start gabapentin protocol - Alcohol level of 5 upon being in the ER this time, has previously had levels in the 200s this past month - Will need psych referral for outpatient rehab/therapy/counseling (2) Hypertensive urgency: Plan: -Blood pressure elevated at 181/116, IV labetalol as above -Antihypertensives as above (3) History of alcohol abuse: Plan: -Psych consult -Gabapentin protocol, ASS -Thiamine, multivitamin, folic acid daily (4) Weakness: Plan: -PT/OT consults, fall precaution (5) Sinusitis: Plan: -Continue Augmentin 875 twice daily -CT of the head reviewed-showing chronic mild ethmoid sinusitis -Admits to upper respiratory-like infection symptoms -COVID-19 is negative DVR popx: - [place], scds CODE: Full code Dispo: From home, likely to remain in the hospital x 1-2 days History of Present Illness Primary Care Provider: Fabian Sorto MD This is a 70 yo M with PMhx of HTN, HLD, alcoholism, morbid obesity with BMI of 37.3. He was here yesterday and spent the night overnight in the ER due to increased fall, suffering a laceration to his front of her head which required Dermabond. This morning left the ER this morning after persisting that he needed to go to his job, was found to have fallen several times on his walk to [facility], told that he was not allowed to work today, and was picked up by ambulance and brought back to the ER. Last drink was last night where he had 2 gin and tonics. Denies drinking daily. Admits to fine tremor and feeling overall unwell currently. He reports significant pain in his knees with hx of buckling and inability to really walk without knee braces and admits to falling earlier today. He has previously completed PT/OT as an outpatient but not currently participating in such programs. Reports previously completed inpatient rehab for alcohol last October through October 2020. He also notes his in August 2020. Reports that he took all his routinely scheduled medications up until yesterday. There is concern from caseworkers in the ER reporting that he does not truly take his psychiatric medications as prescribed. His thought processes is tangential and circumstantial, skewed thoughts, and inability to focus. He reports he has been traveling between [facility] and here. He denies having family in the area to me, lives alone. 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 He starts talking about plays, acting, and what shows are currently going on where, but this does not relate to our conversation. Allergies Allergy/AdvReac Type Severity Reaction Status Date / Time clams AdvReac Intermediate Diarrhea Verified 07/15/21 14:29 ketorolac [From Toradol] AdvReac Intermediate Confusion Verified 07/15/21 14:29 Home Medications Medication Instructions Recorded Confirmed Type aspirin 81 mg tablet,delayed 81 mg PO DAILY 08/22/20 07/15/21 History release mirtazapine 45 mg tablet 45 mg PO HS 08/22/20 07/15/21 History omeprazole 20 mg tablet,delayed 20 mg PO DAILY PRN 08/22/20 07/15/21 History release meclizine 25 mg tablet 25 mg PO TID PRN #30 tab 09/11/20 07/15/21 Rx folic acid 1 mg tablet 1 mg PO DAILY 10/05/20 07/15/21 History gabapentin 300 mg capsule 300 mg PO TID 12/08/20 07/15/21 History amlodipine 5 mg tablet (Norvasc) 5 mg PO QAM #30 tab 12/12/20 07/15/21 Rx artificial saliva aerosol spray 1 spray MUCOUS MEMBRANE UD PRN 04/24/21 07/15/21 History celecoxib 100 mg capsule (Celebrex) 100 mg PO BID 04/24/21 07/15/21 History cholecalciferol (vitamin D3) 25 25 mcg PO DAILY 04/24/21 07/15/21 History mcg (1,000 unit) tablet (Vitamin D3) clotrimazole 1 % topical cream 1 applic TOPICAL BID PRN 04/24/21 07/15/21 History hydralazine 25 mg tablet 25 mg PO TID 04/24/21 07/15/21 History hydrochlorothiazide 12.5 mg tablet 12.5 mg PO DAILY 04/24/21 07/15/21 History multivitamin 1 tab PO DAILY 04/24/21 07/15/21 History quetiapine 300 mg tablet 300 mg PO HS 04/24/21 07/15/21 History sildenafil 100 mg tablet 100 mg PO DAILY PRN 04/24/21 07/15/21 History thiamine HCl (vitamin B1) 100 mg 100 mg PO QAM 04/24/21 07/15/21 History tablet Lactobacillus acidoph-L.bulgaricus 1 tab PO BID #30 tab 04/28/21 07/15/21 Rx 1 million cell chewable tablet (Lactinex) Past Med/Surg History Medical History (Updated 07/15/21 @ 16:32 by Soni Galarza PA-C) Acute hyperkalemia Alcohol abuse Alcohol intoxication Bipolar disorder Frequent falls History of alcohol abuse Sleep deprivation Syncope TIA (transient ischemic attack) Family History Other Suicide Social History Smoking Status: Unknown if ever smoked Hx Alcohol Use: Yes Alcohol type: beer Hx Substance Use: No Preferred Language: Slovak Communication Ability: Effective Mallet Cutter Required: No Beliefs That Will Affect Care: Holiness marital status: / Current Living Situation: Alone current occupational status: retired How many Children do You have: 4 Feels Safe at Home: Yes Assistive Devices: None Review of Systems Review of Systems: Constitutional: No fever, sweats or chills Eyes: No diplopia, no worsening or blurred vision ENT: normal hearing, no trouble swallowing, + sinus congestion, rhinorrhea, slight sore throat, and postnasal drip Respiratory: No cough, sputum, dyspnea at rest or on exertion Cardiovascular: No chest pain, tightness or palpitations Abdomen: No pain, nausea, vomiting, diarrhea or constipation Musculoskeletal: No joint pain, calf pain, + slight swelling, + multiple falls Neurologic: + Generalized weakness, specifically in his knees, no numbness/tingling, + balance problems, + falls Psychiatric: Bipolar, + depression Skin: + Reports rash on inner thighs Physical Exam Physical Exam: General: awake, alert, no apparent distress, morbidly obese with BMI of 37.3, disheveled, poor hygiene Head: Normocephalic, traumatic laceration over forehead which has been glued in the ER ENT: PERRL, EOMI, no pharyngeal exudate, mucous membranes slightly dry Chest: Clear to auscultation, on room air, no adventitious breath sounds Cardiac: Regular rate and rhythm, no murmur, no JVD, normal peripheral pulses, good capillary refill Abdominal: NABS x 4 quadrants, obese, soft, nondistended, nontender to palpation, no rebound or guarding Extremities: Normal inspection, no peripheral edema or erythema, calfs nontender to palpation Psych: Flat affect, depressed mood, inability to remain focused, circumstantial and tangential thought process, denies homicidal or suicidal ideation Neuro: AAO x 3, strength intact bilaterally and rated 5/5, no motor deficits, speech is clear, no peripheral sensory deficits Results & Data Results & Data ([facility]) Vital Signs (Past 12 Hours) Vital Signs Temp Pulse Pulse Resp BP BP Pulse Ox 07/15/21 16:00 101 H 18 181/116 H 96 07/15/21 14:00 118 H 18 188/108 H 07/15/21 13:45 113 H 12 07/15/21 13:30 185/114 H 07/15/21 12:23 36.7 C 120 H 18 175/119 H 97 Laboratory Results Abnormal Labs 07/15/21 07/15/21 07/15/21 12:43 12:43 12:43 RBC 4.49 L Neut # (Auto) 7.75 H Lymph # (Auto) 0.93 L [place] # (Auto) 0.61 H Chloride 110 H Glucose 106 H Globulin 4.1 H Ethyl Alcohol mg/dL 5.7 H Diagnostic Findings Cervical Spine CT 07/15/21 12:35 CT cervical spine wo con CLINICAL HISTORY: fall, etoh . Trauma to the head with head laceration. Neck pain COMPARISON STUDY: 06/23/2021 CT DOSE: 1094.42 mGy.cm TECHNIQUE: Standard CT of the Cervical Spine was performed without IV contrast. A dose lowering technique was utilized adhering to the principles of ALARA. FINDINGS: Bones: The bones are osteopenic. There is again straightening of expected cervical lordosis related to degenerative change. There is no evidence for an acute fracture or malalignment. The heights of the vertebral bodies are maintained. The vertebral bodies are in anatomic alignment. The odontoid is intact. Degenerative changes are seen at the atlantoaxial articulation. Disc spaces:Moderate to marked disc space narrowing with endplate cirrhosis and osteophyte formation is again seen from C4 through C7. Apophyseal joints:Degenerative apophyseal joint disease is again seen bilaterally as well. Soft tissues:The prevertebral soft tissues are within normal limits. IMPRESSION: Osteopenia with no acute abnormality. Degenerative disc and degenerative joint disease are again seen. ACT 112: Negative or not required by law. Electronically signed by: Nito Harris M.D. 07/15/2021 1:[address] 07/15/21 12:35 CT head/brain wo con CLINICAL HISTORY: Status post fall with head trauma and laceration COMPARISON STUDY: 06/23/2021 CT DOSE: TECHNIQUE: Standard CT of the Brain was performed without IV contrast. A dose lowering technique was utilized adhering to the principles of ALARA. FINDINGS: Extraaxial space: There is no evidence for subdural hematoma. There are no extra-axial fluid collections. Ventricles and cisterns: The ventricles are normal in size and configuration. T here is no evidence for midline shift or mass effect. Parenchyma: There is no subarachnoid or intraparenchymal hemorrhage. There is no evidence for an acute infarct or cerebral edema. There is mild cerebral cortical atrophy present. There is homogeneous attenuation of the brain parenchyma. There are no gross mass lesions. Osseous structures: There is no evidence for an acute fracture. There is mild mucosal thickening of the ethmoid air cells bilaterally. The remaining visualized paranasal sinuses are clear. The mastoid air cells are clear bilaterally. Soft tissues: There is no evidence for focal soft tissue swelling. IMPRESSION: No acute intracerebral pathology. Mild cerebral cortical atrophy. Mild chronic ethmoid sinusitis. ACT 112: Negative or not required by law. Electronically signed by: Nito Harris M.D. 07/15/2021 1:25 PM Chest X-Ray 07/15/21 12:36 XR chest 1V portable CLINICAL HISTORY: weakness. Evaluate cardiopulmonary status COMPARISON STUDY: 05/20/2021 TECHNIQUE: 1 view of the chest FINDINGS: Single frontal view of the chest demonstrates the cardiomediastinal silhouette to be within normal limits. The lungs are clear of alveolar opacities. There is no evidence for pleural effusion. There is no evidence for vascular congestion. There is no acute osseous pathology. IMPRESSION: No acute cardiopulmonary disease. ACT 112: Negative or not required by law. Electronically signed by: Nito Harris M.D. 07/15/2021 1:02 PM ECG Additional Comments: 15-JUL-2021 13:25:12 [facility]-EDSTAT ROUTINE RETRIEVAL Sinus tachycardia Possible Left atrial enlargement Septal infarct , age undetermined Abnormal ECG When compared with ECG of 23-JUN-2021 17:07, Premature atrial complexes are no longer Present Septal infarct is now Present 25mm/s 10mm/mV 150Hz 9.0.9 12SL 241 SHELLEY: 15 Unconfirmed Vent. rate 120 BPM W[place] interval 192 ms QRS duration 90 ms QT/QTc 300/424 ms Code Status & VTE Plan Code Status Full code - discussed with pt at bedside VTE Prophylaxis Plan VTE Prophylaxis will be ordered: Yes Supervising Physician Co-Signing Physician Notes Patient is a 70-year-old male with history of alcoholism, hypertension and other medical problems presents with history of fall, head laceration and difficulty with ambulation. He admits to drinking alcohol, last drink was yesterday. He is a very poor historian. He also states having tremor, and generalized weakness. His history is tangential. Please review HPI for complete details of presentation. He was found to be in hypertensive urgency while in ED. His alcohol level is 5.7. CT head and neck, chest x-ray, MRI brain showed no acute findings. He currently is not taking his psychiatric medications for bipolar disorder. On exam patient is obese, no apparent distress, normocephalic,+ traumatic forehead, normal breath sounds, clear to auscultation, S1-S2, no murmur, no pedal edema, abdomen soft, nontender, normal bowel sounds, alert, awake, oriented, grossly no focal deficits. Patient is admitted for management of alcohol withdrawal, medication noncompliance and hypertensive urgency. Will resume his antihypertensive medications and use labetalol as needed for blood pressure management. Agree with thiamine, folic acid, gabapentin protocol. We will consult psychiatry for management of bipolar disorder. Continue Augmentin for ongoing sinusitis issues. PT OT, fall precautions requested for ambulatory dysfunction. I personally reviewed the record. Patient is interviewed and examined at bedside. Patient's care is coordinated with Soni Hernandez. Please refer to the documentation above for details of patient's presentation and for discussion of other issues. (1) Alcohol withdrawal Complication of substance-induced condition: uncomplicated Qualified Code(s): F10.230 - Alcohol dependence with withdrawal, uncomplicated
[2021-07-15] MEDS ORDERED: GABAPENTIN 600 MG TAB PO ONE ×2 (17:00→18:35)
[2021-07-15] MEDS ORDERED: METOPROLOL TARTRATE 1 MG/ML VIAL IV PRN (18:35)
[2021-07-15] MEDS ORDERED: ONDANSETRON INJ 2 MG/ML 2 ML VIAL IV PRN (18:35)
[2021-07-15] MEDS ORDERED: PANTOprazole 40 MG TAB PO PRN (18:40)
[2021-07-15] MEDS ORDERED: MECLIZINE HCL 25 MG TAB PO PRN (18:40)
--- NOTE | 2021-07-15 18:52 | Magnetic Resonance Report ---
MR brain wo con CLINICAL HISTORY: confusion. Patient reportedly intoxicated with multiple falls. COMPARISON STUDY: CT brain from 07/15/2021 and previous MR from 10/01/2020 TECHNIQUE: Multiplanar multisequence images of the Brain were performed without IV contrast. Diffusi on weighted imaging and ADC mapping was also performed. FINDINGS: Extra-axial space: There is no evidence for a subdural hematoma, There are no extra-axial fluid kristie ections. Ventricles and cisterns: The ventricles are normal in size and configuration. There is no evidence f or midline shift or mass effect. Parenchyma: There is no evidence for an acute hemorrhage or infarct. No acute diffusion abnormalities are noted on diffusion weighted imaging or ADC mapping. There is normal marcano-white differentiation. There is mild cerebral cortical atrophy present. There is minimal bright signal seen on FLAIR weight ed sequences within the centrum semiovale and periventricular white matter characteristic of remote s mall vessel disease. The sulci and gyri appear normal without effacement. The midline structures are unremarkable. The posterior fossa structures appear normal. There is no evidence for mass lesion. Osseous structures: Mild mucosal thickening is again seen involving the ethmoid air cells bilaterally . There is also mucosal thickening seen at the floor the left maxillary antrum. The remaining paranas al sinuses are well aerated. The mastoid air cells are well aerated. Soft tissues: No focal soft tissue abnormalities are identified. IMPRESSION: No acute intracranial abnormalities. Mild cerebral cortical atrophy and remote small ves mane disease are again seen. ACT 112: Negative or not required by law. Electronically signed by: Nito Harris M.D. 07/15/2021 6:51 PM
[2021-07-15] MEDS: AMOXICILLIN/CLAVULANATE 875 MG TAB PO SCH (19:14)
[2021-07-15] MEDS ORDERED: LABETALOL HCL IV 5 MG/ML 20ML IV PRN (20:29)
[2021-07-15] MEDS: QUEtiapine FUMARATE 300 MG TABLET PO SCH (21:24)
[2021-07-15] MEDS: hydrALAZINE HCL 25 MG TAB PO SCH (21:25)
[2021-07-15 21:41] LABS: Amphetamines+Metham, Urine Neg (Neg); Barbiturates, Urine Neg (Neg); Benzodiazepine, Urine Neg (Neg); Cocaine, Urine Neg (Neg); MDMA (Ecstacy), Urine Neg (Neg); Methadone, Urine Neg (Neg); Opiate, Urine Neg (Neg); Phencyclidine, Urine Neg (Neg)
[2021-07-15] MEDS: GABAPENTIN 600 MG TAB PO SCH (23:22)
[2021-07-16] MEDS ORDERED: INFLUENZA VACCINE HIGH DOSE PF 65+ 0.7 ML SYR IM ONE (04:36)
[2021-07-16 04:45] LABS: Hematocrit (blood only) 36.1 % (42-52); Hemoglobin 11.7 g/dL (14.0-18.0); Mean Corpuscular Hemoglobin 32.1 pg (25-34); Mean Corpuscular Hgb Conc 32.4 g/dL (32-36); Mean Corpuscular Volume 98.9 fL (80-100); Platelet Count 189 K/uL (130-400); RDW Coefficient of Variation 13.1 % (11.5-14.5); RDW Standard Deviation 47.4 fL (36.4-46.3); Red Blood Count 3.65 M/uL (4.7-6.1); White Blood Count 4.85 K/uL (4.8-10.8)
[2021-07-16 04:48] LABS: Alanine Aminotransferase 21 U/L (12-78); Albumin Level 2.7 gm/dl (3.4-5.0); Aspartate Aminotransferase 14 U/L (15-37); BUN Creatinine Ratio 21.3 (10-20); Blood Urea Nitrogen 20 mg/dl (7-18); Calcium 8.4 mg/dl (8.5-10.1); Carbon Dioxide 29 mmol/L (21-32); Chloride 108 mmol/L (98-107); Creatinine Clr Calc Pharmacy 95.5 ml/min; Est GFR (African American) 95.5 ml/min; Est GFR (Non-African American) 82.4 ml/min; Glucose 146 mg/dl (70-99); Potassium 3.7 mmol/L (3.5-5.1); Sodium 141 mmol/L (136-145)
[2021-07-16 05:04] LABS: Albumin Globulin Ratio 0.8 (0.9-2); Alkaline Phosphatase 55 U/L (45-117); Bilirubin Direct < 0.1 mg/dl (0-0.2); Bilirubin,Total 0.2 mg/dl (0.2-1); Chol HDL Ratio 3; Cholesterol 173 mg/dl (0-200); Globulin 3.2 gm/dl (2.5-4.0); HDL Cholesterol 57 mg/dl; LDL Cholesterol Calculated 97 mg/dl; Phosphorus 3.8 mg/dl (2.5-4.9); Total Protein 5.9 gm/dl (6.4-8.2); Triglycerides 94 mg/dl (0-150); VLDL Cholesterol 19 mg/dl
[2021-07-16] MEDS: GABAPENTIN 600 MG TAB PO SCH ×3 (05:15→19:52)
[2021-07-16] MEDS ORDERED: NON-FORMULARY MEDICATION (Multivitamin Tablet) PO SCH (09:00)
[2021-07-16] MEDS: hydrALAZINE HCL 25 MG TAB PO SCH ×3 (10:24→19:52)
[2021-07-16] MEDS: MULTIVITAMIN TAB PO SCH (10:25)
[2021-07-16] MEDS: FOLIC ACID 1 MG TAB PO SCH (10:25)
[2021-07-16] MEDS: hydroCHLOROthiazide 25 MG TAB PO SCH (10:25)
[2021-07-16] MEDS: CHOLECALCIFEROL 1,000 UNITS 25 MCG TAB PO SCH (10:26)
[2021-07-16] MEDS: THIAMINE HCL 100 MG TAB PO SCH (10:26)
[2021-07-16] MEDS: AMOXICILLIN/CLAVULANATE 875 MG TAB PO SCH ×2 (10:26→18:38)
[2021-07-16] MEDS: ASPIRIN 81 MG ECTAB PO SCH (10:26)
[2021-07-16] MEDS: amLODIPine BESYLATE 5 MG TAB PO SCH (10:26)
[2021-07-16] MEDS: ENOXAPARIN INJ 40 MG/0.4 ML SYR SQ SCH (10:27)
--- NOTE | 2021-07-16 12:22 | Psychiatric Consultation ---
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 Psychiatry was consulted for recommendations regarding alcohol use and mood symptoms. Diagnostically consistent with alcohol use disorder and unspecified mood disorder-possible BPAD with hypomania versus substance-induced mood elevation versus delirium. Offered options for dual diagnosis inpt psych treatment and/or residential substance use which he declines at this time. He does not meet criteria for involuntary psychiatric treatment. He is well supported by outpatient services but provided him with additional information on resources. He is open to starting naltrexone for alcohol use disorder and his LFTs are normal so this would be safe to try. Provided motivational interviewing regarding alcohol use, he is at contemplative stage of change. (1) Alcohol use disorder, severe, dependence: (2) Alcohol withdrawal: Complication of substance-induced condition: uncomplicated Qualified Code(s): F10.230 - Alcohol dependence with withdrawal, uncomplicated (3) Unspecified mood [affective] disorder: -continue with alcohol withdrawal protocol -can consider starting naltrexone 25 mg qd for 2 days then increase to 50mg qd -provided with resources for alcohol use and mood symptoms; declining offers for dual diagnosis or residential substance use treatment at this time Risk Factors Assessment Do You Have Access To A Gun?: No Mental Health Diagnoses: Yes Substance Use Disorders: Yes Family History of Suicide: Yes Hopelessness: No Protective Factors Assessment Good Rapport with Provider: Yes Psych History Identifying Data 70 yo man with psychiatric history of alcohol use disorder, severe, and 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 Psychiatry was consulted for recommendations regarding alcohol use and mood symptoms. Chief Complaint "I use alcohol as a crutch". History of Present Illness Cosme is well known to the psychiatric consult service from previous admissions. In summary he has a long history of severe alcohol use disorder with periods of past residential treatment and engagement with AA but frequent ongoing use of alcohol. He often has periods of elevated mood with grandiosity potentially consistent with rai but this also co-occur in the context of heavy alcohol use and usually during periods of acute withdrawal with likely contribution from delirium as well. He is well supported in terms of outpatient resources with psychiatry, therapy and case management through the [facility] in [place]. Today he presents as calm and acknowledges ongoing alcohol use. He's ambivalent about residential treatment but agreed to take resource guide and to let his hospitalist team know if he desired referrals for substance use treatment or dual diagnosis treatment for mood and alcohol use. Currently he endorses "great" mood and discusses his plans to interview for a job at [employer]. He denies any depressive symptoms, SI or HI. No agitation or irritability. States his sleep and appetite have been stable. Reviewed his outpatient medications which he states he has been taking including mirtazapine and seroquel which he'd like to continue. Discussed option of naltrexone for alcohol use disorder which he is interested in and would like to try starting. Past Psychiatric History Previous Psych History: see HPI and past evals Do You Have Access To A Gun?: No Allergies Allergy/AdvReac Type Severity Reaction Status Date / Time clams AdvReac Intermediate Diarrhea Verified 07/15/21 14:29 ketorolac [From Toradol] AdvReac Intermediate Confusion Verified 07/15/21 14:29 Home Medications Medication Instructions Recorded Confirmed Type aspirin 81 mg tablet,delayed 81 mg PO DAILY 08/22/20 07/15/21 History release mirtazapine 45 mg tablet 45 mg PO HS 08/22/20 07/15/21 History omeprazole 20 mg tablet,delayed 20 mg PO DAILY PRN 08/22/20 07/15/21 History release meclizine 25 mg tablet 25 mg PO TID PRN #30 tab 09/11/20 07/15/21 Rx folic acid 1 mg tablet 1 mg PO DAILY 10/05/20 07/15/21 History gabapentin 300 mg capsule 300 mg PO TID 12/08/20 07/15/21 History amlodipine 5 mg tablet (Norvasc) 5 mg PO QAM #30 tab 12/12/20 07/15/21 Rx artificial saliva aerosol spray 1 spray MUCOUS MEMBRANE UD PRN 04/24/21 07/15/21 History celecoxib 100 mg capsule (Celebrex) 100 mg PO BID 04/24/21 07/15/21 History cholecalciferol (vitamin D3) 25 25 mcg PO DAILY 04/24/21 07/15/21 History mcg (1,000 unit) tablet (Vitamin D3) clotrimazole 1 % topical cream 1 applic TOPICAL BID PRN 04/24/21 07/15/21 History hydralazine 25 mg tablet 25 mg PO TID 04/24/21 07/15/21 History hydrochlorothiazide 12.5 mg tablet 12.5 mg PO DAILY 04/24/21 07/15/21 History multivitamin 1 tab PO DAILY 04/24/21 07/15/21 History quetiapine 300 mg tablet 300 mg PO HS 04/24/21 07/15/21 History sildenafil 100 mg tablet 100 mg PO DAILY PRN 04/24/21 07/15/21 History thiamine HCl (vitamin B1) 100 mg 100 mg PO QAM 04/24/21 07/15/21 History tablet Lactobacillus acidoph-L.bulgaricus 1 tab PO BID #30 tab 04/28/21 07/15/21 Rx 1 million cell chewable tablet (Lactinex) Family History Father by suicide Substance Abuse History see HPI-long history of heavy alcohol use, he can't describe specific recent amounts but endorses ongoing use Personal History Beliefs That Will Affect Care: None Patient History Medical History (Updated 07/16/21 @ 12:14 by Luz Turner MD) Acute hyperkalemia Alcohol abuse Alcohol intoxication Alcohol use disorder, severe, dependence Bipolar disorder Frequent falls History of alcohol abuse Sleep deprivation Syncope TIA (transient ischemic attack) Unspecified mood [affective] disorder Family History Other Suicide Social History Smoking Status: Never smoker Hx Alcohol Use: Yes Alcohol type: beer Hx Substance Use: No Preferred Language: Singaporean Communication Ability: Effective 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 Beliefs That Will Affect Care: None marital status: / Current Living Situation: Alone current occupational status: retired How many Children do You have: 4 Other Information That Helps Us Care for You: No Feels Safe at Home: Yes Assistive Devices: Oxygen - Continuous Physical Exam Psychiatric: Orientation: alert and oriented x 3 Apperance: + disheveled Eye Contact: good eye contact Motor Behavior: no abnormal motor movements Speech: normal rate/rhythm/volume of speech Affect: euthymic affect Mood: no depressed mood and no anxious mood Thought Process: linear/logical thought process Thought Content: reality based without delusions (some gran diosity about potential high level job with [employer] ) Suicidal Thoughts: denies suicidal thoughts Homicidal Thoughts: denies homicidal thoughts Hallucinations: no auditory hallucinations and no visual hallucinations Cognition: recent memory grossly intact, remote memory grossly intact, attention grossly intact and language grossly intact Estimated Intelligence: consistent with education level Insight: + limited insight Judgement: + fair judgement Vital Signs (Past 24 Hours): Last Vital Signs Temp 36.5 C 07/16/21 07:37 Pulse 80 07/16/21 07:37 Resp 15 07/16/21 07:37 BP 130/70 07/16/21 07:37 Pulse Ox 96 07/16/21 07:37 Review of Systems All systems reviewed & are unremarkable except as noted in HPI & below Results & Data (PSY) Laboratory Results AST low, ALT wnl Medications Administered Amlodipine Besylate (Amlodipine Besylate 5 Mg Tab) 5 mg PO QAM [facility] Stop: 08/15/21 08:59 Last Admin: 07/16/21 10:26 Dose: 5 mg Documented by: [id number] Amoxicillin/Clavulanate Potassium (Amoxicillin/Clavulanate 875 Mg Tab) 1 tab PO BIDM [facility]; Protocol Stop: 07/25/21 18:59 Last Admin: 07/16/21 10:26 Dose: 1 tab Documented by: [id number] Admin: 07/15/21 19:14 Dose: 1 tab Documented by: [id number] Aspirin (Aspirin 81 Mg Ectab) 81 mg PO DAILY [facility] Stop: 08/15/21 08:59 Last Admin: 07/16/21 10:26 Dose: 81 mg Documented by: [id number] Enoxaparin Sodium (Enoxaparin Inj 40 Mg/0.4 Ml Syr) 40 mg SQ QAM [facility] Stop: 08/15/21 08:59 Last Admin: 07/16/21 10:27 Dose: 40 mg Documented by: [id number] Folic Acid (Folic Acid 1 Mg Tab) 1 mg PO DAILY [facility] Stop: 08/15/21 08:59 Last Admin: 07/16/21 10:25 Dose: 1 mg Documented by: [id number] Hydralazine HCl (Hydralazine Hcl 25 Mg Tab) 25 mg PO TID [facility] Stop: 08/14/21 20:59 Last Admin: 07/16/21 10:24 Dose: 25 mg Documented by: [id number] Admin: 07/15/21 21:25 Dose: 25 mg Documented by: [id number] Hydrochlorothiazide (Hydrochlorothiazide 25 Mg Tab) 12.5 mg PO DAILY [facility] Stop: 08/15/21 08:59 Last Admin: 07/16/21 10:25 Dose: 12.5 mg Documented by: [id number] Multivitamins (Multivitamin Tab) 1 tab PO QAM [facility] Stop: 08/15/21 08:59 Last Admin: 07/16/21 10:25 Dose: 1 tab Documented by: [id number] Quetiapine Fumarate (Quetiapine Fumarate 300 Mg Tablet) 300 mg PO HS [facility] Stop: 08/14/21 20:59 Last Admin: 07/15/21 21:24 Dose: 300 mg Documented by: [id number] Thiamine HCl (Thiamine Hcl 100 Mg Tab) 100 mg PO QAM [facility] Stop: 08/15/21 08:59 Last Admin: 07/16/21 10:26 Dose: 100 mg Documented by: [id number] Vitamin D (Cholecalciferol 1,000 Units 25 Mcg Tab) 1,000 units PO DAILY [facility] Stop: 08/15/21 08:59 Last Admin: 07/16/21 10:26 Dose: 1,000 units Documented by: [id number] Coding Level of Care Code 80123 Inpt Consult Level 3 Diagnoses Alcohol use disorder, severe, dependence F10.20 Alcohol withdrawal F10.230 Complication of substance-induced condition: uncomplicated Unspecified mood [affective] disorder F39
[2021-07-16] MEDS: ACETAMINOPHEN 325 MG TAB PO PRN (18:43)
--- NOTE | 2021-07-16 18:57 | Hospitalist Progress Note ---
Date of Service July 16, 2021 Assessment & Plan (1) Alcohol intoxication: (2) Fall: Plan: per admitting service notes: - Continue on Lopressor IV as needed for blood pressure, resume home medications including hydralazine and amlodipine, hold HCTZ - WASS, start gabapentin protocol - Alcohol level of 5 upon being in the ER this time, has previously had levels in the 200s this past month - Will need psych referral for outpatient rehab/therapy/counseling 07/16/21 no signs of overt alcohol withdrawal Continue alcohol withdrawal protocol, including gabapentin PT OT evaluation Psychiatry service consulted Recommending to start naltrexone 25 mg for 2 days then 50 mg then uptitrate per outpatient PCP Patient declined referrals to inpatient psychiatry /substance abuse rehab (3) Hypertensive urgency: Plan: -Blood pressure elevated at 181/116, IV labetalol as above Improving, continue amlodipine, hydralazine, HCTZ (4) History of alcohol abuse: Plan: -Psych consult -Gabapentin protocol, ASS -Thiamine, multivitamin, folic acid daily (5) Weakness: Plan: -PT/OT consults, fall precaution (6) Sinusitis: Plan: -Continue Augmentin 875 twice daily -CT of the head reviewed-showing chronic mild ethmoid sinusitis -Admits to upper respiratory-like infection symptoms -COVID-19 is negative DVR popx: - ila cross CODE: Full code Dispo: From home, likely to remain in the hospital x 1-2 days (7) Forehead laceration: Admission and Anticipated Discharge Date Admission Date: July 15, 2021 Subjective ff up for alcohol intoxication, fall, HTN seen resting in bed, comfortable, not in distress pleasant, conversant, giving detailed accounts, oriented x 3 states he feels ok overall headache improving No changes in vision, dizziness, nausea vomiting, focal neurologic deficits Denies chest pain, shortness of breath, palpitations No abdominal pain, problems urination or bowel movement Denies tremors, anxiety, hallucinations No other symptoms Review of Systems Review of Systems: all noted and negative except for above Physical Exam Physical Exam: General- oriented x 3, not in distress, speaks in sentences with no effort or accessory muscle use Head-positive laceration frontal area-Dermabond in place, well opposed, no bleeding or discharge Eyes- PERRL, EOMI, anicteric ENT- oropharynx clear Neck- supple, no JVD, no adenopathy, no thyromegaly; carotids +2/2, no bruits appreciated Lungs- clear to auscultation bilaterally, no rales/wheezes Heart- normal rate, regular rhythm; no murmur, no gallop, no rub appreciated Abdomen- normal bowel sounds, nondistended, soft, nontender, no masses or hepatosplenomegaly Extremities- no pretibial edema, no calf tenderness; peripheral pulses intact Neuro- alert, oriented x 3; CN 2-12 grossly intact; motor 5/5 bilaterally;sensation 100% on all extremities; no other gross focal neurologic deficits Skin- warm & dry Results & Data Results & [facility] ([facility]) Vital Signs (Past 12 Hours) Vital Signs Temp Pulse Pulse Resp BP Pulse Ox Pulse Ox 07/16/21 18:27 92 H 07/16/21 16:40 36.8 C 84 18 157/98 H 97 07/16/21 15:00 83 15 138/80 95 07/16/21 12:00 37.4 C 87 21 137/80 96 07/16/21 07:37 36.5 C 72 80 15 130/70 96 96 all noted and reviewed including below
[2021-07-16] MEDS: QUEtiapine FUMARATE 300 MG TABLET PO SCH (19:52)
[2021-07-16] MEDS ORDERED: MIRTAZAPINE SOLTAB 15 MG PO SCH (21:00)
--- NOTE | 2021-07-16 23:16 | Electrocardiogram Report ---
Test Reason : Blood Pressure : / mmHG Vent. Rate : 120 BPM Atrial Rate : 120 BPM P-R Int : 192 ms QRS Dur : 090 ms QT Int : 300 ms P-R-T Axes : 013 -18 017 degrees QTc Int : 424 ms Sinus tachycardia Possible Left atrial enlargement Poor R wave progression, consider anterior [place] vs. lead placement vs. LVH Abnormal ECG When compared with ECG of 23-JUN-2021 17:07, Premature atrial complexes are no longer Present Confirmed by Augustine Huynh ([id number]) on 07/16/2021 11:16:29 PM Referred By: Confirmed By:Augustine Huynh
[2021-07-17] MEDS: GABAPENTIN 600 MG TAB PO SCH (06:01)
[2021-07-17 06:56] LABS: Estimated Average Glucose 117 mg/dl; Hemoglobin A1C 5.7 % (4.5-5.6)
[2021-07-17 08:11] LABS: Hematocrit (blood only) 38.1 % (42-52); Hemoglobin 12.4 g/dL (14.0-18.0); Mean Corpuscular Hemoglobin 31.8 pg (25-34); Mean Corpuscular Hgb Conc 32.5 g/dL (32-36); Mean Corpuscular Volume 97.7 fL (80-100); Mean Platelet Volume 9.3 fL (7.4-10.4); Platelet Count 197 K/uL (130-400); RDW Coefficient of Variation 12.9 % (11.5-14.5); RDW Standard Deviation 45.5 fL (36.4-46.3); White Blood Count 4.16 K/uL (4.8-10.8)
[2021-07-17] MEDS: amLODIPine BESYLATE 5 MG TAB PO SCH (08:17)
[2021-07-17] MEDS: ASPIRIN 81 MG ECTAB PO SCH (08:17)
[2021-07-17] MEDS: CHOLECALCIFEROL 1,000 UNITS 25 MCG TAB PO SCH (08:17)
[2021-07-17] MEDS: ENOXAPARIN INJ 40 MG/0.4 ML SYR SQ SCH (08:17)
[2021-07-17] MEDS: AMOXICILLIN/CLAVULANATE 875 MG TAB PO SCH ×2 (08:17→17:16)
[2021-07-17] MEDS: FOLIC ACID 1 MG TAB PO SCH (08:18)
[2021-07-17] MEDS: hydrALAZINE HCL 25 MG TAB PO SCH ×2 (08:18→14:20)
[2021-07-17] MEDS: hydroCHLOROthiazide 25 MG TAB PO SCH (08:18)
[2021-07-17] MEDS: MULTIVITAMIN TAB PO SCH (08:19)
[2021-07-17] MEDS: THIAMINE HCL 100 MG TAB PO SCH (08:19)
[2021-07-17] MEDS: ACETAMINOPHEN 325 MG TAB PO PRN (08:22)
[2021-07-17 08:26] LABS: Albumin Level 2.7 gm/dl (3.4-5.0); BUN Creatinine Ratio 16.5 (10-20); Calcium 8.8 mg/dl (8.5-10.1); Creatinine Clr Calc Pharmacy 97.6 ml/min; Est GFR (African American) 100.6 ml/min; Est GFR (Non-African American) 86.8 ml/min; Potassium 3.8 mmol/L (3.5-5.1)
[2021-07-17 08:29] LABS: Albumin Globulin Ratio 0.8 (0.9-2); Bilirubin,Total 0.4 mg/dl (0.2-1); Globulin 3.5 gm/dl (2.5-4.0); Total Protein 6.2 gm/dl (6.4-8.2)
[2021-07-17 11:48] VITALS: BP 153/87; TEMP 98.6; O2SAT 96
[2021-07-17] MEDS ORDERED: NALTREXONE HCL 50 MG TAB PO SCH ×2 (13:00)
--- NOTE | 2021-07-17 13:07 | Hospitalist Progress Note ---
Date of Service July 17, 2021 Assessment & Plan (1) Alcohol intoxication: (2) Fall: Plan: per admitting service notes: - Continue on Lopressor IV as needed for blood pressure, resume home medications including hydralazine and amlodipine, hold HCTZ - WASS, start gabapentin protocol - Alcohol level of 5 upon being in the ER this time, has previously had levels in the 200s this past month - Will need psych referral for outpatient rehab/therapy/counseling 07/17/21 no signs of overt alcohol withdrawal since admission Please add alcohol withdrawal protocol including gabapentin protocol Patient to take 2 more doses of 600 mg every 12 hours then resume usual g abapentin 300 mg 3 times daily Evaluated by psych service, recommending to start naltrexone 25 mg p.o. daily, then uptitrate to 50 mg after at least 2 days Declined inpatient alcohol rehab programs Circulation to make sure patient has follow-up set up with psychiatrist and bilingual patient support caseworker PT OT evaluation: Recommend patient to be discharged home with rolling walker Please reevaluate for driving fitness Strongly advised alcohol cessation No drinking and driving as well (3) Hypertensive urgency: Plan: -Blood pressure elevated at 181/116, IV labetalol as above Improved with continuation of usual amlodipine, hydralazine, HCTZ Continue outpatient monitoring Patient advised to follow-up with PCP this week (4) History of alcohol abuse: Plan: Management per #1 (5) Weakness: Plan: Improved significantly (6) Sinusitis: Plan: -Continue Augmentin 875 twice daily -CT of the head reviewed-showing chronic mild ethmoid sinusitis -Admits to upper respiratory-like infection symptoms -COVID-19 is negative DVR popx: - ila cross CODE: Full code Dispo: Discharge to home Follow-up with PCP this week Follow-up with outpatient psychiatrist plan of care discussed with patient in detail and at length all questions answered He is understanding, agreeable, comfortable with the plan of care he expressed gratitude for the care (7) Forehead laceration: Admission and Anticipated Discharge Date Admission Date: July 15, 2021 Subjective Follow-up for alcohol intoxication, fall, hypertension, etc. Seen sitting up in bed, comfortable, no distress, in good spirits, very pleasant States he feels much better overall States that he is back to his baseline Denies headache, dizziness, change in vision, nausea or vomiting, focal neurologic deficits no chest pain, dyspnea, palpitations, dizziness Denies tremors, anxiety, hallucinations, sweating Appetite is great No other symptoms No other pain in his body States that he is ready and would like to be discharged today Review of Systems Review of Systems: all noted and negative except for above Physical Exam Physical Exam: General- oriented x 3, not in distress, speaks in sentences with no effort or accessory muscle use Head-laceration in the frontal area status post Dermabond placement, well opposed, healing well, no bleeding or discharge Surrounding hematoma improving Eyes- anicteric Neck- no JVD Lungs- clear breath sounds bilaterally, no rales/wheezes Heart- normal rate, regular rhythm; no murmurs Abdomen- normal bowel sounds, nondistended, soft, nontender Extremities- no pretibial edema, no calf tenderness No tremors Neuro- alert, oriented x 3; no gross focal neurologic deficits Skin- warm & dry Results & Data Results & [facility]) Vital Signs (Past 12 Hours) Vital Signs Temp Pulse Pulse Resp BP BP Pulse Ox 07/17/21 11:47 37.0 C 87 20 153/87 H 96 07/17/21 08:05 36.6 C 89 18 150/90 H 95 07/17/21 07:29 74 07/17/21 04:00 37.0 C 82 18 142/78 H 94 all noted and reviewed including below
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
[2021-07-17 15:40] VITALS: PULSE 84
[2021-07-17] MEDS ORDERED: GABAPENTIN 600 MG TAB PO SCH ×2 (17:00)
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
[2021-07-19] MEDS ORDERED: GABAPENTIN 600 MG TAB PO SCH (05:00)
== END 2021-07-17 18:17 | disposition home or self-care (01) | DRG 897 ==
LOC: ED 12:16 → SUATTDRO 16:11 → EDINP 16:11 → 2N 07-16 03:04